=== PATIENT | male | born 1930 | race Hispanic/Latino ===

== ENCOUNTER 2018-11-15 16:35 | Emergency (ER) | payer OTHER ==
[2018-11-15 17:32] LABS: Absolute Lymphocytes (CBC) 0.4 K/uL (0.7-4.9); Absolute Monocytes 0.2 K/uL (0.1-1.3); Absolute Neutrophil 8.6 K/uL (1.8-8.0); Basophils % 0.4 % (0-1.3); Lymphocytes % 3.9 % (15.3-44.8); MPV 8.5 fL (7.6-11.3); Monocytes % 1.7 % (3.3-12.3); RBC Red Blood Cell Count 4.75 M/uL (4.33-5.43)
[2018-11-15 17:36] LABS: Protime INR 0.99
[2018-11-15 17:37] LABS: Urine Blood 2+ (NEG); Urine Glucose NEGATIVE (NEG); Urine Protein 2+ (NEG); Urine Specific Gravity 1.015 (1.005-1.030); Urine pH 6.5 (5.0-7.0)
--- NOTE | 2018-11-15 17:49 | RAD REPORT ---
EXAM DESCRIPTION: Romero Single View11/15/2018 5:43 pm CLINICAL HISTORY: sob COMPARISON: none FINDINGS: The lungs appear clear of acute infiltrate. The heart is normal size IMPRESSION: No acute abnormalities displayed
[2018-11-15 17:52] LABS: Albumin 3.9 g/dL (3.4-5.0); Bilirubin Direct 0.1 mg/dL (0-0.2); Bilirubin Total 0.6 mg/dL (0.2-1.0); Magnesium 2.4 mg/dL (1.8-2.4); Potassium 4.3 mmol/L (3.5-5.1); Protein, Total 7.5 g/dL (6.4-8.2); Troponin (Emerg Dept Use Only) 0.02 ng/mL (0.0-0.045)
[2018-11-15 18:06] LABS: Blood Morphology Comment NOT SEEN (NOT SEEN); Platelet Estimate ADEQ; Urine White Blood Cell Casts OK
[2018-11-15] MEDS ORDERED: NA CHLORIDE 0.9% 250 ML ONE (18:16)
[2018-11-15] MEDS ORDERED: NA CHLORIDE 0.9% 500 ML ONE (18:16)
[2018-11-15] MEDS ORDERED: MECLIZINE HCL 12.5 MG TAB ONE (18:16)
[2018-11-15] MEDS ORDERED: ONDANSETRON 4 MG/2 ML VIAL ONE (18:16)
--- NOTE | 2018-11-15 18:30 | RAD REPORT ---
EXAM DESCRIPTION: CT - Head Brain Wo Cont - 11/15/2018 6:06 pm CLINICAL HISTORY: Dizziness COMPARISON: None TECHNIQUE: Computed axial tomography of the head was obtained. IV contrast was not requested. All CT scans are performed using dose optimization technique as appropriate and may include automated exposure control or mA/KV adjustment according to patient size. FINDINGS: An intracranial bleed is not seen . The ventricles are normal in caliber. No extra-axial fluid collection is noted. 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 Fluid within the sinuses/ mastoids is not seen. IMPRESSION: No acute intracranial abnormality is seen. If patient's symptoms persist MRI of the bra in would be recommended.
[2018-11-15 18:53] LABS: Urine Bacteria >50 /HPF (NONE SEEN); Urine Culture Reflex Order REFLEXED
[2018-11-15] MEDS ORDERED: CEFTRIAXONE/SWI 1gm 1 GM/10 ML SYR ONE (19:23)
--- NOTE | 2018-11-15 20:07 | ER ---
Nurse's Notes [facility] Name: Oc King Age: 88 yrs Sex: Male : 1930 Arrival Date: 11/15/2018 Time: 16:40 Bed 6 Private MD: Bandar Delgado Diagnosis: Abnormalities of gait and mobility;Dizziness and giddiness;Urinary tract infection, site not specified Presentation: 11/15 16:42 Presenting complaint: Patient states: I cant go to sleep, when I lay down I get real la1 dizzy and when I move a certain kind of way I get very dizzy. Transition of care: patient was not received from another setting of care. Onset of symptoms was November 15, 2018. Risk Assessment: Do you want to hurt yourself or someone else? Patient reports no desire to harm self or others. Initial Sepsis Screen: Does the patient meet any 2 criteria? No. Patient's initial sepsis screen is negative. Does the patient have a suspected source of infection? No. Patient's initial sepsis screen is negative. Care prior to arrival: None. 16:42 Method Of Arrival: Ambulatory la1 16:42 Acuity: AUTUMN 3 la1 Triage Assessment: 16:47 General: Appears in no apparent distress. comfortable, Behavior is calm, cooperative, bp appropriate for age. Pain: Complains of pain in abdomen. Historical: - Allergies: 16:43 No Known Allergies; la1 - PMHx: 16:43 None; la1 - Immunization history:: Adult Immunizations up to date. - Social history:: Smoking status: Patient/guardian denies using tobacco. - Ebola Screening: : No symptoms or risks identified at this time. Screenin:11 Abuse screen: Denies threats or abuse. Denies injuries from another. Nutritional bp screening: No deficits noted. Tuberculosis screening: No symptoms or risk factors identified. Fall Risk None identified. Assessment: 16:45 General: Appears in no apparent distress. uncomfortable, slender, Behavior is bp cooperative, appropriate for age, anxious. Pain: Complains of pain in abdomen. Neuro: Level of Consciousness is awake, alert, obeys commands, Oriented to person, place, time, situation, Appropriate for age. Cardiovascular: No deficits noted. Respiratory: Airway is patent Respiratory effort is even, unlabored, Respiratory pattern is regular, symmetrical. GI: Reports constipation. : No signs and/or symptoms were reported regarding the genitourinary system. EENT: No deficits noted. Derm: No deficits noted. Musculoskeletal: Circulation, motion, and sensation intact. Range of motion: intact in all extremities. 17:28 Reassessment: ALL INITIAL ORDERS COMPLETED, RESULTS PENDING. bp 19:31 General: Appears in no apparent distress. uncomfortable, Behavior is cooperative, tl2 appropriate for age, anxious. Pain: Complains of pain in abdomen. Neuro: Level of Consciousness is awake, alert, obeys commands, Oriented to person, place, time, situation, Reports dizziness. Cardiovascular: Denies chest pain. Respiratory: Airway is patent Respiratory effort is even, unlabored, Respiratory pattern is regular, symmetrical. GI: Reports constipation. : No signs and/or symptoms were reported regarding the genitourinary system. Derm: Skin is pink, warm \T\ dry. 20:30 Reassessment: Patient appears in no apparent distress at this time. Patient and/or tl2 family updated on plan of care and expected duration. Pain level reassessed. Patient is alert, oriented x 3, equal unlabored respirations, skin warm/dry/pink. 21:20 Reassessment: Patient appears in no apparent distress at this time. Patient is alert, tl2 oriented x 3, equal unlabored respirations, skin warm/dry/pink. pt stable for transfer. Vital Signs: 16:43 BP 165 / 90; Pulse 101; Resp 16; Temp 98.9; Pulse Ox 98% on R/A; Weight 58.06 kg; la1 Height 5 ft. 2 in. (157.48 cm); 17:25 BP 169 / 77 Supine; Pulse 102; bp 17:25 BP 169 / 83 Sitting; Pulse 108; bp 17:25 BP 181 / 79 Standing; Pulse 108; Resp 23; Pulse Ox 97% on R/A; bp 18:39 BP 175 / 80; Pulse 80; Resp 21; Pulse Ox 96% ; bp 20:00 BP 175 / 80; Pulse 71; Resp 18; Pulse Ox 95% on R/A; tl2 16:43 Body Mass Index 23.41 (58.06 kg, 157.48 cm) la1 NIH Stroke Scale Scores: 17:30 NIHSS Score: 0 cp ED Course: 16:40 Patient arrived in ED. 16:40 Bandar Delgado DO is Private Physician. mr 16:42 Arm band placed on left wrist. la1 16:43 Triage completed. la1 16:44 [facility] cp 16:44 Alo Antony MD is Attending Physician. cp 16:45 Chris Garcia, HERIBERTO is Primary Nurse. bp 17:11 Patient has correct armband on for positive identification. Placed in gown. Bed in low bp position. Call light in reach. Side rails up X2. 17:27 Inserted saline lock: 20 gauge in left antecubital area, using aseptic technique. Blood ss collected. 17:34 EKG done, by ED staff, reviewed by Kush ELIZONDO. jb1 17:40 XRAY Chest (1 view) In Process Unspecified. EDMS 17:[address] vm2 18:06 CT completed. Patient tolerated procedure well. Patient moved back from CT. mw3 18:07 CT Head Brain wo Cont In Process Unspecified. EDMS 19:55 Primary Nurse role handed off by Chris Garcia, RN ed1 20:00 No provider procedures requiring assistance completed. tl2 21:20 Patient transferred, IV remains in place. tl2 Administered Medications: 17:50 Drug: Meclizine 25 mg Route: PO; bp 19:01 Follow up: Response: No adverse reaction bp 17:50 Drug: Zofran 4 mg Route: IVP; Site: left antecubital; bp 18:54 Follow up: Response: No adverse reaction bp 18:55 Follow up: Response: No adverse reaction bp 17:50 Drug: NS 0.9% 1000 ml Route: IV; Rate: 75 ml/hr; Site: left antecubital; bp 17:50 Drug: NS 0.9% 250 ml Route: IV; Rate: bolus; Site: left antecubital; bp 19:15 Drug: Rocephin - (cefTRIAXone) 1 grams {Note: Given IVP over 5 minutes.} Route: IVPB; tl1 Infused Over: 5 mins; Site: left antecubital; Outcome: 20:07 ER care complete, transfer ordered by . cp 21:20 Transferred by ground EMS to [facility], Transfer form completed. tl2 21:20 Condition: stable 21:20 Discharge instructions given to patient, family, Instructed on the need for transfer. 21:23 Patient left the ED. bp NIH Stroke Scale - NIH Stroke Score Date: 11/15/2018 Time: 17:30 Total Score = 0 1a. Level of Consciousness (LOC) - 0(Alert) 1b. Level of Consciousness (LOC) (Year \T\ Age) - 0(Both) 1c. LOC Commands (Open \T\ Closes Eyes/Outside Property Agent) - 0(Both) 2. Best Gaze (Lateral Gaze Paresis) - 0(Normal) 3. Visual Field Loss - 0(No visual loss) 4. Facial Palsy - 0(Normal) 5a. Left Arm: Motor (10-second hold) - 0(No drift) 5b. Right Arm: Motor (10-second hold) - 0(No drift) 6a. Left Leg: Motor (5-second hold - always test supine) - 0(No drift) 6b. Right Leg: Motor (5-second hold - always test supine) - 0(No drift) 7. Limb Ataxia (finger/nose \T\ heel/villavicencio - test with eyes open) - 0(Absent) 8. Sensory Loss (pinprick arms/legs/face) - 0(Normal) 9. Best Language: Aphasia (description/naming/reading) - 0(No aphasia) 10. Dysarthria (speech clarity - read or repeat words) - 0(Normal) 11. Extinction and Inattention (visual/tactile/auditory/spatial/personal) - 0(No abnormality) Initials: cp Signatures: Dispatcher [employer] EDMS River Argueta jb1 Susannah Gale mr Sri Akhtar RN RN ss Riggs, Erika, RN RN ed1 Red Everett RN RN la1 Lilo Luo RN RN tl1 Kush Stewart PA PA cp Sujatha Alba, RN RN tl2 Pari Nava2 Chris Garcia RN RN Carmela Washburn mw3 Corrections: (The following items were deleted from the chart) 21:40 19:31 General: Appears in no apparent distress. uncomfortable, Behavior is tl2 cooperative, appropriate for age, anxious, bp 21:40 19:31 Pain: Complains of pain in abdomen bp tl2 21:40 19:31 Neuro: Level of Consciousness is awake, alert, obeys commands, Oriented tl2 to person, place, time, situation, bp 21:40 19:31 Cardiovascular: Denies chest pain, bp tl2 21:40 19:31 Respiratory: Airway is patent Respiratory effort is even, unlabored, tl2 Respiratory pattern is regular, symmetrical, bp 21:40 19:31 GI: Reports constipation, bp tl2 21:40 19:31 : No signs and/or symptoms were reported regarding the genitourinary tl2 system. bp 21:40 19:31 Derm: Skin is pink, warm \T\ dry. bp tl2 21:42 19:30 BP 175 / 80; Pulse 97bpm; Resp 21bpm; Pulse Ox 100% RA; bp tl2 21:43 20:00 Patient transferred, IV remains in place. tl2 tl2
--- NOTE | 2018-11-15 20:08 | EDPHYS ---
Physician Documentation [facility] Name: Oc King Age: 88 yrs Sex: Male : 1930 Arrival Date: 11/15/2018 Time: 16:40 Bed 6 Private MD: Bandar Delgado ED Physician Alo Antony HPI: 11/15 17:30 This 88 yrs old Male presents to ER via Ambulatory with complaints of cp dizziness, nausea and vomiting. 17:30 The patient presents with dizziness, generalized weakness, lightheadedness. Onset: The cp symptoms/episode began/occurred 1-2 days ago. Context: just prior to the episode the patient experienced no apparent symptoms. Associated signs and symptoms: Pertinent positives: nausea, vomiting, Pertinent negatives: abdominal pain, chest pain, confusion, focal weakness, syncope. Severity of symptoms: in the emergency department the symptoms are unchanged despite home interventions. Patient's baseline: Neuro: alert and fully oriented, Motor: no deficits, Ambulation: walks without assistance, Speech: normal. Historical: - Allergies: 16:43 No Known Allergies; la1 - PMHx: 16:43 None; la1 - Immunization history:: Adult Immunizations up to date. - Social history:: Smoking status: Patient/guardian denies using tobacco. - Ebola Screening: : No symptoms or risks identified at this time. ROS: 17:35 Constitutional: Negative for body aches, chills, fever, poor PO intake. cp 17:35 Eyes: Negative for injury, pain, redness, and discharge. cp 17:35 ENT: Negative for drainage from ear(s), ear pain, difficulty swallowing, difficulty handling secretions. 17:35 Cardiovascular: Negative for chest pain, edema, palpitations. 17:35 Respiratory: Negative for cough, shortness of breath, wheezing. 17:35 Abdomen/GI: Positive for nausea, vomiting, Negative for abdominal pain, diarrhea, constipation, black/tarry stool, rectal bleeding. 17:35 Back: Negative for pain at rest, pain with movement, radiated pain. 17:35 : Negative for urinary symptoms. 17:35 Skin: Negative for cellulitis, rash. 17:35 Neuro: Positive for dizziness, gait disturbance, Negative for altered mental status, syncope, weakness. 17:35 All other systems are negative. Exam: 17:30 ECG was reviewed by the Attending Physician. cp 17:40 Constitutional: The patient appears in no acute distress, alert, awake, cp non-diaphoretic, non-toxic, well developed, well nourished. 17:40 Head/Face: Normocephalic, atraumatic. cp 17:40 Eyes: Periorbital structures: appear normal, Pupils: equal, round, and reactive to light and accomodation, Extraocular movements: intact throughout, Conjunctiva: normal, no exudate, no injection, Sclera: no appreciated abnormality, Lids and lashes: appear normal, bilaterally. 17:40 ENT: External ear(s): are unremarkable, Ear canal(s): are normal, clear, TM's: bulging, is not appreciated, bilaterally, dullness, bilaterally, erythema, is not appreciated, bilaterally, Nose: is normal, Mouth: Lips: moist, Oral mucosa: pink and intact, moist, Posterior pharynx: Airway: no evidence of obstruction, patent. 17:40 Neck: ROM/movement: is normal, is supple, without pain, no range of motions limitations, no meningismus, no nuchal rigidity. 17:40 Chest/axilla: Inspection: normal, Palpation: is normal, no crepitus, no tenderness. 17:40 Cardiovascular: Rate: tachycardic, Rhythm: regular, Edema: is not appreciated, JVD: is not appreciated. 17:40 Respiratory: the patient does not display signs of respiratory distress, Respirations: normal, no use of accessory muscles, no retractions, no splinting, no tachypnea, labored breathing, is not present, Breath sounds: are clear throughout, no decreased breath sounds, no stridor, no wheezing. 17:40 Abdomen/GI: Inspection: abdomen appears normal, Bowel sounds: active, all quadrants, Palpation: abdomen is soft and non-tender, in all quadrants, rebound tenderness, is not appreciated, voluntary guarding, is not appreciated, involuntary guarding, is not appreciated. 17:40 Back: pain, is absent, ROM is normal. 17:40 Skin: cellulitis, is not appreciated, no rash present. 17:40 Neuro: Orientation: to person, place \T\ time. Mentation: is normal, Cerebellar function: Romberg testing is negative, normal finger to nose testing, heel to villavicencio testing is normal, Motor: moves all fours, strength is normal, Sensation: is normal, Gait: is unsteady. Vital Signs: 16:43 BP 165 / 90; Pulse 101; Resp 16; Temp 98.9; Pulse Ox 98% on R/A; Weight 58.06 kg; la1 Height 5 ft. 2 in. (157.48 cm); 17:25 BP 169 / 77 Supine; Pulse 102; bp 17:25 BP 169 / 83 Sitting; Pulse 108; bp 17:25 BP 181 / 79 Standing; Pulse 108; Resp 23; Pulse Ox 97% on R/A; bp 18:39 BP 175 / 80; Pulse 80; Resp 21; Pulse Ox 96% ; bp 20:00 BP 175 / 80; Pulse 71; Resp 18; Pulse Ox 95% on R/A; tl2 16:43 Body Mass Index 23.41 (58.06 kg, 157.48 cm) la1 NIH Stroke Scale Scores: 17:30 NIHSS Score: 0 cp MDM: 16:44 Patient medically screened. cp 19:10 Data reviewed: vital signs, nurses notes, lab test result(s), EKG, radiologic studies, cp CT scan. 19:10 Test interpretation: by ED physician or midlevel provider: ECG. Response to treatment: cp the patient's symptoms have mildly improved after treatment, Patient continues to have unsteady gait when ambulating. 20:05 Physician consultation: DR Schmitt, hospitalist \T\[facility], will cp accept patient as transfer. 11/15 17:15 Order name: CBC with Diff; Complete Time: 18:32 bp 11/15 18:43 Interpretation: Normal except: TUAN% 94.0; LYM% 3.9; MN% 1.7; NEUT A 8.6; LYMA 0.4. cp 11/15 17:15 Order name: LFT's; Complete Time: 18:32 bp 11/15 17:15 Order name: Magnesium; Complete Time: 18:32 bp 11/15 17:15 Order name: NT PRO-BNP; Complete Time: 18:32 bp 11/15 17:15 Order name: PT-INR; Complete Time: 17:43 bp 11/15 17:15 Order name: Troponin (emerg Dept Use Only); Complete Time: 18:32 bp 11/15 17:15 Order name: XRAY Chest (1 view); Complete Time: 18:32 bp 11/15 18:43 Interpretation: Report review. cp 11/15 17:15 Order name: CMP; Complete Time: 18:32 bp 11/15 18:42 Interpretation: Normal except: GLUC 133; BUN 34; CRE 1.44; GFR 47; AST 13; GLOB 3.6. cp 11/15 17:15 Order name: Lipase; Complete Time: 18:32 bp 11/15 17:24 Order name: Urine Dipstick--Ancillary (enter results); Complete Time: 17:43 eb 11/15 18:58 Interpretation: Normal except: UBLD 2+; UPROT 2+; UESTR 3+. cp 11/15 17:37 Order name: CBC Smear Scan; Complete Time: 18:32 EDMS 11/15 17:43 Order name: CT Head Brain wo Cont; Complete Time: 18:32 cp 11/15 18:43 Interpretation: Report reviewed. cp 11/15 17:43 Order name: Urine Microscopic Only; Complete Time: 18:56 cp 11/15 18:56 Interpretation: Normal except: UWBC >50; URBC 5-10; UBACT >50. cp 11/15 18:55 Order name: Urine Culture EDMS 11/15 17:11 Order name: Orthostatics; Complete Time: 17:15 cp 11/15 17:15 Order name: EKG; Complete Time: 17:16 bp 11/15 17:15 Order name: Cardiac monitoring; Complete Time: 17:15 bp 11/15 17:15 Order name: EKG - Nurse/Tech; Complete Time: 17:25 bp 11/15 17:15 Order name: IV Saline Lock; Complete Time: 17:16 bp 11/15 17:15 Order name: Labs collected and sent; Complete Time: 17:19 bp 11/15 17:15 Order name: O2 Per Protocol; Complete Time: 17:16 bp 11/15 17:15 Order name: O2 Sat Monitoring; Complete Time: 17:16 bp 11/15 17:19 Order name: Urine Dipstick-Ancillary (obtain specimen); Complete Time: 17:19 bp EC:30 Rate is 78 beats/min. Rhythm is regular. OR interval is normal. QRS interval is normal. cp QT interval is normal. T waves are Inverted in lead aVR. Interpreted by me. Reviewed by me. Administered Medications: 17:50 Drug: Meclizine 25 mg Route: PO; bp 19:01 Follow up: Response: No adverse reaction bp 17:50 Drug: Zofran 4 mg Route: IVP; Site: left antecubital; bp 18:54 Follow up: Response: No adverse reaction bp 18:55 Follow up: Response: No adverse reaction bp 17:50 Drug: NS 0.9% 1000 ml Route: IV; Rate: 75 ml/hr; Site: left antecubital; bp 17:50 Drug: NS 0.9% 250 ml Route: IV; Rate: bolus; Site: left antecubital; bp 19:15 Drug: Rocephin - (cefTRIAXone) 1 grams {Note: Given IVP over 5 minutes.} Route: IVPB; tl1 Infused Over: 5 mins; Site: left antecubital; Disposition: 11/15/18 20:07 Transfer ordered to [facility]. Diagnosis are Abnormalities of gait and mobility, Dizziness and giddiness, Urinary tract infection, site not specified. - Reason for transfer: Higher level of care. - Accepting physician is DR Yajaira Schmitt. - Condition is Stable. - Problem is new. - Symptoms are unchanged. NIH Stroke Scale - NIH Stroke Score Date: 11/15/2018 Time: 17:30 Total Score = 0 1a. Level of Consciousness (LOC) - 0(Alert) 1b. Level of Consciousness (LOC) (Year \T\ Age) - 0(Both) 1c. LOC Commands (Open \T\ Closes Eyes/Binding Nicker) - 0(Both) 2. Best Gaze (Lateral Gaze Paresis) - 0(Normal) 3. Visual Field Loss - 0(No visual loss) 4. Facial Palsy - 0(Normal) 5a. Left Arm: Motor (10-second hold) - 0(No drift) 5b. Right Arm: Motor (10-second hold) - 0(No drift) 6a. Left Leg: Motor (5-second hold - always test supine) - 0(No drift) 6b. Right Leg: Motor (5-second hold - always test supine) - 0(No drift) 7. Limb Ataxia (finger/nose \T\ heel/villavicencio - test with eyes open) - 0(Absent) 8. Sensory Loss (pinprick arms/legs/face) - 0(Normal) 9. Best Language: Aphasia (description/naming/reading) - 0(No aphasia) 10. Dysarthria (speech clarity - read or repeat words) - 0(Normal) 11. Extinction and Inattention (visual/tactile/auditory/spatial/personal) - 0(No abnormality) Initials: cp Addendum: 11/17/2018 08:10 Co-signature as Attending Physician, Alo Antony MD Available for ps1 consultation at all times. . Signatures: Dispatcher [employer] EDTX Red Everett RN RN la1 Lilo Luo RN RN tl1 Kush Stewart PA PA cp Chris Garcia, RN RN bp Alo Antony MD MD ps1 Corrections: (The following items were deleted from the chart) 11/15 17:57 17:45 This 88 yrs old Male presents to ER via Ambulatory with cp complaints of Constipation, Abdominal Pain, Nausea. cp 18:42 18:37 Normal except: GLUC 133; BUN 34; CRE 1.44; GFR 47; AST 13. cp cp 18:43 18:42 Normal except: TUAN% 94.0; LYM% 3.9; MN% 1.7; NEUT A 8.6. cp cp 19:25 19:00 Head Angio+CT.RAD.BRZ ordered. EDTX EDMS 19:25 19:00 Neck Angio+CT.RAD.BRZ ordered. EDTX EDMS 20:01 17:30 This 88 yrs old Male presents to ER via Ambulatory with cp complaints of Constipation, Abdominal Pain, Nausea. cp 21:23 20:07 11/15/2018 20:07 Transfer ordered to [facility]. bp Diagnosis is Abnormalities of gait and mobility; Dizziness and giddiness; Urinary tract infection, site not specified. Reason for transfer: Higher level of care. Accepting physician is DR Yajaira Schmitt. Condition is Stable. Problem is new. Symptoms are unchanged. cp
--- NOTE | 2018-11-17 05:55 | EKG ---
Test Date: 2018-11-15 Test Time: 17:25:12 Process Steward: SATURNINO MEASUREMENT RESULTS: Intervals: Rate: 78 VA: 154 QRSD: 96 QT: 390 QTc: 444 [place]: P: 68 VA: 154 QRS: -22 T: 65 INTERPRETIVE STATEMENTS: Normal sinus rhythm ST abnormality, possible digitalis effect Abnormal ECG No previous ECG available for comparison Electronically Signed On 11-17-18 05:54:39 CDT by Mumtaz Delgado
== END 2018-11-15 21:23 | disposition short-term general hospital (02) ==
LOC: ER 16:35
DX: N39.0 Urinary tract infection, site not specified (principal); R26.89 Other abnormalities of gait and mobility; R42 Dizziness and giddiness; R94.31 Abnormal electrocardiogram [ECG] [EKG]
CPT/HCPCS: 93005; 87088; 85025; 87086; 36415; 83735; 85610; 80076; 84484; 83690; 80053; 83880; 70450; 71045; 96375; 96374; 99285; J0696; J2405; 81003; 81015

== ENCOUNTER 2018-12-13 07:56 | Emergency (ER) | payer OTHER ==
--- OUTSIDE RECORDS SUMMARY | 2018-12-13 07:59 | XMS REPORT | Clinical Summary ---
:1930 Author Organization [facility] Address [address] [place] [address] Care Team Providers Name Role Phone Bandar Delgado Primary Care Provider Allergies No Known Allergies Medications Medication Sig Dispensed Refills Start End Status Date Date atorvastatin (LIPITOR) 80 Take 1 tablet 30 tablet 2 11/22/192 Active MG tablet (80 mg total) 19 020 by mouth nightly. senna-docusate (SENOKOT Take 1 tablet 60 tablet 0 11/22/19 Active S) 8.6-50 mg per tablet by mouth 2 020 (two) times daily. bisacodyl (DULCOLAX) 5 mg Take 2 tablets 30 tablet 0 11/22/192 Active EC tablet (10 mg total) 19 019 by mouth daily as needed for Constipation for up to 30 days. aspirin 81 MG EC tablet Take 1 tablet 30 tablet 2 11/23/192 Active (81 mg total) 19 020 by mouth daily. losartan (COZAAR) 50 MG Take 1 tablet 30 tablet 2 11/23/192 Active tablet (50 mg total) 19 020 by mouth daily. amLODIPine (NORVASC) 5 MG Take 1 tablet 30 tablet 2 11/23/192 Active tablet (5 mg total) by 19 020 mouth daily. carboxymethylcellulose Place 1 drop 1 Bottle 0 11/22/19 Active (REFRESH PLUS) 0.5 % Dpet into both eyes 19 ophthalmic solution 3 (three) times daily as needed. bisacodyl (DULCOLAX) 10 Place 1 12 suppository 0 11/22/19//2 mg suppository suppository (10 019 mg total) rectally daily as needed for up to 10 days. polyethylene glycol Take 17 g by 14 each 0 11/23/19 (GLYCOLAX) 17 gram packet mouth daily for 019 3 days. levoFLOXacin (LEVAQUIN) Take 1 tablet 5 tablet 0 11/22/19 250 MG tablet (250 mg total) 019 by mouth daily for 5 days. 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 Never 11/16/2018 How many drinks containing alcohol do you have on a typical Not asked day when you are drinking? How often do you have six or more drinks on one occasion? Not asked Sex Assigned at Date Recorded Not on file Job Start Date Occupation Industry Not on file Not on file Not on file Travel History Travel Start Travel End No recent travel history available. Last Filed Vital Signs Vital Sign Reading Time Taken Blood Pressure 159/69 11/21/2018 1:40 PM CDT Pulse 61 11/21/2018 1:40 PM CDT Temperature 36.8 C (98.2 F) 11/21/2018 1:40 PM CDT Respiratory Rate 18 11/21/2018 1:40 PM CDT Oxygen Saturation 96% 11/21/2018 1:40 PM CDT Inhaled Oxygen Concentration - - Weight 53.5 kg (118 lb) 11/15/2018 11:00 PM CDT Height 157.5 cm (5' 2") 11/15/2018 11:00 PM CDT Body Mass Index 21.58 11/15/2018 11:00 PM CDT Plan of Treatment Not on file Procedures Procedure Name Priority Date/Time Associated Diagnosis Comments RHYTHM STRIP - SCAN 11/25/2018 9:11 AM CDT TRANSFUSION SERVICE 11/21/2018 6:01 PM REPORT - SCAN CDT ECG 12-LEAD Routine 11/21/2018 9:45 AM CDT Procedure Note - Interface, External Ris In - 11/21/2018 9:56 AM CDT Ventricular Rate 65 BPM Atrial Rate 65 BPM P-R Interval 152 ms QRS Duration 86 ms Q-T Interval 398 ms QTC Calculation(Bazett) 413 ms P [place] 65 degrees R [place] -22 degrees T [place] 84 degrees Normal sinus rhythm Nonspecific T wave abnormality Abnormal ECG No previous ECGs available ECG 12-LEAD Timed 11/21/2018 9:45 AM CDT TYPE AND SCREEN, AUTOMATED Routine 11/20/2018 3:49 AM CDT BASIC METABOLIC PANEL (7) Routine 11/18/2018 9:[address] ABDOMEN/PELVIS WITHOUT IV Routine 11/18/2018 3:53 AM CDT Results for this CONTRAST procedure are in the results section. ECHOCARDIOGRAM REPORT - SCAN 11/17/2018 9:22 PM CDT 2D ECHO W/ DOPPLER Routine 11/17/2018 11:36 AM CDT Results for this (CW/PW/COLOR) procedure are in the results section. URINALYSIS W/ REFLEX URINE Routine 11/17/2018 4:28 AM CDT Results for this CULTURE procedure are in the results section. SODIUM, RANDOM URINE Routine 11/17/2018 4:28 AM CDT CREATININE, RANDOM URINE Routine 11/17/2018 4:28 AM CDT URINE CULTURE Routine 11/17/2018 4:28 AM CDT CBC W/PLT COUNT & AUTO Routine 11/17/2018 4:23 AM CDT Results for this DIFFERENTIAL procedure are in the results section. COMPREHENSIVE METABOLIC Routine 11/17/2018 4:23 AM CDT Results for this PANEL procedure are in the results section. CBC W/PLT COUNT & AUTO Routine 11/17/2018 4:23 AM CDT Results for this DIFFERENTIAL procedure are in the results section. LIPID PANEL Routine 11/17/2018 4:23 AM CDT CAROTID DOPPLER BILATERAL Routine 11/16/2018 10:58 PM CDT US RENAL COMPLETE Routine 11/16/2018 9:09 PM CDT TSH/FREE T4 IF INDICATED STAT 11/16/2018 10:37 AM CDT TROPONIN I Routine 11/16/2018 10:37 AM CDT URINALYSIS MICROSCOPIC Routine 11/16/2018 5:16 AM CDT RAPID DRUG SCREEN, URINE STAT 11/16/2018 5:16 AM CDT URINALYSIS WITH MICROSCOPIC STAT 11/16/2018 5:16 AM CDT Results for this IF INDICATED procedure are in the results section. CBC W/PLT COUNT & AUTO Routine 11/16/2018 1:53 AM CDT Results for this DIFFERENTIAL procedure are in the results section. TROPONIN I Routine 11/16/2018 1:53 AM CDT CBC W/PLT COUNT & AUTO Routine 11/16/2018 1:53 AM CDT Results for this DIFFERENTIAL procedure are in the results section. BASIC METABOLIC PANEL (7) Routine 11/16/2018 1:53 AM CDT MR BRAIN WITHOUT IV CONTRAST STAT 11/16/2018 1:09 AM CDT MR MRA NECK WITHOUT IV STAT 11/16/2018 1:09 AM CDT Results for this CONTRAST procedure are in the results section. MR MRA HEAD WITHOUT CONTRAST STAT 11/16/2018 1:09 AM CDT after 12/12/2017 Results RHYTHM STRIP - SCAN (11/25/2018 9:11 AM CDT) Narrative Performed At TRANSFUSION SERVICE REPORT - SCAN (11/21/2018 6:01 PM CDT) Narrative Performed At ECG 12 lead (11/21/2018 9:45 AM CDT) Specimen Narrative Performed At Ventricular Rate 65 BPM GE MUSE Atrial Rate 65 BPM P-R Interval 152 ms QRS Duration 86 ms Q-T Interval 398 ms QTC Calculation(Bazett) 413 ms P [place] 65 degrees R [place] -22 degrees T [place] 84 degrees Normal sinus rhythm Nonspecific T wave abnormality Abnormal ECG No previous ECGs available Confirmed by MD Garcia Roberto ([id number]) on 11/22/2018 9:28:42 AM Procedure Note Interface, External Ris In - 11/22/2018 9:28 AM CDT Ventricular Rate 65 BPM Atrial Rate 65 BPM P-R Interval 152 ms QRS Duration 86 ms Q-T Interval 398 ms QTC Calculation(Bazett) 413 ms P [place] 65 degrees R [place] -22 degrees T [place] 84 degrees Normal sinus rhythm Nonspecific T wave abnormality Abnormal ECG No previous ECGs available Confirmed by MD Garcia Roberto ([id number]) on 11/22/2018 9:28:42 AM Performing Organization Address City/State/Zipcode Phone Number GE MUSE Type and screen, automated ([facility]) (11/20/2018 3:49 AM CDT) ABO/RH AUTOMATED (BEAKER) O POSITIVE [facility] Ab Scrn NEGATIVE [facility] Specimen Blood Performing Organization Address City/[facility]/Zipcode Phone Number [facility] [address] [place] [address] Basic Metabolic Panel (11/18/2018 9:54 AM CDT)Only the most recent of2 resultswithin the time period is included. Sodium 139 136 - 145 meq/L [facility] Potassium 3.9Comment: Specimen slightly 3.5 - 5.1 meq/L [facility] Chloride 108 (H) 98 - 107 meq/L [facility] CO2 22 22 - 29 meq/L [facility] BUN 35 (H) 7 - 21 mg/dL [facility] Creatinine 1.40 (H)Comment: Specimen 0.57 - 1.25 mg/dL [facility] slightly hemolyzed [facility] Glucose 130 (H) 70 - 105 mg/dL [facility] Calcium 9.1 8.4 - 10.2 mg/dL [facility] EGFR 48Comment: ESTIMATED GFR IS mL/min/1.73 sq m [facility] NOT ACCURATE CREATININE [facility] CENTER CLEARANCE IN PREDICTING GLOMERULAR FILTRATION RATE. ESTIMATED GFR IS NOT APPLICABLE FOR DIALYSIS PATIENTS. Specimen Blood Performing Organization Address City/State/Zipcode Phone Number [facility] [address] [place] [address] abdomen/pelvis without iv contrast (11/18/2018 3:53 AM CDT) Specimen Narrative Performed At FINAL REPORT [employer] CLINICAL HISTORY: Abnormal findings on recent renal ultrasound performed for renal dysfunction, including hydronephrosis. FINDINGS: Multiple axial images of the abdomen and pelvis were performed without intravenous contrast. Oral contrast was not given. This exam was performed according to our departmental dose-optimization program, which includes automated exposure control, adjustment of the mA and/or kV according to patient size and/or use of the iterative reconstruction technique. Comparison:None. Lower chest: Dependent atelectasis in the right lung. No pleural effusion or pneumothorax. Atherosclerotic calcification of the coronary arteries. Liver: No significant findings. Gallbladder and biliary tree: No significant findings. Spleen: No significant findings. Adrenal Glands: No significant findings. Kidneys and ureters: Atrophic kidneys. A right ureteral stent has its proximal coil in the prominent right renal pelvis. The distal coil is within the distal right ureter rather than within the urinary bladder. There is mild prominence of the right ureter with adjacent fat stranding. 3.6 cm right renal cyst. Stomach and Duodenum: No significant findings. Pancreas: No significant findings. Bowel: Moderate fecal burden may reflect mild constipation. Left colonic diverticulosis. Appendix: Normal. Bladder: No significant findings. Major vascular structures: Atherosclerotic calcifications Reproductive organs: Previous prostatectomy Other: No free air, fluid or adenopathy Skeleton: No acute bony abnormality. IMPRESSION: The proximal coil of a right ureteral stent is in a dilated right renal pelvis but the distal coil is in the distal ureter rather than within the bladder lumen, as expected. Urologic evaluation is recommended. Subtle periureteral fat stranding may relate to a chronic appearance or obstructive uropathy but a urinary tract infection should be excluded with urinalysis. Mild constipation. Signed: Tad Chang MD Report Verified Date/Time:11/18/2018 04:16:41 Reading Location: [address] Reading Room Procedure Note Interface, External Ris In - 11/18/2018 4:18 AM CDT FINAL REPORT CLINICAL HISTORY: Abnormal findings on recent renal ultrasound performed for renal dysfunction, including hydronephrosis. FINDINGS: Multiple axial images of the abdomen and pelvis were performed without intravenous contrast. Oral contrast was not given. This exam was performed according to our departmental dose-optimization program, which includes automated exposure control, adjustment of the mA and/or kV according to patient size and/or use of the iterative reconstruction technique. Comparison:None. Lower chest: Dependent atelectasis in the right lung. No pleural effusion or pneumothorax. Atherosclerotic calcification of the coronary arteries. Liver: No significant findings. Gallbladder and biliary tree: No significant findings. Spleen: No significant findings. Adrenal Glands: No significant findings. Kidneys and ureters: Atrophic kidneys. A right ureteral stent has its proximal coil in the prominent right renal pelvis. The distal coil is within the distal right ureter rather than within the urinary bladder. There is mild prominence of the right ureter with adjacent fat stranding. 3.6 cm right renal cyst. Stomach and Duodenum: No significant findings. Pancreas: No significant findings. Bowel: Moderate fecal burden may reflect mild constipation. Left colonic diverticulosis. Appendix: Normal. Bladder: No significant findings. Major vascular structures: Atherosclerotic calcifications Reproductive organs: Previous prostatectomy Other: No free air, fluid or adenopathy Skeleton: No acute bony abnormality. IMPRESSION: The proximal coil of a right ureteral stent is in a dilated right renal pelvis but the distal coil is in the distal ureter rather than within the bladder lumen, as expected. Urologic evaluation is recommended. Subtle periureteral fat stranding may relate to a chronic appearance or obstructive uropathy but a urinary tract infection should be excluded with urinalysis. Mild constipation. Signed: Tad Chang MD Report Verified Date/Time: 11/18/2018 04:16:41 Reading Location: [address] Reading Room Performing Organization Address City/State/Zipcode Phone Number [employer] RIS ECHOCARDIOGRAM REPORT - SCAN (11/17/2018 9:22 PM CDT) Narrative Performed At Transthoracic 2D echo w/ doppler (cw/pw/color) (11/17/2018 11:36 AM CDT) Ejection Fraction [facility] Specimen Narrative Performed At Transthoracic Echocardiography Report (TTE) [facility] Demographics Patient NameOC KING Date of Study11/17/2018 SINTIA Gender Male Visit [id number] Race Unknown [id number] Number Date of 1930 Referring Physician Age 88 year(s) SonographerChris Briceño RDCS Interpreting [facility] Needs to be Pre PhysicianDee Amado MD Procedure Type of Study TTE procedure:2DECHO W DOPPLER(CW/PW/COLOR) (Pending Discharge) Indications:Unexplained Pre-syncope/Syncope. Clinical History Cancer Hypertension HGB 13.1 HCT 39.2 % Contrast Medium: Definity. Amount - 2 ml Height: 62 inches Weight: 53.52 kg (118 lbs) BSA: 1.53 m^2 BMI: 21.58 kg/m^2 HR: 68 bpm BP: 141/65 mmHg Summary The left ventricle is chamber size (by PSLAX dimension) is normal (male - LVIDd 4.2-5.8cm) . Mild concentric LV hypertrophy. All of the LV segments contract normally . Estimated LVEF by qualitative assessment is normal (>60%) . Grade 1 diastolic dysfunction (impaired relaxation and low-normal LA pressure). Moderate aortic stenosis. AoV area at rest by continuity equation is in the range of 1.2 cm2. AoV resting dimensionless obstructive index (DOI) 0 .27. AoV resting Mean Gradient=26mmHg. Estimated peak systolic PA pressure is 20-25 mmHg . Signature Findings Left Ventricle The left ventricle is chamber size (by PSLAX di mension) is normal (male - LVIDd 4.2-5.8cm) . Mi ld concentric LV hypertrophy. All of the LV se gments contract normally . Estimated LVEF by qu alitative assessment is normal (>60%) . Gr jorge 1 diastolic dysfunction (impaired relaxation an d low-normal LA pressure). Left AtriumLA size is moderately enlarged (42-48 ml/m2) . Right VentricleThe right ventricular chamber size and systolic fu nction are within normal limits. Right Atrium RA size is normal. Aortic Valve Mild AoV cusp thickening. Mi ld AoV cusp calcification. Mo derate aortic stenosis. Ao V area at rest by continuity equation is in the ra nge of 1.2 cm2. Ao V resting dimensionless obstructive index (DOI) 0 .2 7. Ao V resting Mean Gradient=26mmHg. Mitral Valve Mild MV leaflet thickening. Mi ld mitral annular calcification. Tricuspid ValveTV structure is normal. Es timated peak systolic PA pressure is 20-25 mmHg . Pulmonic Valve PV is not well visualized; function appears normal by Doppler visualized. AortaAortic root size (SInus of Valsalva diameter) is no rmal . PericardiumNo pericardial effusion is visualized. IVC/SVC/PA/PV/PleuralThe estimated RA pressure by IVC dynamics 0-5mmHg . Chambers/Structures Left Atrium LA Dimension: 4.14 cmLA Area: 21.64 cm^2 LA Volume: 67.28 ml LA Vol. Index: 44 ml/m^2 Left Ventricle LVIDd: 4.4 cm LVIDs: 2.94 cm LV Septum Diastolic: 1.2 cm LV PW Diastolic: 1.25 cm LV FS: 33.2 % LVOT Diameter: 2.26 cm Aorta Ao Root S of Blanca.: 2.99 cm Doppler/Quantitative Measurements Aortic Valve Peak Velocity: 3.37 m/sMean Velocity: 2.42 m/s Peak Gradient: 45.4 mmHg Mean Gradient: 26.21 mmHg AV Area (continuity): 1.16 cm^2 AV VTI: 69.34 cm AV DVI: 0.29 LVOT Peak Velocity: 0.76 m/s Peak Gradient: 2.31 mmHg Mean Velocity: 0.54 m/s Mean Gradient: 1.35 mmHg LVOT Diameter: 2.26 cmLVOT VTI: 20.08 cm LVOT Area: 4.01 cm^2LVOT SV:80.51 ml LVOT CO: 5.47 l/min LVOT CI: 3.58 l/min/m^2 Procedure Note Interface, External Ris In - 11/17/2018 2:05 PM CDT Transthoracic Echocardiography Report (TTE) Demographics Patient Name OC KING Date of Study 11/17/2018 SINTIA Gender Male Visit Number [id number] Race Unknown Room Number 2455 Number Date of 1930 Referring Physician Age 88 year(s) Soccer Commentator Chris Briceño RDCS Interpreting [facility] Needs to be Pre Physician Read Tashi Amado MD Procedure Type of Study TTE procedure:2DECHO W DOPPLER(CW/PW/COLOR) (Pending Discharge) Indications:Unexplained Pre-syncope/Syncope. Clinical History Cancer Hypertension HGB 13.1 HCT 39.2 % Contrast Medium: Definity. Amount - 2 ml Height: 62 inches Weight: 53.52 kg (118 lbs) BSA: 1.53 m^2 BMI: 21.58 kg/m^2 HR: 68 bpm BP: 141/65 mmHg Summary The left ventricle is chamber size (by PSLAX dimension) is normal (male - LVIDd 4.2-5.8cm) . Mild concentric LV hypertrophy. All of the LV segments contract normally . Estimated LVEF by qualitative assessment is normal (>60%) . Grade 1 diastolic dysfunction (impaired relaxation and low-normal LA pressure). Moderate aortic stenosis. AoV area at rest by continuity equation is in the range of 1.2 cm2. AoV resting dimensionless obstructive index (DOI) 0 .27. AoV resting Mean Gradient=26mmHg. Estimated peak systolic PA pressure is 20-25 mmHg . Signature Findings Left Ventricle The left ventricle is chamber size (by PSLAX dimension) is normal (male - LVIDd 4.2-5.8cm) . Mild concentric LV hypertrophy. All of the LV segments contract normally . Estimated LVEF by qualitative assessment is normal (>60%) . Grade 1 diastolic dysfunction (impaired relaxation and low-normal LA pressure). Left Atrium LA size is moderately enlarged (42-48 ml/m2) . Right Ventricle The right ventricular chamber size and systolic function are within normal limits. Right Atrium RA size is normal. Aortic Valve Mild AoV cusp thickening. Mild AoV cusp calcification. Moderate aortic stenosis. AoV area at rest by continuity equation is in the range of 1.2 cm2. AoV resting dimensionless obstructive index (DOI) 0 .27. AoV resting Mean Gradient=26mmHg. Mitral Valve Mild MV leaflet thickening. Mild mitral annular calcification. Tricuspid Valve TV structure is normal. Estimated peak systolic PA pressure is 20-25 mmHg . Pulmonic Valve PV is not well visualized; function appears normal by Doppler visualized. Aorta Aortic root size (SInus of Valsalva diameter) is normal . Pericardium No pericardial effusion is visualized. IVC/SVC/PA/PV/Pleural The estimated RA pressure by IVC dynamics 0-5mmHg . Chambers/Structures Left Atrium LA Dimension: 4.14 cm LA Area: 21.64 cm^2 LA Volume: 67.28 ml LA Vol. Index: 44 ml/m^2 Left Ventricle LVIDd: 4.4 cm LVIDs: 2.94 cm LV Septum Diastolic: 1.2 cm LV PW Diastolic: 1.25 cm LV FS: 33.2 % LVOT Diameter: 2.26 cm Aorta Ao Root S of Blanca.: 2.99 cm Doppler/Quantitative Measurements Aortic Valve Peak Velocity: 3.37 m/s Mean Velocity: 2.42 m/s Peak Gradient: 45.4 mmHg Mean Gradient: 26.21 mmHg AV Area (continuity): 1.16 cm^2 AV VTI: 69.34 cm AV DVI: 0.29 LVOT Peak Velocity: 0.76 m/s Peak Gradient: 2.31 mmHg Mean Velocity: 0.54 m/s Mean Gradient: 1.35 mmHg LVOT Diameter: 2.26 cm LVOT VTI: 20.08 cm LVOT Area: 4.01 cm^2 LVOT SV:80.51 ml LVOT CO: 5.47 l/min LVOT CI: 3.58 l/min/m^2 Performing Organization Address City/State/Zipcode Phone Number [facility] Urinalysis w/Microscopic + Reflex to Culture (11/17/2018 4:28 AM CDT) Color, UA Light Yellow [facility] Clarity, UA Clear [facility] Specific [place]once, UA 1.009 1.001 - 1.035 [facility] pH, UA 6.0 5.0 - 8.0 [facility] Protein, UA 20 mg/dL (A) Negative [facility] Glucose, UA Negative Negative [facility] Ketones, UA Negative Negative [facility] Bilirubin, UA Negative Negative [facility] Blood, UA Trace (A) Negative [facility] Nitrite, UA Negative Negative [facility] Leukocytes, UA Large (A) Negative [facility] Urobilinogen, UA 0.2 0.2 - 1.0 mg/dL [facility] RBC, UA 3 /HPF [facility] WBC, UA 67 /HPF [facility] Bacteria, UA Rare [facility] Specimen Source [facility] Specimen Urine Performing Organization Address City/State/Zipcode Phone Number [address] [address] [phone] [place] Sodium, random urine (11/17/2018 4:28 AM CDT) Sodium Urine 56 meq/L [facility] Specimen Urine Narrative Performed At Reference Range: No Normals [facility] Performing Organization Address City/[facility]/Zipcode Phone Number [address] [address] [phone] [place] Creatinine, random urine (11/17/2018 4:28 AM CDT) Creatinine, Ur 53.5 mg/dL [facility] Specimen Urine Narrative Performed At Reference Range: No Normals [facility] Performing Organization Address City/[facility] Phone Number [address] [address] [place] Urine culture (11/17/2018 4:28 AM CDT) Result PSEUDOMONAS AERUGINOSA (A) [facility] Result PSEUDOMONAS AERUGINOSA (A)Comment: [facility] of a second type MEDICAL CENTER Specimen Urine Narrative Performed At <10,000 col/mL Gram negative vladimir [facility] Organism Antibiotic Method Susceptibility Pseudomonas aeruginosa Amikacin <8: Susceptible Pseudomonas aeruginosa Aztreonam 8: Susceptible Pseudomonas aeruginosa Cefepime <=4: Susceptible Pseudomonas aeruginosa Ceftazidime 2: Susceptible Pseudomonas aeruginosa Ciprofloxacin <=0.5: Susceptible Pseudomonas aeruginosa Gentamicin <=2: Susceptible Pseudomonas aeruginosa Levofloxacin <=1: Susceptible Pseudomonas aeruginosa Meropenem 4: Resistant Pseudomonas aeruginosa Piperacillin <=16: Susceptible Pseudomonas aeruginosa Piperacillin + Tazobactam <=8: Susceptible Pseudomonas aeruginosa Tobramycin <=2: Susceptible Pseudomonas aeruginosa Amikacin <=8: Susceptible Pseudomonas aeruginosa Aztreonam 4: Susceptible Pseudomonas aeruginosa Cefepime <=4: Susceptible Pseudomonas aeruginosa Ceftazidime <=1: Susceptible Pseudomonas aeruginosa Ciprofloxacin <=0.5: Susceptible Pseudomonas aeruginosa Gentamicin <=2: Susceptible Pseudomonas aeruginosa Levofloxacin <=1: Susceptible Pseudomonas aeruginosa Meropenem 2: Susceptible Pseudomonas aeruginosa Piperacillin 32: Resistant Pseudomonas aeruginosa Piperacillin + Tazobactam <=8: Susceptible Pseudomonas aeruginosa Tobramycin 4: Susceptible Performing Organization Address City/State/Zipcode Phone Number [facility] [address] [place] [address] CENTER CBC with platelet count + automated diff (11/17/2018 4:23 AM CDT)Only the most recent of2 resultswithin the time period is included. WBC 8.6 3.5 - 10.5 K/L [facility] RBC 4.12 (L) 4.63 - 6.08 M/L [facility] Hemoglobin 13.1 (L) 13.7 - 17.5 GM/DL [facility] Hematocrit 39.2 (L) 40.1 - 51.0 % [facility] MCV 95.1 (H) 79.0 - 92.2 fL [facility] MCH 31.8 25.7 - 32.2 pg [facility] MCHC 33.4 32.3 - 36.5 GM/DL [facility] RDW 14.1 11.6 - 14.4 % [facility] Platelets 178 150 - 450 K/CU MM [facility] MPV 10.3 9.4 - 12.4 fL [facility] nRBC 0 0 - 0 /100 WBC [facility] % Neutros 64 % [facility] % Lymphs 22 % [facility] % Monos 6 % [facility] % Eos 6 % [facility] % Baso 1 % [facility] CENTER # Neutros 5.50 (H) 1.78 - 5.38 K/L [facility] # Lymphs 1.93 1.32 - 3.57 K/L [facility] # Monos 0.55 0.30 - 0.82 K/L [facility] # Eos 0.54 0.04 - 0.54 K/L [facility] # Baso 0.06 0.01 - 0.08 K/L [facility] Immature Granulocytes-Relative 0 0 - 1 % [facility] Specimen Blood Performing Organization Address City/[facility] Phone Number [address] [address] [phone] [place] Fasting lipid panel (11/17/2018 4:23 AM CDT) Triglycerides 55 mg/dL [facility] Cholesterol 177 mg/dL [facility] HDL 50 mg/dL [facility] LDL Calculated 116 mg/dL [facility] Specimen Blood Narrative Performed At Triglyceride Reference Range: [facility] Low Risk <150 [id number] High Risk 200-499 Very High Risk>=500 Cholesterol Reference Range: Low Risk <200 [id number] High Risk>240 HDL Cholesterol Reference Range: Low Risk >=60 High Risk <40 LDL Cholesterol Reference Range: Optimal<100 Near Pcwfacw431-255 Qogssgmetx595-865 Pmfv507-552 Very High >=190 Fasting Specimen slightly icteric Performing Organization Address City/[facility] Phone Number [phone] [place] [address] [place] Comprehensive metabolic panel (11/17/2018 4:23 AM CDT) Protein, Total 5.9 (L) 6.0 - 8.3 gm/dL [facility] Albumin 3.4 (L) 3.5 - 5.0 g/dL [facility] Alkaline Phosphatase 84 40 - 150 U/L [facility] Total Bilirubin 0.6 0.2 - 1.2 mg/dL [facility] Sodium 138 136 - 145 meq/L [facility] Potassium 4.2 3.5 - 5.1 meq/L [facility] Chloride 107 98 - 107 meq/L [facility] CO2 23 22 - 29 meq/L [facility] BUN 41 (H) 7 - 21 mg/dL [facility] Creatinine 1.40 (H) 0.57 - 1.25 mg/dL [facility] Glucose 80 70 - 105 mg/dL [facility] Calcium 8.8 8.4 - 10.2 mg/dL [facility] AST 15 5 - 34 U/L [facility] ALT 11 6 - 55 U/L [facility] EGFR 48Comment: ESTIMATED GFR mL/min/1.[address] [facility] IS NOT ACCURATE [facility] CREATININE CLEARANCE IN PREDICTING GLOMERULAR FILTRATION RATE. ESTIMATED GFR IS NOT APPLICABLE FOR DIALYSIS PATIENTS. Specimen Blood Narrative Performed At Fasting [facility] Specimen slightly icteric Performing Organization Address City/State/Zipcode Phone Number [facility] [address] [place] [address] CENTER Carotid doppler bilateral (11/16/2018 10:58 PM CDT) Ejection Fraction [facility] ECHO HEARTLAB [facility] Specimen Impressions Performed At Right Impression [facility]ART[facility] 1. There is <50% diameter reduction (approximately 38% by 2-D measurement) in the internal carotid artery with a peak velocity of 73.3/15.2 cm/sec and heterogeneous plaque. 2. There is non-occluding plaque in the external carotid artery. 3. There is non-occluding plaque in the common carotid artery. 4. The vertebral artery flow is antegrade and normal. 5. The subclavian artery is within normal limits where visualized. Left Impression 1. There is <50% diameter reduction (approximately 23% by 2-D measurement) in the internal carotid artery with a peak velocity of 108/25.1 cm/sec and heterogeneous plaque. 2. There is non-occluding plaque in the external carotid artery. 3. There is non-occluding plaque in the common carotid artery. 4. The vertebral artery flow is antegrade and normal. 5. The subclavian artery is within normal limits where visualized. Conclusions Summary Carotid duplex scanning and color flow imaging were performed bilaterally. The arteries were adequately visualized. The bilateral internal carotid arteries had <50% hemodynamically insignificant stenosis (approximately 38% by 2-D measurement on the right, approximately 23% by 2-D measurement on the left) with heterogeneous plaque. The vertebral artery flow was antegrade and normal bilaterally. The subclavian arteries were patent with normal flow bilaterally where visualized. Signature Velocities are measured in cm/s ; Diameters are measured in cm Carotid Right Measurements + +----+----+-----+ +---- + + !Location !PSV !EDV !Angle!%Stenosis 2D!%Stenosis Doppler!Tortuosity ! + +----+----+-----+ +---- + + !Prox CCA !60.1!7.46!60 !! ! ! + +----+----+-----+ +---- + + !Dist CCA !75.8!6.29!60 !! ! ! + +----+----+-----+ +---- + + !Prox ICA !73.3!15.2!60 !38% !<50% ! ! + +----+----+-----+ +---- + + !Dist ICA !60.9!15.3!60 !! ! ! + +----+----+-----+ +---- + + !Prox ECA !96.2!7.62!60 !! ! ! + +----+----+-----+ +---- + + !Vertebral!37.3!10.2!60 !! ! ! + +----+----+-----+ +---- + + !Prox Subclavian!116 !!60 !! ! ! + +----+----+-----+ +---- + + - There is antegrade vertebral flow noted on the right side. - Additional Measurements:ICAPSV/CCAPSV 0.97.ICAEDV/CCAEDV 2.05. Carotid Left Measurements + +----+----+-----+ +---- + + !Location !PSV !EDV !Angle!%Stenosis 2D!%Stenosis Doppler!Tortuosity ! + +----+----+-----+ +---- + + !Prox CCA !65.6!9.43!60 !! ! ! + +----+----+-----+ +---- + + !Dist CCA !85.6!14.1!60 !! ! ! + +----+----+-----+ +---- + + !Prox ICA !108 !25.1!60 !23% !<50% ! ! + +----+----+-----+ +---- + + !Dist ICA !48.1!9.67!0!! ! ! + +----+----+-----+ +---- + + !Prox ECA !145 !3.93!60 !! ! ! + +----+----+-----+ +---- + + !Vertebral!36.2!9.28!60 !! ! ! + +----+----+-----+ +---- + + !Prox Subclavian!129 !!60 !! ! ! + +----+----+-----+ +---- + + - There is antegrade vertebral flow noted on the left side. - Additional Measurements:ICAPSV/CCAPSV 1.26.ICAEDV/CCAEDV 2.66. Narrative Performed At LAB - Carotid Duplex Study [facility]CHO [facility]ART[facility] Demographics Patient NameOC KING Date of Study11/16/2018 SINTIA Age88 Visit [id number] Gender Male Date of Birth1930 Referring Timothy Delatorre [id number] Physician Soccer Commentator Donald Aguirre Interpreting Yin Fitzpatrick, Physician Procedure Type of Study: Cerebral: Carotid, CAROTID DOPPLER, BILATERAL. Indications for Study:Ataxia. Patient Status:Routine. Study Location:Portable. Technical Quality:Adequate visualization. Risk Factors History of Disease + +----+ + !Diagnosis !Date!Comments ! + +----+ + !History/Risk Factors: !!HTN, COPD, DM, CHF, CKD, Stroke, Cancer ! + +----+ + Procedure Note Interface, External Ris In - 11/17/2018 10:32 PM CDT PV LAB - Carotid Duplex Study Demographics Patient Name OC KING Date of Study 11/16/2018 SINTIA Age 88 Visit Number [id number] Gender Male Accession Number [id number] Date of 1930 Referring Timothy Galan Room Number [id number] Physician Soccer Commentator Donald Aguirre Interpreting Yin Fitzpatrick, Physician Procedure Type of Study: Cerebral: Carotid, CAROTID DOPPLER, BILATERAL. Indications for Study:Ataxia. Patient Status:Routine. Study Location:Portable. Technical Quality:Adequate visualization. Risk Factors History of Disease + +----+ + !Diagnosis !Date!Comments ! + +----+ + !History/Risk Factors: ! !HTN, COPD, DM, CHF, CKD, Stroke, Cancer ! + +----+ + Impressions Right Impression 1. There is <50% diameter reduction (approximately 38% by 2-D measurement) in the internal carotid artery with a peak velocity of 73.3/15.2 cm/sec and heterogeneous plaque. 2. There is non-occluding plaque in the external carotid artery. 3. There is non-occluding plaque in the common carotid artery. 4. The vertebral artery flow is antegrade and normal. 5. The subclavian artery is within normal limits where visualized. Left Impression 1. There is <50% diameter reduction (approximately 23% by 2-D measurement) in the internal carotid artery with a peak velocity of 108/25.1 cm/sec and heterogeneous plaque. 2. There is non-occluding plaque in the external carotid artery. 3. There is non-occluding plaque in the common carotid artery. 4. The vertebral artery flow is antegrade and normal. 5. The subclavian artery is within normal limits where visualized. Conclusions Summary Carotid duplex scanning and color flow imaging were performed bilaterally. The arteries were adequately visualized. The bilateral internal carotid arteries had <50% hemodynamically insignificant stenosis (approximately 38% by 2-D measurement on the right, approximately 23% by 2-D measurement on the left) with heterogeneous plaque. The vertebral artery flow was antegrade and normal bilaterally. The subclavian arteries were patent with normal flow bilaterally where visualized. Signature Velocities are measured in cm/s ; Diameters are measured in cm Carotid Right Measurements + +----+----+-----+ + + + !Location !PSV !EDV !Angle!%Stenosis 2D!%Stenosis Doppler!Tortuosity ! + +----+----+-----+ + + + !Prox CCA !60.1!7.46!60 ! ! ! ! + +----+----+-----+ + + + !Dist CCA !75.8!6.29!60 ! ! ! ! + +----+----+-----+ + + + !Prox ICA !73.3!15.2!60 !38% !<50% ! ! + +----+----+-----+ + + + !Dist ICA !60.9!15.3!60 ! ! ! ! + +----+----+-----+ + + + !Prox ECA !96.2!7.62!60 ! ! ! ! + +----+----+-----+ + + + !Vertebral !37.3!10.2!60 ! ! ! ! + +----+----+-----+ + + + !Prox Subclavian!116 ! !60 ! ! ! ! + +----+----+-----+ + + + - There is antegrade vertebral flow noted on the right side. - Additional Measurements:ICAPSV/CCAPSV 0.97.ICAEDV/CCAEDV 2.05. Carotid Left Measurements + +----+----+-----+ + + + !Location !PSV !EDV !Angle!%Stenosis 2D!%Stenosis Doppler!Tortuosity ! + +----+----+-----+ + + + !Prox CCA !65.6!9.43!60 ! ! ! ! + +----+----+-----+ + + + !Dist CCA !85.6!14.1!60 ! ! ! ! + +----+----+-----+ + + + !Prox ICA !108 !25.1!60 !23% !<50% ! ! + +----+----+-----+ + + + !Dist ICA !48.1!9.67!0 ! ! ! ! + +----+----+-----+ + + + !Prox ECA !145 !3.93!60 ! ! ! ! + +----+----+-----+ + + + !Vertebral !36.2!9.28!60 ! ! ! ! + +----+----+-----+ + + + !Prox Subclavian!129 ! !60 ! ! ! ! + +----+----+-----+ + + + - There is antegrade vertebral flow noted on the left side. - Additional Measurements:ICAPSV/CCAPSV 1.26.ICAEDV/CCAEDV 2.66. Performing Organization Address City/State/Zipcode Phone Number [facility] US renal complete (11/16/2018 9:09 PM CDT) Specimen Narrative Performed At Addendum Begins ReCellular REPORT STATUS:A Polynephritis cannot be excluded based on provided images. Recommend CT abdomen and pelvis with contrast when clinically feasible. Signed: Master Braden MD Report Verified Date/Time:11/17/2018 00:34:57 Reading Location: [address] Neuro Reading Room Addendum Ends FINAL REPORT U/S, RENAL, COMPLETE CLINICAL INDICATION:PIERCE COMPARISON: None TECHNIQUE:The kidneys and urinary bladder were evaluated using real time meza scale and color Doppler sonography. FINDINGS: Right kidney: Size: 9.6 x 5.2 x 3.0 cm. Renal cortical thickness is 0.8 Parenchyma: Normal echogenicity. 2.4 x 2.3 x 3.3 cm predominantly hypoechoic structure with linear echogenic the periphery (possibly calcification within a cyst wall), favored to represent a renal cyst. 0.8 x 0.5 x 0.8 cm predominantly hypoechoic lesion within the right kidney is present, possibly a complex and/or proteinaceous cyst. Abscess cannot be definitively excluded. Hydronephrosis: Present. Linear focus adjacent to the right kidney is favored to represent a renal stent. Left kidney: Size: 9.9 x 4.7 x 4.0 cm. Renal cortical thickness is 1.0 Parenchyma: Normal echogenicity. No focal lesion or cyst. Hydronephrosis: None. Renal Vasculature: Doppler interrogation reveals preserved vascular flow in the main renal arteries and veins bilaterally. Urinary bladder: Unremarkable. Additional findings: None. IMPRESSION: Right hydronephrosis. Linear echogenic focus adjacent to the right kidney may represent a stent, unclear without prior comparison imaging and/or reliable patient history (due to patient's altered mental status). Additionally, echogenic material is noted within the renal pelvis. It is unclear if this represents infectious material. Recommend correlation with urinalysis. Additionally, CT abdomen and pelvis may be obtained if desired. Signed: Master Braden MD Report Verified Date/Time:11/16/2018 23:39:50 Reading Location: [address] Neuro Reading Room Procedure Note Interface, External Ris In - 11/17/2018 12:37 AM CDT Addendum Begins REPORT STATUS:A Polynephritis cannot be excluded based on provided images. Recommend CT abdomen and pelvis with contrast when clinically feasible. Signed: Master Braden MD Report Verified Date/Time: 11/17/2018 00:34:57 Reading Location: [address] Neuro Reading Room Addendum Ends FINAL REPORT U/S, RENAL, COMPLETE CLINICAL INDICATION: PIERCE COMPARISON: None TECHNIQUE: The kidneys and urinary bladder were evaluated using real time meza scale and color Doppler sonography. FINDINGS: Right kidney: Size: 9.6 x 5.2 x 3.0 cm. Renal cortical thickness is 0.8 Parenchyma: Normal echogenicity. 2.4 x 2.3 x 3.3 cm predominantly hypoechoic structure with linear echogenic the periphery (possibly calcification within a cyst wall), favored to represent a renal cyst. 0.8 x 0.5 x 0.8 cm predominantly hypoechoic lesion within the right kidney is present, possibly a complex and/or proteinaceous cyst. Abscess cannot be definitively excluded. Hydronephrosis: Present. Linear focus adjacent to the right kidney is favored to represent a renal stent. Left kidney: Size: 9.9 x 4.7 x 4.0 cm. Renal cortical thickness is 1.0 Parenchyma: Normal echogenicity. No focal lesion or cyst. Hydronephrosis: None. Renal Vasculature: Doppler interrogation reveals preserved vascular flow in the main renal arteries and veins bilaterally. Urinary bladder: Unremarkable. Additional findings: None. IMPRESSION: Right hydronephrosis. Linear echogenic focus adjacent to the right kidney may represent a stent, unclear without prior comparison imaging and/or reliable patient history (due to patient's altered mental status). Additionally, echogenic material is noted within the renal pelvis. It is unclear if this represents infectious material. Recommend correlation with urinalysis. Additionally, CT abdomen and pelvis may be obtained if desired. Signed: Master Braden MD Report Verified Date/Time: 11/16/2018 23:39:50 Reading Location: [address] Neuro Reading Room Performing Organization Address City/[facility] Phone Number GE RIS TSH/Free T4 If Indicated (11/16/2018 10:37 AM CDT) TSH 1.04 0.35 - 4.94 uIU/mL [facility] Specimen Blood Performing Organization Address [facility] Cent[facility] Phone Number [address] [address] CENTER Troponin I (11/16/2018 10:37 AM CDT)Only the most recent of2 resultswithin the time period is included. Troponin I 0.02 0.00 - 0.03 ng/mL [facility] Specimen Blood Narrative Performed At Troponin I (TnI) levels must be interpreted [facility] in the context of the presenting symptoms and the clinical findings. Elevated TnI levels indicate myocardial damage, but are not specific for ischemic heart disease. Elevated TnI levels are seen in patients with other cardiac conditions (including myocarditis and congestive heart failure), and slight TnI elevations occur in patients with other conditions, including sepsis, renal failure, acidosis, acute neurological disease, and persistent tachyarrhythmia. Performing Organization Address [facility]ode Phone Number [address] [address] CENTER Urinalysis Microscopic Only (11/16/2018 5:16 AM CDT) RBC, UA 1 /HPF [facility] WBC, UA 76 /HPF [facility] Bacteria, UA Rare [facility] Specimen Urine Performing Organization Address City/State/Zipcode Phone Number [facility] [address] [place] [address] [phone] [place] Urinalysis with Microscopic If Indicated (11/16/2018 5:16 AM CDT) Color, UA Light Yellow [facility] Clarity, UA Clear [facility] Specific [place], UA 1.006 1.001 - 1.035 [facility] pH, UA 6.5 5.0 - 8.0 [facility] Protein, UA 30 mg/dL (A) Negative [facility] Glucose, UA Negative Negative [facility] Ketones, UA Negative Negative [facility] Bilirubin, UA Negative Negative [facility] Blood, UA Trace (A) Negative [facility] Nitrite, UA Positive (A) Negative [facility] Leukocytes, UA Large (A) Negative [facility] Urobilinogen, UA 0.2 0.2 - 1.0 mg/dL [facility] Specimen Source [facility] Specimen Urine Performing Organization Address City/[facility]/Zipcode Phone Number [facility] [address] [place] [address] [place] Rapid drug screen, urine (11/16/2018 5:16 AM CDT) Barbiturate Screen Negative Negative [facility] Benzodiazepine Screen Negative Negative [facility] Cocaine (Metab.) Screen Negative Negative [facility] Methadone Screen Negative Negative [facility] Opiate Screen Negative Negative [facility] Cannabinoid Screen Negative Negative [facility] Amph/Methamph Screen Negative Negative [facility] Phencyclidine Screen Negative Negative [facility] Oxycodone Screen Negative Negative [facility] Specimen Urine Narrative Performed At DRUGCUTOFF [facility] CONC. Cocaine 300 ng/mL Bbzfooinzco54 ng/mL Dvcswwfdzlbcnv850 ng/mL Barbiturate 200 ng/mL Hcyabttslcxlo85 ng/mL Oqokvy328 ng/mL Methadone 300 ng/mL Amphetamine/ 1000 ng/mL Methamphetamine Oxycodone 300 ng/mL This assay provides an unconfirmed qualitative test result for the clinical management of patients in emergency situations. Chain of custody not maintained. Some tzsi-yyi-yiespku medications, as well as adulterants, may cause inaccurate results. Clinical correlation should be applied. A more comprehensive drug screen or confirmation of a detected drug may be performed upon request. Performing Organization Address City/State/Zipcode Phone Number [facility] [address] [place] [address] CENTER MR brain without IV contrast (11/16/2018 1:09 AM CDT) Specimen Narrative Performed At FINAL REPORT [employer] [facility] [place] MR, BRAIN, WITHOUT CONTRAST, MR, MRA, NECK, WITHOUT IV CONTRAST, MR, MRA, BRAIN, WITHOUT CONTRAST INDICATION: Stroke Ischemic Stroke Evaluation TECHNIQUE: Multiplanar, multisequence MR images of the brain.3-D time of flight MRA of the cranial and cervical circulation. 2-D time of flight MRA of the neck. 3D MIP angiographic post-processing was performed. Stenosis evaluation utilized NASCET criteria. COMPARISON: None available FINDINGS: MRI BRAIN: Brain parenchyma is normal in morphology. Midline structures are normally developed. No restricted diffusion to suggest recent ischemic insult. No abnormal susceptibility. Scattered T2/FLAIR hyperintense foci within the periventricular and subcortical white matter are nonspecific, however, statistically represent chronic microvascular ischemic changes. No hydrocephalus. Orbits are within normal limits. No obstructive paranasal sinus disease. Calvarium and skull base demonstrate marrow signal within normal limits for age without focal lesion. Additional findings: 7 mm T2 hyperintense focus of the left parotid, only partially evaluated and not entirely included within the provided images with differential considerations including a lymph node, benign and malignant parotid lesions. MRA BRAIN: Internal carotid arteries: Normal flow related enhancementwithout flow-limiting stenosis Middle cerebral arteries: Normal flow related enhancement within the bilateral MCA M1-M2 segments without flow limiting stenosis Anterior cerebral arteries: Normal flow-related enhancement within the bilateral PATRICIA A1-A2 segments without flow limiting stenosis. Right A1 is hypoplastic. Basilar system: Normal flow-related enhancement within the bilateral V4 segments and the basilar arterywithout flow-limiting stenosis . Suspected incidental fenestration of the proximal basilar artery Posterior cerebral arteries: Normal flow-related enhancement within the bilateral FREIGHT ROUTER P1-P2 segmentswithout flow-limiting stenosis Additional findings: None. MRA NECK: Common carotid arteries: Unremarkable. Bifurcations: No flow-limiting stenosis. Cervical internal carotid arteries: No flow limiting stenosis. Vertebral arteries: Normal flow-related enhancement bilaterally. Mild focal stenosis of the mid right cervical vertebral artery. IMPRESSION: No acute stroke No flow limiting stenosis within the head or neck Signed: Master Braden MD Report Verified Date/Time:11/16/2018 02:09:12 Reading Location: [address] Neuro Reading Room Procedure Note Interface, External Ris In - 11/16/2018 2:11 AM CDT FINAL REPORT MR, BRAIN, WITHOUT CONTRAST, MR, MRA, NECK, WITHOUT IV CONTRAST, MR, MRA, BRAIN, WITHOUT CONTRAST INDICATION: Stroke Ischemic Stroke Evaluation TECHNIQUE: Multiplanar, multisequence MR images of the brain. 3-D time of flight MRA of the cranial and cervical circulation. 2-D time of flight MRA of the neck. 3D MIP angiographic post-processing was performed. Stenosis evaluation utilized NASCET criteria. COMPARISON: None available FINDINGS: MRI BRAIN: Brain parenchyma is normal in morphology. Midline structures are normally developed. No restricted diffusion to suggest recent ischemic insult. No abnormal susceptibility. Scattered T2/FLAIR hyperintense foci within the periventricular and subcortical white matter are nonspecific, however, statistically represent chronic microvascular ischemic changes. No hydrocephalus. Orbits are within normal limits. No obstructive paranasal sinus disease. Calvarium and skull base demonstrate marrow signal within normal limits for age without focal lesion. Additional findings: 7 mm T2 hyperintense focus of the left parotid, only partially evaluated and not entirely included within the provided images with differential considerations including a lymph node, benign and malignant parotid lesions. MRA BRAIN: Internal carotid arteries: Normal flow related enhancement without flow-limiting stenosis Middle cerebral arteries: Normal flow related enhancement within the bilateral MCA M1-M2 segments without flow limiting stenosis Anterior cerebral arteries: Normal flow-related enhancement within the bilateral PATRICIA A1-A2 segments without flow limiting stenosis. Right A1 is hypoplastic. Basilar system: Normal flow-related enhancement within the bilateral V4 segments and the basilar artery without flow-limiting stenosis . Suspected incidental fenestration of the proximal basilar artery Posterior cerebral arteries: Normal flow-related enhancement within the bilateral FREIGHT ROUTER P1-P2 segments without flow-limiting stenosis Additional findings: None. MRA NECK: Common carotid arteries: Unremarkable. Bifurcations: No flow-limiting stenosis. Cervical internal carotid arteries: No flow limiting stenosis. Vertebral arteries: Normal flow-related enhancement bilaterally. Mild focal stenosis of the mid right cervical vertebral artery. IMPRESSION: No acute stroke No flow limiting stenosis within the head or neck Signed: Master Braden MD Report Verified Date/Time: 11/16/2018 02:09:12 Reading Location: [address] Neuro Reading Room Performing Organization Address City/State/Zipcode Phone Number ReC[facility] MRA neck without IV contrast (11/16/2018 1:09 AM CDT) Specimen Narrative Performed At FINAL REPORT [facility] MR, BRAIN, WITHOUT CONTRAST, MR, MRA, NECK, WITHOUT IV CONTRAST, MR, MRA, BRAIN, WITHOUT CONTRAST INDICATION: Stroke Ischemic Stroke Evaluation TECHNIQUE: Multiplanar, multisequence MR images of the brain.3-D time of flight MRA of the cranial and cervical circulation. 2-D time of flight MRA of the neck. 3D MIP angiographic post-processing was performed. Stenosis evaluation utilized NASCET criteria. COMPARISON: None available FINDINGS: MRI BRAIN: Brain parenchyma is normal in morphology. Midline structures are normally developed. No restricted diffusion to suggest recent ischemic insult. No abnormal susceptibility. Scattered T2/FLAIR hyperintense foci within the periventricular and subcortical white matter are nonspecific, however, statistically represent chronic microvascular ischemic changes. No hydrocephalus. Orbits are within normal limits. No obstructive paranasal sinus disease. Calvarium and skull base demonstrate marrow signal within normal limits for age without focal lesion. Additional findings: 7 mm T2 hyperintense focus of the left parotid, only partially evaluated and not entirely included within the provided images with differential considerations including a lymph node, benign and malignant parotid lesions. MRA BRAIN: Internal carotid arteries: Normal flow related enhancementwithout flow-limiting stenosis Middle cerebral arteries: Normal flow related enhancement within the bilateral MCA M1-M2 segments without flow limiting stenosis Anterior cerebral arteries: Normal flow-related enhancement within the bilateral PATRICIA A1-A2 segments without flow limiting stenosis. Right A1 is hypoplastic. Basilar system: Normal flow-related enhancement within the bilateral V4 segments and the basilar arterywithout flow-limiting stenosis . Suspected incidental fenestration of the proximal basilar artery Posterior cerebral arteries: Normal flow-related enhancement within the bilateral FREIGHT ROUTER P1-P2 segmentswithout flow-limiting stenosis Additional findings: None. MRA NECK: Common carotid arteries: Unremarkable. Bifurcations: No flow-limiting stenosis. Cervical internal carotid arteries: No flow limiting stenosis. Vertebral arteries: Normal flow-related enhancement bilaterally. Mild focal stenosis of the mid right cervical vertebral artery. IMPRESSION: No acute stroke No flow limiting stenosis within the head or neck Signed: Master Braden MD Report Verified Date/Time:11/16/2018 02:09:12 Reading Location: [address] Neuro Reading Room Procedure Note Interface, External Ris In - 11/16/2018 2:11 AM CDT FINAL REPORT MR, BRAIN, WITHOUT CONTRAST, MR, MRA, NECK, WITHOUT IV CONTRAST, MR, MRA, BRAIN, WITHOUT CONTRAST INDICATION: Stroke Ischemic Stroke Evaluation TECHNIQUE: Multiplanar, multisequence MR images of the brain. 3-D time of flight MRA of the cranial and cervical circulation. 2-D time of flight MRA of the neck. 3D MIP angiographic post-processing was performed. Stenosis evaluation utilized NASCET criteria. COMPARISON: None available FINDINGS: MRI BRAIN: Brain parenchyma is normal in morphology. Midline structures are normally developed. No restricted diffusion to suggest recent ischemic insult. No abnormal susceptibility. Scattered T2/FLAIR hyperintense foci within the periventricular and subcortical white matter are nonspecific, however, statistically represent chronic microvascular ischemic changes. No hydrocephalus. Orbits are within normal limits. No obstructive paranasal sinus disease. Calvarium and skull base demonstrate marrow signal within normal limits for age without focal lesion. Additional findings: 7 mm T2 hyperintense focus of the left parotid, only partially evaluated and not entirely included within the provided images with differential considerations including a lymph node, benign and malignant parotid lesions. MRA BRAIN: Internal carotid arteries: Normal flow related enhancement without flow-limiting stenosis Middle cerebral arteries: Normal flow related enhancement within the bilateral MCA M1-M2 segments without flow limiting stenosis Anterior cerebral arteries: Normal flow-related enhancement within the bilateral PATRICIA A1-A2 segments without flow limiting stenosis. Right A1 is hypoplastic. Basilar system: Normal flow-related enhancement within the bilateral V4 segments and the basilar artery without flow-limiting stenosis . Suspected incidental fenestration of the proximal basilar artery Posterior cerebral arteries: Normal flow-related enhancement within the bilateral FREIGHT ROUTER P1-P2 segments without flow-limiting stenosis Additional findings: None. MRA NECK: Common carotid arteries: Unremarkable. Bifurcations: No flow-limiting stenosis. Cervical internal carotid arteries: No flow limiting stenosis. Vertebral arteries: Normal flow-related enhancement bilaterally. Mild focal stenosis of the mid right cervical vertebral artery. IMPRESSION: No acute stroke No flow limiting stenosis within the head or neck Signed: Master Braden MD Report Verified Date/Time: 11/16/2018 02:09:12 Reading Location: [address] Neuro Reading Room Performing Organization Address City/State/Zipcode Phone Number ReCellular MRA head without IV contrast (11/16/2018 1:09 AM CDT) Specimen Narrative Performed At FINAL REPORT Re[employer] MR, BRAIN, WITHOUT CONTRAST, MR, MRA, NECK, WITHOUT IV CONTRAST, MR, MRA, BRAIN, WITHOUT CONTRAST INDICATION: Stroke Ischemic Stroke Evaluation TECHNIQUE: Multiplanar, multisequence MR images of the brain.3-D time of flight MRA of the cranial and cervical circulation. 2-D time of flight MRA of the neck. 3D MIP angiographic post-processing was performed. Stenosis evaluation utilized NASCET criteria. COMPARISON: None available FINDINGS: MRI BRAIN: Brain parenchyma is normal in morphology. Midline structures are normally developed. No restricted diffusion to suggest recent ischemic insult. No abnormal susceptibility. Scattered T2/FLAIR hyperintense foci within the periventricular and subcortical white matter are nonspecific, however, statistically represent chronic microvascular ischemic changes. No hydrocephalus. Orbits are within normal limits. No obstructive paranasal sinus disease. Calvarium and skull base demonstrate marrow signal within normal limits for age without focal lesion. Additional findings: 7 mm T2 hyperintense focus of the left parotid, only partially evaluated and not entirely included within the provided images with differential considerations including a lymph node, benign and malignant parotid lesions. MRA BRAIN: Internal carotid arteries: Normal flow related enhancementwithout flow-limiting stenosis Middle cerebral arteries: Normal flow related enhancement within the bilateral MCA M1-M2 segments without flow limiting stenosis Anterior cerebral arteries: Normal flow-related enhancement within the bilateral PATRICIA A1-A2 segments without flow limiting stenosis. Right A1 is hypoplastic. Basilar system: Normal flow-related enhancement within the bilateral V4 segments and the basilar arterywithout flow-limiting stenosis . Suspected incidental fenestration of the proximal basilar artery Posterior cerebral arteries: Normal flow-related enhancement within the bilateral FREIGHT ROUTER P1-P2 segmentswithout flow-limiting stenosis Additional findings: None. MRA NECK: Common carotid arteries: Unremarkable. Bifurcations: No flow-limiting stenosis. Cervical internal carotid arteries: No flow limiting stenosis. Vertebral arteries: Normal flow-related enhancement bilaterally. Mild focal stenosis of the mid right cervical vertebral artery. IMPRESSION: No acute stroke No flow limiting stenosis within the head or neck Signed: Master Braden MD Report Verified Date/Time:11/16/2018 02:09:12 Reading Location: [address] Neuro Reading Room Procedure Note Interface, External Ris In - 11/16/2018 2:11 AM CDT FINAL REPORT MR, BRAIN, WITHOUT CONTRAST, MR, MRA, NECK, WITHOUT IV CONTRAST, MR, MRA, BRAIN, WITHOUT CONTRAST INDICATION: Stroke Ischemic Stroke Evaluation TECHNIQUE: Multiplanar, multisequence MR images of the brain. 3-D time of flight MRA of the cranial and cervical circulation. 2-D time of flight MRA of the neck. 3D MIP angiographic post-processing was performed. Stenosis evaluation utilized NASCET criteria. COMPARISON: None available FINDINGS: MRI BRAIN: Brain parenchyma is normal in morphology. Midline structures are normally developed. No restricted diffusion to suggest recent ischemic insult. No abnormal susceptibility. Scattered T2/FLAIR hyperintense foci within the periventricular and subcortical white matter are nonspecific, however, statistically represent chronic microvascular ischemic changes. No hydrocephalus. Orbits are within normal limits. No obstructive paranasal sinus disease. Calvarium and skull base demonstrate marrow signal within normal limits for age without focal lesion. Additional findings: 7 mm T2 hyperintense focus of the left parotid, only partially evaluated and not entirely included within the provided images with differential considerations including a lymph node, benign and malignant parotid lesions. MRA BRAIN: Internal carotid arteries: Normal flow related enhancement without flow-limiting stenosis Middle cerebral arteries: Normal flow related enhancement within the bilateral MCA M1-M2 segments without flow limiting stenosis Anterior cerebral arteries: Normal flow-related enhancement within the bilateral PATRICIA A1-A2 segments without flow limiting stenosis. Right A1 is hypoplastic. Basilar system: Normal flow-related enhancement within the bilateral V4 segments and the basilar artery without flow-limiting stenosis . Suspected incidental fenestration of the proximal basilar artery Posterior cerebral arteries: Normal flow-related enhancement within the bilateral FREIGHT ROUTER P1-P2 segments without flow-limiting stenosis Additional findings: None. MRA NECK: Common carotid arteries: Unremarkable. Bifurcations: No flow-limiting stenosis. Cervical internal carotid arteries: No flow limiting stenosis. Vertebral arteries: Normal flow-related enhancement bilaterally. Mild focal stenosis of the mid right cervical vertebral artery. IMPRESSION: No acute stroke No flow limiting stenosis within the head or neck Signed: Master Braden MD Report Verified Date/Time: 11/16/2018 02:09:12 Reading Location: [address] Neuro Reading Room Performing Organization Address City/State/Zipcode Phone Number GE RIS after 12/12/2017 Insurance Payer Benefit Plan / Group Subscriber ID Type Phone Address MEDICARE MEDICARE A B xxxxxxxxxxx Medicare Advance Directives For more information, please contact:[address] [phone] Code Status Date Activated Date Inactivated Comments Full Code 11/15/2018 11:58 PM 11/21/2018 6:58 PM This code status was determined by: Patient
--- OUTSIDE RECORDS SUMMARY | 2018-12-13 08:00 | XMS REPORT ---
:1930 [facility] Address [address] [place] [address] Care Team Providers Name Role Phone AMANDA TAMOMA Unavailable Unavailable Problems This patient has no known problems. Allergies, Adverse Reactions, Alerts This patient has no known allergies or adverse reactions. Medications This patient has no known medications. Results Test Description Test Time Test Comments Text Results Atomic Results Result Comments BASIC METABOLIC PANEL 2018-11-18 10:44:00 Test Item Value Reference Range Comments SODIUM (BEAKER) (test 139 meq/L 136-145 qkgy=893) POTASSIUM (BEAKER) (test 3.9 meq/L 3.5-5.1 Specimen slightly hemolyzed pgqp=048) CHLORIDE (BEAKER) (test 108 meq/L 98-107 xaao=777) CO2 (BEAKER) (test zmxj=743) 22 meq/L 22-29 BLOOD UREA NITROGEN (BEAKER) 35 mg/dL 7-21 (test npdk=132) CREATININE (BEAKER) (test 1.40 mg/dL 0.57-1.25 Specimen slightly hemolyzed vokq=186) GLUCOSE RANDOM (BEAKER) 130 mg/dL 70-105 (test gszy=356) CALCIUM (BEAKER) (test 9.1 mg/dL 8.4-10.2 orho=773) EGFR (BEAKER) (test 48 mL/min/1.73 sq m ESTIMATED GFR IS NOT qybb=6348) ACCURATE CREATININE CLEARANCE IN PREDICTING GLOMERULAR FILTRATION RATE. ESTIMATED GFR IS NOT APPLICABLE FOR DIALYSIS PATIENTS. CT, [id number] 04:16:00FINAL REPORT CLINICAL HISTORY: Abnormal findings on recent renal ultrasound performed for renal dysfunction, including hydronephrosis. FINDINGS: Multiple axial images of the abdomen and pelvis were performed without intravenous contrast. Oral contrast was not given. This exam was performed according to our departmental dose- optimization program, which includes automated exposure control, adjustment [...] structures: Atherosclerotic calcifications Reproductive organs: Previous prostatectomy Other : No free air, fluidor adenopathy Skeleton: No acute bony abnormality. IMPRESSION: The proximal coil of a right ureteralstent is in a dilated right renal pelvis but the distal coil is in the distal ureter rather than within the bladder lumen, as expected. Urologic evaluation is recommended. Subtle periureteral fat stranding may relate to a chronic appearance or obstructive uropathy but a urinary tract infection should be excluded with urinalysis. Mild constipation. Signed: Vandana Lopez MDReport Verified Date/Time: 11/18/2018 04: 16:41 Reading Location: [address] Reading Room SODIUM, RANDOM [id number] 14:14:00 Test Item Value Reference Range Comments SODIUM URINE (BEAKER) (test fnxy=782) 56 meq/L Reference Range: No NormalsCREATININE, RANDOM [id number] 14:14:00 Test Item Value Reference Range Comments CREATININE URINE (BEAKER) (test xafv=484) 53.5 mg/dL Reference Range: No NormalsCOMPREHENSIVE METABOLIC [id number] 07:16:00 Test Item Value Reference Range Comments TOTAL PROTEIN (BEAKER) 5.9 gm/dL 6.0-8.3 (test uuyx=661) ALBUMIN (BEAKER) (test 3.4 g/dL 3.5-5.0 qhmm=1494) ALKALINE PHOSPHATASE 84 U/L 40-150 (BEAKER) (test wsim=185) BILIRUBIN TOTAL (BEAKER) 0.6 mg/dL 0.2-1.2 (test hlzo=677) SODIUM (BEAKER) (test 138 meq/L 136-145 jiws=165) POTASSIUM (BEAKER) (test 4.2 meq/L 3.5-5.1 pqah=307) CHLORIDE (BEAKER) (test 107 meq/L 98-107 tlnd=164) CO2 (BEAKER) (test 23 meq/L 22-29 ajtp=764) BLOOD UREA NITROGEN 41 mg/dL 7-21 (BEAKER) (test thbm=294) CREATININE (BEAKER) (test 1.40 mg/dL 0.57-1.25 shzt=892) GLUCOSE RANDOM (BEAKER) 80 mg/dL 70-105 (test fyyb=969) CALCIUM (BEAKER) (test 8.8 mg/dL 8.4-10.2 xbdh=419) AST (SGOT) (BEAKER) (test 15 U/L 5-34 kbgf=104) ALT (SGPT) (BEAKER) (test 11 U/L 6-55 jqxy=269) EGFR (BEAKER) (test 48 mL/min/1.73 sq m ESTIMATED GFR IS NOT zjnd=6111) ACCURATE CREATININE CLEARANCE IN PREDICTING GLOMERULAR FILTRATION RATE. ESTIMATED GFR IS NOT APPLICABLE FOR DIALYSIS PATIENTS. FastingSpecimen slightly ictericLIPID [id number] 06:27:00 Test Item Value Reference Range Comments TRIGLYCERIDES (BEAKER) (test tqvn=207) 55 mg/dL CHOLESTEROL (BEAKER) (test augq=192) 177 mg/dL HDL CHOLESTEROL (BEAKER) (test gwor=493) 50 mg/dL LDL CHOLESTEROL CALCULATED (BEAKER) (test 116 mg/dL tttz=497) Triglyceride Reference Range: Low Risk <150 Borderline 150- 199 High Risk 200-499 Very High Risk >=500Cholesterol Reference Range: Low Risk <200 Borderline 200-239 High Risk > 240HDL Cholesterol Reference Range: Low Risk >=60 High Risk <40LDL Cholesterol Reference Range: Optimal <100 Near Optimal 100-129 Borderline 130-159 High 160-189 Very High >=190 FastingSpecimen slightly ictericURINALYSIS W/ REFLEX URINE [id number] 05:08:00 Test Item Value Reference Range Comments COLOR (BEAKER) (test inbf=626) Light Yellow CLARITY (BEAKER) (test cbam=004) Clear SPECIFIC GRAVITY UA (BEAKER) (test fpsp=105) 1.009 1.001-1.035 PH UA (BEAKER) (test hmdn=338) 6.0 5.0-8.0 PROTEIN UA (BEAKER) (test hrwq=978) 20 mg/dL Negative GLUCOSE UA (BEAKER) (test fpba=329) Negative Negative KETONES UA (BEAKER) (test nyji=309) Negative Negative BILIRUBIN UA (BEAKER) (test pqyz=420) Negative Negative BLOOD UA (BEAKER) (test kjlv=729) Trace Negative NITRITE UA (BEAKER) (test wtji=863) Negative Negative LEUKOCYTE ESTERASE UA (BEAKER) (test fcwb=853) Large Negative UROBILINOGEN UA (BEAKER) (test spnr=431) 0.2 mg/dL 0.2-1.0 RBC UA (BEAKER) (test ndqz=659) 3 /HPF WBC UA (BEAKER) (test vnjr=859) 67 /HPF BACTERIA (BEAKER) (test waex=332) Rare SOURCE(BEAKER) (test kcaj=2796) CBC W/PLT COUNT & AUTO [id number] 04:59:00 Test Item Value Reference Range Comments WHITE BLOOD CELL COUNT (BEAKER) (test zufj=309) 8.6 K/ L 3.5-10.5 RED BLOOD CELL COUNT (BEAKER) (test hcux=495) 4.12 M/ L 4.63-6.08 HEMOGLOBIN (BEAKER) (test fnqt=881) 13.1 GM/DL 13.7-17.5 HEMATOCRIT (BEAKER) (test lwhr=923) 39.2 % 40.1-51.0 MEAN CORPUSCULAR VOLUME (BEAKER) (test mrsj=574) 95.1 fL 79.0-92.2 MEAN CORPUSCULAR HEMOGLOBIN (BEAKER) (test 31.8 pg 25.7-32.2 nhkp=712) MEAN CORPUSCULAR HEMOGLOBIN CONC (BEAKER) (test 33.4 GM/DL 32.3-36.5 ydnj=662) RED CELL DISTRIBUTION WIDTH (BEAKER) (test 14.1 % 11.6-14.4 bvvv=858) PLATELET COUNT (BEAKER) (test rukp=254) 178 K/CU MM 150-450 MEAN PLATELET VOLUME (BEAKER) (test ycee=372) 10.3 fL 9.4-12.4 NUCLEATED RED BLOOD CELLS (BEAKER) (test 0 /100 WBC 0-0 btzj=033) NEUTROPHILS RELATIVE PERCENT (BEAKER) (test 64 % ouzl=130) LYMPHOCYTES RELATIVE PERCENT (BEAKER) (test 22 % iqzi=705) MONOCYTES RELATIVE PERCENT (BEAKER) (test 6 % nhmc=752) EOSINOPHILS RELATIVE PERCENT (BEAKER) (test 6 % lnfm=315) BASOPHILS RELATIVE PERCENT (BEAKER) (test 1 % vzns=354) NEUTROPHILS ABSOLUTE COUNT (BEAKER) (test 5.50 K/ L 1.78-5.38 dcad=676) LYMPHOCYTES ABSOLUTE COUNT (BEAKER) (test 1.93 K/ L 1.32-3.57 oqku=150) MONOCYTES ABSOLUTE COUNT (BEAKER) (test 0.55 K/ L 0.30-0.82 uzvc=083) EOSINOPHILS ABSOLUTE COUNT (BEAKER) (test 0.54 K/ L 0.04-0.54 bjho=200) BASOPHILS ABSOLUTE COUNT (BEAKER) (test 0.06 K/ L 0.01-0.08 xcfh=386) IMMATURE GRANULOCYTES-RELATIVE PERCENT (BEAKER) 0 % 0-1 (test tpwd=8730) U/S, RENAL, [id number] 00:34:00Reason for exam:->AKIAddendum BeginsREPORT STATUS:A Polynephritis cannot be excluded based on provided images. Recommend CT abdomen and pelvis with contrast when clinically feasible. Signed: Kitty Mikeort Verified Date/Time: 11/17 00:34:57 Reading Location: [facility] C013V Neuro Reading RoomAddendum EndsFINAL REPORT U/S, RENAL, COMPLETE CLINICAL INDICATION : AKICOMPARISON: None TECHNIQUE: The kidneys and urinary bladder [...] predominantly hypoechoic lesion within the right kidney ispresent, possibly a complex and/or proteinaceous cyst. Abscess cannot be definitively excluded. Hydronephrosis: Present. Linear focus adjacent to the right kidney is favored to represent a renal stent.Left kidney: Size: 9.9 x 4.7 x 4.0 [...] pelvis may be obtained if desired. Signed: Kitty Mike MDReport Verified Date/Time: 11/16/2018 23:39:50 Reading Location: [address] Neuro Reading Room TSH/FREE T4 IF [id number] 12:37:00 Test Item Value Reference Range Comments THYROID STIMULATING HORMONE (BEAKER) (test 1.04 uIU/mL 0.35-4.94 pamm=824) TROPONIN [id number] 11:53:00 Test Item Value Reference Range Comments TROPONIN I (BEAKER) (test amwi=574) 0.02 ng/mL 0.00-0.03 Troponin I (TnI) levels must be interpreted in the context of the presenting symptoms and the clinical findings. Elevated TnI levels indicate myocardial damage, but are not specific for ischemic heart disease. Elevated TnI levels are seen in patients with other cardiac conditions (including myocarditis and congestive heart failure), and slight TnI elevations occur in patients with other conditions, including sepsis, renal failure, acidosis, acute neurological disease, and persistent tachyarrhythmia.URINALYSIS [id number] 06:04: 00 Test Item Value Reference Range Comments RBC UA (BEAKER) (test gywm=406) 1 /HPF WBC UA (BEAKER) (test wubv=649) 76 /HPF BACTERIA (BEAKER) (test ivve=570) Rare URINALYSIS WITH MICROSCOPIC IF [id number] 06:03:00 Test Item Value Reference Range Comments COLOR (BEAKER) (test iode=505) Light Yellow CLARITY (BEAKER) (test wuhe=137) Clear SPECIFIC GRAVITY UA (BEAKER) (test brok=131) 1.006 1.001-1.035 PH UA (BEAKER) (test poze=872) 6.5 5.0-8.0 PROTEIN UA (BEAKER) (test remb=102) 30 mg/dL Negative GLUCOSE UA (BEAKER) (test dole=323) Negative Negative KETONES UA (BEAKER) (test kehx=635) Negative Negative BILIRUBIN UA (BEAKER) (test jspl=802) Negative Negative BLOOD UA (BEAKER) (test vftj=049) Trace Negative NITRITE UA (BEAKER) (test rrwc=564) Positive Negative LEUKOCYTE ESTERASE UA (BEAKER) (test ekvt=552) Large Negative UROBILINOGEN UA (BEAKER) (test eoqu=224) 0.2 mg/dL 0.2-1.0 SOURCE(BEAKER) (test rqmf=7332) RAPID DRUG SCREEN, [id number] 06:00:00 Test Item Value Reference Range Comments BARBITURATE URINE (BEAKER) (test krdn=746) Negative Negative BENZODIAZEPINE SCREEN URINE (BEAKER) (test Negative Negative zqax=211) COCAINE (METAB.) SCREEN (BEAKER) (test enfu=4973) Negative Negative METHADONE SCREEN (BEAKER) (test ozik=3982) Negative Negative OPIATE SCREEN URINE (BEAKER) (test kjfp=539) Negative Negative CANNABINOID SCREEN URINE (BEAKER) (test ygwk=526) Negative Negative AMPH/METHAMPH SCREEN (BEAKER) (test nvtj=7541) Negative Negative PHENCYCLIDINE SCREEN URINE (BEAKER) (test lcbw=943) Negative Negative OXYCODONE SCREEN URINE (BEAKER) (test sbrz=0697) Negative Negative DRUG CUTOFF CONC.Cocaine 300 ng/mL Cannabinoid 50 ng/mL Benzodiazepine 200 ng/mLBarbiturate 200 ng/ mLPhencyclidine 25 ng/mLOpiate 300 ng/mLMethadone 300 ng/mLAmphetamine/ 1000 ng/mL MethamphetamineOxycodone 300 ng/mLThis assay provides an unconfirmed qualitative test result for the clinical management of patients in emergency situations. Chain of custody not maintained. Some ekbj-blr-hevqvsu medications, as well as adulterants, may cause inaccurate results. Clinical correlation should be applied. A more comprehensive drug screen or confirmation of a detected drug may be performed upon request.BASIC METABOLIC [id number] 03:52:00 Test Item Value Reference Range Comments SODIUM (BEAKER) (test 135 meq/L 136-145 auwf=361) POTASSIUM (BEAKER) (test 4.5 meq/L 3.5-5.1 sgyx=658) CHLORIDE (BEAKER) (test 101 meq/L 98-107 hrdm=623) CO2 (BEAKER) (test 26 meq/L 22-29 qrok=978) BLOOD UREA NITROGEN 32 mg/dL 7-21 (BEAKER) (test zcvd=535) CREATININE (BEAKER) (test 1.31 mg/dL 0.57-1.25 szbv=734) GLUCOSE RANDOM (BEAKER) 111 mg/dL 70-105 (test fwen=664) CALCIUM (BEAKER) (test 9.6 mg/dL 8.4-10.2 jcbl=001) EGFR (BEAKER) (test 52 mL/min/1.73 sq m ESTIMATED GFR IS NOT spxm=3347) ACCURATE CREATININE CLEARANCE IN PREDICTING GLOMERULAR FILTRATION RATE. ESTIMATED GFR IS NOT APPLICABLE FOR DIALYSIS PATIENTS. Specimen slightly ictericTROPONIN [id number] 03:52:00 Test Item Value Reference Range Comments TROPONIN I (BEAKER) (test nwxq=322) 0.04 ng/mL 0.00-0.03 Troponin I (TnI) levels must be interpreted in the context of the presenting symptoms and the clinical findings. Elevated TnI levels indicate myocardial damage, but are not specific for ischemic heart disease. Elevated TnI levels are seen in patients with other cardiac conditions (including myocarditis and congestive heart failure), and slight TnI elevations occur in patients with other conditions, including sepsis, renal failure, acidosis, acute neurological disease, and persistent tachyarrhythmia.CBC W/PLT COUNT & AUTO [id number] 02:18:00 Test Item Value Reference Range Comments WHITE BLOOD CELL COUNT (BEAKER) (test hccv=434) 9.0 K/ L 3.5-10.5 RED BLOOD CELL COUNT (BEAKER) (test hwlz=280) 4.82 M/ L 4.63-6.08 HEMOGLOBIN (BEAKER) (test agze=767) 15.0 GM/DL 13.7-17.5 HEMATOCRIT (BEAKER) (test lerh=320) 45.3 % 40.1-51.0 MEAN CORPUSCULAR VOLUME (BEAKER) (test cxif=370) 94.0 fL 79.0-92.2 MEAN CORPUSCULAR HEMOGLOBIN (BEAKER) (test 31.1 pg 25.7-32.2 apkt=844) MEAN CORPUSCULAR HEMOGLOBIN CONC (BEAKER) (test 33.1 GM/DL 32.3-36.5 egaj=635) RED CELL DISTRIBUTION WIDTH (BEAKER) (test 13.9 % 11.6-14.4 fkxb=035) PLATELET COUNT (BEAKER) (test lnxx=764) 205 K/CU MM 150-450 MEAN PLATELET VOLUME (BEAKER) (test ljga=961) 10.1 fL 9.4-12.4 NUCLEATED RED BLOOD CELLS (BEAKER) (test 0 /100 WBC 0-0 ttei=644) NEUTROPHILS RELATIVE PERCENT (BEAKER) (test 83 % yqnv=406) LYMPHOCYTES RELATIVE PERCENT (BEAKER) (test 11 % apqo=898) MONOCYTES RELATIVE PERCENT (BEAKER) (test 6 % spjt=358) EOSINOPHILS RELATIVE PERCENT (BEAKER) (test 0 % ujdi=472) BASOPHILS RELATIVE PERCENT (BEAKER) (test 0 % arht=598) NEUTROPHILS ABSOLUTE COUNT (BEAKER) (test 7.49 K/ L 1.78-5.38 wjtv=477) LYMPHOCYTES ABSOLUTE COUNT (BEAKER) (test 0.96 K/ L 1.32-3.57 zkjs=923) MONOCYTES ABSOLUTE COUNT (BEAKER) (test 0.50 K/ L 0.30-0.82 hajp=446) EOSINOPHILS ABSOLUTE COUNT (BEAKER) (test 0.03 K/ L 0.04-0.54 eowe=084) BASOPHILS ABSOLUTE COUNT (BEAKER) (test 0.03 K/ L 0.01-0.08 ixuj=093) IMMATURE GRANULOCYTES-RELATIVE PERCENT (BEAKER) 0 % 0-1 (test ggct=8650) MR, MRA, BRAIN, WITHOUT [id number] 02:09:00Reason for exam:-> Ischemic Stroke EvaluationFINAL REPORT MR, BRAIN, WITHOUT CONTRAST, MR, MRA, NECK, WITHOUT IV CONTRAST,MR, MRA, BRAIN, WITHOUT CONTRAST INDICATION: StrokeIschemic Stroke Evaluation TECHNIQUE: Multiplanar, multisequence MR images [...] T2 hyperintense focus of the left parotid, onlypartially evaluated and not entirely included within the provided images with differential considerations including a lymph node, benign and malignant parotid lesions. MRA BRAIN:Internal carotid arteries: Normal flow related enhancement without flow-limiting stenosisMiddle cerebral arteries: Normal flow related enhancement within the bilateral MCA M1-M2 segments without flow limiting stenosis Anterior cerebral arteries: Normal flow-related enhancement within the bilateral PATRICIA A1-A2 segments withoutflow limiting stenosis. Right A1 is hypoplastic.Basilar system: Normal flow-related enhancement within the bilateral V4 segments and the basilar artery without flow-limiting stenosis . Suspected incidental fenestration of the proximal basilar arteryPosterior cerebral arteries: Normal flow-related enhancement within the bilateral PRIMER CHARGER P1- P2 segments without flow-limiting stenosisAdditional findings: None. MRA NECK: Common carotid arteries: Unremarkable. Bifurcations: No flow-limiting stenosis. Cervical internal carotid arteries: No flow limiting stenosis.Vertebral arteries : Normal flow-related enhancement bilaterally. Mild focal stenosis of the mid right cervical vertebral artery. IMPRESSION: No acute stroke No flow limiting stenosis within the head or neck Signed: Kitty Mike MDReport Verified Date/ Time: 11/16/2018 02:09:12 Reading Location: [address] Neuro Reading Room MR , MRA, NECK, WITHOUT IV [id number] 02:09:00Reason for exam:-> Ischemic Stroke EvaluationFINAL REPORT MR, BRAIN, WITHOUT CONTRAST, MR, MRA, NECK, WITHOUT IV CONTRAST,MR, MRA, BRAIN, WITHOUT CONTRAST INDICATION: StrokeIschemic Stroke Evaluation TECHNIQUE: Multiplanar, multisequence MR images [...] T2 hyperintense focus of the left parotid, onlypartially evaluated and not entirely included within the provided images with differential considerations including a lymph node, benign and malignant parotid lesions. MRA BRAIN:Internal carotid arteries: Normal flow related enhancement without flow-limiting stenosisMiddle cerebral arteries: Normal flow related enhancement within the bilateral MCA M1-M2 segments without flow limiting stenosis Anterior cerebral arteries: Normal flow-related enhancement within the bilateral PATRICIA A1-A2 segments withoutflow limiting stenosis. Right A1 is hypoplastic.Basilar system: Normal flow-related enhancement within the bilateral V4 segments and the basilar artery without flow-limiting stenosis . Suspected incidental fenestration of the proximal basilar arteryPosterior cerebral arteries: Normal flow-related enhancement within the bilateral PRIMER CHARGER P1- P2 segments without flow-limiting stenosisAdditional findings: None. MRA NECK: Common carotid arteries: Unremarkable. Bifurcations: No flow-limiting stenosis. Cervical internal carotid arteries: No flow limiting stenosis.Vertebral arteries : Normal flow-related enhancement bilaterally. Mild focal stenosis of the mid right cervical vertebral artery. IMPRESSION: No acute stroke No flow limiting stenosis within the head or neck Signed: Kitty Mike MDReport Verified Date/ Time: 11/16/2018 02:09:12 Reading Location: [facility] C013V Neuro Reading Room MR , BRAIN, WITHOUT [id number] 02:09:00Reason for exam:->Ischemic Stroke EvaluationFINAL REPORT MR, BRAIN, WITHOUT CONTRAST , MR, MRA, NECK, WITHOUT IV CONTRAST,MR, MRA, BRAIN, WITHOUT CONTRAST INDICATION : StrokeIschemic Stroke Evaluation TECHNIQUE: Multiplanar, multisequence MR images of the brain. 3-D time of flight MRA of the cranial and cervical circulation. 2-D time of flight MRA of the neck. 3D MIP angiographic post- processing was performed. Stenosis evaluation utilized NASCET criteria. COMPARISON: None available FINDINGS: MRI BRAIN: Brain parenchyma is normal in morphology. Midline structures are normally developed. No restricted diffusion to suggest recent ischemic insult. No abnormal susceptibility. Scattered T2/ FLAIR hyperintense foci within the periventricular and subcortical white matter are nonspecific, however, statistically represent chronic microvascular ischemic changes. No hydrocephalus. Orbits are within normal limits. No obstructive paranasal sinus disease. Calvarium and skull base demonstrate marrow signal within normal limits for age without focal lesion. Additional findings: 7 mm T2 hyperintense focus of the left parotid, onlypartially evaluated and not entirely included within the provided images with differential considerations including a lymph node, benign and malignant parotid lesions. MRA BRAIN:Internal carotid arteries: Normal flow related enhancement without flow-limiting stenosisMiddle cerebral arteries: Normal flow related enhancement within the bilateral MCA M1-M2 segments without flow limiting stenosis Anterior cerebral arteries: Normal flow-related enhancement within the bilateral PATRICIA A1-A2 segments withoutflow limiting stenosis. Right A1 is hypoplastic.Basilar system: Normal flow-related enhancement within the bilateral V4 segments and the basilar artery without flow-limiting stenosis . Suspected incidental fenestration of the proximal basilar arteryPosterior cerebral arteries: Normal flow-related enhancement within the bilateral PRIMER CHARGER P1- P2 segments without flow-limiting stenosisAdditional findings: None. MRA NECK: Common carotid arteries: Unremarkable. Bifurcations: No flow-limiting stenosis. Cervical internal carotid arteries: No flow limiting stenosis.Vertebral arteries : Normal flow-related enhancement bilaterally. Mild focal stenosis of the mid right cervical vertebral artery. IMPRESSION: No acute stroke No flow limiting stenosis within the head or neck Signed: Kitty Mike Verified Date/ Time: 11/16/2018 02:09:12 Reading Location: [facility] B1 C013V Neuro Reading Room
[2018-12-13] MEDS ORDERED: ZOLPIDEM TARTRATE 5 MG TABLET ONE (08:32)
[2018-12-13 08:36] LABS: Absolute Lymphocytes (CBC) 1.5 K/uL (0.7-4.9); Absolute Monocytes 0.5 K/uL (0.1-1.3); Absolute Neutrophil 4.7 K/uL (1.8-8.0); Eosinophils % 5.7 % (0-4.4); Hematocrit 39.5 % (39.6-49.0); Lymphocytes % 21.1 % (15.3-44.8); MPV 8.6 fL (7.6-11.3)
[2018-12-13 08:44] LABS: Potassium 4.1 mmol/L (3.5-5.1)
--- NOTE | 2018-12-13 09:26 | ER ---
Nurse's Notes [facility] Name: Oc King Age: 88 yrs Sex: Male : 1930 Arrival Date: 12/13/2018 Time: 07:58 Bed 15 Private MD: Diagnosis: Hypertension;Urinary tract infection, site not specified Presentation: 12/13 08:12 Presenting complaint: Patient states: "my blood pressure was high this morning around 7 tw2 am, then I took my medicine this morning and my blood pressure got higher". Transition of care: patient was not received from another setting of care. Onset of symptoms was December 13, 2018. Risk Assessment: Do you want to hurt yourself or someone else? Patient reports no desire to harm self or others. Initial Sepsis Screen: Does the patient meet any 2 criteria? No. Patient's initial sepsis screen is negative. Does the patient have a suspected source of infection? No. Patient's initial sepsis screen is negative. Care prior to arrival: None. 08:12 Method Of Arrival: Ambulatory tw2 08:12 Acuity: AUTUMN 3 tw2 Triage Assessment: 08:13 General: Appears in no apparent distress. well groomed, Behavior is calm, cooperative, tw2 appropriate for age. Pain: Denies pain. Historical: - Allergies: 08:16 No Known Allergies; tw2 - Home Meds: 08:16 amlodipine 5 mg tab 1 tab once daily [Active]; isosorbide mononitrate 30 mg Oral Tb24 1 tw2 tab once daily [Active]; losartan 50 mg oral tab 1 tab once daily [Active]; aspirin 81 mg Oral chew 1 tab once daily [Active]; atorvastatin 80 mg oral tab 1 tab once daily [Active]; - PMHx: 08:16 Hypertension; Hyperlipidemia; tw2 - Immunization history:: Adult Immunizations. - Social history:: Smoking status: . - Ebola Screening: : Patient denies exposure to infectious person Patient denies travel to an Ebola-affected area in the 21 days before illness onset. - Family history:: not pertinent. - Hospitalizations: : Patient was recently seen at. Screenin:30 Abuse screen: Denies threats or abuse. Nutritional screening: No deficits noted. tw2 Tuberculosis screening: No symptoms or risk factors identified. Fall Risk Secondary diagnosis (15 points) impaired mobility. Assessment: 08:10 General: Appears in no apparent distress. slender, well groomed, Behavior is calm, tw2 cooperative, appropriate for age. Pain: Denies pain. Neuro: Level of Consciousness is awake, alert, obeys commands, Oriented to person, place, time, situation. Cardiovascular: Denies chest pain, shortness of breath, Heart tones S1 S2 Patient's skin is warm and dry. Respiratory: Airway is patent Respiratory effort is even, unlabored, Respiratory pattern is regular, symmetrical, Breath sounds are clear bilaterally. GI: No signs and/or symptoms were reported involving the gastrointestinal system. Abdomen is flat, Bowel sounds present X 4 quads. : No signs and/or symptoms were reported regarding the genitourinary system. Denies burning with urination, urinary frequency. EENT: No signs and/or symptoms were reported regarding the EENT system. Derm: No signs and/or symptoms reported regarding the dermatologic system. Musculoskeletal: No signs and/or symptoms reported regarding the musculoskeletal system. Circulation, motion, and sensation intact. Range of motion: intact in all extremities. 08:58 Reassessment: Patient appears in no apparent distress at this time. No changes from tw2 previously documented assessment. Patient and/or family updated on plan of care and expected duration. Pain level reassessed. Patient is alert, oriented x 3, equal unlabored respirations, skin warm/dry/pink. 09:52 Reassessment: Patient appears in no apparent distress at this time. No changes from tw2 previously documented assessment. Patient and/or family updated on plan of care and expected duration. Pain level reassessed. Patient is alert, oriented x 3, equal unlabored respirations, skin warm/dry/pink. Vital Signs: 08:13 BP 192 / 86; Pulse 97; Resp 17; Temp 98.9(TE); Pulse Ox 98% on R/A; Weight 58.97 kg tw2 (R); Height 5 ft. 4 in. (162.56 cm) (R); Pain 0/10; 08:16 BP 179 / 69; Pulse 86; Resp 17; Pulse Ox 98% on R/A; tw2 08:56 BP 156 / 60; Pulse 61; Resp 17; Pulse Ox 99% on R/A; tw2 09:53 BP 166 / 67; Pulse 66; Resp 17; Pulse Ox 99% on R/A; tw2 08:13 Body Mass Index 22.32 (58.97 kg, 162.56 cm) tw2 ED Course: 07:58 Patient arrived in ED. rg4 08:03 Giancarlo Luciano MD is Attending Physician. rn 08:11 Zoe Farfan RN is Primary Nurse. tw2 08:12 Triage completed. tw2 08:12 Arm band placed on. tw2 08:12 Bed in low position. Call light in reach. ship/rec/doc control on. Pulse ox on. NIBP on. tw2 08:23 Inserted saline lock: 22 gauge in right antecubital area, using aseptic technique. tw2 Blood collected. 08:50 Urine Microscopic Only Sent. tw2 09:37 Awaiting: IV abx observation after administration prior to discharge. tw2 09:53 No provider procedures requiring assistance completed. IV discontinued, intact, tw2 bleeding controlled, No redness/swelling at site. Pressure dressing applied. Administered Medications: 08:25 Drug: amLODIPine 5 mg Route: PO; tw2 09:25 Follow up: Response: No adverse reaction; Blood pressure is lowered tw2 09:25 CANCELLED (ivp available from pharmacy only): Rocephin - (cefTRIAXone) 1 grams IVPB tw2 once over 30 mins; (mix in 50 mL NS) 09:37 Drug: Rocephin 1 grams Route: IV; Rate: bolus; Site: right antecubital; tw2 09:41 Follow up: IV Status: Completed infusion tw2 09:55 Follow up: Response: No adverse reaction tw2 Outcome: 09:25 Discharge ordered by . rn 09:55 Discharged to home ambulatory. tw2 09:55 Condition: stable 09:55 Discharge instructions given to patient, Instructed on discharge instructions, follow up and referral plans. medication usage, Demonstrated understanding of instructions, follow-up care, medications, Prescriptions given X 1. 09:55 Patient left the ED. tw2 Addendum: 12/16/2018 09:32 Addendum: Culture Results: Positive urine culture. Bacteria is resistant to, has s s intermediate sensitivity, or is not tested against prescribed antibiotics. Report given to DIAZ for further evaluation and then to health insurance specialist for follow up with patient. Phone call Attempt #1 no answer, Left Certified letter sent to listed address for patient. Signatures: Giancarlo Luciano MD MD rn Smirch, Shelby, RN RN Zoe Farfan RN RN tw2 Rita King rg4 Corrections: (The following items were deleted from the chart) 12/13 09:30 08:13 BP 192 / 86; Pulse 97bpm; Resp 17bpm; Pulse Ox 98% RA; 58.97 kg Reported; Height tw2 5 ft. 4 in. Reported; BMI: 22.3; Pain 0/10; tw2 12/16 09:35 09:32 Addendum: Culture Results: Positive urine culture. Bacteria is resistant to, has ss intermediate sensitivity, or is not tested against prescribed antibiotics. Report given to DIAZ for further evaluation and then to health insurance specialist for follow up with patient. Phone call Attempt #1 no answer, Left ss
--- NOTE | 2018-12-13 09:26 | EDPHYS ---
Physician Documentation [facility] Name: Oc King Age: 88 yrs Sex: Male : 1930 Arrival Date: 12/13/2018 Time: 07:58 Bed 15 Private MD: ED Physician Giancarlo Luciano HPI: 12/13 08:27 This 88 yrs old Male presents to ER via Ambulatory with complaints of High rn Blood Pressure. 08:27 The patient has elevated blood pressure and discovered this at home. Onset: The rn symptoms/episode began/occurred yesterday. Modifying factors: The symptoms are aggravated by discontinuation of meds. Severity of symptoms: At its worst the blood pressure was moderate, in the emergency department the blood pressure is improved. The patient has experienced similar episodes in the past. Reports noticed high blood pressure yesterday, got released from hospital recently, given new medication, his daughter was under the impression that he was to stop amlodipine, he has not taken it, reports headache last night that has now resolved, no focal neurological complaint, no chest pain/sob/abd pain. Reports has had high blood pressure with headaches in past and when takes amlodipine, makes it go away. Also finished levofloxacin for UTI. No new or persistent urinary symptoms.. Historical: - Allergies: 08:16 No Known Allergies; tw2 - Home Meds: 08:16 amlodipine 5 mg tab 1 tab once daily [Active]; isosorbide mononitrate 30 mg Oral Tb24 1 tw2 tab once daily [Active]; losartan 50 mg oral tab 1 tab once daily [Active]; aspirin 81 mg Oral chew 1 tab once daily [Active]; atorvastatin 80 mg oral tab 1 tab once daily [Active]; - PMHx: 08:16 Hypertension; Hyperlipidemia; tw2 - Immunization history:: Adult Immunizations. - Social history:: Smoking status: . - Ebola Screening: : Patient denies exposure to infectious person Patient denies travel to an Ebola-affected area in the 21 days before illness onset. - Family history:: not pertinent. - Hospitalizations: : Patient was recently seen at. ROS: 08:27 Constitutional: Negative for fever, chills, and weight loss, Eyes: Negative for injury, rn pain, redness, and discharge, Neck: Negative for injury, pain, and swelling, Cardiovascular: Negative for chest pain, palpitations, and edema, Respiratory: Negative for shortness of breath, cough, wheezing, and pleuritic chest pain, Abdomen/GI: Negative for abdominal pain, nausea, vomiting, diarrhea, and constipation, MS/Extremity: Negative for injury and deformity, Skin: Negative for injury, rash, and discoloration, Neuro: Negative for headache, weakness, numbness, tingling, and seizure. Exam: 08:27 Constitutional: This is a well developed, well nourished patient who is awake, alert, rn and in no acute distress. Seems anxious. Head/Face: Normocephalic, atraumatic. Eyes: Pupils equal round and reactive to light, extra-ocular motions intact. Lids and lashes normal. Conjunctiva and sclera are non-icteric and not injected. Cornea within normal limits. Periorbital areas with no swelling, redness, or edema. Neck: Trachea midline, no thyromegaly or masses palpated, and no cervical lymphadenopathy. Supple, full range of motion without nuchal rigidity, or vertebral point tenderness. No Meningismus. Cardiovascular: Regular rate and rhythm, + soft systolic murmur, no rub Respiratory: Lungs have equal breath sounds bilaterally, clear to auscultation. No increased work of breathing, no retractions or nasal flaring. Abdomen/GI: soft, non-tender MS/ Extremity: Pulses equal, no cyanosis. Neurovascular intact. Full, normal range of motion. Equal circumference. Neuro: Awake and alert 08:37 ECG was reviewed by the Attending Physician. rn Vital Signs: 08:13 BP 192 / 86; Pulse 97; Resp 17; Temp 98.9(TE); Pulse Ox 98% on R/A; Weight 58.97 kg tw2 (R); Height 5 ft. 4 in. (162.56 cm) (R); Pain 0/10; 08:16 BP 179 / 69; Pulse 86; Resp 17; Pulse Ox 98% on R/A; tw2 08:56 BP 156 / 60; Pulse 61; Resp 17; Pulse Ox 99% on R/A; tw2 09:53 BP 166 / 67; Pulse 66; Resp 17; Pulse Ox 99% on R/A; tw2 08:13 Body Mass Index 22.32 (58.97 kg, 162.56 cm) tw2 MDM: 08:03 Patient medically screened. rn 09:24 Differential diagnosis: hypertensive crisis, Malignant HTN, UTI, medication mix-up. rn Data reviewed: vital signs, nurses notes, diagnostic data from outside facility, old medical records, lab test result(s), EKG, and as a result, I will discharge patient. Counseling: I had a detailed discussion with the patient and/or guardian regarding: the historical points, exam findings, and any diagnostic results supporting the discharge/admit diagnosis, lab results, the need for outpatient follow up, to return to the emergency department if symptoms worsen or persist or if there are any questions or concerns that arise at home. Response to treatment: the patient's symptoms have mildly improved after treatment, the patient's condition has returned to base line, the patient is now symptom free, and as a result, I will discharge patient. Special discussion: I discussed with the patient/guardian in detail that at this point there is no indication for admission to the hospital. It is understood, however, that if the symptoms persist or worsen the patient needs to return immediately for re-evaluation. ED course: Discussed that on discharge paperwork, states to continue taking his amlodipine, improved BP with amlodipine, + persistent UTI, according to sensitivities, will given vantin as already been on levaquin.. 12/13 08:15 Order name: CBC with Diff 12/13 08:15 Order name: Basic Metabolic Panel; Complete Time: 08:44 12/13 08:15 Order name: Urine Microscopic Only 12/13 08:16 Order name: CBC with Automated Diff; Complete Time: 08:44 [facility] 12/13 08:51 Order name: Urine Dipstick--Ancillary (enter results) 12/13 09:32 Order name: Urine Culture [facility] 12/13 08:15 Order name: IV Start; Complete Time: 08:36 12/13 08:15 Order name: EKG; Complete Time: 08:15 12/13 08:15 Order name: EKG - Nurse/Tech; Complete Time: 08:35 12/13 08:15 Order name: Urine Dipstick-Ancillary (obtain specimen); Complete Time: 08:50 rn EC:37 Rate is 73 beats/min. Rhythm is regular. QRS [place] is Normal. IN interval is normal. QRS rn interval is normal. QT interval is normal. No Q waves. T waves are Normal. No ST changes noted. Clinical impression: Normal ECG. Interpreted by me. Reviewed by me. Administered Medications: 08:25 Drug: amLODIPine 5 mg Route: PO; tw2 09:25 Follow up: Response: No adverse reaction; Blood pressure is lowered tw2 09:25 CANCELLED (ivp available from pharmacy only): Rocephin - (cefTRIAXone) 1 grams IVPB tw2 once over 30 mins; (mix in 50 mL NS) 09:37 Drug: Rocephin 1 grams Route: IV; Rate: bolus; Site: right antecubital; tw2 09:41 Follow up: IV Status: Completed infusion tw2 09:55 Follow up: Response: No adverse reaction tw2 Disposition: 12/13/18 09:25 Discharged to Home. Impression: Hypertension, Urinary tract infection, site not specified. - Condition is Stable. - Discharge Instructions: Hypertension, Urinary Tract Infection, Adult, Managing Your Hypertension. - Prescriptions for cefpodoxime 100 mg Oral Tablet - take 1 tablet by ORAL route every 12 hours for 10 days take with food; 20 tablet. - Medication Reconciliation Form, Thank You Letter, Antibiotic Education, Prescription Opioid Use form. - Follow up: Private Physician; When: As needed; Reason: Recheck today's complaints, Re-evaluation by your physician. - Problem is new. - Symptoms have improved. Signatures: Dispatcher [employer] EDMS Giancarlo Luciano MD MD rn Wise, Tara, RN RN tw2 Corrections: (The following items were deleted from the chart) 09:25 09:23 Rocephin - (cefTRIAXone) 1 grams IVPB once over 30 mins; (mix in 50 mL NS) tw2 ordered. rn 09:55 09:25 12/13/2018 09:25 Discharged to Home. Impression: Hypertension; Urinary tract tw2 infection, site not specified. Condition is Stable. Forms are Medication Reconciliation Form, Thank You Letter, Antibiotic Education, Prescription Opioid Use. Follow up: Private Physician; When: As needed; Reason: Recheck today's complaints, Re-evaluation by your physician. Problem is new. Symptoms have improved. rn
[2018-12-13 09:30] LABS: Urine Bacteria <20 /HPF (NONE SEEN); Urine Culture Reflex Order REFLEXED; Urine RBC <5 /HPF (NONE SEEN)
[2018-12-13 09:31] LABS: Urine Blood 1+ (NEG); Urine Glucose NEGATIVE (NEG); Urine Protein 1+ (NEG); Urine Specific Gravity 1.015 (1.005-1.030)
[2018-12-13] MEDS ORDERED: CEFTRIAXONE/SWI 1gm 1 GM/10 ML SYR ONE (09:43)
--- NOTE | 2018-12-14 08:48 | EKG ---
Test Date: 2018-12-13 Test Time: 08:30:30 Settlement Clerk: BRADLEY MEASUREMENT RESULTS: Intervals: Rate: 73 UT: 158 QRSD: 96 QT: 378 QTc: 416 [place]: P: 57 UT: 158 QRS: -16 T: 60 INTERPRETIVE STATEMENTS: Normal sinus rhythm Normal ECG Compared to ECG 11/15/2018 17:25:12 ST (T wave) deviation no longer present Electronically Signed On 12-14-18 08:47:24 CDT by Maynor Holt
== END 2018-12-13 09:55 | disposition home or self-care (01) ==
LOC: ER 07:56
DX: I10 Essential (primary) hypertension (principal); N39.0 Urinary tract infection, site not specified; E78.5 Hyperlipidemia, unspecified; Z79.82 Long term (current) use of aspirin
CPT/HCPCS: 93005; 87088; 85025; 87086; 80048; 36415; 87077; 87186; 96374; 99284; J0696; 81003; 81015

== ENCOUNTER 2018-12-14 07:04 | Emergency (ER) | payer OTHER ==
--- OUTSIDE RECORDS SUMMARY | 2018-12-14 07:07 | XMS REPORT ---
:1930 Author Organization [facility] Address [address] [place] [address] Dr. Eaton [address] [place] [id number] Care Team Providers Name Role Phone AMANDA TAMEOMA Unavailable Unavailable Problems This patient has no known problems. Allergies, Adverse Reactions, Alerts This patient has no known allergies or adverse reactions. Medications This patient has no known medications. Results Test Description Test Time Test Comments Text Results Atomic Results Result Comments BASIC METABOLIC PANEL 2018-11-18 10:44:00 Test Item Value Reference Range Comments SODIUM (BEAKER) (test 139 meq/L 136-145 wsbx=423) POTASSIUM (BEAKER) (test 3.9 meq/L 3.5-5.1 Specimen slightly hemolyzed kyqf=600) CHLORIDE (BEAKER) (test 108 meq/L 98-107 eunk=794) CO2 (BEAKER) (test ngdk=828) 22 meq/L 22-29 BLOOD UREA NITROGEN (BEAKER) 35 mg/dL 7-21 (test uham=411) CREATININE (BEAKER) (test 1.40 mg/dL 0.57-1.25 Specimen slightly hemolyzed ylvj=688) GLUCOSE RANDOM (BEAKER) 130 mg/dL 70-105 (test bewp=297) CALCIUM (BEAKER) (test 9.1 mg/dL 8.4-10.2 qyuo=962) EGFR (BEAKER) (test 48 mL/min/1.73 sq m ESTIMATED GFR IS NOT umie=5211) ACCURATE CREATININE CLEARANCE IN PREDICTING GLOMERULAR FILTRATION RATE. ESTIMATED GFR IS NOT APPLICABLE FOR DIALYSIS PATIENTS. CT, [id number] 04:16:00FINAL REPORT CLINICAL HISTORY: Abnormal findings on [...] Verified Date/Time: 11/18/2018 04: 16:41 Reading Location: [address] Reading Room SODIUM, RANDOM [id number] 14:14:00 Test Item Value Reference Range Comments SODIUM URINE (BEAKER) (test nerr=878) 56 meq/L Reference Range: No NormalsCREATININE, RANDOM [id number] 14:14:00 Test Item Value Reference Range Comments CREATININE URINE (BEAKER) (test rdcf=392) 53.5 mg/dL Reference Range: No NormalsCOMPREHENSIVE METABOLIC [id number] 07:16:00 Test Item Value Reference Range Comments TOTAL PROTEIN (BEAKER) 5.9 gm/dL 6.0-8.3 (test juhe=363) ALBUMIN (BEAKER) (test 3.4 g/dL 3.5-5.0 enga=0321) ALKALINE PHOSPHATASE 84 U/L 40-150 (BEAKER) (test oubf=322) BILIRUBIN TOTAL (BEAKER) 0.6 mg/dL 0.2-1.2 (test iqtv=472) SODIUM (BEAKER) (test 138 meq/L 136-145 mxkc=696) POTASSIUM (BEAKER) (test 4.2 meq/L 3.5-5.1 mhla=608) CHLORIDE (BEAKER) (test 107 meq/L 98-107 eski=165) CO2 (BEAKER) (test 23 meq/L 22-29 qqrq=040) BLOOD UREA NITROGEN 41 mg/dL 7-21 (BEAKER) (test givv=637) CREATININE (BEAKER) (test 1.40 mg/dL 0.57-1.25 cjgj=492) GLUCOSE RANDOM (BEAKER) 80 mg/dL 70-105 (test pcbd=650) CALCIUM (BEAKER) (test 8.8 mg/dL 8.4-10.2 gfck=802) AST (SGOT) (BEAKER) (test 15 U/L 5-34 zpjh=748) ALT (SGPT) (BEAKER) (test 11 U/L 6-55 risk=646) EGFR (BEAKER) (test 48 mL/min/1.73 sq m ESTIMATED GFR IS NOT azsv=0242) ACCURATE CREATININE CLEARANCE IN PREDICTING GLOMERULAR FILTRATION RATE. ESTIMATED GFR IS NOT APPLICABLE FOR DIALYSIS PATIENTS. FastingSpecimen slightly ictericLIPID [id number] 06:27:00 Test Item Value Reference Range Comments TRIGLYCERIDES (BEAKER) (test lpbl=880) 55 mg/dL CHOLESTEROL (BEAKER) (test jmsf=001) 177 mg/dL HDL CHOLESTEROL (BEAKER) (test aumt=250) 50 mg/dL LDL CHOLESTEROL CALCULATED (BEAKER) (test 116 mg/dL moox=531) Triglyceride Reference Range: Low Risk <150 Borderline 150- 199 High Risk 200-499 Very High Risk >=500Cholesterol Reference Range: Low Risk <200 Borderline 200-239 High Risk > 240HDL Cholesterol Reference Range: Low Risk >=60 High Risk <40LDL Cholesterol Reference Range: Optimal <100 Near Optimal 100-129 Borderline 130-159 High 160-189 Very High >=190 FastingSpecimen slightly ictericURINALYSIS W/ REFLEX URINE [id number] 05:08:00 Test Item Value Reference Range Comments COLOR (BEAKER) (test kkqj=057) Light Yellow CLARITY (BEAKER) (test rqcq=596) Clear SPECIFIC GRAVITY UA (BEAKER) (test bsqo=683) 1.009 1.001-1.035 PH UA (BEAKER) (test aptw=601) 6.0 5.0-8.0 PROTEIN UA (BEAKER) (test nesw=720) 20 mg/dL Negative GLUCOSE UA (BEAKER) (test llbt=828) Negative Negative KETONES UA (BEAKER) (test afnn=034) Negative Negative BILIRUBIN UA (BEAKER) (test ggls=376) Negative Negative BLOOD UA (BEAKER) (test lqri=595) Trace Negative NITRITE UA (BEAKER) (test cffo=603) Negative Negative LEUKOCYTE ESTERASE UA (BEAKER) (test hwhm=045) Large Negative UROBILINOGEN UA (BEAKER) (test ovbg=798) 0.2 mg/dL 0.2-1.0 RBC UA (BEAKER) (test cxky=344) 3 /HPF WBC UA (BEAKER) (test lswb=526) 67 /HPF BACTERIA (BEAKER) (test sjmy=007) Rare SOURCE(BEAKER) (test vvko=1015) CBC W/PLT COUNT & AUTO [id number] 04:59:00 Test Item Value Reference Range Comments WHITE BLOOD CELL COUNT (BEAKER) (test bwmp=489) 8.6 K/ L 3.5-10.5 RED BLOOD CELL COUNT (BEAKER) (test lupz=336) 4.12 M/ L 4.63-6.08 HEMOGLOBIN (BEAKER) (test cdyi=806) 13.1 GM/DL 13.7-17.5 HEMATOCRIT (BEAKER) (test qscr=822) 39.2 % 40.1-51.0 MEAN CORPUSCULAR VOLUME (BEAKER) (test spbw=703) 95.1 fL 79.0-92.2 MEAN CORPUSCULAR HEMOGLOBIN (BEAKER) (test 31.8 pg 25.7-32.2 ihwx=630) MEAN CORPUSCULAR HEMOGLOBIN CONC (BEAKER) (test 33.4 GM/DL 32.3-36.5 aysc=129) RED CELL DISTRIBUTION WIDTH (BEAKER) (test 14.1 % 11.6-14.4 elso=954) PLATELET COUNT (BEAKER) (test rjfa=203) 178 K/CU MM 150-450 MEAN PLATELET VOLUME (BEAKER) (test rycw=112) 10.3 fL 9.4-12.4 NUCLEATED RED BLOOD CELLS (BEAKER) (test 0 /100 WBC 0-0 posq=248) NEUTROPHILS RELATIVE PERCENT (BEAKER) (test 64 % maoe=988) LYMPHOCYTES RELATIVE PERCENT (BEAKER) (test 22 % rtet=512) MONOCYTES RELATIVE PERCENT (BEAKER) (test 6 % gzul=021) EOSINOPHILS RELATIVE PERCENT (BEAKER) (test 6 % hfmi=544) BASOPHILS RELATIVE PERCENT (BEAKER) (test 1 % lubf=781) NEUTROPHILS ABSOLUTE COUNT (BEAKER) (test 5.50 K/ L 1.78-5.38 pkao=754) LYMPHOCYTES ABSOLUTE COUNT (BEAKER) (test 1.93 K/ L 1.32-3.57 zzwl=290) MONOCYTES ABSOLUTE COUNT (BEAKER) (test 0.55 K/ L 0.30-0.82 khhc=238) EOSINOPHILS ABSOLUTE COUNT (BEAKER) (test 0.54 K/ L 0.04-0.54 chiy=791) BASOPHILS ABSOLUTE COUNT (BEAKER) (test 0.06 K/ L 0.01-0.08 gyog=401) IMMATURE GRANULOCYTES-RELATIVE PERCENT (BEAKER) 0 % 0-1 (test apgg=8300) U/S, RENAL, [id number] 00:34:00Reason for exam:->AKIAddendum BeginsREPORT STATUS:A Polynephritis cannot be excluded based on provided images. Recommend CT abdomen and pelvis with contrast when clinically feasible. Signed: Kitty Mike MDReport Verified Date/Time: 11/17 00:34:57 Reading Location: [facility] C013V Neuro Reading RoomAddendum EndsFINAL REPORT [...] MDReport Verified Date/Time: 11/16/2018 23:39:50 Reading Location: [address] Neuro Reading Room TSH/FREE T4 IF [id number] 12:37:00 Test Item Value Reference Range Comments THYROID STIMULATING HORMONE (BEAKER) (test 1.04 uIU/mL 0.35-4.94 peln=414) TROPONIN [id number] 11:53:00 Test Item Value Reference Range Comments TROPONIN I (BEAKER) (test jwyb=752) 0.02 ng/mL 0.00-0.03 Troponin I (TnI) levels [...] acidosis, acute neurological disease, and persistent tachyarrhythmia.URINALYSIS [id number] 06:04: 00 Test Item Value Reference Range Comments RBC UA (BEAKER) (test bwnu=973) 1 /HPF WBC UA (BEAKER) (test utsm=852) 76 /HPF BACTERIA (BEAKER) (test hbrw=694) Rare URINALYSIS WITH MICROSCOPIC IF [id number] 06:03:00 Test Item Value Reference Range Comments COLOR (BEAKER) (test imrm=642) Light Yellow CLARITY (BEAKER) (test aagg=935) Clear SPECIFIC GRAVITY UA (BEAKER) (test sdjy=404) 1.006 1.001-1.035 PH UA (BEAKER) (test kqbs=716) 6.5 5.0-8.0 PROTEIN UA (BEAKER) (test ocxa=080) 30 mg/dL Negative GLUCOSE UA (BEAKER) (test gyaf=088) Negative Negative KETONES UA (BEAKER) (test tqbb=173) Negative Negative BILIRUBIN UA (BEAKER) (test rlfc=522) Negative Negative BLOOD UA (BEAKER) (test hsoq=506) Trace Negative NITRITE UA (BEAKER) (test xzer=286) Positive Negative LEUKOCYTE ESTERASE UA (BEAKER) (test stui=542) Large Negative UROBILINOGEN UA (BEAKER) (test ygjq=538) 0.2 mg/dL 0.2-1.0 SOURCE(BEAKER) (test haac=5651) RAPID DRUG SCREEN, [id number] 06:00:00 Test Item Value Reference Range Comments BARBITURATE URINE (BEAKER) (test ioqn=036) Negative Negative BENZODIAZEPINE SCREEN URINE (BEAKER) (test Negative Negative uamx=183) COCAINE (METAB.) SCREEN (BEAKER) (test jnms=6455) Negative Negative METHADONE SCREEN (BEAKER) (test nrwx=1440) Negative Negative OPIATE SCREEN URINE (BEAKER) (test ehwy=105) Negative Negative CANNABINOID SCREEN URINE (BEAKER) (test muqf=118) Negative Negative AMPH/METHAMPH SCREEN (BEAKER) (test mutr=9244) Negative Negative PHENCYCLIDINE SCREEN URINE (BEAKER) (test yvyr=968) Negative Negative OXYCODONE SCREEN URINE (BEAKER) (test uvfa=1207) Negative Negative DRUG CUTOFF CONC.Cocaine 300 ng/mL Cannabinoid 50 ng/mL Benzodiazepine 200 ng/mLBarbiturate 200 ng/ mLPhencyclidine 25 ng/mLOpiate 300 ng/mLMethadone 300 ng/mLAmphetamine/ 1000 ng/mL MethamphetamineOxycodone 300 ng/mLThis assay provides an unconfirmed qualitative test result for the clinical management of patients in emergency situations. Chain of custody not maintained. Some nvjw-dfw-ahfjvyo medications, as well as adulterants, may cause inaccurate results. Clinical correlation should be applied. A more comprehensive drug screen or confirmation of a detected drug may be performed upon request.BASIC METABOLIC [id number] 03:52:00 Test Item Value Reference Range Comments SODIUM (BEAKER) (test 135 meq/L 136-145 ykux=271) POTASSIUM (BEAKER) (test 4.5 meq/L 3.5-5.1 cbar=698) CHLORIDE (BEAKER) (test 101 meq/L 98-107 ysek=925) CO2 (BEAKER) (test 26 meq/L 22-29 lqqo=151) BLOOD UREA NITROGEN 32 mg/dL 7-21 (BEAKER) (test ygkb=450) CREATININE (BEAKER) (test 1.31 mg/dL 0.57-1.25 uvlu=711) GLUCOSE RANDOM (BEAKER) 111 mg/dL 70-105 (test bent=086) CALCIUM (BEAKER) (test 9.6 mg/dL 8.4-10.2 puyu=376) EGFR (BEAKER) (test 52 mL/min/1.73 sq m ESTIMATED GFR IS NOT rore=9285) ACCURATE CREATININE CLEARANCE IN PREDICTING GLOMERULAR FILTRATION RATE. ESTIMATED GFR IS NOT APPLICABLE FOR DIALYSIS PATIENTS. Specimen slightly ictericTROPONIN [id number] 03:52:00 Test Item Value Reference Range Comments TROPONIN I (BEAKER) (test krvx=656) 0.04 ng/mL 0.00-0.03 Troponin I (TnI) levels [...] and persistent tachyarrhythmia.CBC W/PLT COUNT & AUTO [id number] 02:18:00 Test Item Value Reference Range Comments WHITE BLOOD CELL COUNT (BEAKER) (test txqd=242) 9.0 K/ L 3.5-10.5 RED BLOOD CELL COUNT (BEAKER) (test mgyh=279) 4.82 M/ L 4.63-6.08 HEMOGLOBIN (BEAKER) (test aevb=847) 15.0 GM/DL 13.7-17.5 HEMATOCRIT (BEAKER) (test xmoe=629) 45.3 % 40.1-51.0 MEAN CORPUSCULAR VOLUME (BEAKER) (test dlfv=642) 94.0 fL 79.0-92.2 MEAN CORPUSCULAR HEMOGLOBIN (BEAKER) (test 31.1 pg 25.7-32.2 eppc=416) MEAN CORPUSCULAR HEMOGLOBIN CONC (BEAKER) (test 33.1 GM/DL 32.3-36.5 feyx=323) RED CELL DISTRIBUTION WIDTH (BEAKER) (test 13.9 % 11.6-14.4 wotu=138) PLATELET COUNT (BEAKER) (test dqnp=195) 205 K/CU MM 150-450 MEAN PLATELET VOLUME (BEAKER) (test nrzx=920) 10.1 fL 9.4-12.4 NUCLEATED RED BLOOD CELLS (BEAKER) (test 0 /100 WBC 0-0 kmhm=821) NEUTROPHILS RELATIVE PERCENT (BEAKER) (test 83 % ctha=339) LYMPHOCYTES RELATIVE PERCENT (BEAKER) (test 11 % lwua=112) MONOCYTES RELATIVE PERCENT (BEAKER) (test 6 % yrly=129) EOSINOPHILS RELATIVE PERCENT (BEAKER) (test 0 % bytv=340) BASOPHILS RELATIVE PERCENT (BEAKER) (test 0 % utej=001) NEUTROPHILS ABSOLUTE COUNT (BEAKER) (test 7.49 K/ L 1.78-5.38 undg=404) LYMPHOCYTES ABSOLUTE COUNT (BEAKER) (test 0.96 K/ L 1.32-3.57 akyz=863) MONOCYTES ABSOLUTE COUNT (BEAKER) (test 0.50 K/ L 0.30-0.82 kevp=656) EOSINOPHILS ABSOLUTE COUNT (BEAKER) (test 0.03 K/ L 0.04-0.54 hpnc=369) BASOPHILS ABSOLUTE COUNT (BEAKER) (test 0.03 K/ L 0.01-0.08 eqhm=944) IMMATURE GRANULOCYTES-RELATIVE PERCENT (BEAKER) 0 % 0-1 (test pknj=5724) MR, MRA, BRAIN, WITHOUT [id number] 02:09:00Reason for exam:-> Ischemic Stroke EvaluationFINAL REPORT [...] arteries: Normal flow-related enhancement within the bilateral CONSULTING APPLICATION ENGINEER P1- P2 segments without flow-limiting stenosisAdditional findings: [...] Verified Date/ Time: 11/16/2018 02:09:12 Reading Location: [address] Neuro Reading Room MR , MRA, NECK, WITHOUT IV [id number] 02:09:00Reason for exam:-> Ischemic Stroke EvaluationFINAL REPORT [...] arteries: Normal flow-related enhancement within the bilateral CONSULTING APPLICATION ENGINEER P1- P2 segments without flow-limiting stenosisAdditional findings: [...] Verified Date/ Time: 11/16/2018 02:09:12 Reading Location: [facility] C013V Neuro Reading Room MR , BRAIN, WITHOUT [id number] 02:09:00Reason for exam:->Ischemic Stroke EvaluationFINAL REPORT MR, [...] arteries: Normal flow-related enhancement within the bilateral CONSULTING APPLICATION ENGINEER P1- P2 segments without flow-limiting stenosisAdditional findings: [...] Verified Date/ Time: 11/16/2018 02:09:12 Reading Location: [facility] C013V Neuro Reading Room
--- OUTSIDE RECORDS SUMMARY | 2018-12-14 07:07 | XMS REPORT | Clinical Summary ---
:1930 Author Organization [facility] Address [address] [place] [address] Care Team Providers Name Role Phone Bandar [...] (HCC); Wilfrid, Vertigo Cyndi Espinoza MD after 12/13/2017 Social History Tobacco Use Types Packs/Day Years [...] 398 ms QTC Calculation(Bazett) 413 ms P [place] 65 degrees R [place] -22 degrees T [place] 84 degrees Normal sinus rhythm Nonspecific T [...] CONTRAST STAT 11/16/2018 1:09 AM CDT after 12/13/2017 Results RHYTHM STRIP - SCAN (11/25/2018 9:11 AM CDT) Narrative Performed At TRANSFUSION SERVICE REPORT - SCAN (11/21/2018 6:01 PM CDT) Narrative Performed At ECG 12 lead (11/21/2018 9:45 AM CDT) Specimen Narrative Performed At Ventricular Rate 65 BPM GE MUSE Atrial Rate 65 BPM P-R Interval 152 ms QRS Duration 86 ms Q-T Interval 398 ms QTC Calculation(Bazett) 413 ms P [place] 65 degrees R [place] -22 degrees T [place] 84 degrees Normal sinus rhythm Nonspecific T wave abnormality Abnormal ECG No previous ECGs available Confirmed by MD Garcia Roberto ([id number]) on 11/22/2018 9:28:42 AM Procedure Note Interface, External Ris In - 11/22/2018 9:28 AM CDT Ventricular Rate 65 BPM Atrial Rate 65 BPM P-R Interval 152 ms QRS Duration 86 ms Q-T Interval 398 ms QTC Calculation(Bazett) 413 ms P [place] 65 degrees R [place] -22 degrees T [place] 84 degrees Normal sinus rhythm Nonspecific T wave abnormality Abnormal ECG No previous ECGs available Confirmed by MD Garcia Roberto ([id number]) on 11/22/2018 9:28:42 AM Performing Organization Address City/State/Zipcode Phone Number GE MUSE Type and screen, automated ([facility] Lab) (11/20/2018 3:49 AM CDT) ABO/RH AUTOMATED (BEAKER) O POSITIVE [facility] Ab Scrn NEGATIVE [facility] Specimen Blood Performing Organization Address City/[facility]/Zipcode Phone Number [facility] [address] [place] [address] Basic Metabolic Panel (11/18/2018 9:54 AM CDT)Only the most recent of2 resultswithin the time period is included. Sodium 139 136 - 145 meq/L [facility] Potassium 3.9Comment: Specimen slightly 3.5 - 5.1 meq/L [facility] Chloride 108 (H) 98 - 107 meq/L [facility] CO2 22 22 - 29 meq/L [facility] BUN 35 (H) 7 - 21 mg/dL [facility] Creatinine 1.40 (H)Comment: Specimen 0.57 - 1.25 mg/dL [facility] slightly hemolyzed [facility] Glucose 130 (H) 70 - 105 mg/dL [facility] Calcium 9.1 8.4 - 10.2 mg/dL [facility] EGFR 48Comment: ESTIMATED GFR IS mL/min/1.73 sq m [facility] NOT ACCURATE CREATININE [facility] CLEARANCE IN PREDICTING GLOMERULAR FILTRATION RATE. ESTIMATED GFR IS NOT APPLICABLE FOR DIALYSIS PATIENTS. Specimen Blood Performing Organization Address City/State/Zipcode Phone Number [facility] [address] [place] [address] abdomen/pelvis without iv contrast (11/18/2018 3:53 AM CDT) Specimen Narrative Performed At FINAL REPORT [facility] CLINICAL HISTORY: Abnormal findings on recent renal [...] MD Report Verified Date/Time:11/18/2018 04:16:41 Reading Location: [address] Reading Room Procedure Note Interface, External [...] Report Verified Date/Time: 11/18/2018 04:16:41 Reading Location: [address] Reading Room Performing Organization Address City/State/Zipcode Phone Number [facility] RIS ECHOCARDIOGRAM REPORT - SCAN (11/17/2018 9:22 PM CDT) Narrative Performed At Transthoracic 2D echo w/ doppler (cw/pw/color) (11/17/2018 11:36 AM CDT) Ejection Fraction [facility] Specimen Narrative Performed At Transthoracic Echocardiography Report (TTE) [facility] Demographics Patient NameOC KING Date of Study11/17/2018 SINTIA Gender Male Visit [id number] Race Unknown [id number] Number Date of 1930 Referring Physician Age 88 year(s) SonographerChris Briceño RDCS Interpreting [facility] Needs to be Pre PhysicianDee [...] Study 11/17/2018 SINTIA Gender Male Visit Number [id number] Race Unknown Room Number [id number] Number Date of 1930 Referring Physician Age 88 year(s) Seasonal Driver Chris Briceño RDCS Interpreting [facility] Needs to [...] 4:28 AM CDT) Color, UA Light Yellow [facility] Clarity, UA Clear [facility] Specific [place], UA 1.009 1.001 - 1.035 [facility] pH, UA 6.0 5.0 - 8.0 [facility] Protein, UA 20 mg/dL (A) Negative [facility] Glucose, UA Negative Negative [facility] Ketones, UA Negative Negative [facility] Bilirubin, UA Negative Negative [facility] Blood, UA Trace (A) Negative [facility] Nitrite, UA Negative Negative [facility] Leukocytes, UA Large (A) Negative [facility] Urobilinogen, UA 0.2 0.2 - 1.0 mg/dL [facility] RBC, UA 3 /HPF [facility] WBC, UA 67 /HPF [facility] Bacteria, UA Rare [facility] Specimen Source [facility] Specimen Urine Performing Organization Address City/State/Zipcode Phone Number [address] [address] [phone] [place] Sodium, random urine (11/17/2018 4:28 AM CDT) Sodium Urine 56 meq/L [facility] Specimen Urine Narrative Performed At Reference Range: No Normals [facility] Performing Organization Address City/[facility]/Zipcode Phone Number [address] [address] [place] Creatinine, random urine (11/17/2018 4:28 AM CDT) Creatinine, Ur 53.5 mg/dL [facility] Specimen Urine Narrative Performed At Reference Range: No Normals [facility] Performing Organization Address City/[facility] Phone Number [address] [address] [place] Urine culture (11/17/2018 4:28 AM CDT) Result PSEUDOMONAS AERUGINOSA (A) [facility] Result PSEUDOMONAS AERUGINOSA (A)Comment: [facility] of a second type MED[facility]ENTER Specimen Urine Narrative Performed At <10,000 col/mL Gram negative vladimir [facility] Organism Antibiotic Method Susceptibility Pseudomonas [...] Susceptible Performing Organization Address City/State/Zipcode Phone Number [facility] [address] [place] [address] [phone] CENTER CBC with platelet count + automated diff (11/17/2018 4:23 AM CDT)Only the most recent of2 resultswithin the time period is included. WBC 8.6 3.5 - 10.5 K/L [facility] RBC 4.12 (L) 4.63 - 6.08 M/L [facility] Hemoglobin 13.1 (L) 13.7 - 17.5 GM/DL [facility] Hematocrit 39.2 (L) 40.1 - 51.0 % [facility] MCV 95.1 (H) 79.0 - 92.2 fL [facility] MCH 31.8 25.7 - 32.2 pg [facility] MCHC 33.4 32.3 - 36.5 GM/DL [facility] RDW 14.1 11.6 - 14.4 % [facility] Platelets 178 150 - 450 K/CU MM [facility] MPV 10.3 9.4 - 12.4 fL [facility] nRBC 0 0 - 0 /100 WBC [facility] % Neutros 64 % [facility] % Lymphs 22 % [facility] % Monos 6 % [facility] % Eos 6 % [facility] % Baso 1 % [facility] # Neutros 5.50 (H) 1.78 - 5.38 K/L [facility] # Lymphs 1.93 1.32 - 3.57 K/L [facility] # Monos 0.55 0.30 - 0.82 K/L [facility] # Eos 0.54 0.04 - 0.54 K/L [facility] # Baso 0.06 0.01 - 0.08 K/L [facility] Immature Granulocytes-Relative 0 0 - 1 % [facility] Specimen Blood Performing Organization Address City/[facility] Phone Number [address] [address] [phone] [place] Fasting lipid panel (11/17/2018 4:23 AM CDT) Triglycerides 55 mg/dL [facility] Cholesterol 177 mg/dL [facility] HDL 50 mg/dL [facility] LDL Calculated 116 mg/dL [facility] Specimen Blood Narrative Performed At Triglyceride Reference Range: [facility] Low Risk <150 [id number] High Risk 200-499 Very High Risk>=500 Cholesterol Reference Range: Low Risk <200 [id number] High Risk>240 HDL Cholesterol Reference Range: Low Risk >=60 High Risk <40 LDL Cholesterol Reference Range: Optimal<100 Near Gyxgwvk092-523 Iezpftlwwd207-632 Mrfo545-526 Very High >=190 Fasting Specimen slightly icteric Performing Organization Address City/[facility] Phone Number [place] [id number] [place] [address] [phone] [place] Comprehensive metabolic panel (11/17/2018 4:23 AM CDT) Protein, Total 5.9 (L) 6.0 - 8.3 gm/dL [facility] Albumin 3.4 (L) 3.5 - 5.0 g/dL [facility] Alkaline Phosphatase 84 40 - 150 U/L [facility] Total Bilirubin 0.6 0.2 - 1.2 mg/dL [facility] Sodium 138 136 - 145 meq/L [facility] Potassium 4.2 3.5 - 5.1 meq/L [facility] Chloride 107 98 - 107 meq/L [facility] CO2 23 22 - 29 meq/L [facility] BUN 41 (H) 7 - 21 mg/dL [facility] Creatinine 1.40 (H) 0.57 - 1.25 mg/dL [facility] Glucose 80 70 - 105 mg/dL [facility] Calcium 8.8 8.4 - 10.2 mg/dL [facility] AST 15 5 - 34 U/L [facility] ALT 11 6 - 55 U/L [facility] EGFR 48Comment: ESTIMATED GFR mL/min/1.73 sq m [facility] IS NOT ACCURATE [facility] CREATININE CLEARANCE IN PREDICTING GLOMERULAR FILTRATION RATE. ESTIMATED GFR IS NOT APPLICABLE FOR DIALYSIS PATIENTS. Specimen Blood Narrative Performed At Fasting [facility] Specimen slightly icteric Performing Organization Address City/State/Zipcode Phone Number [facility] [address] [place] [address] [phone] CENTER Carotid doppler bilateral (11/16/2018 10:58 PM CDT) Ejection Fraction [facility] Specimen Impressions Performed At Right Impression [facility] 1. There is <50% diameter reduction [...] Performed At LAB - Carotid Duplex Study [facility] Demographics Patient NameOC KING Date of Study11/16/2018 SINTIA Age88 Visit [id number] Gender Male Date of Birth1930 Referring Timothy Delatorre [id number] Physician Seasonal Driver Donald Aguirre Interpreting Yin Fitzpatrick, Physician Procedure [...] Study 11/16/2018 SINTIA Age 88 Visit Number [id number] Gender Male Accession Number [id number] Date of 1930 Referring Timothy Galan Room Number [id number] Physician Seasonal Driver Donald Aguirre Interpreting Yin Fitzpatrick, Physician Procedure [...] City/State/Zipcode Phone Number [facility] US renal complete (11/16/2018 9:09 PM CDT) Specimen Narrative Performed At Addendum Begins [facility] REPORT STATUS:A Polynephritis cannot be excluded based on provided images. Recommend CT abdomen and pelvis with contrast when clinically feasible. Signed: Master Braden MD Report Verified Date/Time:11/17/2018 00:34:57 Reading Location: [address] Neuro Reading Room Addendum Ends FINAL [...] MD Report Verified Date/Time:11/16/2018 23:39:50 Reading Location: [address] Neuro Reading Room Procedure Note Interface, External Ris In - 11/17/2018 12:37 AM CDT Addendum Begins REPORT STATUS:A Polynephritis cannot be excluded based on provided images. Recommend CT abdomen and pelvis with contrast when clinically feasible. Signed: Master Braden MD Report Verified Date/Time: 11/17/2018 00:34:57 Reading Location: [address] Neuro Reading Room Addendum Ends FINAL [...] Report Verified Date/Time: 11/16/2018 23:39:50 Reading Location: [address] Neuro Reading Room Performing Organization Address City/[facility] Phone Number [facility] TSH/Free T4 If Indicated (11/16/2018 10:37 AM CDT) TSH 1.04 0.35 - 4.94 uIU/mL [facility] Specimen Blood Performing Organization Address [facility] Phone Number [address] [address] [phone] CENTER Troponin I (11/16/2018 10:37 AM CDT)Only the most recent of2 resultswithin the time period is included. Troponin I 0.02 0.00 - 0.03 ng/mL [facility] Specimen Blood Narrative Performed At Troponin I (TnI) levels must be interpreted [facility] in the context of the [...] disease, and persistent tachyarrhythmia. Performing Organization Address [facility] Phone Number [address] [address] CENTER Urinalysis Microscopic Only (11/16/2018 5:16 AM CDT) RBC, UA 1 /HPF [facility] WBC, UA 76 /HPF [facility] Bacteria, UA Rare [facility] Specimen Urine Performing Organization Address City/State/Zipcode Phone Number [facility] [address] [place] [address] [place] Urinalysis with Microscopic If Indicated (11/16/2018 5:16 AM CDT) Color, UA Light Yellow [facility] Clarity, UA Clear [facility] Specific [place], UA 1.006 1.001 - 1.035 [facility] pH, UA 6.5 5.0 - 8.0 [facility] Protein, UA 30 mg/dL (A) Negative [facility] Glucose, UA Negative Negative [facility] Ketones, UA Negative Negative [facility] Bilirubin, UA Negative Negative [facility] Blood, UA Trace (A) Negative [facility] Nitrite, UA Positive (A) Negative [facility] Leukocytes, UA Large (A) Negative [facility] Urobilinogen, UA 0.2 0.2 - 1.0 mg/dL [facility] Specimen Source [facility] Specimen Urine Performing Organization Address City/[facility]/Zipcode Phone Number [facility] [address] [place] [address] [place] Rapid drug screen, urine (11/16/2018 5:16 AM CDT) Barbiturate Screen Negative Negative [facility] Benzodiazepine Screen Negative Negative [facility] Cocaine (Metab.) Screen Negative Negative [facility] Methadone Screen Negative Negative [facility] Opiate Screen Negative Negative [facility] Cannabinoid Screen Negative Negative [facility] Amph/Methamph Screen Negative Negative [facility] Phencyclidine Screen Negative Negative [facility] Oxycodone Screen Negative Negative [facility] Specimen Urine Narrative Performed At DRUGCUTOFF [facility] CONC. Cocaine 300 ng/mL Aemgtmxiedw11 ng/mL Nzovnsctxsddqr010 ng/mL Barbiturate 200 ng/mL Bfvsnerillogv06 ng/mL Upbvbr412 ng/mL Methadone 300 ng/mL Amphetamine/ 1000 ng/mL Methamphetamine Oxycodone 300 ng/mL This assay provides an unconfirmed qualitative test result for the clinical management of patients in emergency situations. Chain of custody not maintained. Some zhwe-snx-eaofdaw medications, as well as adulterants, may cause inaccurate results. Clinical correlation should be applied. A more comprehensive drug screen or confirmation of a detected drug may be performed upon request. Performing Organization Address City/State/Zipcode Phone Number [facility] [address] [place] [address] [phone] CENTER MR brain without IV contrast (11/16/2018 1:09 AM CDT) Specimen Narrative Performed At FINAL REPORT [facility] MR, BRAIN, WITHOUT CONTRAST, MR, MRA, NECK, [...] arteries: Normal flow-related enhancement within the bilateral PROOF CLERK P1-P2 segmentswithout flow-limiting stenosis Additional findings: None. [...] MD Report Verified Date/Time:11/16/2018 02:09:12 Reading Location: [address] Neuro Reading Room Procedure Note Interface, [...] arteries: Normal flow-related enhancement within the bilateral PROOF CLERK P1-P2 segments without flow-limiting stenosis Additional findings: [...] Report Verified Date/Time: 11/16/2018 02:09:12 Reading Location: [address] Neuro Reading Room Performing Organization Address City/State/Zipcode Phone Number [facility] MRA neck without IV contrast (11/16/2018 1:09 AM CDT) Specimen Narrative Performed At FINAL REPORT [facility] MR, BRAIN, WITHOUT CONTRAST, MR, MRA, NECK, [...] arteries: Normal flow-related enhancement within the bilateral PROOF CLERK P1-P2 segmentswithout flow-limiting stenosis Additional findings: None. [...] MD Report Verified Date/Time:11/16/2018 02:09:12 Reading Location: [address] Neuro Reading Room Procedure Note Interface, [...] arteries: Normal flow-related enhancement within the bilateral PROOF CLERK P1-P2 segments without flow-limiting stenosis Additional findings: [...] Report Verified Date/Time: 11/16/2018 02:09:12 Reading Location: [address] Neuro Reading Room Performing Organization Address City/State/Zipcode Phone Number [facility] MRA head without IV contrast (11/16/2018 1:09 AM CDT) Specimen Narrative Performed At FINAL REPORT [facility] MR, BRAIN, WITHOUT CONTRAST, MR, MRA, NECK, [...] arteries: Normal flow-related enhancement within the bilateral PROOF CLERK P1-P2 segmentswithout flow-limiting stenosis Additional findings: None. [...] MD Report Verified Date/Time:11/16/2018 02:09:12 Reading Location: [address] Neuro Reading Room Procedure Note Interface, [...] arteries: Normal flow-related enhancement within the bilateral PROOF CLERK P1-P2 segments without flow-limiting stenosis Additional findings: [...] Report Verified Date/Time: 11/16/2018 02:09:12 Reading Location: [address] Neuro Reading Room Performing Organization Address City/State/Zipcode Phone Number [facility] after 12/13/2017 Insurance Payer Benefit Plan / Group Subscriber ID Type Phone Address MEDICARE MEDICARE A B xxxxxxxxxxx Medicare Advance Directives For more information, please contact:[address] [phone] Code Status Date Activated Date Inactivated Comments Full Code 11/15/2018 11:58 PM 11/21/2018 6:58 PM This code status was determined by: Patient
[2018-12-14] MEDS ORDERED: cloNIDine HCl 0.1 MG TAB ONE (07:37)
--- NOTE | 2018-12-14 09:18 | EDPHYS ---
Physician Documentation [facility] Name: Oc King Age: 88 yrs Sex: Male : 1930 Arrival Date: 12/14/2018 Time: 07:05 Bed 15 Private MD: ED Physician Kush Huang HPI: 12/14 09:46 This 88 yrs old Male presents to ER via Ambulatory with complaints of High nh Blood Pressure. 09:46 Onset: The symptoms/episode began/occurred this morning. Modifying factors: The nh symptoms are aggravated by The symptoms are alleviated by prescription meds. Associated signs and symptoms: The patient has no apparent associated signs or symptoms. Severity of symptoms: At its worst the blood pressure was moderate. The patient has experienced a previous episode, yesterday. The patient has been recently seen at the [facility] Emergency Department, yesterday, for similar complaints labs were performed. Patient was here yesterday and worked up for hypertension. Reports that his BP was high this morning. Patient was unsure of how to take his meds. Historical: - Allergies: 07:22 No Known Allergies; tw2 - Home Meds: 07:22 amlodipine 5 mg tab 1 tab once daily [Active]; aspirin 81 mg Oral chew 1 tab once daily tw2 [Active]; atorvastatin 80 mg Oral tab 1 tab once daily [Active]; isosorbide mononitrate 30 mg Oral Tb24 1 tab once daily [Active]; losartan 50 mg Oral tab 1 tab once daily [Active]; - PMHx: 07:22 Hyperlipidemia; Hypertension; tw2 - Immunization history:: Adult Immunizations. - Social history:: Smoking status: . - Ebola Screening: : Patient denies travel to an Ebola-affected area in the 21 days before illness onset. ROS: 09:46 Constitutional: Negative for fever, chills, and weight loss, Eyes: Negative for injury, nh pain, redness, and discharge, ENT: Negative for injury, pain, and discharge, Neck: Negative for injury, pain, and swelling, Cardiovascular: Negative for chest pain, palpitations, and edema, Respiratory: Negative for shortness of breath, cough, wheezing, and pleuritic chest pain, Abdomen/GI: Negative for abdominal pain, nausea, vomiting, diarrhea, and constipation, Back: Negative for injury and pain, : Negative for injury, bleeding, discharge, and swelling, MS/Extremity: Negative for injury and deformity, Skin: Negative for injury, rash, and discoloration, Neuro: Negative for headache, weakness, numbness, tingling, and seizure, Psych: Negative for depression, anxiety, suicide ideation, homicidal ideation, and hallucinations. Exam: 09:46 Constitutional: This is a well developed, well nourished patient who is awake, alert, nh and in no acute distress. Head/Face: Normocephalic, atraumatic. Eyes: Pupils equal round and reactive to light, extra-ocular motions intact. Lids and lashes normal. Conjunctiva and sclera are non-icteric and not injected. Cornea within normal limits. Periorbital areas with no swelling, redness, or edema. ENT: Nares patent. No nasal discharge, no septal abnormalities noted. Tympanic membranes are normal and external auditory canals are clear. Oropharynx with no redness, swelling, or masses, exudates, or evidence of obstruction, uvula midline. Mucous membranes moist. Neck: Trachea midline, no thyromegaly or masses palpated, and no cervical lymphadenopathy. Supple, full range of motion without nuchal rigidity, or vertebral point tenderness. No Meningismus. Chest/axilla: Normal chest wall appearance and motion. Nontender with no deformity. No lesions are appreciated. Cardiovascular: Regular rate and rhythm with a normal S1 and S2. No gallops, murmurs, or rubs. Normal PMI, no JVD. No pulse deficits. Respiratory: Lungs have equal breath sounds bilaterally, clear to auscultation and percussion. No rales, rhonchi or wheezes noted. No increased work of breathing, no retractions or nasal flaring. Abdomen/GI: Soft, non-tender, with normal bowel sounds. No distension or tympany. No guarding or rebound. No evidence of tenderness throughout. Back: No spinal tenderness. No costovertebral tenderness. Full range of motion. Skin: Warm, dry with normal turgor. Normal color with no rashes, no lesions, and no evidence of cellulitis. MS/ Extremity: Pulses equal, no cyanosis. Neurovascular intact. Full, normal range of motion. Neuro: Awake and alert, GCS 15, oriented to person, place, time, and situation. Cranial nerves II-XII grossly intact. Motor strength 5/5 in all extremities. Sensory grossly intact. Cerebellar exam normal. Normal gait. Vital Signs: 07:15 BP 192 / 78; Pulse 85; Resp 18; Temp 97.8(TE); Pulse Ox 98% on NC; Weight 58.97 kg (R); tw2 Height 5 ft. 5 in. (165.10 cm); Pain 0/10; 07:57 BP 143 / 54 Supine; Pulse 58; Resp 17; Pulse Ox 96% on R/A; tw2 08:24 BP 136 / 53 Supine; Pulse 56; Resp 17; Pulse Ox 99% on R/A; tw2 09:21 BP 133 / 51; Pulse 58; Resp 17; Pulse Ox 97% on R/A; tw2 07:15 Body Mass Index 21.63 (58.97 kg, 165.10 cm) tw2 MDM: 08:00 Patient medically screened. [facility] 09:46 Data reviewed: vital signs, nurses notes, old medical records, I have discussed the mn patient's presentation/case with the attending Emergency Department Physician; and as a result, I will discharge patient. Counseling: I had a detailed discussion with the patient and/or guardian regarding: the historical points, exam findings, and any diagnostic results supporting the discharge/admit diagnosis, the need for outpatient follow up, to return to the emergency department if symptoms worsen or persist or if there are any questions or concerns that arise at home. Administered Medications: 07:27 Drug: cloNIDine 0.1 mg Route: PO; tw2 07:57 Follow up: Response: No adverse reaction; Blood pressure is lowered tw2 Disposition: 12/15 09:06 Co-signature as Attending Physician, Kush Huang MD I agree with the assessment and [facility] plan of care. Disposition: 12/14/18 09:17 Discharged to Home. Impression: Patient's unintentional underdosing of medication regimen. - Condition is Stable. - Discharge Instructions: Hypertension. - Medication Reconciliation Form, Thank You Letter, Antibiotic Education, Prescription Opioid Use form. - Follow up: Private Physician; When: 2 - 3 days; Reason: Recheck today's complaints. - Problem is new. - Symptoms are unchanged. Signatures: Kush Huang MD MD cha Cronk, Niki, SPRING [employer]TER HELPER SPRING [employer]TER HELPER mn Zoe Farfan RN RN tw2 Corrections: (The following items were deleted from the chart) 12/14 09:22 09:17 12/14/2018 09:17 Discharged to Home. Impression: Patient's unintentional tw2 underdosing of medication regimen. Condition is Stable. Forms are Medication Reconciliation Form, Thank You Letter, Antibiotic Education, Prescription Opioid Use. Follow up: Private Physician; When: 2 - 3 days; Reason: Recheck today's complaints. Problem is new. Symptoms are unchanged. nh
--- NOTE | 2018-12-14 09:18 | ER ---
Nurse's Notes [facility] Name: Oc King Age: 88 yrs Sex: Male : 1930 Arrival Date: 12/14/2018 Time: 07:05 Bed 15 Private MD: Diagnosis: Patient's unintentional underdosing of medication regimen Presentation: 12/14 07:14 Presenting complaint: Patient states: my pressure is high again this morning and then i tw2 waited a few minutes and took it again and it was high but i didn't take my pill last night. Transition of care: patient was not received from another setting of care. Onset of symptoms was December 14, 2018. Risk Assessment: Do you want to hurt yourself or someone else? Patient reports no desire to harm self or others. Initial Sepsis Screen: Does the patient meet any 2 criteria? No. Patient's initial sepsis screen is negative. Does the patient have a suspected source of infection? No. Patient's initial sepsis screen is negative. 07:14 Method Of Arrival: Ambulatory tw2 07:14 Acuity: AUTUMN 3 tw2 07:38 Care prior to arrival: None. tw2 Triage Assessment: 07:19 General: Appears in no apparent distress. well groomed, Behavior is cooperative, tw2 appropriate for age. Pain: Denies pain. EENT: No signs and/or symptoms were reported regarding the EENT system. Neuro: Level of Consciousness is awake, alert, obeys commands, Oriented to person, place, time, situation. Cardiovascular: Denies chest pain, shortness of breath, Heart tones S1 S2 Patient's skin is warm and dry. Respiratory: Airway is patent Respiratory effort is even, unlabored, Respiratory pattern is regular, symmetrical, Breath sounds are clear bilaterally. GI: No signs and/or symptoms were reported involving the gastrointestinal system. Abdomen is flat, Bowel sounds present X 4 quads. : No signs and/or symptoms were reported regarding the genitourinary system. Derm: No signs and/or symptoms reported regarding the dermatologic system. Musculoskeletal: No signs and/or symptoms reported regarding the musculoskeletal system. Range of motion: intact in all extremities. Historical: - Allergies: 07:22 No Known Allergies; tw2 - Home Meds: 07:22 amlodipine 5 mg tab 1 tab once daily [Active]; aspirin 81 mg Oral chew 1 tab once daily tw2 [Active]; atorvastatin 80 mg Oral tab 1 tab once daily [Active]; isosorbide mononitrate 30 mg Oral Tb24 1 tab once daily [Active]; losartan 50 mg Oral tab 1 tab once daily [Active]; - PMHx: 07:22 Hyperlipidemia; Hypertension; tw2 - Immunization history:: Adult Immunizations. - Social history:: Smoking status: . - Ebola Screening: : Patient denies travel to an Ebola-affected area in the 21 days before illness onset. Screenin:38 Abuse screen: Denies threats or abuse. Nutritional screening: No deficits noted. tw2 Tuberculosis screening: No symptoms or risk factors identified. Fall Risk Secondary diagnosis (15 points) impaired mobility. Assessment: 07:23 Reassessment: see triage assessment. tw2 07:56 Reassessment: Patient appears in no apparent distress at this time. No changes from tw2 previously documented assessment. Patient and/or family updated on plan of care and expected duration. Pain level reassessed. Patient is alert, oriented x 3, equal unlabored respirations, skin warm/dry/pink. 08:24 Reassessment: Patient appears in no apparent distress at this time. No changes from tw2 previously documented assessment. Patient and/or family updated on plan of care and expected duration. Pain level reassessed. Patient is alert, oriented x 3, equal unlabored respirations, skin warm/dry/pink. 08:24 Reassessment: pt and family educated as to when to take what medication. pt repeats tw2 education at this time. 09:21 Reassessment: Patient appears in no apparent distress at this time. No changes from tw2 previously documented assessment. Patient and/or family updated on plan of care and expected duration. Pain level reassessed. Patient is alert, oriented x 3, equal unlabored respirations, skin warm/dry/pink. Vital Signs: 07:15 BP 192 / 78; Pulse 85; Resp 18; Temp 97.8(TE); Pulse Ox 98% on NC; Weight 58.97 kg (R); tw2 Height 5 ft. 5 in. (165.10 cm); Pain 0/10; 07:57 BP 143 / 54 Supine; Pulse 58; Resp 17; Pulse Ox 96% on R/A; tw2 08:24 BP 136 / 53 Supine; Pulse 56; Resp 17; Pulse Ox 99% on R/A; tw2 09:21 BP 133 / 51; Pulse 58; Resp 17; Pulse Ox 97% on R/A; tw2 07:15 Body Mass Index 21.63 (58.97 kg, 165.10 cm) tw2 ED Course: 07:05 Patient arrived in ED. am2 07:10 Placed in gown. Bed in low position. Call light in reach. Adult w/ patient. Cardiac tw2 monitor on. Pulse ox on. NIBP on. 07:14 Zoe Farfan, RN is Primary Nurse. tw2 07:15 Triage completed. tw2 07:19 Arm band placed on. tw2 07:56 [facility] tw2 08:00 Kush Huang MD is Attending Physician. [facility] 09:21 No provider procedures requiring assistance completed. Patient did not have IV access tw2 during this emergency room visit. Administered Medications: 07:27 Drug: cloNIDine 0.1 mg Route: PO; tw2 07:57 Follow up: Response: No adverse reaction; Blood pressure is lowered tw2 Outcome: 09:17 Discharge ordered by . ne 09:21 Discharged to home ambulatory, with family. tw2 09:21 Condition: stable 09:21 Discharge instructions given to patient, family, Instructed on discharge instructions, follow up and referral plans. Demonstrated understanding of instructions, follow-up care, medications. 09:22 Patient left the ED. tw2 Signatures: Kush Huang MD MD cha Cronk, Niki, FNP FNP ne Zoe Farfan RN RN tw2 Kate Restrepo am2 Corrections: (The following items were deleted from the chart) 07:59 07:57 BP 143 / 54; Pulse 58bpm; Resp 17bpm; Pulse Ox 96% RA; tw2 tw2
== END 2018-12-14 09:22 | disposition home or self-care (01) ==
LOC: ER 07:04
DX: Z91.138 Patient's unintentional underdosing of medication regimen for other reason (principal); E78.5 Hyperlipidemia, unspecified; Z79.82 Long term (current) use of aspirin
CPT/HCPCS: 99284

== ENCOUNTER 2019-01-16 13:13 | Emergency (ER) | payer OTHER ==
--- OUTSIDE RECORDS SUMMARY | 2019-01-16 13:16 | XMS REPORT | Clinical Summary ---
:1930 Author Organization [facility] Address [address] [place] [address] Care Team Providers Name Role Phone Bandar Delgado Primary Care Provider Allergies No Known Allergies Medications Medication Sig Dispensed Refills Start End Status Date Date atorvastatin (LIPITOR) 80 Take 1 tablet 30 tablet 2 11/22/19 Active MG tablet (80 mg total) 19 020 by mouth nightly. senna-docusate (SENOKOT Take 1 tablet 60 tablet 0 11/22/19 Active S) 8.6-50 mg per tablet by mouth 2 020 (two) times daily. aspirin 81 MG EC tablet Take 1 tablet 30 tablet 2 11/23/19 Active (81 mg total) 19 020 by [...] (three) times daily as needed. bisacodyl (DULCOLAX) 5 mg Take 2 tablets 30 tablet 0 11/22/19 EC tablet (10 mg total) 19 019 by mouth daily as needed for Constipation for up to 30 days. bisacodyl (DULCOLAX) 10 Place 1 12 suppository 0 11/22/19 mg suppository suppository (10 019 mg total) [...] (HCC); Wilfrid, Vertigo Cyndi Espinoza MD after 01/15/2018 Social History Tobacco Use Types Packs/Day Years [...] 398 ms QTC Calculation(Bazett) 413 ms P Hagaman 65 degrees R Hagaman -22 degrees T Hagaman 84 degrees Normal sinus rhythm Nonspecific T [...] CONTRAST STAT 11/16/2018 1:09 AM CDT after 01/15/2018 Results RHYTHM STRIP - SCAN (11/25/2018 9:11 AM CDT) Narrative Performed At TRANSFUSION SERVICE REPORT - SCAN (11/21/2018 6:01 PM CDT) Narrative Performed At ECG 12 lead (11/21/2018 9:45 AM CDT) Specimen Narrative Performed At Ventricular Rate 65 BPM GE MUSE Atrial Rate 65 BPM P-R Interval 152 ms QRS Duration 86 ms Q-T Interval 398 ms QTC Calculation(Bazett) 413 ms P Hagaman 65 degrees R Hagaman -22 degrees T Hagaman 84 degrees Normal sinus rhythm Nonspecific T wave abnormality Abnormal ECG No previous ECGs available Confirmed by MD Garcia Roberto ([id number]) on 11/22/2018 9:28:42 AM Procedure Note Interface, External Ris In - 11/22/2018 9:28 AM CDT Ventricular Rate 65 BPM Atrial Rate 65 BPM P-R Interval 152 ms QRS Duration 86 ms Q-T Interval 398 ms QTC Calculation(Bazett) 413 ms P Hagaman 65 degrees R Hagaman -22 degrees T Hagaman 84 degrees Normal sinus rhythm Nonspecific T wave abnormality Abnormal ECG No previous ECGs available Confirmed by MD Garcia Roberto ([id number]) on 11/22/2018 9:28:42 AM Performing Organization Address City/State/Zipcode Phone Number GE MUSE Type and screen, automated ([facility]) (11/20/2018 3:49 AM CDT) ABO/RH AUTOMATED (BEAKER) O POSITIVE [facility] Ab Scrn NEGATIVE [facility] Specimen Blood Performing Organization Address City/[facility]/Zipcode Phone Number [facility] [address] [place] [address] Basic Metabolic Panel (11/18/2018 9:54 AM CDT)Only the most recent of2 resultswithin the time period is included. Sodium 139 136 - 145 meq/L [facility] Potassium 3.9Comment: Specimen slightly 3.5 - 5.1 meq/L [facility] Chloride 108 (H) 98 - 107 meq/L [facility] CO2 22 22 - 29 meq/L [facility] BUN 35 (H) 7 - 21 mg/dL [facility] Creatinine 1.40 (H)Comment: Specimen 0.57 - 1.25 mg/dL [facility] slightly hemolyzed [facility] Glucose 130 (H) 70 - 105 mg/dL [facility] Calcium 9.1 8.4 - 10.2 mg/dL [facility] EGFR 48Comment: ESTIMATED GFR IS mL/min/1.73 sq m [facility] NOT ACCURATE CREATININE [facility] CLEARANCE IN PREDICTING GLOMERULAR FILTRATION RATE. ESTIMATED GFR IS NOT APPLICABLE FOR DIALYSIS PATIENTS. Specimen Blood Performing Organization Address City/State/Zipcode Phone Number [facility] [address] [place] [address] [phone] abdomen/pelvis without iv contrast (11/18/2018 3:53 AM CDT) Specimen Narrative Performed At FINAL REPORT Aidin CLINICAL HISTORY: Abnormal findings on recent renal [...] MD Report Verified Date/Time:11/18/2018 04:16:41 Reading Location: [address] Reading Room Procedure Note Interface, External [...] Report Verified Date/Time: 11/18/2018 04:16:41 Reading Location: [address] Reading Room Performing Organization Address City/State/Zipcode Phone Number [employer] RIS ECHOCARDIOGRAM REPORT - SCAN (11/17/2018 9:22 PM CDT) Narrative Performed At Transthoracic 2D echo w/ doppler (cw/pw/color) (11/17/2018 11:36 AM CDT) Ejection Fraction [facility] Specimen Narrative Performed At Transthoracic Echocardiography Report (TTE) [facility] Demographics Patient NameOC KING Date of Study11/17/2018 SINTIA Gender Male Visit [id number] Race Unknown [id number] Number Date of 1930 Referring Physician Age 88 year(s) SonographerChris Briceño RDCS Interpreting [facility] Needs to be Pre PhysicianDee Amado MD [...] Study 11/17/2018 SINTIA Gender Male Visit Number [id number] Race Unknown Room Number [facility]5 Number Date of 1930 Referring Physician Age 88 year(s) Irrigator Head Chris Briceño RDMODESTO Interpreting [facility] Needs to be Pre Physician [...] 4:28 AM CDT) Color, UA Light Yellow [facility] Clarity, UA Clear [facility] Specific [place], UA 1.009 1.001 - 1.035 [facility] pH, UA 6.0 5.0 - 8.0 [facility] Protein, UA 20 mg/dL (A) Negative [facility] Glucose, UA Negative Negative [facility] Ketones, UA Negative Negative [facility] Bilirubin, UA Negative Negative [facility] Blood, UA Trace (A) Negative [facility] Nitrite, UA Negative Negative [facility] Leukocytes, UA Large (A) Negative [facility] Urobilinogen, UA 0.2 0.2 - 1.0 mg/dL [facility] RBC, UA 3 /HPF [facility] WBC, UA 67 /HPF [facility] Bacteria, UA Rare [facility] Specimen Source [facility] Specimen Urine Performing Organization Address City/State/Zipcode Phone Number [address] [address] [place] Sodium, random urine (11/17/2018 4:28 AM CDT) Sodium Urine 56 meq/L [facility] Specimen Urine Narrative Performed At Reference Range: No Normals [facility] Performing Organization Address City/[facility]/Zipcode Phone Number [address] [address] [place] Creatinine, random urine (11/17/2018 4:28 AM CDT) Creatinine, Ur 53.5 mg/dL [facility] Specimen Urine Narrative Performed At Reference Range: No Normals [facility] Performing Organization Address [facility] Phone Number [address] [address] [place] Urine culture (11/17/2018 4:28 AM CDT) Result PSEUDOMONAS AERUGINOSA (A) [facility] Result PSEUDOMONAS AERUGINOSA (A)Comment: [facility] of a second type [facility] Specimen Urine Narrative Performed At <10,000 col/mL Gram negative vladimir [facility] Organism Antibiotic Method Susceptibility Pseudomonas aeruginosa Amikacin [...] Susceptible Performing Organization Address City/State/Zipcode Phone Number [facility] [address] [place] [address] [phone] CENTER CBC with platelet count + automated diff (11/17/2018 4:23 AM CDT)Only the most recent of2 resultswithin the time period is included. WBC 8.6 3.5 - 10.5 K/L [facility] RBC 4.12 (L) 4.63 - 6.08 M/L [facility] Hemoglobin 13.1 (L) 13.7 - 17.5 GM/DL [facility] Hematocrit 39.2 (L) 40.1 - 51.0 % [facility] MCV 95.1 (H) 79.0 - 92.2 fL [facility] MCH 31.8 25.7 - 32.2 pg [facility] MCHC 33.4 32.3 - 36.5 GM/DL [facility] RDW 14.1 11.6 - 14.4 % [facility] Platelets 178 150 - 450 K/CU MM [facility] MPV 10.3 9.4 - 12.4 fL [facility] nRBC 0 0 - 0 /100 WBC [facility] % Neutros 64 % [facility] % Lymphs 22 % [facility] % Monos 6 % [facility] % Eos 6 % [facility] % Baso 1 % [facility] # Neutros 5.50 (H) 1.78 - 5.38 K/L [facility] # Lymphs 1.93 1.32 - 3.57 K/L [facility] # Monos 0.55 0.30 - 0.82 K/L [facility] # Eos 0.54 0.04 - 0.54 K/L [facility] # Baso 0.06 0.01 - 0.08 K/L [facility] Immature Granulocytes-Relative 0 0 - 1 % [facility] Specimen Blood Performing Organization Address City/[facility] Phone Number [facility] [address] [place] [address] [place] Fasting lipid panel (11/17/2018 4:23 AM CDT) Triglycerides 55 mg/dL [facility] Cholesterol 177 mg/dL [facility] HDL 50 mg/dL [facility] LDL Calculated 116 mg/dL [facility] Specimen Blood Narrative Performed At Triglyceride Reference Range: [facility] Low Risk <150 [id number] High Risk 200-499 Very High Risk>=500 Cholesterol Reference Range: Low Risk <200 [id number] High Risk>240 HDL Cholesterol Reference Range: Low Risk >=60 High Risk <40 LDL Cholesterol Reference Range: Optimal<100 Near [id number] [id number] Very High >=190 Fasting Specimen slightly icteric Performing Organization Address City/[facility] Phone Number [facility] [address] [place] [address] [place] Comprehensive metabolic panel (11/17/2018 4:23 AM CDT) Protein, Total 5.9 (L) 6.0 - 8.3 gm/dL [facility] Albumin 3.4 (L) 3.5 - 5.0 g/dL [facility] Alkaline Phosphatase 84 40 - 150 U/L [facility] Total Bilirubin 0.6 0.2 - 1.2 mg/dL [facility] Sodium 138 136 - 145 meq/L [facility] Potassium 4.2 3.5 - 5.1 meq/L [facility] Chloride 107 98 - 107 meq/L [facility] CO2 23 22 - 29 meq/L [facility] BUN 41 (H) 7 - 21 mg/dL [facility] Creatinine 1.40 (H) 0.57 - 1.25 mg/dL [facility] Glucose 80 70 - 105 mg/dL [facility] Calcium 8.8 8.4 - 10.2 mg/dL [facility] AST 15 5 - 34 U/L [facility] ALT 11 6 - 55 U/L [facility] EGFR 48Comment: ESTIMATED GFR mL/min/1.[address] [facility] IS NOT ACCURATE [facility] CREATININE CLEARANCE IN PREDICTING GLOMERULAR FILTRATION RATE. ESTIMATED GFR IS NOT APPLICABLE FOR DIALYSIS PATIENTS. Specimen Blood Narrative Performed At Fasting [facility] Specimen slightly icteric Performing Organization Address City/State/Zipcode Phone Number [facility] [address] [place] [address] CENTER Carotid doppler bilateral (11/16/2018 10:58 PM CDT) Ejection Fraction [facility] Specimen Impressions Performed At Right Impression [facility] 1. There is <50% diameter reduction [...] Performed At LAB - Carotid Duplex Study [facility] Demographics Patient NameOC KING Date of Study11/16/2018 SINTIA Age88 Visit [id number] Gender Male Date of Birth1930 Referring Timothy Delatorre [id number] Physician Irrigator Head Donald Aguirre Interpreting Yin Fitzpatrick, Physician Procedure [...] Study 11/16/2018 SINTIA Age 88 Visit Number [id number] Gender Male Accession Number [id number] Date of 1930 Referring Timothy Galan Room Number [id number] Physician Irrigator Head Donald Aguirre Interpreting Yin Fitzpatrick, Physician Procedure [...] City/State/Zipcode Phone Number [facility] US renal complete (11/16/2018 9:09 PM CDT) Specimen Narrative Performed At Addendum Begins Aidin REPORT STATUS:A Polynephritis cannot be excluded based on provided images. Recommend CT abdomen and pelvis with contrast when clinically feasible. Signed: Master Braden MD Report Verified Date/Time:11/17/2018 00:34:57 Reading Location: [address] Neuro Reading Room Addendum Ends FINAL [...] Report Verified Date/Time:11/16/2018 23:39:50 Reading Location: [address] Neuro Reading Room Procedure Note Interface, External Ris In - 11/17/2018 12:37 AM CDT Addendum Begins REPORT STATUS:A Polynephritis cannot be excluded based on provided images. Recommend CT abdomen and pelvis with contrast when clinically feasible. Signed: Master Braden MD Report Verified Date/Time: 11/17/2018 00:34:57 Reading Location: [facility] C013 Neuro Reading Room Addendum Ends FINAL REPORT [...] Verified Date/Time: 11/16/2018 23:39:50 Reading Location: [address] Neuro Reading Room Performing Organization Address City/[facility] Phone Number GE RIS TSH/Free T4 If Indicated (11/16/2018 10:37 AM CDT) TSH 1.04 0.35 - 4.94 uIU/mL [facility] Specimen Blood Performing Organization Address [facility] Phone Number [address] [address] CENTER Troponin I (11/16/2018 10:37 AM CDT)Only the most recent of2 resultswithin the time period is included. Troponin I 0.02 0.00 - 0.03 ng/mL [facility] Specimen Blood Narrative Performed At Troponin I (TnI) levels must be interpreted [facility] in the context of the presenting symptoms [...] disease, and persistent tachyarrhythmia. Performing Organization Address [facility] Phone Number [address] [address] CENTER Urinalysis Microscopic Only (11/16/2018 5:16 AM CDT) RBC, UA 1 /HPF [facility] WBC, UA 76 /HPF [facility] Bacteria, UA Rare [facility] Specimen Urine Performing Organization Address City/State/Zipcode Phone Number [facility] [address] [place] [address] [place] Urinalysis with Microscopic If Indicated (11/16/2018 5:16 AM CDT) Color, UA Light Yellow [facility] Clarity, UA Clear [facility] Specific [place], UA 1.006 1.001 - 1.035 [facility] pH, UA 6.5 5.0 - 8.0 [facility] Protein, UA 30 mg/dL (A) Negative [facility] Glucose, UA Negative Negative [facility] Ketones, UA Negative Negative [facility] Bilirubin, UA Negative Negative [facility] Blood, UA Trace (A) Negative [facility] Nitrite, UA Positive (A) Negative [facility] Leukocytes, UA Large (A) Negative [facility] Urobilinogen, UA 0.2 0.2 - 1.0 mg/dL [facility] Specimen Source [facility] Specimen Urine Performing Organization Address City/State/Zipcode Phone Number [facility] [address] [place] [address] [place] Rapid drug screen, urine (11/16/2018 5:16 AM CDT) Barbiturate Screen Negative Negative [facility] Benzodiazepine Screen Negative Negative [facility] Cocaine (Metab.) Screen Negative Negative [facility] Methadone Screen Negative Negative [facility] Opiate Screen Negative Negative [facility] Cannabinoid Screen Negative Negative [facility] Amph/Methamph Screen Negative Negative [facility] Phencyclidine Screen Negative Negative [facility] Oxycodone Screen Negative Negative [facility] Specimen Urine Narrative Performed At DRUGCUTOFF [facility] CONC. Cocaine 300 ng/mL Pfomkyykrlk76 ng/mL Bxncctopotcvkp267 ng/mL Barbiturate 200 ng/mL Tnacundjgzeow26 ng/mL Lhnkpg758 ng/mL Methadone 300 ng/mL Amphetamine/ 1000 ng/mL Methamphetamine Oxycodone 300 ng/mL This assay provides an unconfirmed qualitative test result for the clinical management of patients in emergency situations. Chain of custody not maintained. Some szsw-ayi-dejpkwu medications, as well as adulterants, may cause inaccurate results. Clinical correlation should be applied. A more comprehensive drug screen or confirmation of a detected drug may be performed upon request. Performing Organization Address City/State/Zipcode Phone Number [facility] [address] [place] [address] CENTER MR brain without IV contrast (11/16/2018 1:09 AM CDT) Specimen Narrative Performed At FINAL REPORT [facility] MR, BRAIN, WITHOUT CONTRAST, MR, MRA, NECK, [...] arteries: Normal flow-related enhancement within the bilateral [employer] INTEGRATION ENGINEER P1-P2 segmentswithout flow-limiting stenosis Additional findings: None. [...] Report Verified Date/Time:11/16/2018 02:09:12 Reading Location: [address] Neuro Reading Room Procedure Note Interface, [...] arteries: Normal flow-related enhancement within the bilateral [employer] IN[employer]ATION ENGINEER P1-P2 segments without flow-limiting stenosis Additional findings: [...] Verified Date/Time: 11/16/2018 02:09:12 Reading Location: [address] Neuro Reading Room Performing Organization Address City/State/Zipcode Phone Number Aidin MRA neck without IV contrast (11/16/2018 1:09 AM CDT) Specimen Narrative Performed At FINAL REPORT Aidin MR, BRAIN, WITHOUT CONTRAST, MR, MRA, NECK, [...] arteries: Normal flow-related enhancement within the bilateral [employer] INTEGRATION ENGINEER P1-P2 segmentswithout flow-limiting stenosis Additional findings: None. [...] Report Verified Date/Time:11/16/2018 02:09:12 Reading Location: [address] Neuro Reading Room Procedure Note Interface, [...] arteries: Normal flow-related enhancement within the bilateral [employer] INTEGRATION ENGINEER P1-P2 segments without flow-limiting stenosis Additional findings: [...] Verified Date/Time: 11/16/2018 02:09:12 Reading Location: [address] Neuro Reading Room Performing Organization Address City/State/Zipcode Phone Number Aidin MRA head without IV contrast (11/16/2018 1:09 AM CDT) Specimen Narrative Performed At FINAL REPORT Aidin MR, BRAIN, WITHOUT CONTRAST, MR, MRA, NECK, [...] arteries: Normal flow-related enhancement within the bilateral [employer] INTEGRATION ENGINEER P1-P2 segmentswithout flow-limiting stenosis Additional findings: None. [...] Report Verified Date/Time:11/16/2018 02:09:12 Reading Location: [address] Neuro Reading Room Procedure Note Interface, [...] arteries: Normal flow-related enhancement within the bilateral [employer] INTEGRATION ENGINEER P1-P2 segments without flow-limiting stenosis Additional findings: [...] Verified Date/Time: 11/16/2018 02:09:12 Reading Location: [address] Neuro Reading Room Performing Organization Address City/State/Zipcode Phone Number GE RIS after 01/15/2018 Insurance Payer Benefit Plan / Group Subscriber ID Type Phone Address MEDICARE MEDICARE A B xxxxxxxxxxx Medicare Advance Directives For more information, please contact:[address] [phone] Code Status Date Activated Date Inactivated Comments Full Code 11/15/2018 11:58 PM 11/21/2018 6:58 PM This code status was determined by: Patient
--- OUTSIDE RECORDS SUMMARY | 2019-01-16 13:17 | XMS REPORT ---
:1930 [facility] Address [address] [place] [address] Care Team Providers Name Role Phone AMANDA [...] Comments SODIUM (BEAKER) (test 139 meq/L 136-145 noqv=674) POTASSIUM (BEAKER) (test 3.9 meq/L 3.5-5.1 Specimen slightly hemolyzed ubak=395) CHLORIDE (BEAKER) (test 108 meq/L 98-107 ngod=876) CO2 (BEAKER) (test fgew=310) 22 meq/L 22-29 BLOOD UREA NITROGEN (BEAKER) 35 mg/dL 7-21 (test xhwf=270) CREATININE (BEAKER) (test 1.40 mg/dL 0.57-1.25 Specimen slightly hemolyzed fkmz=623) GLUCOSE RANDOM (BEAKER) 130 mg/dL 70-105 (test area=162) CALCIUM (BEAKER) (test 9.1 mg/dL 8.4-10.2 ejpu=659) EGFR (BEAKER) (test 48 mL/min/1.73 sq m ESTIMATED GFR IS NOT jxob=8681) ACCURATE CREATININE CLEARANCE IN PREDICTING GLOMERULAR FILTRATION RATE. ESTIMATED GFR IS NOT APPLICABLE FOR DIALYSIS PATIENTS. CT, [id number] 04:16:00FINAL REPORT CLINICAL HISTORY: Abnormal findings on [...] Verified Date/Time: 11/18/2018 04: 16:41 Reading Location: [address] Reading Room SODIUM, RANDOM [id number] 14:14:00 Test Item Value Reference Range Comments SODIUM URINE (BEAKER) (test vamp=407) 56 meq/L Reference Range: No NormalsCREATININE, RANDOM [id number] 14:14:00 Test Item Value Reference Range Comments CREATININE URINE (BEAKER) (test mruf=294) 53.5 mg/dL Reference Range: No NormalsCOMPREHENSIVE METABOLIC [id number] 07:16:00 Test Item Value Reference Range Comments TOTAL PROTEIN (BEAKER) 5.9 gm/dL 6.0-8.3 (test crdq=384) ALBUMIN (BEAKER) (test 3.4 g/dL 3.5-5.0 nlfs=3976) ALKALINE PHOSPHATASE 84 U/L 40-150 (BEAKER) (test itsa=379) BILIRUBIN TOTAL (BEAKER) 0.6 mg/dL 0.2-1.2 (test ketu=561) SODIUM (BEAKER) (test 138 meq/L 136-145 jjlc=883) POTASSIUM (BEAKER) (test 4.2 meq/L 3.5-5.1 setz=833) CHLORIDE (BEAKER) (test 107 meq/L 98-107 aaxm=034) CO2 (BEAKER) (test 23 meq/L 22-29 qjly=492) BLOOD UREA NITROGEN 41 mg/dL 7-21 (BEAKER) (test peel=414) CREATININE (BEAKER) (test 1.40 mg/dL 0.57-1.25 pibf=348) GLUCOSE RANDOM (BEAKER) 80 mg/dL 70-105 (test vatq=867) CALCIUM (BEAKER) (test 8.8 mg/dL 8.4-10.2 aqhf=178) AST (SGOT) (BEAKER) (test 15 U/L 5-34 hfbq=415) ALT (SGPT) (BEAKER) (test 11 U/L 6-55 xxxa=092) EGFR (BEAKER) (test 48 mL/min/1.73 sq m ESTIMATED GFR IS NOT rejg=6807) ACCURATE CREATININE CLEARANCE IN PREDICTING GLOMERULAR FILTRATION RATE. ESTIMATED GFR IS NOT APPLICABLE FOR DIALYSIS PATIENTS. FastingSpecimen slightly ictericLIPID [id number] 06:27:00 Test Item Value Reference Range Comments TRIGLYCERIDES (BEAKER) (test tcii=962) 55 mg/dL CHOLESTEROL (BEAKER) (test xihb=079) 177 mg/dL HDL CHOLESTEROL (BEAKER) (test uopx=210) 50 mg/dL LDL CHOLESTEROL CALCULATED (BEAKER) (test 116 mg/dL uzki=141) Triglyceride Reference Range: Low Risk <150 Borderline 150- 199 High Risk 200-499 Very High Risk >=500Cholesterol Reference Range: Low Risk <200 Borderline 200-239 High Risk > 240HDL Cholesterol Reference Range: Low Risk >=60 High Risk <40LDL Cholesterol Reference Range: Optimal <100 Near Optimal 100-129 Borderline 130-159 High 160-189 Very High >=190 FastingSpecimen slightly ictericURINALYSIS W/ REFLEX URINE [id number] 05:08:00 Test Item Value Reference Range Comments COLOR (BEAKER) (test jwfk=398) Light Yellow CLARITY (BEAKER) (test ifvq=278) Clear SPECIFIC GRAVITY UA (BEAKER) (test ccga=198) 1.009 1.001-1.035 PH UA (BEAKER) (test pywp=052) 6.0 5.0-8.0 PROTEIN UA (BEAKER) (test udwl=104) 20 mg/dL Negative GLUCOSE UA (BEAKER) (test vvtn=432) Negative Negative KETONES UA (BEAKER) (test lxdy=642) Negative Negative BILIRUBIN UA (BEAKER) (test xfgw=155) Negative Negative BLOOD UA (BEAKER) (test sndv=235) Trace Negative NITRITE UA (BEAKER) (test tfys=578) Negative Negative LEUKOCYTE ESTERASE UA (BEAKER) (test uonc=615) Large Negative UROBILINOGEN UA (BEAKER) (test qfxb=701) 0.2 mg/dL 0.2-1.0 RBC UA (BEAKER) (test tyng=618) 3 /HPF WBC UA (BEAKER) (test jzcr=665) 67 /HPF BACTERIA (BEAKER) (test lwmk=245) Rare SOURCE(BEAKER) (test cnsj=5449) CBC W/PLT COUNT & AUTO [id number] 04:59:00 Test Item Value Reference Range Comments WHITE BLOOD CELL COUNT (BEAKER) (test yaap=481) 8.6 K/ L 3.5-10.5 RED BLOOD CELL COUNT (BEAKER) (test ngiq=367) 4.12 M/ L 4.63-6.08 HEMOGLOBIN (BEAKER) (test qovh=501) 13.1 GM/DL 13.7-17.5 HEMATOCRIT (BEAKER) (test rubn=983) 39.2 % 40.1-51.0 MEAN CORPUSCULAR VOLUME (BEAKER) (test ezeg=710) 95.1 fL 79.0-92.2 MEAN CORPUSCULAR HEMOGLOBIN (BEAKER) (test 31.8 pg 25.7-32.2 fhky=050) MEAN CORPUSCULAR HEMOGLOBIN CONC (BEAKER) (test 33.4 GM/DL 32.3-36.5 awkp=539) RED CELL DISTRIBUTION WIDTH (BEAKER) (test 14.1 % 11.6-14.4 lqnz=649) PLATELET COUNT (BEAKER) (test qqdm=788) 178 K/CU MM 150-450 MEAN PLATELET VOLUME (BEAKER) (test evpr=486) 10.3 fL 9.4-12.4 NUCLEATED RED BLOOD CELLS (BEAKER) (test 0 /100 WBC 0-0 dhyy=603) NEUTROPHILS RELATIVE PERCENT (BEAKER) (test 64 % untp=339) LYMPHOCYTES RELATIVE PERCENT (BEAKER) (test 22 % oqmc=269) MONOCYTES RELATIVE PERCENT (BEAKER) (test 6 % bmwv=361) EOSINOPHILS RELATIVE PERCENT (BEAKER) (test 6 % fusf=145) BASOPHILS RELATIVE PERCENT (BEAKER) (test 1 % rsfm=875) NEUTROPHILS ABSOLUTE COUNT (BEAKER) (test 5.50 K/ L 1.78-5.38 ohni=267) LYMPHOCYTES ABSOLUTE COUNT (BEAKER) (test 1.93 K/ L 1.32-3.57 bnge=683) MONOCYTES ABSOLUTE COUNT (BEAKER) (test 0.55 K/ L 0.30-0.82 bfts=010) EOSINOPHILS ABSOLUTE COUNT (BEAKER) (test 0.54 K/ L 0.04-0.54 sawh=170) BASOPHILS ABSOLUTE COUNT (BEAKER) (test 0.06 K/ L 0.01-0.08 ruum=365) IMMATURE GRANULOCYTES-RELATIVE PERCENT (BEAKER) 0 % 0-1 (test togb=0630) U/S, RENAL, [id number] 00:34:00Reason for exam:->AKIAddendum BeginsREPORT STATUS:A Polynephritis cannot be excluded based on provided images. Recommend CT abdomen and pelvis with contrast when clinically feasible. Signed: Kitty Mikeort Verified Date/Time: 11/17 00:34:57 Reading Location: [facility] C013V Neuro Reading RoomAddendum EndsFINAL REPORT [...] MDReport Verified Date/Time: 11/16/2018 23:39:50 Reading Location: [address] Neuro Reading Room TSH/FREE T4 IF [id number] 12:37:00 Test Item Value Reference Range Comments THYROID STIMULATING HORMONE (BEAKER) (test 1.04 uIU/mL 0.35-4.94 aasc=385) TROPONIN [id number] 11:53:00 Test Item Value Reference Range Comments TROPONIN I (BEAKER) (test otbs=363) 0.02 ng/mL 0.00-0.03 Troponin I (TnI) levels [...] acidosis, acute neurological disease, and persistent tachyarrhythmia.URINALYSIS [id number] 06:04: 00 Test Item Value Reference Range Comments RBC UA (BEAKER) (test cuzi=311) 1 /HPF WBC UA (BEAKER) (test lacq=448) 76 /HPF BACTERIA (BEAKER) (test daaf=846) Rare URINALYSIS WITH MICROSCOPIC IF [id number] 06:03:00 Test Item Value Reference Range Comments COLOR (BEAKER) (test mvuf=567) Light Yellow CLARITY (BEAKER) (test pibq=957) Clear SPECIFIC GRAVITY UA (BEAKER) (test bqji=672) 1.006 1.001-1.035 PH UA (BEAKER) (test ahob=407) 6.5 5.0-8.0 PROTEIN UA (BEAKER) (test dmdb=364) 30 mg/dL Negative GLUCOSE UA (BEAKER) (test bdyt=590) Negative Negative KETONES UA (BEAKER) (test txtq=424) Negative Negative BILIRUBIN UA (BEAKER) (test wjve=013) Negative Negative BLOOD UA (BEAKER) (test lgxe=747) Trace Negative NITRITE UA (BEAKER) (test hxus=538) Positive Negative LEUKOCYTE ESTERASE UA (BEAKER) (test igke=504) Large Negative UROBILINOGEN UA (BEAKER) (test qvdx=081) 0.2 mg/dL 0.2-1.0 SOURCE(BEAKER) (test guid=9395) RAPID DRUG SCREEN, [id number] 06:00:00 Test Item Value Reference Range Comments BARBITURATE URINE (BEAKER) (test byte=443) Negative Negative BENZODIAZEPINE SCREEN URINE (BEAKER) (test Negative Negative hpgu=467) COCAINE (METAB.) SCREEN (BEAKER) (test osel=4730) Negative Negative METHADONE SCREEN (BEAKER) (test hsbb=4503) Negative Negative OPIATE SCREEN URINE (BEAKER) (test vqpp=125) Negative Negative CANNABINOID SCREEN URINE (BEAKER) (test uuyx=661) Negative Negative AMPH/METHAMPH SCREEN (BEAKER) (test kmje=5136) Negative Negative PHENCYCLIDINE SCREEN URINE (BEAKER) (test umuw=123) Negative Negative OXYCODONE SCREEN URINE (BEAKER) (test rgep=4312) Negative Negative DRUG CUTOFF CONC.Cocaine 300 ng/mL Cannabinoid 50 ng/mL Benzodiazepine 200 ng/mLBarbiturate 200 ng/ mLPhencyclidine 25 ng/mLOpiate 300 ng/mLMethadone 300 ng/mLAmphetamine/ 1000 ng/mL MethamphetamineOxycodone 300 ng/mLThis assay provides an unconfirmed qualitative test result for the clinical management of patients in emergency situations. Chain of custody not maintained. Some frxw-jbw-rakguyb medications, as well as adulterants, may cause inaccurate results. Clinical correlation should be applied. A more comprehensive drug screen or confirmation of a detected drug may be performed upon request.BASIC METABOLIC [id number] 03:52:00 Test Item Value Reference Range Comments SODIUM (BEAKER) (test 135 meq/L 136-145 adqv=361) POTASSIUM (BEAKER) (test 4.5 meq/L 3.5-5.1 dirp=178) CHLORIDE (BEAKER) (test 101 meq/L 98-107 trvv=045) CO2 (BEAKER) (test 26 meq/L 22-29 kehl=298) BLOOD UREA NITROGEN 32 mg/dL 7-21 (BEAKER) (test afty=359) CREATININE (BEAKER) (test 1.31 mg/dL 0.57-1.25 zcjk=432) GLUCOSE RANDOM (BEAKER) 111 mg/dL 70-105 (test szlr=969) CALCIUM (BEAKER) (test 9.6 mg/dL 8.4-10.2 grkk=948) EGFR (BEAKER) (test 52 mL/min/1.73 sq m ESTIMATED GFR IS NOT zzoo=5258) ACCURATE CREATININE CLEARANCE IN PREDICTING GLOMERULAR FILTRATION RATE. ESTIMATED GFR IS NOT APPLICABLE FOR DIALYSIS PATIENTS. Specimen slightly ictericTROPONIN [id number] 03:52:00 Test Item Value Reference Range Comments TROPONIN I (BEAKER) (test zzbf=423) 0.04 ng/mL 0.00-0.03 Troponin I (TnI) levels [...] and persistent tachyarrhythmia.CBC W/PLT COUNT & AUTO [id number] 02:18:00 Test Item Value Reference Range Comments WHITE BLOOD CELL COUNT (BEAKER) (test xoat=442) 9.0 K/ L 3.5-10.5 RED BLOOD CELL COUNT (BEAKER) (test tpmn=912) 4.82 M/ L 4.63-6.08 HEMOGLOBIN (BEAKER) (test uehb=937) 15.0 GM/DL 13.7-17.5 HEMATOCRIT (BEAKER) (test msyi=981) 45.3 % 40.1-51.0 MEAN CORPUSCULAR VOLUME (BEAKER) (test bwhz=895) 94.0 fL 79.0-92.2 MEAN CORPUSCULAR HEMOGLOBIN (BEAKER) (test 31.1 pg 25.7-32.2 ivln=509) MEAN CORPUSCULAR HEMOGLOBIN CONC (BEAKER) (test 33.1 GM/DL 32.3-36.5 hiqs=355) RED CELL DISTRIBUTION WIDTH (BEAKER) (test 13.9 % 11.6-14.4 kqxp=450) PLATELET COUNT (BEAKER) (test gmah=729) 205 K/CU MM 150-450 MEAN PLATELET VOLUME (BEAKER) (test ontc=543) 10.1 fL 9.4-12.4 NUCLEATED RED BLOOD CELLS (BEAKER) (test 0 /100 WBC 0-0 dvsm=934) NEUTROPHILS RELATIVE PERCENT (BEAKER) (test 83 % tjro=797) LYMPHOCYTES RELATIVE PERCENT (BEAKER) (test 11 % kkfy=974) MONOCYTES RELATIVE PERCENT (BEAKER) (test 6 % kgpo=202) EOSINOPHILS RELATIVE PERCENT (BEAKER) (test 0 % cyzs=866) BASOPHILS RELATIVE PERCENT (BEAKER) (test 0 % auux=157) NEUTROPHILS ABSOLUTE COUNT (BEAKER) (test 7.49 K/ L 1.78-5.38 ujos=488) LYMPHOCYTES ABSOLUTE COUNT (BEAKER) (test 0.96 K/ L 1.32-3.57 pwbi=114) MONOCYTES ABSOLUTE COUNT (BEAKER) (test 0.50 K/ L 0.30-0.82 xkpq=762) EOSINOPHILS ABSOLUTE COUNT (BEAKER) (test 0.03 K/ L 0.04-0.54 ynkh=296) BASOPHILS ABSOLUTE COUNT (BEAKER) (test 0.03 K/ L 0.01-0.08 bonp=123) IMMATURE GRANULOCYTES-RELATIVE PERCENT (BEAKER) 0 % 0-1 (test ysee=4458) MR, MRA, BRAIN, WITHOUT [id number] 02:09:00Reason for exam:-> Ischemic Stroke EvaluationFINAL REPORT [...] arteries: Normal flow-related enhancement within the bilateral DEEP FAT COOK FRY P1- P2 segments without flow-limiting stenosisAdditional findings: [...] Verified Date/ Time: 11/16/2018 02:09:12 Reading Location: [address] Neuro Reading Room MR , MRA, NECK, WITHOUT IV [id number] 02:09:00Reason for exam:-> Ischemic Stroke EvaluationFINAL REPORT [...] arteries: Normal flow-related enhancement within the bilateral DEEP FAT COOK FRY P1- P2 segments without flow-limiting stenosisAdditional findings: [...] Verified Date/ Time: 11/16/2018 02:09:12 Reading Location: [facility] C013V Neuro Reading Room MR , BRAIN, WITHOUT [id number] 02:09:00Reason for exam:->Ischemic Stroke EvaluationFINAL REPORT MR, [...] arteries: Normal flow-related enhancement within the bilateral DEEP FAT COOK FRY P1- P2 segments without flow-limiting stenosisAdditional findings: [...] Location: [facility] B[facility] C013V Neuro Reading Room
[2019-01-16] MEDS ORDERED: predniSONE 10 MG TAB ONE (14:37)
[2019-01-16] MEDS ORDERED: FAMOTIDINE 20 MG TAB ONE (14:37)
--- NOTE | 2019-01-16 14:40 | EDPHYS ---
Physician Documentation [facility] Name: Oc King Age: 88 yrs Sex: Male : 1930 Arrival Date: 01/16/2019 Time: 13:18 Bed 5 Private MD: Bandar Delgado ED Physician Petey Mock HPI: 01/16 14:10 This 88 yrs old Male presents to ER via Ambulatory with complaints of Rash. kb 14:10 The patient's rash thought to be caused by food. The rash is located on the body kb diffusely. The rash can be described as urticarial. Onset: The symptoms/episode began/occurred yesterday. Associated signs and symptoms: Pertinent positives: itching, Pertinent negatives: burning sensation, difficulty breathing, fever, nausea, Pain swelling of lips, swelling of throat, swelling of tongue, vomiting, wheezing. Severity of symptoms: At their worst the symptoms were mild in the emergency department the symptoms are unchanged. The patient has not experienced similar symptoms in the past. The patient has not recently seen a physician. Pt reports rash and itching that started yesterday after eating 2 different samples at B. . Historical: - Allergies: 13:46 No Known Allergies; aa5 - Home Meds: 13:52 amlodipine 5 mg tab 1 tab once daily [Active]; aspirin 81 mg Oral chew 1 tab once daily ch [Active]; atorvastatin 80 mg Oral tab 1 tab once daily [Active]; isosorbide mononitrate 30 mg Oral Tb24 1 tab once daily [Active]; losartan 50 mg Oral tab 1 tab once daily [Active]; - PMHx: 13:46 Hyperlipidemia; Hypertension; Prostate Cancer; Anemia; Chronic back pain; Anxiety; aa5 13:47 Chronic Kidney Disease; aa5 13:52 benign prostate hypertrophy; osteoarthritis; nephrogenous proteinuria; ch - Immunization history:: Adult Immunizations up to date. - Social history:: Smoking status: Patient/guardian denies using tobacco, Patient/guardian denies using alcohol, street drugs. - Ebola Screening: : No symptoms or risks identified at this time. ROS: 14:10 Constitutional: Negative for fever, chills, and weight loss, Cardiovascular: Negative kb for chest pain, palpitations, and edema, Respiratory: Negative for shortness of breath, cough, wheezing, and pleuritic chest pain, Abdomen/GI: Negative for abdominal pain, nausea, vomiting, diarrhea, and constipation, Back: Negative for injury and pain, : Negative for injury, bleeding, discharge, and swelling, MS/Extremity: Negative for injury and deformity, Neuro: Negative for headache, weakness, numbness, tingling, and seizure. 14:10 Skin: Positive for rash, diffusely. Exam: 14:10 Constitutional: This is a well developed, well nourished patient who is awake, alert, kb and in no acute distress. Head/Face: Normocephalic, atraumatic. Neck: Trachea midline, no thyromegaly or masses palpated, and no cervical lymphadenopathy. Supple, full range of motion without nuchal rigidity, or vertebral point tenderness. No Meningismus. Chest/axilla: Normal chest wall appearance and motion. Nontender with no deformity. No lesions are appreciated. Cardiovascular: Regular rate and rhythm with a normal S1 and S2. No gallops, murmurs, or rubs. Normal PMI, no JVD. No pulse deficits. Respiratory: Lungs have equal breath sounds bilaterally, clear to auscultation and percussion. No rales, rhonchi or wheezes noted. No increased work of breathing, no retractions or nasal flaring. Abdomen/GI: Soft, non-tender, with normal bowel sounds. No distension or tympany. No guarding or rebound. No evidence of tenderness throughout. MS/ Extremity: Pulses equal, no cyanosis. Neurovascular intact. Full, normal range of motion. Neuro: Awake and alert, GCS 15, oriented to person, place, time, and situation. Cranial nerves II-XII grossly intact. Motor strength 5/5 in all extremities. Sensory grossly intact. Cerebellar exam normal. Normal gait. 14:10 Skin: consistent with urticaria, and is diffusely located. Vital Signs: 13:46 BP 176 / 83; Pulse 68; Resp 16 S; Temp 99.3(TE); Pulse Ox 97% on R/A; Pain 0/10; aa5 14:54 BP 155 / 86; Pulse 72; Resp 16; Temp 98.5; Pulse Ox 99% on R/A; Pain 0/10; ch MDM: 13:58 Patient medically screened. kb 14:10 Data reviewed: vital signs, nurses notes. Data interpreted: Pulse oximetry: on room air kb is 97 %. Interpretation: normal. Counseling: I had a detailed discussion with the patient and/or guardian regarding: the historical points, exam findings, and any diagnostic results supporting the discharge/admit diagnosis, the need for outpatient follow up, a family practitioner, to return to the emergency department if symptoms worsen or persist or if there are any questions or concerns that arise at home. Administered Medications: 14:27 Drug: Pepcid 20 mg Route: PO; ph 14:50 Follow up: Response: No adverse reaction ch 14:27 Drug: predniSONE 20 mg Route: PO; ph 14:35 Follow up: Response: No adverse reaction Disposition: 18:06 Co-signature as Attending Physician, Petey Mock MD I agree with the assessment and kdr plan of care. Disposition: 01/16/19 14:39 Discharged to Home. Impression: Urticaria, unspecified. - Condition is Stable. - Discharge Instructions: Hives, [id number]. - Prescriptions for Pepcid 20 mg Oral Tablet - take 1 tablet by ORAL route every 12 hours for 5 days; 10 tablet. Prednisone 20 mg Oral Tablet - take 2 tablet by ORAL route once daily for 5 days; 10 tablet. - Medication Reconciliation Form, Thank You Letter, Antibiotic Education, Prescription Opioid Use form. - Follow up: Emergency Department; When: As needed; Reason: Worsening of condition. Follow up: Private Physician; When: 2 - 3 days; Reason: Recheck today's complaints, Continuance of care, Re-evaluation by your physician. Signatures: Fiordaliza Serrato, MULTIPLE TUBE WINDING MACHINE OPERATOR-C MULTIPLE TUBE WINDING MACHINE OPERATOR-Melida Rodríguez RN RN Petey Mock MD MD [facility] Carina Jeffrey, RN RN aa5 Johanne Pavon RN RN ph Corrections: (The following items were deleted from the chart) 14:58 14:39 01/16/2019 14:39 Discharged to Home. Impression: Urticaria, unspecified. ch Condition is Stable. Discharge Instructions: Hives, Hese-wz-Eddi. Prescriptions for Pepcid 20 mg Oral Tablet - take 1 tablet by ORAL route every 12 hours for 5 days; 10 tablet, Prednisone 20 mg Oral Tablet - take 2 tablet by ORAL route once daily for 5 days; 10 tablet. and Forms are Medication Reconciliation Form, Thank You Letter, Antibiotic Education, Prescription Opioid Use. Follow up: Emergency Department; When: As needed; Reason: Worsening of condition. Follow up: Private Physician; When: 2 - 3 days; Reason: Recheck today's complaints, Continuance of care, Re-evaluation by your physician. kb
--- NOTE | 2019-01-16 14:40 | ER ---
Nurse's Notes [facility] Name: Oc King Age: 88 yrs Sex: Male : 1930 Arrival Date: 01/16/2019 Time: 13:18 Bed 5 Private MD: Bandar Delgado Diagnosis: Urticaria, unspecified Presentation: 01/16 13:43 Presenting complaint: Patient states: "I just started itching all over yesterday". aa5 Transition of care: patient was not received from another setting of care. Onset of symptoms was January 2019. Risk Assessment: Do you want to hurt yourself or someone else? Patient reports no desire to harm self or others. Initial Sepsis Screen: Does the patient meet any 2 criteria? No. Patient's initial sepsis screen is negative. Does the patient have a suspected source of infection? No. Patient's initial sepsis screen is negative. Care prior to arrival: None. 13:43 Method Of Arrival: Ambulatory aa5 13:43 Acuity: AUTUMN 3 aa5 Triage Assessment: 13:52 General: Appears in no apparent distress. comfortable, Behavior is calm, cooperative, ch appropriate for age. Historical: - Allergies: 13:46 No Known Allergies; aa5 - Home Meds: 13:52 amlodipine 5 mg tab 1 tab once daily [Active]; aspirin 81 mg Oral chew 1 tab once daily ch [Active]; atorvastatin 80 mg Oral tab 1 tab once daily [Active]; isosorbide mononitrate 30 mg Oral Tb24 1 tab once daily [Active]; losartan 50 mg Oral tab 1 tab once daily [Active]; - PMHx: 13:46 Hyperlipidemia; Hypertension; Prostate Cancer; Anemia; Chronic back pain; Anxiety; aa5 13:47 Chronic Kidney Disease; aa5 13:52 benign prostate hypertrophy; osteoarthritis; nephrogenous proteinuria; ch - Immunization history:: Adult Immunizations up to date. - Social history:: Smoking status: Patient/guardian denies using tobacco, Patient/guardian denies using alcohol, street drugs. - Ebola Screening: : No symptoms or risks identified at this time. Screenin:54 Abuse screen: Denies threats or abuse. Denies injuries from another. Nutritional ch screening: No deficits noted. Tuberculosis screening: No symptoms or risk factors identified. Fall Risk None identified. Assessment: 14:30 Reassessment: Patient appears in no apparent distress at this time. Patient and/or ch family updated on plan of care and expected duration. Pain level reassessed. Patient is alert, oriented x 3, equal unlabored respirations, skin warm/dry/pink. Pain: Denies pain. Neuro: No deficits noted. Level of Consciousness is awake, alert, obeys commands, Oriented to person, place, time, situation. Respiratory: Airway is patent Respiratory effort is even, unlabored, Breath sounds are clear bilaterally. GI: No signs and/or symptoms were reported involving the gastrointestinal system. EENT: Oral mucosa is moist. Throat is clear. Derm: Skin is normal, Rash noted that is itchy, red, raised, urticaria, on left subscapular area, right subscapular area, mid back area, right arm, left arm, lateral aspect of right thigh, lateral aspect of right knee, lateral aspect of right calf, right hamstring, posterior aspect of right knee, medial aspect of right thigh, right quadriceps, lateral aspect of left thigh, lateral aspect of left knee, lateral aspect of left calf, posterior aspect of left knee, left quadriceps, left knee and left villavicencio Reports itching, generalized. Musculoskeletal: No signs and/or symptoms reported regarding the musculoskeletal system. 14:54 Reassessment: Patient appears in no apparent distress at this time. Patient and/or ch family updated on plan of care and expected duration. Pain level reassessed. Patient states feeling better. Vital Signs: 13:46 BP 176 / 83; Pulse 68; Resp 16 S; Temp 99.3(TE); Pulse Ox 97% on R/A; Pain 0/10; aa5 14:54 BP 155 / 86; Pulse 72; Resp 16; Temp 98.5; Pulse Ox 99% on R/A; Pain 0/10; ch ED Course: 13:18 Patient arrived in ED. mr 13:18 Bandar Delgado DO is Private Physician. mr 13:43 Arm band placed on. aa5 13:44 Triage completed. aa5 13:45 Melida Miner, RN is Primary Nurse. ch 13:50 Johanne Pavon, RN is Primary Nurse. ph 13:57 Fiordaliza Serrato F[facility]-C [facility]. kb 13:57 Petey Mock MD is Attending Physician. kb 14:54 No apparent distress. Resting quietly. ch 14:54 Patient has correct armband on for positive identification. Bed in low position. Call light in reach. Side rails up X 1. Adult w/ patient. 14:54 No provider procedures requiring assistance completed. Patient did not have IV access ch during this emergency room visit. Administered Medications: 14:27 Drug: Pepcid 20 mg Route: PO; ph 14:50 Follow up: Response: No adverse reaction ch 14:27 Drug: predniSONE 20 mg Route: PO; ph 14:35 Follow up: Response: No adverse reaction Outcome: 14:39 Discharge ordered by MD. kb 14:54 Condition: improved 14:56 Discharged to home ambulatory, with family. 14:56 Discharge instructions given to patient, family, Instructed on discharge instructions, follow up and referral plans. medication usage, Demonstrated understanding of instructions, follow-up care, medications, benadryl otc as directed on box 14:58 Patient left the ED. Signatures: Fiordaliza Serrato, ESTIMATING ENGINEER-C ESTIMATING ENGINEER-Ckb Melida Miner, RN RN Susannah GalederCarina sánchez, RN RN aa5 Johanne Pavon, RN RN ph Corrections: (The following items were deleted from the chart) 15:05 15:04 Discharged to home ambulatory, with family, [facility] 15:05 15:04 Condition: improved [facility] 15:05 15:04 Discharge instructions given to patient, family, Instructed on discharge instructions, follow up and referral plans. medication usage, Demonstrated understanding of instructions, follow-up care, medications, benadryl otc as directed on box
== END 2019-01-16 14:58 | disposition home or self-care (01) ==
LOC: ER 13:13
DX: L50.9 Urticaria, unspecified (principal); I12.9 Hypertensive chronic kidney disease with stage 1 through stage 4 chronic kidney disease, or unspecified chronic kidney disease; N18.9 Chronic kidney disease, unspecified; F41.9 Anxiety disorder, unspecified; Z79.82 Long term (current) use of aspirin; Z85.46 Personal history of malignant neoplasm of prostate
CPT/HCPCS: 99283; J7512

== ENCOUNTER 2019-02-19 13:32 | Emergency (ER) | payer OTHER ==
--- OUTSIDE RECORDS SUMMARY | 2019-02-19 13:35 | XMS REPORT | Clinical Summary ---
:1930 Author Organization [facility] Address [address] [place] [address] Care Team Providers Name Role Phone Bandar [...] (HCC); Wilfrid, Vertigo Cyndi Espinoza MD after 02/18/2018 Social History Tobacco Use Types Packs/Day Years [...] 398 ms QTC Calculation(Bazett) 413 ms P Amorita 65 degrees R Amorita -22 degrees T Amorita 84 degrees Normal sinus rhythm Nonspecific T [...] CONTRAST STAT 11/16/2018 1:09 AM CDT after 02/18/2018 Results RHYTHM STRIP - SCAN (11/25/2018 9:11 AM CDT) Narrative Performed At TRANSFUSION SERVICE REPORT - SCAN (11/21/2018 6:01 PM CDT) Narrative Performed At ECG 12 lead (11/21/2018 9:45 AM CDT) Specimen Narrative Performed At Ventricular Rate 65 BPM GE MUSE Atrial Rate 65 BPM P-R Interval 152 ms QRS Duration 86 ms Q-T Interval 398 ms QTC Calculation(Bazett) 413 ms P Amorita 65 degrees R Amorita -22 degrees T Amorita 84 degrees Normal sinus rhythm Nonspecific T wave abnormality Abnormal ECG No previous ECGs available Confirmed by MD Garcia Roberto ([id number]) on 11/22/2018 9:28:42 AM Procedure Note Interface, External Ris In - 11/22/2018 9:28 AM CDT Ventricular Rate 65 BPM Atrial Rate 65 BPM P-R Interval 152 ms QRS Duration 86 ms Q-T Interval 398 ms QTC Calculation(Bazett) 413 ms P Amorita 65 degrees R Amorita -22 degrees T Amorita 84 degrees Normal sinus rhythm Nonspecific T wave abnormality Abnormal ECG No previous ECGs available Confirmed by MD Garcia Roberto ([id number]) on 11/22/2018 9:28:42 AM Performing Organization Address City/State/Zipcode Phone Number GE MUSE Type and screen, automated ([facility] Lab) (11/20/2018 3:49 AM CDT) ABO/RH AUTOMATED (BEAKER) O POSITIVE [facility] Ab Scrn NEGATIVE [facility] Specimen Blood Performing Organization Address City/[facility]/Zipcode Phone Number [facility] [address] [place] [address] [phone] Basic Metabolic Panel (11/18/2018 9:54 AM CDT)Only the most recent of2 resultswithin the time period is included. Sodium 139 136 - 145 meq/L [facility] Potassium 3.9Comment: Specimen slightly 3.5 - 5.1 meq/L [facility] Chloride 108 (H) 98 - 107 meq/L [facility] CO2 22 22 - 29 meq/L [facility] BUN 35 (H) 7 - 21 mg/dL [facility] Creatinine 1.40 (H)Comment: Specimen 0.57 - 1.25 mg/dL [facility] slightly hemolyzed [facility] Glucose 130 (H) 70 - 105 mg/dL [facility] Calcium 9.1 8.4 - 10.2 mg/dL [facility] EGFR 48Comment: ESTIMATED GFR IS mL/min/1.73 sq m [facility] NOT ACCURATE CREATININE [facility] CLEARANCE IN PREDICTING GLOMERULAR FILTRATION RATE. ESTIMATED GFR IS NOT APPLICABLE FOR DIALYSIS PATIENTS. Specimen Blood Performing Organization Address City/State/Zipcode Phone Number [facility] [address] [place] [address] abdomen/pelvis without iv contrast (11/18/2018 3:53 AM CDT) Specimen Narrative Performed At FINAL REPORT [facility] CLINICAL HISTORY: Abnormal findings on recent renal [...] MD Report Verified Date/Time:11/18/2018 04:16:41 Reading Location: [address] Reading Room Procedure Note Interface, External [...] Report Verified Date/Time: 11/18/2018 04:16:41 Reading Location: [address] Reading Room Performing Organization Address City/State/Zipcode Phone Number [facility] RIS ECHOCARDIOGRAM REPORT - SCAN (11/17/2018 9:22 PM CDT) Narrative Performed At Transthoracic 2D echo w/ doppler (cw/pw/color) (11/17/2018 11:36 AM CDT) Ejection Fraction [facility] Specimen Narrative Performed At Transthoracic Echocardiography Report (TTE) [facility] Demographics Patient NameOC KING Date of Study11/17/2018 SINTIA Gender Male Visit [id number] Race Unknown [id number] Number Date of 1930 Referring Physician Age 88 year(s) SonographerChris Briceño RDCS Interpreting [facility] Needs to be Pre PhysicianDee [...] Study 11/17/2018 SINTIA Gender Male Visit Number [id number] Race Unknown Room Number [facility]5 Number Date of 1930 Referring Physician Age 88 year(s) Local Combination Truck Driver Chris Briceño RDMODESTO Interpreting [facility] Needs to [...] 4:28 AM CDT) Color, UA Light Yellow [facility] Clarity, UA Clear [facility] Specific [place], UA 1.009 1.001 - 1.035 [facility] pH, UA 6.0 5.0 - 8.0 [facility] Protein, UA 20 mg/dL (A) Negative [facility] Glucose, UA Negative Negative [facility] Ketones, UA Negative Negative [facility] Bilirubin, UA Negative Negative [facility] Blood, UA Trace (A) Negative [facility] Nitrite, UA Negative Negative [facility] Leukocytes, UA Large (A) Negative [facility] Urobilinogen, UA 0.2 0.2 - 1.0 mg/dL [facility] RBC, UA 3 /HPF [facility] WBC, UA 67 /HPF [facility] Bacteria, UA Rare [facility] Specimen Source [facility] Specimen Urine Performing Organization Address City/State/Zipcode Phone Number [address] [address] [place] Sodium, random urine (11/17/2018 4:28 AM CDT) Sodium Urine 56 meq/L [facility] Specimen Urine Narrative Performed At Reference Range: No Normals [facility] Performing Organization Address City/[facility]/Zipcode Phone Number [address] [address] [place] Creatinine, random urine (11/17/2018 4:28 AM CDT) Creatinine, Ur 53.5 mg/dL [facility] Specimen Urine Narrative Performed At Reference Range: No Normals [facility] Performing Organization Address [facility] Phone Number [address] [address] CENTER Urine culture (11/17/2018 4:28 AM CDT) Result 50-59,000 col/mL Pseudomonas [facility] aeruginosa (A) [facility] [place] Result 50-59,000 col/mL Pseudomonas [facility] aeruginosa (A)Comment: of a second [facility] type Specimen Urine Narrative Performed At <10,000 col/mL Gram negative vladimir [facility] Organism Antibiotic Method Susceptibility Pseudomonas aeruginosa Amikacin [...] Susceptible Performing Organization Address City/State/Zipcode Phone Number [facility] [address] [place] [address] [phone] CENTER CBC with platelet count + automated diff (11/17/2018 4:23 AM CDT)Only the most recent of2 resultswithin the time period is included. WBC 8.6 3.5 - 10.5 K/L [facility] RBC 4.12 (L) 4.63 - 6.08 M/L [facility] Hemoglobin 13.1 (L) 13.7 - 17.5 GM/DL [facility] Hematocrit 39.2 (L) 40.1 - 51.0 % [facility] MCV 95.1 (H) 79.0 - 92.2 fL [facility] MCH 31.8 25.7 - 32.2 pg [facility] MCHC 33.4 32.3 - 36.5 GM/DL [facility] RDW 14.1 11.6 - 14.4 % [facility] Platelets 178 150 - 450 K/CU MM [facility] MPV 10.3 9.4 - 12.4 fL [facility] nRBC 0 0 - 0 /100 WBC [facility] % Neutros 64 % [facility] % Lymphs 22 % [facility] % Monos 6 % [facility] % Eos 6 % [facility] % Baso 1 % [facility] # Neutros 5.50 (H) 1.78 - 5.38 K/L [facility] # Lymphs 1.93 1.32 - 3.57 K/L [facility] # Monos 0.55 0.30 - 0.82 K/L [facility] # Eos 0.54 0.04 - 0.54 K/L [facility] # Baso 0.06 0.01 - 0.08 K/L [facility] Immature Granulocytes-Relative 0 0 - 1 % [facility] Specimen Blood Performing Organization Address City/[facility] Phone Number [address] [address] [phone] [place] Fasting lipid panel (11/17/2018 4:23 AM CDT) Triglycerides 55 mg/dL [facility] Cholesterol 177 mg/dL [facility] HDL 50 mg/dL [facility] LDL Calculated 116 mg/dL [facility] Specimen Blood Narrative Performed At Triglyceride Reference Range: [facility] Low Risk <150 [id number] High Risk 200-499 Very High Risk>=500 Cholesterol Reference Range: Low Risk <200 [id number] High Risk>240 HDL Cholesterol Reference Range: Low Risk >=60 High Risk <40 LDL Cholesterol Reference Range: Optimal<100 Near [id number] Very High >=190 Fasting Specimen slightly icteric Performing Organization Address City/[facility] Phone Number [address] [address] [place] Comprehensive metabolic panel (11/17/2018 4:23 AM CDT) Protein, Total 5.9 (L) 6.0 - 8.3 gm/dL [facility] Albumin 3.4 (L) 3.5 - 5.0 g/dL [facility] Alkaline Phosphatase 84 40 - 150 U/L [facility] Total Bilirubin 0.6 0.2 - 1.2 mg/dL [facility] Sodium 138 136 - 145 meq/L [facility] Potassium 4.2 3.5 - 5.1 meq/L [facility] Chloride 107 98 - 107 meq/L [facility] CO2 23 22 - 29 meq/L [facility] BUN 41 (H) 7 - 21 mg/dL [facility] Creatinine 1.40 (H) 0.57 - 1.25 mg/dL [facility] Glucose 80 70 - 105 mg/dL [facility] Calcium 8.8 8.4 - 10.2 mg/dL [facility] AST 15 5 - 34 U/L [facility] ALT 11 6 - 55 U/L [facility] EGFR 48Comment: ESTIMATED GFR mL/min/1.73 sq m [facility] IS NOT ACCURATE [facility] CREATININE CLEARANCE IN PREDICTING GLOMERULAR FILTRATION RATE. ESTIMATED GFR IS NOT APPLICABLE FOR DIALYSIS PATIENTS. Specimen Blood Narrative Performed At Fasting [facility] Specimen slightly icteric Performing Organization Address City/State/Zipcode Phone Number [facility] [address] [place] [address] CENTER Carotid doppler bilateral (11/16/2018 10:58 PM CDT) Ejection Fraction [facility] Specimen Impressions Performed At Right Impression [facility] 1. There is <50% diameter reduction [...] Performed At LAB - Carotid Duplex Study [facility] Demographics Patient NameOC KING Date of Study11/16/2018 SINTIA Age88 Visit [id number] Gender Male Date of Birth1930 Referring Timothy Ramos [facility] [id number] Physician Local [employer] Driver Donald Aguirre Interpreting Yin Fitzpatrick, Physician [...] Study 11/16/2018 SINTIA Age 88 Visit Number [id number] Gender Male Accession Number [id number] Date of 1930 Referring Timothy Galan Room Number [id number] Physician [employer] Donald Aguirre Interpreting Yin Fitzpatrick, Physician [...] City/State/Zipcode Phone Number [facility] US renal complete (11/16/2018 9:09 PM CDT) Specimen Narrative Performed At Addendum Begins [facility] REPORT STATUS:A Polynephritis cannot be excluded based on provided images. Recommend CT abdomen and pelvis with contrast when clinically feasible. Signed: Master Braden MD Report Verified Date/Time:11/17/2018 00:34:57 Reading Location: [facility] C0[facility] Neuro Reading Room Addendum Ends FINAL REPORT [...] MD Report Verified Date/Time:11/16/2018 23:39:50 Reading Location: [facility] C013V Neuro Reading Room Procedure Note Interface, External Ris In - 11/17/2018 12:37 AM CDT Addendum Begins REPORT STATUS:A Polynephritis cannot be excluded based on provided images. Recommend CT abdomen and pelvis with contrast when clinically feasible. Signed: Master Braden MD Report Verified Date/Time: 11/17/2018 00:34:57 Reading Location: [facility] C013V Neuro Reading Room Addendum Ends FINAL REPORT [...] Report Verified Date/Time: 11/16/2018 23:39:50 Reading Location: [address] Neuro Reading Room Performing Organization Address City/State/Zipcode Phone Number GE RIS TSH/Free T4 If Indicated (11/16/2018 10:37 AM CDT) TSH 1.04 0.35 - 4.94 uIU/mL [facility] Specimen Blood Performing Organization Address [facility] Phone Number [address] [address] [place] Troponin I (11/16/2018 10:37 AM CDT)Only the most recent of2 resultswithin the time period is included. Troponin I 0.02 0.00 - 0.03 ng/mL [facility] Specimen Blood Narrative Performed At Troponin I (TnI) levels must be interpreted [facility] in the context of the presenting symptoms [...] disease, and persistent tachyarrhythmia. Performing Organization Address [facility] Phone Number [address] [address] [place] Urinalysis Microscopic Only (11/16/2018 5:16 AM CDT) RBC, UA 1 /HPF [facility] WBC, UA 76 /HPF [facility] Bacteria, UA Rare [facility] Specimen Urine Performing Organization Address City/State/Zipcode Phone Number [address] [address] [place] Urinalysis with Microscopic If Indicated (11/16/2018 5:16 AM CDT) Color, UA Light Yellow [facility] Clarity, UA Clear [facility] Specific [place], UA 1.006 1.001 - 1.035 [facility] pH, UA 6.5 5.0 - 8.0 [facility] Protein, UA 30 mg/dL (A) Negative [facility] Glucose, UA Negative Negative [facility] Ketones, UA Negative Negative [facility] Bilirubin, UA Negative Negative [facility] Blood, UA Trace (A) Negative [facility] Nitrite, UA Positive (A) Negative [facility] Leukocytes, UA Large (A) Negative [facility] Urobilinogen, UA 0.2 0.2 - 1.0 mg/dL [facility] Specimen Source [facility] Specimen Urine Performing Organization Address City/State/Zipcode Phone Number [place] [phone] [place] [address] [place] Rapid drug screen, urine (11/16/2018 5:16 AM CDT) Barbiturate Screen Negative Negative [facility] Benzodiazepine Screen Negative Negative [facility] Cocaine (Metab.) Screen Negative Negative [facility] Methadone Screen Negative Negative [facility] Opiate Screen Negative Negative [facility] Cannabinoid Screen Negative Negative [facility] Amph/Methamph Screen Negative Negative [facility] Phencyclidine Screen Negative Negative [facility] Oxycodone Screen Negative Negative [facility] Specimen Urine Narrative Performed At DRUGCUTOFF [facility] CONC. Cocaine 300 ng/mL Vwnbzbnbnru39 ng/mL Fcfhwjvibquevu835 ng/mL Barbiturate 200 ng/mL Ardjptuiyyugf28 ng/mL Kjtbnr488 ng/mL Methadone 300 ng/mL Amphetamine/ 1000 ng/mL Methamphetamine Oxycodone 300 ng/mL This assay provides an unconfirmed qualitative test result for the clinical management of patients in emergency situations. Chain of custody not maintained. Some keps-ude-wgfiprr medications, as well as adulterants, may cause inaccurate results. Clinical correlation should be applied. A more comprehensive drug screen or confirmation of a detected drug may be performed upon request. Performing Organization Address City/State/Zipcode Phone Number [facility] [address] [place] [address] [phone] [place] MR brain without IV contrast (11/16/2018 1:09 AM CDT) Specimen Narrative Performed At FINAL REPORT [facility] MR, BRAIN, WITHOUT CONTRAST, MR, MRA, [...] arteries: Normal flow-related enhancement within the bilateral MANAGER CAR P1-P2 segmentswithout flow-limiting stenosis Additional findings: None. [...] MD Report Verified Date/Time:11/16/2018 02:09:12 Reading Location: [address] Neuro Reading Room Procedure Note Interface, [...] arteries: Normal flow-related enhancement within the bilateral MANAGER CAR P1-P2 segments without flow-limiting stenosis Additional findings: [...] Report Verified Date/Time: 11/16/2018 02:09:12 Reading Location: [address] Neuro Reading Room Performing Organization Address City/State/Zipcode Phone Number [facility] MRA neck without IV contrast (11/16/2018 1:09 AM CDT) Specimen Narrative Performed At FINAL REPORT [facility] MR, BRAIN, WITHOUT CONTRAST, MR, MRA, NECK, [...] arteries: Normal flow-related enhancement within the bilateral MANAGER CAR P1-P2 segmentswithout flow-limiting stenosis Additional findings: None. [...] MD Report Verified Date/Time:11/16/2018 02:09:12 Reading Location: [address] Neuro Reading Room Procedure Note Interface, [...] arteries: Normal flow-related enhancement within the bilateral MANAGER CAR P1-P2 segments without flow-limiting stenosis Additional findings: [...] Report Verified Date/Time: 11/16/2018 02:09:12 Reading Location: [address] Neuro Reading Room Performing Organization Address City/State/Zipcode Phone Number [facility] MRA head without IV contrast (11/16/2018 1:09 AM CDT) Specimen Narrative Performed At FINAL REPORT [facility] MR, BRAIN, WITHOUT CONTRAST, MR, MRA, NECK, [...] arteries: Normal flow-related enhancement within the bilateral MANAGER CAR P1-P2 segmentswithout flow-limiting stenosis Additional findings: None. [...] MD Report Verified Date/Time:11/16/2018 02:09:12 Reading Location: [address] Neuro Reading Room Procedure Note Interface, [...] arteries: Normal flow-related enhancement within the bilateral MANAGER CAR P1-P2 segments without flow-limiting stenosis Additional findings: [...] Report Verified Date/Time: 11/16/2018 02:09:12 Reading Location: [facility] C0[facility] Neuro Reading Room Performing Organization Address City/State/Zipcode Phone Number GE RIS after 02/18/2018 Insurance Payer Benefit Plan / Group Subscriber ID Type Phone Address MEDICARE MEDICARE A B xxxxxxxxxxx Medicare Advance Directives For more information, please contact:[address] [phone] Code Status Date Activated Date Inactivated Comments Full Code 11/15/2018 11:58 PM 11/21/2018 6:58 PM This code status was determined by: Patient
[2019-02-19] MEDS ORDERED: DIPHENHYDRAMINE 50 MG/ML VIAL ONE (15:23)
--- NOTE | 2019-02-19 15:33 | RAD REPORT ---
EXAM DESCRIPTION: CT - Stone Protocol - 02/19/2019 3:09 pm CLINICAL HISTORY: Abdominal pain. Lower abdominal pain. Urinary frequency COMPARISON: None. TECHNIQUE: Computed axial tomography of the abdomen pelvis was obtained without oral or IV contrast. Lack of IV and oral contrast limits evaluation of solid organs, bowel, and vessels. Coronal reformat jae images were obtained and reviewed. All CT scans are performed using dose optimization technique as appropriate and may include automated exposure control or mA/KV adjustment according to patient size. FINDINGS: A right ureteral stent is present. Moderate dilatation of a right extrarenal pelvis is see n. The distal aspect of the stent lies within the region of the right ureteral vesicle junction. A ge nitourinary calculus is not seen. 2.9 centimeter right renal cyst The liver, spleen, pancreas and adrenals appear grossly normal Diverticula stem from the colon without evidence of diverticulitis. Prostatectomy with lymph node dissection Spondylosis involves L5-S1 consisting disc space narrowing, osteophytes and vacuum phenomena . Athero sclerosis 2 IMPRESSION: A right ureteral stent is present. Moderate dilatation of a right extrarenal pelvis is s een. The distal aspect of the stent lies within the region of the right ureteral vesicle junction.
--- NOTE | 2019-02-19 15:47 | RAD REPORT ---
EXAM DESCRIPTION: Romero Single View02/19/2019 3:20 pm CLINICAL HISTORY: Abdominal pain COMPARISON: November 2018 FINDINGS: The lungs appear clear of acute infiltrate. The heart is normal size IMPRESSION: No acute abnormalities displayed
[2019-02-19 15:54] LABS: Absolute Lymphocytes (CBC) 1.1 K/uL (0.7-4.9); Eosinophils % 2.9 % (0-4.4); Hematocrit 46.3 % (39.6-49.0); Lymphocytes % 16.5 % (15.3-44.8); MPV 8.7 fL (7.6-11.3); Monocytes % 6.9 % (3.3-12.3); Protime INR 0.95; RBC Red Blood Cell Count 4.83 M/uL (4.33-5.43)
[2019-02-19 16:09] LABS: ALT/SGPT 24 U/L (12-78); AST/SGOT 19 U/L (15-37); Albumin 4.1 g/dL (3.4-5.0); Alkaline Phosphatase 101 U/L (45-117); BUN Blood Urea Nitrogen 29 mg/dL (7-18); Bicarbonate 29 mmol/L (21-32); Bilirubin Direct 0.2 mg/dL (0-0.2); Bilirubin Total 0.5 mg/dL (0.2-1.0); Glucose Level 87 mg/dL (74-106); Magnesium 2.6 mg/dL (1.8-2.4); NT PRO-BNP 4129 pg/mL (<450); Potassium 3.8 mmol/L (3.5-5.1); Protein, Total 7.5 g/dL (6.4-8.2); Sodium Level 143 mmol/L (136-145); Troponin (Emerg Dept Use Only) < 0.02 ng/mL (0.0-0.045)
--- NOTE | 2019-02-19 17:31 | ER ---
Nurse's Notes [facility] Name: Oc King Age: 88 yrs Sex: Male : 1930 Arrival Date: 02/19/2019 Time: 13:33 Bed 14 Private MD: Diagnosis: Benign paroxysmal vertigo;Essential (primary) hypertension Presentation: 02/19 13:38 Presenting complaint: Back pain, headache, and "my eyes feel heavy like I am drunk" hb since 629 today. Denies pain/ dizziness/numbness at this time. Transition of care: patient was not received from another setting of care. Onset of symptoms was February 19, 2019. Risk Assessment: Do you want to hurt yourself or someone else? Patient reports no desire to harm self or others. Care prior to arrival: None. 13:38 Method Of Arrival: Ambulatory hb 13:38 Acuity: AUTUMN 3 hb 13:41 Initial Sepsis Screen: Does the patient meet any 2 criteria? No. Patient's initial hb sepsis screen is negative. Does the patient have a suspected source of infection? No. Patient's initial sepsis screen is negative. Triage Assessment: 13:45 Headache History: The patient has had previous headaches and this one is similar to rb1 previous episodes. 13:45 Pain: Also complains of no other associated symptoms. rb1 13:45 Pain: Denies pain. Pain. rb1 Historical: - Allergies: 13:40 No Known Allergies; hb - Home Meds: 13:40 amlodipine 5 mg tab 1 tab once daily [Active]; aspirin 81 mg Oral chew 1 tab once daily hb [Active]; atorvastatin 80 mg Oral tab 1 tab once daily [Active]; isosorbide mononitrate 30 mg Oral Tb24 1 tab once daily [Active]; losartan 50 mg Oral tab 1 tab once daily [Active]; - PMHx: 13:40 Anxiety; benign prostate hypertrophy; chronic back pain; chronic kidney disease; hb Hyperlipidemia; Hypertension; nephrogenous proteinuria; osteoarthritis; Anemia; Prostate Cancer; - Immunization history:: Adult Immunizations up to date. - Social history:: Smoking status: Patient/guardian denies using tobacco. - Ebola Screening: : No symptoms or risks identified at this time. Screenin:45 Abuse screen: Denies threats or abuse. Nutritional screening: No deficits noted. rb1 Tuberculosis screening: No symptoms or risk factors identified. Fall Risk None identified. Assessment: 13:45 General: Appears in no apparent distress. comfortable, slender, Behavior is calm, rb1 cooperative, Denies fever. Pain: Denies pain. Neuro: Level of Consciousness is awake, alert, obeys commands, Oriented to person, place, time, situation, Reports dizziness. Cardiovascular: Capillary refill < 3 seconds is brisk in bilateral fingers. Respiratory: Airway is patent Respiratory effort is even, unlabored, Respiratory pattern is regular, symmetrical. GI: No signs and/or symptoms were reported involving the gastrointestinal system. : No signs and/or symptoms were reported regarding the genitourinary system. Derm: Skin is pink, warm \\T\\ dry. Musculoskeletal: Range of motion: intact in all extremities. 13:45 Musculoskeletal: Reports Left shoulder keeps popping when he moves it in a [place]. rb1 14:35 Reassessment: Patient appears in no apparent distress at this time. No changes from rb1 previously documented assessment. Daughter at bedside. 15:35 Reassessment: Patient appears in no apparent distress at this time. Patient and/or rb1 family updated on plan of care and expected duration. Pain level reassessed. Patient is alert, oriented x 3, equal unlabored respirations, skin warm/dry/pink. Daughter remains at bedside. Patient denies pain at this time. 16:30 Reassessment: Patient appears in no apparent distress at this time. No changes from rb1 previously documented assessment. 17:30 Reassessment: Patient appears in no apparent distress at this time. Patient and/or rb1 family updated on plan of care and expected duration. Pain level reassessed. Patient is alert, oriented x 3, equal unlabored respirations, skin warm/dry/pink. 17:44 Reassessment: Pt. ambulated around the nursing unit without difficulty. rb1 17:53 Reassessment: Discharge pending due to shot time. rb1 18:05 Reassessment: Patient appears in no apparent distress at this time. Patient and/or rb1 family updated on plan of care and expected duration. Pain level reassessed. Patient is alert, oriented x 3, equal unlabored respirations, skin warm/dry/pink. No adverse reactions noted at this time. Patient denies pain at this time. Vital Signs: 13:39 BP 190 / 85; Pulse 94; Resp 16; Temp 98.2; Pulse Ox 100% on R/A; Weight 63.5 kg; Height hb 5 ft. 2 in. (157.48 cm); Pain 0/10; 14:30 BP 187 / 78; Pulse 73; Resp 19; Temp 97.9; Pulse Ox 100% on R/A; Pain 0/10; rb1 15:47 BP 208 / 64; Pulse 57; Resp 16; Temp 97.9(O); Pulse Ox 98% on R/A; mh5 16:45 BP 163 / 58; Pulse 71; Resp 20; Temp 97.9(TE); Pulse Ox 97% on R/A; Pain 0/10; rb1 17:45 BP 169 / 70; Pulse 69; Resp 17; Temp 98.1(O); Pulse Ox 100% on R/A; Pain 0/10; rb1 13:39 Body Mass Index 25.61 (63.50 kg, 157.48 cm) hb ED Course: 13:33 Patient arrived in ED. as 13:39 Triage completed. hb 13:39 Arm band placed on. hb 13:45 Patient has correct armband on for positive identification. Placed in gown. Bed in low rb1 position. Call light in reach. Side rails up X2. monitoring tech on. Pulse ox on. NIBP on. 13:48 Yvonne Cannon, RN is Primary Nurse. rb1 14:10 Steve Ellington MD is Attending Physician. gs 15:09 CT Stone Protocol In Process Unspecified. EDMS 15:18 XRAY Chest (1 view) In Process Unspecified. EDMS 15:35 Inserted saline lock: 22 gauge in right antecubital area, using aseptic technique. rb1 Blood collected. 18:12 No provider procedures requiring assistance completed. IV discontinued, intact, rb1 bleeding controlled, No redness/swelling at site. Pressure dressing applied. Administered Medications: 15:35 Drug: Benadryl 12.5 mg Route: IVP; Site: right antecubital; rb1 15:50 Follow up: Response: No adverse reaction rb1 17:47 Drug: Enalaprilat 1.25 mg Route: IV; Rate: calculated rate; Site: right antecubital; rb1 18:05 Follow up: Response: No adverse reaction; Blood pressure is unchanged rb1 Outcome: 17:30 Discharge ordered by . gs 18:12 Patient left the ED. rb1 18:12 Discharged to home via wheelchair, with family. rb1 18:12 Condition: stable 18:12 Discharge instructions given to patient, Instructed on discharge instructions, follow up and referral plans. medication usage, Demonstrated understanding of instructions, follow-up care, medications, Prescriptions given X 1. Signatures: Dispatcher [employer] EDMS Laura Lane Rebecca, RN RN rb1 Juliet Plunkett RN RN Alie Lane [facility] Steve Ellington MD MD Corrections: (The following items were deleted from the chart) 13:42 13:38 Presenting complaint: Back pain, headache, and "my eyes feel heavy" since 0630 today hb 18:43 18:39 Patient left the ED. rb1 rb1
--- NOTE | 2019-02-19 17:31 | EDPHYS ---
Physician Documentation [facility] Name: Oc King Age: 88 yrs Sex: Male : 1930 Arrival Date: 02/19/2019 Time: 13:33 Bed 14 Private MD: ED Physician Steve Ellington HPI: 02/19 17:38 This 88 yrs old Male presents to ER via Ambulatory with complaints of gs Dizziness. 17:38 The patient presents with sense of spinning. Onset: The symptoms/episode began/occurred gs this morning. Modifying factors: the symptoms are aggravated by movement of head, to left. Associated signs and symptoms: Pertinent negatives: head injury, vomiting. Severity of symptoms: At their worst the symptoms were severe in the emergency department the symptoms are unchanged. The patient has experienced similar episodes in the past, a few times. Historical: - Allergies: 13:40 No Known Allergies; hb - Home Meds: 13:40 amlodipine 5 mg tab 1 tab once daily [Active]; aspirin 81 mg Oral chew 1 tab once daily hb [Active]; atorvastatin 80 mg Oral tab 1 tab once daily [Active]; isosorbide mononitrate 30 mg Oral Tb24 1 tab once daily [Active]; losartan 50 mg Oral tab 1 tab once daily [Active]; - PMHx: 13:40 Anxiety; benign prostate hypertrophy; chronic back pain; chronic kidney disease; hb Hyperlipidemia; Hypertension; nephrogenous proteinuria; osteoarthritis; Anemia; Prostate Cancer; - Immunization history:: Adult Immunizations up to date. - Social history:: Smoking status: Patient/guardian denies using tobacco. - Ebola Screening: : No symptoms or risks identified at this time. ROS: 17:38 All other systems are negative. gs Exam: 17:38 Head/Face: Normocephalic, atraumatic. Eyes: Pupils equal round and reactive to light, gs extra-ocular motions intact. Lids and lashes normal. Conjunctiva and sclera are non-icteric and not injected. Cornea within normal limits. Periorbital areas with no swelling, redness, or edema. ENT: Nares patent. No nasal discharge, no septal abnormalities noted. Tympanic membranes are normal and external auditory canals are clear. Oropharynx with no redness, swelling, or masses, exudates, or evidence of obstruction, uvula midline. Mucous membranes moist. Neck: Trachea midline, no thyromegaly or masses palpated, and no cervical lymphadenopathy. Supple, full range of motion without nuchal rigidity, or vertebral point tenderness. No Meningismus. Chest/axilla: Normal chest wall appearance and motion. Nontender with no deformity. No lesions are appreciated. Cardiovascular: Regular rate and rhythm with a normal S1 and S2. No gallops, murmurs, or rubs. Normal PMI, no JVD. No pulse deficits. Respiratory: Lungs have equal breath sounds bilaterally, clear to auscultation and percussion. No rales, rhonchi or wheezes noted. No increased work of breathing, no retractions or nasal flaring. Abdomen/GI: Soft, non-tender, with normal bowel sounds. No distension or tympany. No guarding or rebound. No evidence of tenderness throughout. Back: No spinal tenderness. No costovertebral tenderness. Full range of motion. Skin: Warm, dry with normal turgor. Normal color with no rashes, no lesions, and no evidence of cellulitis. MS/ Extremity: Pulses equal, no cyanosis. Neurovascular intact. Full, normal range of motion. Neuro: Awake and alert, GCS 15, oriented to person, place, time, and situation. Cranial nerves II-XII grossly intact. Motor strength 5/5 in all extremities. Sensory grossly intact. Cerebellar exam normal. Normal gait. 17:38 Constitutional: The patient appears alert, awake. Vital Signs: 13:39 BP 190 / 85; Pulse 94; Resp 16; Temp 98.2; Pulse Ox 100% on R/A; Weight 63.5 kg; Height hb 5 ft. 2 in. (157.48 cm); Pain 0/10; 14:30 BP 187 / 78; Pulse 73; Resp 19; Temp 97.9; Pulse Ox 100% on R/A; Pain 0/10; rb1 15:47 BP 208 / 64; Pulse 57; Resp 16; Temp 97.9(O); Pulse Ox 98% on R/A; mh5 16:45 BP 163 / 58; Pulse 71; Resp 20; Temp 97.9(TE); Pulse Ox 97% on R/A; Pain 0/10; rb1 17:45 BP 169 / 70; Pulse 69; Resp 17; Temp 98.1(O); Pulse Ox 100% on R/A; Pain 0/10; rb1 13:39 Body Mass Index 25.61 (63.50 kg, 157.48 cm) hb MDM: 14:37 Patient medically screened. gs 17:38 Differential diagnosis: generalized weakness, idiopathic dizziness, vertigo, malignant gs htn. Data reviewed: vital signs, nurses notes, old medical records, lab test result(s), EKG, radiologic studies. Counseling: I had a detailed discussion with the patient and/or guardian regarding: the historical points, exam findings, and any diagnostic results supporting the discharge/admit diagnosis, the need for outpatient follow up. Response to treatment: the patient's symptoms have resolved after treatment, the patient's condition has returned to base line, the patient is now symptom free, and as a result, I will discharge patient. 02/19 14:55 Order name: Basic Metabolic Panel; Complete Time: 16:17 02/19 14:55 Order name: CBC with Diff; Complete Time: 16: 02/19 14:55 Order name: LFT's; Complete Time: 16: 02/19 14:55 Order name: Magnesium; Complete Time: 16: 02/19 14:55 Order name: NT PRO-BNP; Complete Time: 16: 02/19 14:55 Order name: PT-INR; Complete Time: 16: 02/19 14:55 Order name: Troponin (emerg Dept Use Only); Complete Time: 16:17 02/19 14:55 Order name: XRAY Chest (1 view); Complete Time: 15:48 02/19 14:55 Order name: EKG; Complete Time: 14:56 02/19 14:55 Order name: Cardiac monitoring; Complete Time: 14:59 02/19 14:55 Order name: EKG - Nurse/Tech; Complete Time: 15:54 02/19 14:55 Order name: CT Stone Protocol; Complete Time: 15:48 02/19 14:55 Order name: IV Saline Lock; Complete Time: 15:54 02/19 14:55 Order name: Labs collected and sent; Complete Time: 15:54 02/19 14:55 Order name: O2 Per Protocol; Complete Time: 15:00 02/19 14:55 Order name: O2 Sat Monitoring; Complete Time: 15:00 02/19 14:55 Order name: Hoda. Order: walk pt please; Complete Time: 18:05 Administered Medications: 15:35 Drug: Benadryl 12.5 mg Route: IVP; Site: right antecubital; rb1 15:50 Follow up: Response: No adverse reaction rb1 17:47 Drug: Enalaprilat 1.25 mg Route: IV; Rate: calculated rate; Site: right antecubital; rb1 18:05 Follow up: Response: No adverse reaction; Blood pressure is unchanged rb1 Disposition: 02/19/19 17:30 Discharged to Home. Impression: Benign paroxysmal vertigo, Essential (primary) hypertension. - Condition is Stable. - Discharge Instructions: Benign Positional Vertigo, Hypertension. - Prescriptions for Benadryl 25 mg Oral Capsule - take 1 capsule by ORAL route every 12 hours As needed; 15 tablet. - Medication Reconciliation Form, Thank You Letter, Antibiotic Education, Prescription Opioid Use form. - Follow up: Private Physician; When: 1 - 2 days; Reason: Re-evaluation by your physician. Signatures: Dispatcher [employer] EDYvonne Montenegro RN RN rb1 Juliet Plunkett RN RN Steve Ellington MD MD Corrections: (The following items were deleted from the chart) 18:39 17:30 02/19/2019 17:30 Discharged to Home. Impression: Benign paroxysmal vertigo; rb1 Essential (primary) hypertension. Condition is Stable. Forms are Medication Reconciliation Form, Thank You Letter, Antibiotic Education, Prescription Opioid Use. Follow up: Private Physician; When: 1 - 2 days; Reason: Re-evaluation by your physician.
[2019-02-19] MEDS ORDERED: ENALAPRILAT 1.25 MG/ML VIAL IV ONE (17:40)
--- NOTE | 2019-02-19 18:29 | EKG ---
Test Date: 2019-02-19 Test Time: 15:02:57 Outpatient Physical Therapist Assistant: KYLER MEASUREMENT RESULTS: Intervals: Rate: 60 SC: 164 QRSD: 88 QT: 442 QTc: 442 [place]: P: 68 SC: 164 QRS: 6 T: 72 INTERPRETIVE STATEMENTS: Normal sinus rhythm Normal ECG Compared to ECG 12/13/2018 08:30:30 No significant changes Electronically Signed On 02-19-19 18:28:04 CDT by Maynor Holt
== END 2019-02-19 18:39 | disposition home or self-care (01) ==
LOC: ER 13:32
DX: H81.10 Benign paroxysmal vertigo, unspecified ear (principal); I12.9 Hypertensive chronic kidney disease with stage 1 through stage 4 chronic kidney disease, or unspecified chronic kidney disease; N18.9 Chronic kidney disease, unspecified; F41.9 Anxiety disorder, unspecified; E78.5 Hyperlipidemia, unspecified; C61 Malignant neoplasm of prostate; Z79.82 Long term (current) use of aspirin
CPT/HCPCS: 36415; 71045; 74176; 76377; 80048; 80076; 83735; 83880; 84484; 85025; 85610; 93005; 96374; 96375; 99284

== ENCOUNTER 2020-07-21 11:53 | Inpatient (IN) | payer OTHER ==
--- OUTSIDE RECORDS SUMMARY | 2020-07-21 11:56 | XMS REPORT | Clinical Summary ---
:1930 Author Organization [facility] Address [address] [place] [address] Care Team Providers Name Role Phone Cely Delgado Primary Care Provider Allergies No Known Allergies Medications Medication Sig Dispensed Refills Start Date End Date Status carboxymethylcellulose Place 1 drop 1 Bottle 0 11/21/2018 Active (REFRESH PLUS) 0.5 % Dpet into both ophthalmic solution eyes 3 (three) times daily as needed. atorvastatin (LIPITOR) 80 MG Take 1 30 tablet 2 11/21/2018 tablet tablet (80 0 mg total) by mouth nightly. senna-docusate (SENOKOT S) Take 1 60 tablet 0 11/21/2018 8.6-50 mg per tablet tablet by 0 mouth 2 (two) times daily. aspirin 81 MG EC tablet Take 1 30 tablet 2 11/22/201811/21 tablet (81 0 mg total) by mouth daily. losartan (COZAAR) 50 MG Take 1 30 tablet 2 11/22/201811/21 tablet tablet (50 0 mg total) by mouth daily. amLODIPine (NORVASC) 5 MG Take 1 30 tablet 2 11/22/2018 tablet tablet (5 mg 0 total) by mouth daily. Active Problems Problem Noted Date Dizziness 11/15/2018 Social History Tobacco Use Types Packs/Day Years [...] six or more drinks on one occasion? No t asked Sex Assigned at Date Recorded Not on file Last Filed Vital Signs Not on file Plan of Treatment Health Maintenance Due Date Last Done Comments PNEUMOCOCCAL 65+ YRS (1 of 1 - [id number]) 1997 MEDICARE ANNUAL WELLNESS (YEAR 2 or FIRST YEAR if no 05/06/2001 IPPE) DEPRESSION SCREENING (12+) 08/05/2019 INFLUENZA VACCINE (#1) 2020 Results Not on fileafter 07/21/2019 Advance Directives For more information, please contact: [phone] Code Status Date Activated Date Inactivated Comments Full Code 11/15/2018 11:58 PM 11/21/2018 6:58 PM This code status was determined by: Patient
--- OUTSIDE RECORDS SUMMARY | 2020-07-21 11:57 | XMS REPORT | Continuity of Care Document ---
:1930 Author Organization [facility] t Address [address] [place] [address] Care Team Providers Name Role Phone Cely Delgado Primary Care Physician Jose KELLER, A Attending Clinician Doctor Unassigned, Name Attending Clinician Unavailable 1, Lab Attending Clinician Unavailable KATHERINE TAM Attending Clinician Unavailable Jsoe KELLER, A Admitting Clinician KATHERINE TAM Admitting Clinician Unavailable Problems Condition Condition Condition Status Onset Resolution Last Treating Co mments Source Name Details Category Date Date Treatment Clinician Date Dizziness Dizziness Disease Active [facility] - 00:00: Medical 00 Center Allergies, Adverse Reactions, Alerts This patient has no known allergies or adverse reactions. Social History Social Habit Start Date Stop Date Quantity Comments Source History [facility] [place] - Alcohol Std Drinks [facility] History [facility] [place] - Alcohol Binge Medical Melissa ter Sex Assigned At [facility] Tobacco use and 2018-11-16 2018-11-16 Never used [facility] kes - exposure 00:00:00 00:00:00 Medical Center Alcohol intake 2018-11-16 2018-11-16 Current [facility] es - 00:00:00 00:00:00 non-drinker of Medical Ce nter alcohol (finding) History [facility] 2018-11-16 2018-11-[address] [facility] - Alcohol Frequency 00:00:00 00:00:00 Medical Center Smoking Status Start Date Stop Date Source Never smoker [facility] edical [place] Medications Ordered Filled Start Stop Current Ordering Indication Dosage Frequency Signature Comments Components Source Medication Medication Date Date Medication? Clinician (SIG) Name Name aspirin 81 2020- No 81mg QD Take [address] [facility] [address] [facility] EC 4-20 -19 tablet (81 [facility] - tablet 00:00: 23:59 mg total) Medic al 00 :00 by mouth Center daily. losartan 2019- No 50mg QD Take [address] (COZAAR) 50 4-20 -19 tablet (50 L ukes - MG tablet 00:00: 23:59 mg total) Me dical 00 :00 by mouth Center daily. amLODIPine 2019- No 5mg QD Take [address] (NORVASC) 5 4-20 -19 tablet (5 [place] kes - MG tablet 00:00: 23:59 mg total) Me dical 00 :00 by mouth Center daily. carboxymeth Yes 1[drp] Place [address] ylcellulose 4-19 drop into Freddy es - (REFRESH 00:00: both eyes Medi tr[facility] PLUS) 0.5 % 00 3 (three) Melissa ter Dpet times ophthalmic daily as solution needed. atorvastati 2019- No 80mg QD Take [address] n (LIPITOR) 4-19 -18 tablet (80 L ukes - 80 MG 00:00: 23:59 mg total) Medica l tablet 00 :00 by mouth Center nightly. senna-docus 2019- No 1{tbl} Q.5D Take [address] ate 4-19 -18 tablet by [facility] - (SENOKOT S) 00:00: 23:59 mouth 2 Me dical 8.6-50 mg 00 :00 (two) Center per tablet times daily. Procedures This patient has no known procedures. Plan of Care Planned Activity Planned Date Details Comments Source Future Scheduled 2020-04-05 INFLUENZA VACCINE (#1) [facility] Test 00:00:00 [code = INFLUENZA Medical Ce nter VACCINE (#1)] Future Scheduled 2019-08-[address] [facility] - Test 00:00:00 (12+) [code = Medical Center DEPRESSION SCREENING (12+)] Future Scheduled 2001-05-[address] [facility] - Test 00:00:00 WELLNESS (YEAR 2 or Medical Center FIRST YEAR if no IPPE) [code = MEDICARE ANNUAL WELLNESS (YEAR 2 or FIRST YEAR if no IPPE)] Future Scheduled 1997 PNEUMOCOCCAL 65+ YRS [facility] - Test 00:00:00 (1 of 1 - Medical Center [id number] PCV13) [code = PNEUMOCOCCAL 65+ YRS (1 of 1 - [id number] PCV13)] Encounters Start End Encounter Admission Attending Care Care Encounter Source Date/Time Date/Time Type Type Clinicians Facility Department ID 2019-04-22 2019-04-22 [facility] [id number] 10:31:00 13:35:00 Encounter Roland Cabral Tarun [id number] [place] [id number] [facility] [id number] [place] 071 2019-04-22 2019-04-22 Orders Doctor WILFREDO [id number] 00:00:00 00:00:00 Only Unassigned, YUNIEL [id number] [place] [facility] [id number] 2019-04-15 2019-04-15 Mix House Operator 1, Adc Lab [facility] [id number] 10:53:27 11:08:27 Visit Tarun [id number] [place] [id number] [place] [id number] Results Test Description Test Time Test Comments Results Result Comments Source BASIC METABOLIC PANEL 2018-11-18 10:44:00 Test Item Value Reference Range Interpretation Comme nts SODIUM (BEAKER) (test code 139 meq/L 136-145 = 381) POTASSIUM (BEAKER) (test 3.9 meq/L 3.5-5.1 Spe cimen slightly code = 379) hemolyzed CHLORIDE (BEAKER) (test 108 meq/L 98-107 H code = 382) CO2 (BEAKER) (test code = 22 meq/L 22-29 355) BLOOD UREA NITROGEN 35 mg/dL 7-21 H (BEAKER) (test code = 354) CREATININE (BEAKER) (test 1.40 mg/dL 0.57-1.25 H Sp ecimen slightly code = 358) hemolyzed GLUCOSE RANDOM (BEAKER) 130 mg/dL 70-105 H (test code = 652) CALCIUM (BEAKER) (test code 9.1 mg/dL 8.4-10.2 = 697) EGFR (BENTLEYAKER) (test code = 48 mL/min/1.73 sq m ESTIMATED GFR IS NOT 1092) ACCURATE CRE ATININE CLEARANCE IN UT EDICTING GLOMERULAR FILT RATION RATE. ESTIMATED GFR IS NOT APPLICABLE FOR DIALYSIS PATIENTS. CT, [id number] 04:16:00FINAL REPORT CLINICAL HISTORY: Abnormal findings on [...] patient size and/or use of the iterative recon struction technique. Comparison:None. Lower chest: Dependent atelectasis in [...] Normal. Bladder: No significant findings. Major vascular structures:Atherosclerotic calcifications Reproductive organs: Previous prostatectomy Other: No free air, fluidor adenopathy Skeleton: No [...] excluded with urinalysis. Mild constipation. Signed: Tad Lopez MDReport Verified Date/Time: 11/18/2018 04:16:41 Reading Location: [address] Reading Room SODIUM, RANDOM [id number] 14:14:00 Test Item Value Reference Range Interpretation Comments SODIUM URINE (BEAKER) (test code = 56 meq/L 243) Reference Range: No NormalsCREATININE, RANDOM [id number] 14:14:00 Test Item Value Reference Range Interpretation Comments CREATININE URINE (BEAKER) (test 53.5 mg/dL code = 375) Reference Range: No NormalsCOMPREHENSIVE METABOLIC [id number] 07:16:00 Test Item Value Reference Range Interpretation Comments TOTAL PROTEIN 5.9 gm/dL 6.0-8.3 L (BEAKER) (test code = 770) ALBUMIN (BEAKER) 3.4 g/dL 3.5-5.0 L (test code = 1145) ALKALINE PHOSPHATASE 84 U/L 40-150 (BEAKER) (test code = 346) BILIRUBIN TOTAL 0.6 mg/dL 0.2-1.2 (BEAKER) (test code = 377) SODIUM (BEAKER) (test 138 meq/L 136-145 code = 381) POTASSIUM (BEAKER) 4.2 meq/L 3.5-5.1 (test code = 379) CHLORIDE (BEAKER) 107 meq/L 98-107 (test code = 382) CO2 (BEAKER) (test 23 meq/L 22-29 code = 355) BLOOD UREA NITROGEN 41 mg/dL 7-21 H (BEAKER) (test code = 354) CREATININE (BEAKER) 1.40 mg/dL 0.57-1.25 H (test code = 358) GLUCOSE RANDOM 80 mg/dL 70-105 (BEAKER) (test code = 652) CALCIUM (BEAKER) 8.8 mg/dL 8.4-10.2 (test code = 697) AST (SGOT) (BEAKER) 15 U/L 5-34 (test code = 353) ALT (SGPT) (BEAKER) 11 U/L 6-55 (test code = 347) EGFR (BEAKER) (test 48 mL/min/1.73 ESTIMA KAYLEIGH GFR IS code = 1092) sq m NOT ACCURATE CREATININE CLEARANCE IN PREDICTING GLOMERULAR FILTRATION RATE . ESTIMATED GFR I S NOT APPLICABLE FOR DIALYSIS PATIEN TS. FastingSpecimen slightly ictericLIPID [id number] 06:27:00 Test Item Value Reference Range Interpretation Comments TRIGLYCERIDES (BEAKER) (test code = 55 mg/dL 540) CHOLESTEROL (BEAKER) (test code = 177 mg/dL 631) HDL CHOLESTEROL (BEAKER) (test code 50 mg/dL = 976) LDL CHOLESTEROL CALCULATED (BEAKER) 116 mg/dL (test code = 633) Triglyceride Reference Range: Low Risk <150 Borderline 150-199 High Risk 200-499 Very High Risk >=500Cholesterol Reference Range: Low Risk <200 Borderline 200-239 High Risk >240HDL Cholesterol Reference Range: Low Risk >=60 High Risk <40LDL Cholesterol Reference Range: Optimal <100 Near Optimal 100-129 Borderline 130-159 High 160-189 Very High >=190 FastingSpecimen slightly ictericURINALYSIS W/ REFLEX URINE CULTURE 2018-11-17 05:08:00 Test Item Value Reference Range Interpretation Comments COLOR (BEAKER) (test code = 470) Light Yellow CLARITY (BEAKER) (test code = Clear 469) SPECIFIC GRAVITY UA (BEAKER) 1.009 1.001-1.035 (test code = 468) PH UA (BEAKER) (test code = 467) 6.0 5.0-8.0 PROTEIN UA (BEAKER) (test code = 20 mg/dL Negative A 464) GLUCOSE UA (BEAKER) (test code = Negative Negative 365) KETONES UA (BEAKER) (test code = Negative Negative 371) BILIRUBIN UA (BEAKER) (test code Negative Negative = 462) BLOOD UA (BEAKER) (test code = Trace Negative A 461) NITRITE UA (BEAKER) (test code = Negative Negative 465) LEUKOCYTE ESTERASE UA (BEAKER) Large Negative A (test code = 466) UROBILINOGEN UA (BEAKER) (test 0.2 mg/dL 0.2-1.0 code = 463) RBC UA (BEAKER) (test code = 3 /HPF 519) WBC UA (BEAKER) (test code = 67 /HPF 520) BACTERIA (BEAKER) (test code = Rare 517) SOURCE(BEAKER) (test code = 2795) CBC W/PLT COUNT & AUTO [id number] 04:59:00 Test Item Value Reference Range Interpretation Comments WHITE BLOOD CELL COUNT (BEAKER) 8.6 K/ L 3.5-10.5 (test code = 775) RED BLOOD CELL COUNT (BEAKER) 4.12 M/ L 4.63-6.08 L (test code = 761) HEMOGLOBIN (BEAKER) (test code = 13.1 GM/DL 13.7-17.5 L 410) HEMATOCRIT (BEAKER) (test code = 39.2 % 40.1-51.0 L 411) MEAN CORPUSCULAR VOLUME (BEAKER) 95.1 fL 79.0-92.2 H (test code = 753) MEAN CORPUSCULAR HEMOGLOBIN 31.8 pg 25.7-32.2 (BEAKER) (test code = 751) MEAN CORPUSCULAR HEMOGLOBIN CONC 33.4 GM/DL 32.3-36.5 (BEAKER) (test code = 752) RED CELL DISTRIBUTION WIDTH 14.1 % 11.6-14.4 (BEAKER) (test code = 412) PLATELET COUNT (BEAKER) (test 178 K/CU MM 150-450 code = 756) MEAN PLATELET VOLUME (BEAKER) 10.3 fL 9.4-12.4 (test code = 754) NUCLEATED RED BLOOD CELLS 0 /100 WBC 0-0 (BEAKER) (test code = 413) NEUTROPHILS RELATIVE PERCENT 64 % (BEAKER) (test code = 429) LYMPHOCYTES RELATIVE PERCENT 22 % (BEAKER) (test code = 430) MONOCYTES RELATIVE PERCENT 6 % (BEAKER) (test code = 431) EOSINOPHILS RELATIVE PERCENT 6 % (BEAKER) (test code = 432) BASOPHILS RELATIVE PERCENT 1 % (BEAKER) (test code = 437) NEUTROPHILS ABSOLUTE COUNT 5.50 K/ L 1.78-5.38 H (BEAKER) (test code = 670) LYMPHOCYTES ABSOLUTE COUNT 1.93 K/ L 1.32-3.57 (BEAKER) (test code = 414) MONOCYTES ABSOLUTE COUNT (BEAKER) 0.55 K/ L 0.30-0.82 (test code = 415) EOSINOPHILS ABSOLUTE COUNT 0.54 K/ L 0.04-0.54 (BEAKER) (test code = 416) BASOPHILS ABSOLUTE COUNT (BEAKER) 0.06 K/ L 0.01-0.08 (test code = 417) IMMATURE GRANULOCYTES-RELATIVE 0 % 0-1 PERCENT (BEAKER) (test code = 2801) U/S, RENAL, [id number] 00:34:00Reason for exam:->AKIAddendum BeginsREPORT STATUS:A Polynephritis cannot be excluded based on provided images. Recommend CT abdomen and pelvis with contrast when clinically feasible. Signed: Master Mikeort Verified Date/Time: 11/17/2018 00:34:57 Reading Location: [address] Neuro Reading RoomAddendum EndsFINAL REPORT U/S, RENAL, COMPLETE CLINICAL INDICATION: AKICOMPARISON: None TECHNIQUE: The kidneys and urinary bladder were evaluated using real time meza scale and color Doppler sonography. FINDINGS:Right kidney: Size: 9.6 x 5.2 x 3.0 [...] may be obtained if desired. Signed: Master Woodyort Verified Date/Time: 11/16/2018 23:39:50 Reading Location: [facility] C0[facility] Neuro Reading Room TSH/FREE T4 IF [id number] 12:37:00 Test Item Value Reference Range Interpretation Comments THYROID STIMULATING HORMONE 1.04 uIU/mL 0.35-4.94 (BEAKER) (test code = 772) TROPONIN [id number] 11:53:00 Test Item Value Reference Range Interpretation Comments TROPONIN I (BEAKER) (test code = 0.02 ng/mL 0.00-0.03 397) Troponin I (TnI) levels must be interpreted [...] acidosis, acute neurological disease, and persistent tachyarrhythmia.URINALYSIS [id number] 06:04:00 Test Item Value Reference Range Interpretation Comments RBC UA (BEAKER) (test code = 519) 1 /HPF WBC UA (BEAKER) (test code = 520) 76 /HPF BACTERIA (BEAKER) (test code = 517) Rare URINALYSIS WITH MICROSCOPIC IF [id number] 06:03:00 Test Item Value Reference Range Interpretation Comments COLOR (BEAKER) (test code = 470) Light Yellow CLARITY (BEAKER) (test code = Clear 469) SPECIFIC GRAVITY UA (BEAKER) 1.006 1.001-1.035 (test code = 468) PH UA (BEAKER) (test code = 467) 6.5 5.0-8.0 PROTEIN UA (BEAKER) (test code = 30 mg/dL Negative A 464) GLUCOSE UA (BEAKER) (test code = Negative Negative 365) KETONES UA (BEAKER) (test code = Negative Negative 371) BILIRUBIN UA (BEAKER) (test code Negative Negative = 462) BLOOD UA (BEAKER) (test code = Trace Negative A 461) NITRITE UA (BEAKER) (test code = Positive Negative A 465) LEUKOCYTE ESTERASE UA (BEAKER) Large Negative A (test code = 466) UROBILINOGEN UA (BEAKER) (test 0.2 mg/dL 0.2-1.0 code = 463) SOURCE(BEAKER) (test code = 2795) RAPID DRUG SCREEN, [id number] 06:00:00 Test Item Value Reference Range Interpretation Comments BARBITURATE URINE (BEAKER) (test Negative Negative code = 725) BENZODIAZEPINE SCREEN URINE (BEAKER) Negative Negative (test code = 726) COCAINE (METAB.) SCREEN (BEAKER) Negative Negative (test code = 1164) METHADONE SCREEN (BEAKER) (test code Negative Negative = 1436) OPIATE SCREEN URINE (BEAKER) (test Negative Negative code = 734) CANNABINOID SCREEN URINE (BEAKER) Negative Negative (test code = 727) AMPH/METHAMPH SCREEN (BEAKER) (test Negative Negative code = 1438) PHENCYCLIDINE SCREEN URINE (BEAKER) Negative Negative (test code = 608) OXYCODONE SCREEN URINE (BEAKER) Negative Negative (test code = 2761) DRUG CUTOFF CONC.Cocaine 300 ng/mL Cannabinoid 50 ng/mL Benzodiazepine 200 ng/mLBarbiturate 200 ng/mLPhencyclidine 25 ng/mLOpiate 300 ng/mLMethadone 300 ng/mLAmphetamine/ 1000 ng/mL MethamphetamineOxycodone 300 ng/mLThis assay provides an unconfirmed qualitative test result for the clinical management of patients in emergency situations. Chain of custody not maintained. Some xclz-aop-laotupd medications, as well as adulterants, may cause inaccurate results. Clinical correlation should be applied. A more comprehensive drug screen or confirmation of a detected drug may be performed upon request. BASIC METABOLIC [id number] 03:52:00 Test Item Value Reference Range Interpretation Comments SODIUM (BEAKER) 135 meq/L 136-145 L (test code = 381) POTASSIUM (BEAKER) 4.5 meq/L 3.5-5.1 (test code = 379) CHLORIDE (BEAKER) 101 meq/L 98-107 (test code = 382) CO2 (BEAKER) (test 26 meq/L 22-29 code = 355) BLOOD UREA NITROGEN 32 mg/dL 7-21 H (BEAKER) (test code = 354) CREATININE (BEAKER) 1.31 mg/dL 0.57-1.25 H (test code = 358) GLUCOSE RANDOM 111 mg/dL 70-105 H (BEAKER) (test code = 652) CALCIUM (BEAKER) 9.6 mg/dL 8.4-10.2 (test code = 697) EGFR (BEAKER) (test 52 mL/min/1.73 ESTIMA KAYLEIGH GFR IS code = 1092) sq m NOT ACCURATE CREATININE CLEARANCE IN PREDICTING GLOMERULAR FILTRATION RATE . ESTIMATED GFR I S NOT APPLICABLE FOR DIALYSIS PATIEN TS. Specimen slightly ictericTROPONIN [id number] 03:52:00 Test Item Value Reference Range Interpretation Comments TROPONIN I (BEAKER) (test code = 0.04 ng/mL 0.00-0.03 H 397) Troponin I (TnI) levels must be interpreted [...] and persistent tachyarrhythmia.CBC W/PLT COUNT & AUTO DIFFERENTIAL 2018-11-16 02:18:00 Test Item Value Reference Range Interpretation Comments WHITE BLOOD CELL COUNT (BEAKER) 9.0 K/ L 3.5-10.5 (test code = 775) RED BLOOD CELL COUNT (BEAKER) 4.82 M/ L 4.63-6.08 (test code = 761) HEMOGLOBIN (BEAKER) (test code = 15.0 GM/DL 13.7-17.5 410) HEMATOCRIT (BEAKER) (test code = 45.3 % 40.1-51.0 411) MEAN CORPUSCULAR VOLUME (BEAKER) 94.0 fL 79.0-92.2 H (test code = 753) MEAN CORPUSCULAR HEMOGLOBIN 31.1 pg 25.7-32.2 (BEAKER) (test code = 751) MEAN CORPUSCULAR HEMOGLOBIN CONC 33.1 GM/DL 32.3-36.5 (BEAKER) (test code = 752) RED CELL DISTRIBUTION WIDTH 13.9 % 11.6-14.4 (BEAKER) (test code = 412) PLATELET COUNT (BEAKER) (test 205 K/CU MM 150-450 code = 756) MEAN PLATELET VOLUME (BEAKER) 10.1 fL 9.4-12.4 (test code = 754) NUCLEATED RED BLOOD CELLS 0 /100 WBC 0-0 (BEAKER) (test code = 413) NEUTROPHILS RELATIVE PERCENT 83 % (BEAKER) (test code = 429) LYMPHOCYTES RELATIVE PERCENT 11 % (BEAKER) (test code = 430) MONOCYTES RELATIVE PERCENT 6 % (BEAKER) (test code = 431) EOSINOPHILS RELATIVE PERCENT 0 % (BEAKER) (test code = 432) BASOPHILS RELATIVE PERCENT 0 % (BEAKER) (test code = 437) NEUTROPHILS ABSOLUTE COUNT 7.49 K/ L 1.78-5.38 H (BEAKER) (test code = 670) LYMPHOCYTES ABSOLUTE COUNT 0.96 K/ L 1.32-3.57 L (BEAKER) (test code = 414) MONOCYTES ABSOLUTE COUNT (BEAKER) 0.50 K/ L 0.30-0.82 (test code = 415) EOSINOPHILS ABSOLUTE COUNT 0.03 K/ L 0.04-0.54 L (BEAKER) (test code = 416) BASOPHILS ABSOLUTE COUNT (BEAKER) 0.03 K/ L 0.01-0.08 (test code = 417) IMMATURE GRANULOCYTES-RELATIVE 0 % 0-1 PERCENT (BEAKER) (test code = 2801) MR, MRA, BRAIN, WITHOUT [id number] 02:09:00Reason for exam:->Ischemic Stroke EvaluationFINAL REPORT MR, BRAIN, WITHOUT CONTRAST, [...] proximal basilar arteryPosterior cerebral arteries: Normal flow-related enha ncement within the bilateral [employer] P1-P2 segments without flow-limiting stenosisAdditional findings: None. MRA NECK:Common carotid arteries: Unremarkable. Bifurcations: No flow-limiting stenosis. Cervical internal carotid arteries: No flow limiting stenosis.Vertebral arteries: Normal flow-related enhancement bilaterally. Mild focal stenosis of the mid right cervical vertebral artery. IMPRESSION: No acute stroke No flow limiting stenosis within the head or neck Signed: Master Mike MDReport Verified Date/Time: 11/16/2018 02:09:12 Reading Location: [facility] C0[facility] Neuro Reading Room Electronically s igned by: MASTER MIKE MD on 11/16/2018 02:09 AMMR, MRA, NECK, WITHOUT IV [id number] 02:09:00Reason for exam:->Ischemic Stroke EvaluationFINAL REPORT MR, BRAIN, WITHOUT CONTRAST, [...] flow related enhancement within the bilateral MCA M1- M2 segments without flow limiting stenosis Anterior cerebral arteries: Normal flow-related enhancement within the bilateral PATRICIA A1-A2 segments withoutflow limiting stenosis. Right A1 is hypoplastic.Basilar system: Normal flow-related enhancement within the bilateral V4 segments and the basilar artery without flow-limiting stenosis . Suspected incidental fenestration of the proximal basilar arteryPosterior cerebral arteries: Normal flow-related enhancement within the bilateral [employer] P1-P2 segments without flow-limiting stenosisAdditional findings: None. MRA NECK:Common carotid arteries: Unremarkable. Bifurcations: No flow-limiting stenosis. Cervical internal carotid arteries: No flow limiting stenosis.Vertebral arteries: Normal flow-related enhancement bilaterally. Mild focal stenosis of the mid right cervical vertebral artery. IMPRESSION: No acute stroke No flow limiting stenosis within the head or neck Signed: Master Mike MDReport Verified Date/Time: 11/16/2018 02:09:12 Reading Location: [address] Neuro Reading Room Electronically s igned by: MASTER MIKE MD on 11/16/2018 02:09 AMMR, BRAIN, WITHOUT [id number] 02:09:00Reason for exam:->Ischemic Stroke EvaluationFINAL REPORT MR, BRAIN, WITHOUT CONTRAST, [...] arteries: Normal flow-related enhancement within the bilateral [employer] P1-P2 segments without flow-limiting stenosisAdditional findings: None. MRA NECK:Common carotid arteries: Unremarkable. Bifurcations: No flow-limiting stenosis. Cervical internal carotid arteries: No flow limiting stenosis.Vertebral arteries: Normal flow-related enhancement bilaterally. Mild focal stenosis of the mid right cervical vertebral artery. IMPRESSION: No acute stroke No flow limiting stenosis within the head or neck Signed: Master Mike MDReport Verified Date/Time: 11/16/2018 02:09:12 Reading Location: [facility] C013V Neuro Reading Room Electronically s igned by: MASTER MIKE MD on 11/16/2018 02:09 AM
--- NOTE | 2020-07-21 13:02 | RAD REPORT ---
EXAM DESCRIPTION: CT - Ct Stroke Brain Wo Cont - 07/21/2020 12:56 pm CLINICAL HISTORY: right hand weakness and numbness COMPARISON: Head Brain Wo Cont dated 11/15/2018 TECHNIQUE: Axial 5 millimeter thick images of the head were obtained without IV contrast. All CT scans are performed using dose optimization technique as appropriate and may include automated exposure control or mA/KV adjustment according to patient size. FINDINGS: No intracranial hemorrhage, mass, or cerebral edema. No acute cortical based infarction id entified. No cortical edema or sulcal effacement. No extra-axial fluid collections. Slaughter matter-whit e matter differentiation is preserved.Patient has significant underlying atrophy. Ventricles are in p roportion to volume loss. Extensive cerebral white matter chronic ischemic changes are present extend ing into each basal ganglia and thalamus region. Nonhemorrhagic CVA can easily be masked by the sever ity of chronic disease. Visualized portions of the mastoid air cells, paranasal sinuses, and orbits are unremarkable. Findings telephoned Dr. Mock 12:57 p.m. IMPRESSION: No intracranial hemorrhage present. No acute cortical based infarction identified. Patient has significant atrophy and chronic ischemic change that matches November 2018 imaging. Chronic ischemic changes can mask nonhemorrhagic acute infarction. MR brain followup can be obtained if there is ongoing concern for acute ischemia.
[2020-07-21 13:09] LABS: Absolute Lymphocytes (CBC) 0.5 K/uL (0.7-4.9); Basophils % 0.7 % (0-1.3); Hematocrit 38.5 % (39.6-49.0); Lymphocytes % 7.4 % (15.3-44.8); MPV 8.9 fL (7.6-11.3); RBC Red Blood Cell Count 4.05 M/uL (4.33-5.43)
[2020-07-21] MEDS ORDERED: ASPIRIN EC 81 MG TAB PO ONE (13:19)
[2020-07-21 13:21] LABS: Potassium 4.4 mmol/L (3.5-5.1)
--- NOTE | 2020-07-21 13:36 | RAD REPORT ---
EXAM DESCRIPTION: RAD - Chest Single View - 07/21/2020 1:23 pm CLINICAL HISTORY: md butterfield, Stroke protocol chest film COMPARISON: Portable February 2019 TECHNIQUE: AP portable chest image was obtained 07/21/2020 1:23 pm . FINDINGS: Lung volumes are relatively low. No peripheral mass or consolidation. Cardiac silhouette i s enlarged compared to the prior. Interstitial opacification is increased. Vasculature within range o f normal. No measurable pleural effusion and no pneumothorax. No acute bony abnormality seen. No acut e aortic findings suspected. IMPRESSION: No focal mass or consolidation. Mild cardiomegaly increased from 2019. Interstitial opacification is increased. Mild edema from failu re or volume overload suspected.
--- NOTE | 2020-07-21 17:32 | RAD REPORT ---
EXAM DESCRIPTION: MRI - Brain Wo Cont - 07/21/2020 5:23 pm CLINICAL HISTORY: TIA COMPARISON: MRA Head Wo Cont dated 07/21/2020; Ct Stroke Brain Wo Cont dated 07/21/2020 TECHNIQUE: Sagittal T1-weighted images were obtained along with axial PD, heavily T2-weighted and T2 -FLAIR images. Axial DWI and ADC mapping sequences were also obtained along with coronal heavily T2-w eighted images. No contrast administered due to abnormal renal function. FINDINGS: Diffusion-weighted imaging shows 2 punctate foci of cortical and subcortical signal abnorm ality in the deep portion of the left central sulcus. There is corresponding diminished signal on ADC mapping. No other areas of diffusion signal abnormality. These foci of acute nonhemorrhagic CVA woul d explain right extremity motor symptoms. Patient has moderate severity atrophy and moderate severity chronic ischemic change throughout the cerebral white matter. Brainstem is spared any significant de gree of chronic ischemic change. Minimal basal ganglia and thalamic signal abnormalities. Ventricles are in proportion to the patient's atrophy. There is no edema or shift of midline structures. No extr a-axial fluid collections. Slaughter-matter/white matter junction is preserved. Signal voids are seen as a normal finding in the major intracranial vessels. No globe or orbital content abnormality. No sella or supra sella abnormality. Mastoid air cells and paranasal sinuses are clear. 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 Acute CVA at the central sulcus would explain right extremity motor symptoms. Moderate severity atrophy and chronic ischemic change as a baseline pattern for the patient.
--- NOTE | 2020-07-21 17:38 | RAD REPORT ---
EXAM DESCRIPTION: MRI - MRA Head Wo Cont - 07/21/2020 5:23 pm CLINICAL HISTORY: TIA clinical presentation, acute stroke on MRI imaging Contrast was withheld due to abnormal renal function. COMPARISON: MRI brain same date, CT head same date TECHNIQUE: Axial and coronal 3D [id number] image acquisition was performed. 3D rotational images were generated with source and reconstruction images reviewed. Horizontal and vertical axis rotation al views generated using MIP protocol. FINDINGS: No aneurysm or vascular malformation identified. Basilar artery and distal vertebral arter ies show no significant disease. No significant disease in the posterior cerebral arteries. Anterior cerebral arteries show no significant disease. Patient has a small A1 anterior cerebral howie ry segment is a normal variant. No significant disease of the middle cerebral arteries. There is some atherosclerotic change identifi ed in the far peripheral branches of the middle cerebral arteries. A specific named branch occlusion is not identified as a correlate to the 2 small punctate left central sulcus acute infarction foci. MRI a head imaging does extend into the cervical region. There is significant atherosclerotic change and luminal narrowing at the left carotid bulb estimated at 60-70%. No significant right bulb disease identified. Remainder of the cervical internal carotid artery without significant disease. IMPRESSION: No significant intracranial findings. No specific MRA correlate for the 2 small punctate foci of acute infarction in the left central sulcus. Partially imaged cervical carotid vasculature shows significant left carotid bulb disease. This would be a possible source for the punctate thromboembolic left central sulcus infarction foci.
--- NOTE | 2020-07-21 19:13 | ER ---
Nurse's Notes [facility] Name: Oc King Age: 89 yrs Sex: Male : 1930 Arrival Date: 07/21/2020 Time: 11:54 Bed 7 Private MD: Diagnosis: Cerebral infarction-acute, left central sulcus, ischemic Presentation: 07/21 12:31 Chief complaint: Patient states: right hand feels weak, started about 1000, reports "It jl7 feels bigger than the left hand." Son reports "He's weaker in the right leg also.". Coronavirus screen: Client denies travel out of the [place] in the last 14 days. At this time, the client does not indicate any symptoms associated with coronavirus-19. Ebola Screen: No symptoms or risks identified at this time. Initial Sepsis Screen: Does the patient meet any 2 criteria? No. Patient's initial sepsis screen is negative. Does the patient have a suspected source of infection? No. Patient's initial sepsis screen is negative. Risk Assessment: Do you want to hurt yourself or someone else? Patient reports no desire to harm self or others. Onset of symptoms was July 21, 2020 at 10:00. Care prior to arrival: None. 12:31 Method Of Arrival: Wheelchair jl7 12:31 Acuity: AUTUMN 2 jl7 Triage Assessment: 12:49 The onset of the patients symptoms was July 21, 2020 at 10:00. General: Appears in bp no apparent distress. comfortable, Behavior is cooperative, appropriate for age, anxious. Pain: Denies pain. EENT: No deficits noted. Neuro: Reports weakness in right hand. Cardiovascular: No deficits noted. Respiratory: No deficits noted. GI: No signs and/or symptoms were reported involving the gastrointestinal system. : No signs and/or symptoms were reported regarding the genitourinary system. Derm: No deficits noted. Musculoskeletal: No deficits noted. Stroke Activation: Physician: Stroke Attending; Name: ; Notified At: ; Arrived At: Physician: Chief Stroke Resident; Name: ; Notified At: ; Arrived At: Physician: Stroke Resident; Name: ; Notified At: ; Arrived At: Physician: ED Attending; Name: Nish; Notified At: 12:36; Arrived At: 12:36 Physician: ED Resident; Name: ; Notified At: ; Arrived At: Historical: - Allergies: 12:38 No Known Allergies; jl7 - Home Meds: 12:57 calcimate plus 800 mg daily [Active]; Vitamin C 1,000 mg Oral tab [Active]; rb3 - PMHx: 12:38 Anemia; Anxiety; benign prostate hypertrophy; chronic back pain; chronic kidney jl7 disease; Hyperlipidemia; Hypertension; nephrogenous proteinuria; osteoarthritis; Prostate Cancer; - Immunization history:: Adult Immunizations unknown. - Social history:: Smoking status: Patient denies any tobacco usage or history of. - Family history:: not pertinent. Screenin:45 Abuse screen: Denies threats or abuse. Denies injuries from another. bp 12:45 Nutritional screening: No deficits noted. Tuberculosis screening: No symptoms or risk bp factors identified. Fall Risk None identified. Assessment: 12:50 VAN Scoring: Visual Disturbance:. The patient has not been NPO before screening. The bp patient is alert, and able to follow commands. The patient does not exhibit slurred or garbled speech. The patient is not exhibiting difficulty speaking. The patient is able to swallow own secretions with no drooling or need for suction. Patient tolerated one teaspoon of water. No drooling, immediate coughing, gurgling, or clearing of the throat was noted. The patient tolerated 90mL of water. No drooling, immediate coughing, gurgling, or clearing of the throat was noted. The patient passed the bedside swallow screening. Oral medications may be given as ordered. Contact Physician for further diet orders. Provider notified of bedside swallow screening results: Petey Mock MD. T-PA (Activase) Screening: Contraindications: Rapidly improving condition or minor deficit:. General: SEE TRIAGE NOTE. 13:23 Reassessment: Patient appears in no apparent distress at this time. Patient and/or rb3 family updated on plan of care and expected duration. Pain level reassessed. Patient is alert, oriented x 3, equal unlabored respirations, skin warm/dry/pink. 14:20 Reassessment: Patient appears in no apparent distress at this time. Patient and/or bp family updated on plan of care and expected duration. Pain level reassessed. Patient is alert, oriented x 3, equal unlabored respirations, skin warm/dry/pink. Neuro: Level of Consciousness is awake, alert, obeys commands, Oriented to person, place, time, situation, Appropriate for age Moves all extremities. Full function. 15:00 Reassessment: Assisted pt. to the restroom. rb3 16:27 Reassessment: Patient appears in no apparent distress at this time. Patient and/or bp family updated on plan of care and expected duration. Pain level reassessed. Patient is alert, oriented x 3, equal unlabored respirations, skin warm/dry/pink. PT TO MRI. Neuro: Level of Consciousness is awake, alert, obeys commands, Oriented to Appropriate for age Moves all extremities. Full function. 17:33 Reassessment: Patient appears in no apparent distress at this time. Patient and/or bp family updated on plan of care and expected duration. Pain level reassessed. Patient is alert, oriented x 3, equal unlabored respirations, skin warm/dry/pink. PT RETURNED FROM MRI. Neuro: Level of Consciousness is awake, alert, obeys commands, Oriented to Appropriate for age Moves all extremities. Full function. 21:24 Reassessment: Pt admitted to second floor, left ED via wheelchair per tech. Pt ea tolerating well. Vital Signs: 12:31 BP 151 / 72; Pulse 96; Resp 17; Temp 97.9; Pulse Ox 100% ; Pain 0/10; jl7 13:22 BP 111 / 98; Pulse 85; Resp 20; Pulse Ox 100% ; rb3 14:19 BP 134 / 50; Pulse 76; Resp 19; Pulse Ox 100% ; bp 15:15 BP 140 / 66; Pulse 83; Resp 21; Pulse Ox 99% ; rb3 16:27 BP 139 / 65; Pulse 84; Resp 23; Pulse Ox 97% ; bp 17:33 BP 150 / 87; Pulse 100; Resp 16; Pulse Ox 98% ; bp 19:30 BP 140 / 89; Pulse 87; Resp 18; Pulse Ox 99% on R/A; ea 21:23 BP 100 / 57; Pulse 65; Temp 98; Pulse Ox 97% on R/A; ea Trauma Score (Adult): 13:00 Eye Response: spontaneous(1); Verbal Response: oriented(1); Motor Response: obeys rb3 commands(2); Systolic BP: > 89 mm Hg(4); Respiratory Rate: 10 to 29 per min(4); Netta Score: 15; Trauma Score: 12 14:00 Eye Response: spontaneous(1); Verbal Response: oriented(1); Motor Response: obeys rb3 commands(2); Systolic BP: > 89 mm Hg(4); Respiratory Rate: 10 to 29 per min(4); Netta Score: 15; Trauma Score: 12 15:00 Eye Response: spontaneous(1); Verbal Response: oriented(1); Motor Response: obeys rb3 commands(2); Systolic BP: > 89 mm Hg(4); Respiratory Rate: 10 to 29 per min(4); Netta Score: 15; Trauma Score: 12 16:00 Eye Response: spontaneous(1); Verbal Response: oriented(1); Motor Response: obeys rb3 commands(2); Systolic BP: > 89 mm Hg(4); Respiratory Rate: 10 to 29 per min(4); Netta Score: 15; Trauma Score: 12 17:00 Eye Response: spontaneous(1); Verbal Response: oriented(1); Motor Response: obeys rb3 commands(2); Systolic BP: > 89 mm Hg(4); Respiratory Rate: 10 to 29 per min(4); Madison Score: 15; Trauma Score: 12 18:00 Eye Response: spontaneous(1); Verbal Response: oriented(1); Motor Response: obeys rb3 commands(2); Systolic BP: > 89 mm Hg(4); Respiratory Rate: 10 to 29 per min(4); Netta Score: 15; Trauma Score: 12 NIH Stroke Scale Scores: 12:50 NIHSS Score: 0 bp 21:04 NIHSS Score: 2 boris ED Course: 11:54 Patient arrived in ED. ag5 12:34 Triage completed. jl7 12:38 Arm band placed on right wrist. jl7 12:39 Petey Mock MD is Attending Physician. kdr 12:48 Inserted saline lock: 20 gauge in right antecubital area, using aseptic technique. rb3 Blood collected. 12:49 Chris Garcia, HERIBERTO is Primary Nurse. bp 12:53 Patient has correct armband on for positive identification. Bed in low position. Call bp light in reach. Side rails up X2. 12:55 CT Stroke Brain w/o Contrast In Process Unspecified. EDMS 13:24 Stroke CXR 1 View In Process Unspecified. EDMS 17:23 MRA Head Wo Cont In Process Unspecified. EDMS 17:23 Brain Wo Cont In Process Unspecified. EDMS 18:20 Attending Physician role handed off by Petey Mock MD boris 18:20 Kush Huang MD is Attending Physician. boris 19:11 Adelso Mcgee MD is Hospitalizing Provider. boris 19:23 Tashi Lopez is Hospitalizing Provider. jr8 20:33 No provider procedures requiring assistance completed. Patient admitted, IV remains in ea place. Administered Medications: 13:09 Drug: Aspirin 81 mg Route: PO; rb3 16:29 Follow up: Response: No adverse reaction bp 19:37 Drug: NS 0.9% 500 ml Route: IV; Rate: bolus; Site: right antecubital; ea 21:23 Follow up: Response: No adverse reaction; IV Status: Completed infusion; IV Intake: ea 500ml 19:37 Drug: Aspirin 81 mg Route: PO; ea 20:25 Follow up: Response: No adverse reaction ea 19:37 Drug: PlaVIX 75 mg Route: PO; ea 20:25 Follow up: Response: No adverse reaction ea 19:37 Drug: Pepcid 20 mg Route: IVP; Site: right antecubital; ea 20:25 Follow up: Response: No adverse reaction ea 19:37 Drug: Lipitor 20 mg Route: PO; ea 20:25 Follow up: Response: No adverse reaction ea 19:38 Drug: foLIC Acid 1 mg Route: IVPB; Site: right antecubital; ea 20:26 Follow up: Response: No adverse reaction; IV Status: Completed infusion ea Point of Care Testing: Blood Glucose: 12:57 Blood Glucose: 161 mg/dL; rb3 Ranges: Intake: 21:23 IV: 500ml; Total: 500ml. ea Outcome: 19:13 Decision to Hospitalize by Provider. boris 20:33 Instructed on the need for admit, Demonstrated understanding of instructions. ea 21:22 Admitted to Med/surg accompanied by tech, room 225, with chart, Report called to ea Receiving nurse on second floor 21:22 Condition: stable 21:42 Patient left the ED. ea NIH Stroke Scale - NIH Stroke Score Date: 07/21/2020 Time: 12:50 Total Score = 0 1a. Level of Consciousness (LOC) - 0(Alert) 1b. Level of Consciousness (LOC) (Year \\T\\ Age) - 0(Both) 1c. LOC Commands (Open \\T\\ Closes Eyes/Ornamental Metal Erector) - 0(Both) 2. Best Gaze (Lateral Gaze Paresis) - 0(Normal) 3. Visual Field Loss - 0(No visual loss) 4. Facial Palsy - 0(Normal) 5a. Left Arm: Motor (10-second hold) - 0(No drift) 5b. Right Arm: Motor (10-second hold) - 0(No drift) 6a. Left Leg: Motor (5-second hold - always test supine) - 0(No drift) 6b. Right Leg: Motor (5-second hold - always test supine) - 0(No drift) 7. Limb Ataxia (finger/nose \\T\\ heel/villavicencio - test with eyes open) - 0(Absent) 8. Sensory Loss (pinprick arms/legs/face) - 0(Normal) 9. Best Language: Aphasia (description/naming/reading) - 0(No aphasia) 10. Dysarthria (speech clarity - read or repeat words) - 0(Normal) 11. Extinction and Inattention (visual/tactile/auditory/spatial/personal) - 0(No abnormality) Initials: bp NIH Stroke Scale - NIH Stroke Score Date: 07/21/2020 Time: 21:04 Total Score = 2 1a. Level of Consciousness (LOC) - 0(Alert) 1b. Level of Consciousness (LOC) (Year \\T\\ Age) - 0(Both) 1c. LOC Commands (Open \\T\\ Closes Eyes/Ornamental Metal Erector) - 0(Both) 2. Best Gaze (Lateral Gaze Paresis) - 0(Normal) 3. Visual Field Loss - 0(No visual loss) 4. Facial Palsy - 0(Normal) 5a. Left Arm: Motor (10-second hold) - 0(No drift) 5b. Right Arm: Motor (10-second hold) - 1(Drift) 6a. Left Leg: Motor (5-second hold - always test supine) - 0(No drift) 6b. Right Leg: Motor (5-second hold - always test supine) - 1(Drift) 7. Limb Ataxia (finger/nose \\T\\ heel/villavicencio - test with eyes open) - 0(Absent) 8. Sensory Loss (pinprick arms/legs/face) - 0(Normal) 9. Best Language: Aphasia (description/naming/reading) - 0(No aphasia) 10. Dysarthria (speech clarity - read or repeat words) - 0(Normal) 11. Extinction and Inattention (visual/tactile/auditory/spatial/personal) - 0(No abnormality) Initials: boris Signatures: Dispatcher [employer] Kush Kim MD MD cha Rittger, Kevin, MD MD kdr Roszak, Josh, PA PA jr8 Sherry Diaz RN RN jl7 Shanta Ramirez RN Chris Mota ea, RN RN Taj Castro ag5 Yvonne Cannon, RN RN rb3
--- NOTE | 2020-07-21 19:13 | EDPHYS ---
Physician Documentation [facility] Name: Oc King Age: 89 yrs Sex: Male : 1930 Arrival Date: 07/21/2020 Time: 11:54 Bed 7 Private MD: ED Physician Kush Huang HPI: 07/21 17:24 This 89 yrs old Male presents to ER via Wheelchair with complaints of Hand kdr Problem. 17:24 The patient presents to the emergency department with weakness of the right upper kdr extremity, that is mild, impaired coordination. Onset: The symptoms/episode began/occurred suddenly, Somewhere between 09:00 AM and 10:00 AM. Context: occurred at home, occurred while the patient was at rest, Light activity. Associated signs and symptoms: The patient has no apparent associated signs or symptoms. Severity of symptoms: At their worst the symptoms were mild in the emergency department the symptoms have improved markedly. Patient's baseline: Neuro: alert and fully oriented, Motor: no deficits, Ambulation: walks without assistance, Speech: normal. Current symptoms: paralysis or paresis, that is mild, Weakness in right hand. The patient has not experienced similar symptoms in the past. The patient has not recently seen a physician. The patient tried write/sign a document sand did not have control of his hand. Historical: - Allergies: 12:38 No Known Allergies; jl7 - Home Meds: 12:57 calcimate plus 800 mg daily [Active]; Vitamin C 1,000 mg Oral tab [Active]; rb3 - PMHx: 12:38 Anemia; Anxiety; benign prostate hypertrophy; chronic back pain; chronic kidney jl7 disease; Hyperlipidemia; Hypertension; nephrogenous proteinuria; osteoarthritis; Prostate Cancer; - Immunization history:: Adult Immunizations unknown. - Social history:: Smoking status: Patient denies any tobacco usage or history of. - Family history:: not pertinent. ROS: 17:24 Constitutional: Negative for fever, chills, and weight loss, Eyes: Negative for injury, kdr pain, redness, and discharge, Neck: Negative for injury, pain, and swelling, Cardiovascular: Negative for chest pain, palpitations, and edema, Respiratory: Negative for shortness of breath, cough, wheezing, and pleuritic chest pain, Abdomen/GI: Negative for abdominal pain, nausea, vomiting, diarrhea, and constipation, Back: Negative for injury and pain, : Negative for injury, bleeding, discharge, and swelling, MS/Extremity: Negative for injury and deformity, Skin: Negative for injury, rash, and discoloration, Psych: Negative for depression, anxiety, suicide ideation, homicidal ideation, and hallucinations, Allergy/Immunology: Negative for hives, rash, and allergies, Endocrine: Negative for neck swelling, polydipsia, polyuria, polyphagia, and marked weight changes, Hematologic/Lymphatic: Negative for swollen nodes, abnormal bleeding, and unusual bruising. 17:24 Neuro: Positive for weakness, of the left hand. 19:07 Neuro: Positive for left arm and leg weakness since this morning at 1000 am, better boris now, not a tpa candidate. Exam: 14:01 ECG was reviewed by the Attending Physician. kdr 17:24 Constitutional: This is a well developed, well nourished patient who is awake, alert, kdr and in no acute distress. Head/Face: Normocephalic, atraumatic. Eyes: Pupils equal round and reactive to light, extra-ocular motions intact. Lids and lashes normal. Conjunctiva and sclera are non-icteric and not injected. Cornea within normal limits. Periorbital areas with no swelling, redness, or edema. Neck: Trachea midline, no thyromegaly or masses palpated, and no cervical lymphadenopathy. Supple, full range of motion without nuchal rigidity, or vertebral point tenderness. No Meningismus. Chest/axilla: Normal chest wall appearance and motion. Nontender with no deformity. No lesions are appreciated. Cardiovascular: Regular rate and rhythm with a normal S1 and S2. No gallops, murmurs, or rubs. Normal PMI, no JVD. No pulse deficits. Respiratory: Lungs have equal breath sounds bilaterally, clear to auscultation and percussion. No rales, rhonchi or wheezes noted. No increased work of breathing, no retractions or nasal flaring. Abdomen/GI: Soft, non-tender, with normal bowel sounds. No distension or tympany. No guarding or rebound. No evidence of tenderness throughout. Back: No spinal tenderness. No costovertebral tenderness. Full range of motion. Skin: Warm, dry with normal turgor. Normal color with no rashes, no lesions, and no evidence of cellulitis. MS/ Extremity: Pulses equal, no cyanosis. Neurovascular intact. Full, normal range of motion. Psych: Awake, alert, with orientation to person, place and time. Behavior, mood, and affect are within normal limits. 17:24 Neuro: Orientation: is normal, Mentation: is normal, Memory: is normal, Cranial nerves: no acute changes, Cerebellar function: unable to perform alternating rapid hand movements with right hand, Motor: is normal, Sensation: is normal, Gait: is steady, appropriate for age, Abnormal movements: there are no abnormal movements. 19:13 ECG was reviewed by the Attending Physician. [facility] Vital Signs: 12:31 BP 151 / 72; Pulse 96; Resp 17; Temp 97.9; Pulse Ox 100% ; Pain 0/10; jl7 13:22 BP 111 / 98; Pulse 85; Resp 20; Pulse Ox 100% ; rb3 14:19 BP 134 / 50; Pulse 76; Resp 19; Pulse Ox 100% ; bp 15:15 BP 140 / 66; Pulse 83; Resp 21; Pulse Ox 99% ; rb3 16:27 BP 139 / 65; Pulse 84; Resp 23; Pulse Ox 97% ; bp 17:33 BP 150 / 87; Pulse 100; Resp 16; Pulse Ox 98% ; bp 19:30 BP 140 / 89; Pulse 87; Resp 18; Pulse Ox 99% on R/A; ea 21:23 BP 100 / 57; Pulse 65; Temp 98; Pulse Ox 97% on R/A; ea NIH Stroke Scale Scores: 12:50 NIHSS Score: 0 bp 21:04 NIHSS Score: 2 boris Trauma Score (Adult): 13:00 Eye Response: spontaneous(1); Verbal Response: oriented(1); Motor Response: obeys rb3 commands(2); Systolic BP: > 89 mm Hg(4); Respiratory Rate: 10 to 29 per min(4); [place] Score: 15; Trauma Score: 12 14:00 Eye Response: spontaneous(1); Verbal Response: oriented(1); Motor Response: obeys rb3 commands(2); Systolic BP: > 89 mm Hg(4); Respiratory Rate: 10 to 29 per min(4); [place] Score: 15; Trauma Score: 12 15:00 Eye Response: spontaneous(1); Verbal Response: oriented(1); Motor Response: obeys rb3 commands(2); Systolic BP: > 89 mm Hg(4); Respiratory Rate: 10 to 29 per min(4); [place] Score: 15; Trauma Score: 12 16:00 Eye Response: spontaneous(1); Verbal Response: oriented(1); Motor Response: obeys rb3 commands(2); Systolic BP: > 89 mm Hg(4); Respiratory Rate: 10 to 29 per min(4); Netta Score: 15; Trauma Score: 12 17:00 Eye Response: spontaneous(1); Verbal Response: oriented(1); Motor Response: obeys rb3 commands(2); Systolic BP: > 89 mm Hg(4); Respiratory Rate: 10 to 29 per min(4); [place] Score: 15; Trauma Score: 12 18:00 Eye Response: spontaneous(1); Verbal Response: oriented(1); Motor Response: obeys rb3 commands(2); Systolic BP: > 89 mm Hg(4); Respiratory Rate: 10 to 29 per min(4); Netta Score: 15; Trauma Score: 12 MDM: 17:24 Data reviewed: vital signs, nurses notes, lab test result(s), radiologic studies. kdr Counseling: I had a detailed discussion with the patient and/or guardian regarding: the historical points, exam findings, and any diagnostic results supporting the discharge/admit diagnosis, lab results, radiology results, the need for outpatient follow up. Physician consultation: Stephan Vaughn MD. 18:20 Patient medically screened. [facility] 19:14 Physician consultation: Stephan Vaughn MD and will see patient in inpatient room, no [facility] tpa, asa, plavix, liptor, folic acid, will folow , hospitalist to admit. 21:06 ED course: not a tpa candidate, per connie, symptoms began 10am. boris 07/21 12:50 Order name: Basic Metabolic Panel; Complete Time: 15:18 aa5 07/21 12:50 Order name: CBC with Diff; Complete Time: 15:18 aa5 07/21 12:50 Order name: Protime (+inr); Complete Time: 15:18 aa5 07/21 12:50 Order name: Ptt, Activated; Complete Time: 15:18 aa5 07/21 12:57 Order name: Glucose, Ancillary Testing; Complete Time: 15:18 EDMS 07/21 19:59 Order name: COVID-19 rv 07/21 12:50 Order name: CT Stroke Brain w/o Contrast; Complete Time: 15:18 aa5 07/21 12:50 Order name: Stroke CXR 1 View; Complete Time: 15:18 aa5 07/21 17:14 Order name: MRA Head Wo Cont; Complete Time: 18:39 EDFL 07/21 17:23 Order name: Brain Wo Cont; Complete Time: 18:39 EDFL 07/21 21:24 Order name: SARS-COV-2 RT PCR EDFL 07/21 12:50 Order name: EKG; Complete Time: 12:51 aa5 07/21 12:50 Order name: Accucheck; Complete Time: 12:50 aa5 07/21 12:50 Order name: Cardiac monitoring; Complete Time: 12:57 aa5 07/21 12:50 Order name: EKG - Nurse/Tech; Complete Time: 12:57 aa5 07/21 12:50 Order name: IV Saline Lock; Complete Time: 12:57 aa5 07/21 12:50 Order name: Labs collected and sent; Complete Time: 12:58 aa5 07/21 12:50 Order name: NPO; Complete Time: 12:58 aa5 07/21 12:50 Order name: O2 Per Protocol; Complete Time: 13:09 aa5 07/21 20:15 Order name: CONS Physician Consult [facility] 07/21 12:50 Order name: O2 Sat Monitoring; Complete Time: 13:09 aa5 07/21 12:50 Order name: Stroke Swallow Screen; Complete Time: 12:57 aa5 EC:01 Rate is 88 beats/min. Rhythm is regular, Sinus Rhythm with No ectopy. QRS [place] is kdr Normal. NV interval is normal. QRS interval is normal. QT interval is normal. No Q waves. Clinical impression: NSR w/ Non-specific ST/T Changes. 19:13 Rate is 88 beats/min. Rhythm is regular. QRS [place] is Normal. NV interval is normal. QRS boris interval is normal. QT interval is normal. No Q waves. T waves are Normal. No ST changes noted. Clinical impression: NSR w/ Non-specific ST/T Changes and No evidence of ischemia. Interpreted by me. Reviewed by me. Administered Medications: 13:09 Drug: Aspirin 81 mg Route: PO; rb3 16:29 Follow up: Response: No adverse reaction bp 19:37 Drug: NS 0.9% 500 ml Route: IV; Rate: bolus; Site: right antecubital; ea 21:23 Follow up: Response: No adverse reaction; IV Status: Completed infusion; IV Intake: ea 500ml 19:37 Drug: Aspirin 81 mg Route: PO; ea 20:25 Follow up: Response: No adverse reaction ea 19:37 Drug: PlaVIX 75 mg Route: PO; ea 20:25 Follow up: Response: No adverse reaction ea 19:37 Drug: Pepcid 20 mg Route: IVP; Site: right antecubital; ea 20:25 Follow up: Response: No adverse reaction ea 19:37 Drug: Lipitor 20 mg Route: PO; ea 20:25 Follow up: Response: No adverse reaction ea 19:38 Drug: foLIC Acid 1 mg Route: IVPB; Site: right antecubital; ea 20:26 Follow up: Response: No adverse reaction; IV Status: Completed infusion ea Point of Care Testing: Blood Glucose: 12:57 Blood Glucose: 161 mg/dL; rb3 Ranges: Critical Glucose Levels:Adult <50 mg/dl or >400 mg/dl <40 mg/dl or >180 mg/dl Disposition: 07/21/20 19:13 Hospitalization ordered by Tashi Lopez for Inpatient Admission. Preliminary diagnosis is Cerebral infarction - acute, left central sulcus, ischemic. - Bed requested for Telemetry/MedSurg (Inpatient). - Status is Inpatient Admission. ea - Condition is Stable. - Problem is new. - Symptoms have improved. NIH Stroke Scale - NIH Stroke Score Date: 07/21/2020 Time: 12:50 Total Score = 0 1a. Level of Consciousness (LOC) - 0(Alert) 1b. Level of Consciousness (LOC) (Year \T\ Age) - 0(Both) 1c. LOC Commands (Open \T\ Closes Eyes/Qc Analyst) - 0(Both) 2. Best Gaze (Lateral Gaze Paresis) - 0(Normal) 3. Visual Field Loss - 0(No visual loss) 4. Facial Palsy - 0(Normal) 5a. Left Arm: Motor (10-second hold) - 0(No drift) 5b. Right Arm: Motor (10-second hold) - 0(No drift) 6a. Left Leg: Motor (5-second hold - always test supine) - 0(No drift) 6b. Right Leg: Motor (5-second hold - always test supine) - 0(No drift) 7. Limb Ataxia (finger/nose \T\ heel/villavicencio - test with eyes open) - 0(Absent) 8. Sensory Loss (pinprick arms/legs/face) - 0(Normal) 9. Best Language: Aphasia (description/naming/reading) - 0(No aphasia) 10. Dysarthria (speech clarity - read or repeat words) - 0(Normal) 11. Extinction and Inattention (visual/tactile/auditory/spatial/personal) - 0(No abnormality) Initials: bp NIH Stroke Scale - NIH Stroke Score Date: 07/21/2020 Time: 21:04 Total Score = 2 1a. Level of Consciousness (LOC) - 0(Alert) 1b. Level of Consciousness (LOC) (Year \T\ Age) - 0(Both) 1c. LOC Commands (Open \T\ Closes Eyes/Qc Analyst) - 0(Both) 2. Best Gaze (Lateral Gaze Paresis) - 0(Normal) 3. Visual Field Loss - 0(No visual loss) 4. Facial Palsy - 0(Normal) 5a. Left Arm: Motor (10-second hold) - 0(No drift) 5b. Right Arm: Motor (10-second hold) - 1(Drift) 6a. Left Leg: Motor (5-second hold - always test supine) - 0(No drift) 6b. Right Leg: Motor (5-second hold - always test supine) - 1(Drift) 7. Limb Ataxia (finger/nose \T\ heel/villavicencio - test with eyes open) - 0(Absent) 8. Sensory Loss (pinprick arms/legs/face) - 0(Normal) 9. Best Language: Aphasia (description/naming/reading) - 0(No aphasia) 10. Dysarthria (speech clarity - read or repeat words) - 0(Normal) 11. Extinction and Inattention (visual/tactile/auditory/spatial/personal) - 0(No abnormality) Initials: boris Signatures: Dispatcher [employer] Rhina Aragon RN RN dw Anderson, Corey, MD MD cha Rittger, Kevin, MD MD kdr Calderon, Audri, RN RN aa5 Edwin Randhawa PA PA jr8 Sherry Diaz, RN RN jl7 Shanta Ramirez, RN Chris Mota ea, RN RN Yvonne Garsia, RN RN rb3 Corrections: (The following items were deleted from the chart) 17:14 13:23 MR STROKE PROTOCOL+MRI.RAD.BRZ ordered. EDMS EDMS 17:23 17:15 Brain W/Wo Cont ordered. EDMS EDMS 17:24 17:15 MRA Neck W/Wo Cont ordered. EDMS EDMS 19:24 19:13 Hospitalization Ordered by Adelso Mcgee MD for Inpatient Admission. jr8 Preliminary diagnosis is Cerebral infarction - acute, left central sulcus, ischemic. Bed requested for Telemetry/MedSurg (Inpatient). Status is Inpatient Admission. Condition is Stable. Problem is new. Symptoms have improved. boris 20:54 19:24 07/21/2020 19:13 Hospitalization Ordered by Tashi Lopez for Inpatient dw Admission. Preliminary diagnosis is Cerebral infarction - acute, left central sulcus, ischemic. Bed requested for Telemetry/MedSurg (Inpatient). Status is Inpatient Admission. Condition is Stable. Problem is new. Symptoms have improved. jr8 21:42 20:54 07/21/2020 19:13 Hospitalization Ordered by Tashi Lopez for Inpatient ea Admission. Preliminary diagnosis is Cerebral infarction - acute, left central sulcus, ischemic. Bed requested for Telemetry/MedSurg (Inpatient). Status is Inpatient Admission. Condition is Stable. Problem is new. Symptoms have improved. dw
[2020-07-21] MEDS ORDERED: ATORVASTATIN 20 MG TAB ONE (19:35)
[2020-07-21] MEDS ORDERED: CLOPIDOGREL 75 MG TABLET ONE (19:35)
[2020-07-21] MEDS ORDERED: ASPIRIN 81 MG CHEWABLE TABLET ONE (19:35)
[2020-07-21] MEDS ORDERED: FAMOTIDINE 20 MG/2 ML VIAL IV ONE (19:36)
[2020-07-21] MEDS ORDERED: NA CHLORIDE 0.9% 500 ML ONE (19:36)
[2020-07-21] MEDS ORDERED: FOLIC ACID 5 MG/ML VIAL ONE (19:37)
[2020-07-21] MEDS ORDERED: ACETAMINOPHEN 500 MG TAB PO PRN (21:30)
[2020-07-21] MEDS ORDERED: ONDANSETRON 4 MG/2 ML VIAL IV PRN (21:30)
[2020-07-21 22:17] VITALS: BMI 23.2
[2020-07-21] MEDS: NA CHLORIDE 0.9% 1,000 ML IV SCH (22:26)
[2020-07-21 22:41] LABS: T4,Total 7.5 ug/dL (4.5-12.1); Thyroid Stimulating Hormone 3.54 uIU/mL (0.360-3.740)
--- NOTE | 2020-07-22 02:22 | P.HP ---
Certification for Inpatient Patient admitted to: Inpatient With expected LOS: >2 Midnights Patient will require the following post-hospital care: None Practitioner: I am a practitioner with admitting privileges, knowledge of patient current condition, hospital course, and medical plan of care. Services: Services provided to patient in accordance with Admission requirements found in Title 42 Section 412.3 of the Code of Federal Regulations <Israel Randhawa - Last Filed: 07/22/20 02:17> Patient History Date of Service: 07/22/20 Primary Care Provider: None Reason for admission: CVA History of Present Illness: This is an 89-year-old male that presented to the emergency room for having right-sided deficits in the arm and leg that started around 0900 this morning. Patient with history of hypertension and chronic kidney disease and hyperlipidemia that currently is only on vitamins daily. Patient stated that he felt that his arm was heavier than normal and was having trouble moving his right leg. Patient came in to the emergency room around 12 o'clock this afternoon for further evaluation. Patient was worked up for CVA versus TIA and was found to have 2 small punctate spots of infarction on MRI/MRA. CT head brain without contrast did not show any blood, mass, or edema. Patient initially had an NIH of 0 in the emergency room. As such patient was not given tissue plasminogen activator for stroke like symptoms. Medicine was consulted at that time for admission for further evaluation of cerebral vascular accident. Home medications list reviewed: Yes - Past Medical/Surgical History Has patient received pneumonia vaccine in the past: No Diabetic: No -: Anemia -: Anxiety -: BPh -: Chronic Back Pain -: Hyperlipidemia -: Htn - Family History Mother -: Hypertension - Social History Smoking Status: Never smoker Smoking therapy provided: No Alcohol use: No CD- Drugs: No Caffeine use: Yes Place of Residence: Home <CherieilamarquitaIsrael - Last Filed: 07/22/20 02:17> Date of Service: 07/22/20 <willie guerrero - Last Filed: 07/22/20 07:56> Allergies No Known Allergies Allergy (Verified 07/21/20 21:51) Home Medications: NK [No Home Meds] 07/21/20 Review of Systems General: Weakness Eyes: Unremarkable ENT: Unremarkable Respiratory: Unremarkable Cardiovascular: Unremarkable Gastrointestinal: Unremarkable Genitourinary: Unremarkable Musculoskeletal: Unremarkable Integumentary: Unremarkable Neurological: Weakness, As per HPI <Israel Randhawa - Last Filed: 07/22/20 02:17> Physical Examination - Vital Signs Temperature: 98.3 F Blood Pressure: 132/79 Pulse: 93 Respirations: 17 Pulse Ox (%): 99 - Physical Exam General: Alert, Oriented x3, Cooperative HEENT: PERRLA, Mucous membr. moist/pink, EOMI Neck: Supple, 2+ carotid pulse no bruit, JVD not distended, No Thyromegaly Respiratory: Clear to auscultation bilaterally, Normal air movement Cardiovascular: No edema, Normal pulses, Regular rate/rhythm, Normal S1 S2, No gallops, No rubs, No murmurs Capillary refill: <2 Seconds Gastrointestinal: Normal bowel sounds, Soft and benign, Non-distended, No ascites, No tenderness, No masses, No rebound, No guarding Musculoskeletal: No clubbing, No swelling, No contractures, No erythema, No tenderness, No warmth Integumentary: No rashes, No breakdown, No significant lesion, No tenderness/swelling, No erythema, No warmth, No cyanosis Neurological: Normal gait, Normal speech, Normal strength at 5/5 x4 extr, Normal tone, Sensation intact, Cranial nerves 3-12 intact, Normal affect, Other (Patient had a right arm dysmetria when I evaluated him. Would put him at in NIH of 1) Lymphatics: No axilla or inguinal lymphadenopathy - Studies Laboratory Data (last 24 hrs) 07/21/20 12:48: PT 11.8, INR 1.00, APTT 29.2 07/21/20 12:48: WBC 6.3, Hgb 12.9 L, Hct 38.5 L, Plt Count 228 07/21/20 12:48: Sodium 141, Potassium 4.4, BUN 40 H, Creatinine 1.54 H, Glucose 128 H <Israel Randhawa - Last Filed: 07/22/20 02:17> - Studies Laboratory Data (last 24 hrs) 07/21/20 12:48: PT 11.8, INR 1.00, APTT 29.2 07/21/20 12:48: WBC 6.3, Hgb 12.9 L, Hct 38.5 L, Plt Count 228 07/21/20 12:48: Sodium 141, Potassium 4.4, BUN 40 H, Creatinine 1.54 H, Glucose 128 H <willie guerrero - Last Filed: 07/22/20 07:56> Assessment and Plan - Problems (Diagnosis) (1) CVA (cerebral vascular accident) Current Visit: Yes Status: Acute Qualifiers: CVA mechanism: thrombosis Precerebral and cerebral artery: unspecified c erebral artery Qualified Code(s): I63.30 - Cerebral infarction due to thrombosis of unspecified cerebral artery (2) Hyperlipidemia Current Visit: Yes Status: Chronic Qualifiers: Hyperlipidemia type: unspecified Qualified Code(s): E78.5 - Hyperlipidemia, unspecified (3) Hypertension Current Visit: Yes Status: Chronic Qualifiers: Hypertension type: essential hypertension Qualified Code(s): I10 - Essential (primary) hypertension - Plan 1. Patient admitted to telemetry unit for further evaluation of cerebral vascular accident. Patient will have echocardiogram and carotid ultrasound completed tomorrow for further evaluation of possible causes for his stroke. 2. Neurology has been consulted and will evaluate patient. 3. Patient started on statin therapy along with Plavix and aspirin for stroke. 4. Patient will remain progressively hypertensive secondary to acute ischemic stroke 5. Neuro checks and vital signs will be completed throughout his evaluation to ensure no acute deterioration or worsening of stroke symptoms 6. Labs daily otherwise to ensure stability Discharge Plan: Home Plan to discharge in: 48 Hours - Advance Directives Does patient have a Living Will: No Does patient have a Durable POA for Healthcare: No - Code Status/Comfort Care Code Status Assessed: Yes Code Status: Full Code Critical Care: Yes (30) Time Spent Managing Pts Care (In Minutes): 80 <Israel Randhawa - Last Filed: 07/22/20 02:17> Physician Review: Patient Assessed, Agree with Above Assessment and Plan Physician Review Additional Text: Acute CVA. Plan: ASA, Statins. Check lipid panel. Obtain Echo and carotid doppler. PT to assess for gait. <willie guerrero - Last Filed: 07/22/20 07:56>
[2020-07-22 05:54] LABS: Absolute Lymphocytes (CBC) 1.1 K/uL (0.7-4.9); Basophils % 1.4 % (0-1.3); Hematocrit 30.4 % (39.6-49.0); MPV 8.8 fL (7.6-11.3); RBC Red Blood Cell Count 3.24 M/uL (4.33-5.43)
[2020-07-22 06:10] LABS: Magnesium 2.3 mg/dL (1.8-2.4); Phosphorus 3.5 mg/dL (2.5-4.9); Potassium 4.5 mmol/L (3.5-5.1)
[2020-07-22] MEDS ORDERED: ENOXAPARIN 30 MG/0.3 ML SQ SCH (09:00)
[2020-07-22] MEDS ORDERED: CLOPIDOGREL 75 MG TABLET PO SCH (09:00)
[2020-07-22] MEDS ORDERED: ASPIRIN EC 81 MG TAB PO SCH (09:00)
[2020-07-22] MEDS: NA CHLORIDE 0.9% 1,000 ML IV SCH (10:19)
--- NOTE | 2020-07-22 11:14 | P.DS ---
Admission Date: 07/21/20 Discharge Date: 07/22/20 Primary Care Provider: None Disposition: ROUTINE DISCHARGE Discharge Condition: FAIR Reason for Admission: CVA - Problems (1) CVA (cerebral vascular accident) Current Visit: Yes Status: Acute Qualifiers: CVA mechanism: thrombosis Precerebral and cerebral artery: unspecified cerebral artery Qualified Code(s): I63.30 - Cerebral infarction due to thrombosis of unspecified cerebral artery (2) Hyperlipidemia Current Visit: Yes Status: Chronic Qualifiers: Hyperlipidemia type: unspecified Qualified Code(s): E78.5 - Hyperlipidemia, unspecified Brief History of Present Illness: 89-year-old gentleman with a history of hyperlipidemia and hypertension presented to the emergency department complaining of heavy in his right upper extremity. Later reported inability to move the right leg. Stroke alert was called in the emergency department. CT head did not show any acute stroke. Patient had MRI of the brain which reported punctate lesions in the cortical and subcortical areas of the left central sulcus. MRA of the head and neck also demonstrated significant left carotid bulb disease with 60-70% narrowing. EKG: No arrhythmia. Initial troponin negative. Patient was hospitalized for further management of acute CVA. Hospital Course: Patient admitted to the medical floor and placed on aspirin and Plavix and Lipitor. Echocardiogram was performed and result is pending to be followed. Lipid profile showed LDL of 93. Case discussed with Dr. Vaughn recommended outpatient management with aspirin and Lipitor. Patient also to take Plavix for the 1st month. Given that he has significant left carotid artery disease, he has been given contact to call [facility] Neurointervention-radiology department for evaluation for carotid artery intervention. He was normotensive throughout the hospital stay and has not required any antihypertensive. Patient seen by physical therapy, he was able to ambulate with no assistance, no gait abnormality. He is deemed clinically stable for discharge. Vital Signs/Physical Exam: Temp Pulse Resp BP Pulse Ox 98.1 F 18 L 20 137/63 95 07/22/20 08:00 07/22/20 08:00 07/22/20 08:00 07/22/20 08:00 07/22/20 08:00 General: Alert, In no apparent distress HEENT: Mucous membr. moist/pink Neck: Supple, JVD not distended Respiratory: Clear to auscultation bilaterally, Normal air movement Cardiovascular: No edema, Regular rate/rhythm, Normal S1 S2 Gastrointestinal: Normal bowel sounds, Soft and benign, No tenderness Musculoskeletal: No swelling Integumentary: No rashes Neurological: Normal speech, Normal strength at 5/5 x4 extr, Cranial nerves 3-12 intact Laboratory Data at Discharge: WBC 6.0 K/uL (4.3-10.9) 07/22/20 05:24 Hgb 10.5 g/dL (13.6-17.9) L 07/22/20 05:24 Hct 30.4 % (39.6-49.0) L D 07/22/20 05:24 Plt Count 190 K/uL (152-406) 07/22/20 05:24 PT 11.8 SECONDS (9.5-12.5) 07/21/20 12:48 INR 1.00 07/21/20 12:48 APTT 29.2 SECONDS (24.3-36.9) 07/21/20 12:48 Sodium 145 mmol/L (136-145) 07/22/20 05:24 Potassium 4.5 mmol/L (3.5-5.1) 07/22/20 05:24 BUN 35 mg/dL (7-18) H 07/22/20 05:24 Creatinine 1.36 mg/dL (0.55-1.3) H 07/22/20 05:24 Glucose 83 mg/dL (74-106) 07/22/20 05:24 Phosphorus 3.5 mg/dL (2.5-4.9) 07/22/20 05:24 Magnesium 2.3 mg/dL (1.8-2.4) 07/22/20 05:24 Triglycerides 44 mg/dL (<150) 07/22/20 05:24 Cholesterol 141 mg/dL (<200) 07/22/20 05:24 HDL Cholesterol 39 mg/dL (40-60) L 07/22/20 05:24 Cholesterol/HDL Ratio 3.62 07/22/20 05:24 Home Medications: Aspirin [Aspirin EC 81 MG] 81 mg PO DAILY #30 tablet. 07/22/20 Atorvastatin Calcium [Lipitor] 40 mg PO BEDTIME #30 tab 07/22/20 Clopidogrel Bisulfate [Plavix*] 75 mg PO DAILY #30 tablet 07/22/20 New Medications: Aspirin [Aspirin EC 81 MG] 81 mg PO DAILY #30 tablet. Atorvastatin Calcium [Lipitor] 40 mg PO BEDTIME #30 tab Clopidogrel Bisulfate [Plavix*] 75 mg PO DAILY #30 tablet Diet: AHA Activity: Ad martín Followup: NONE,NONE [Primary Care Provider] - Time spent managing pt's care (in minutes): 37
[2020-07-22 12:19] VITALS: O2SAT 93
[2020-07-22 17:42] VITALS: BP 124/58; TEMP 97.8
--- NOTE | 2020-07-22 19:16 | CON ---
Reason For Consultation: Consultation called because of stroke. History Of Present Illness: Mr. King is an 89-year-old right-handed patient with stroke risk facto rs of hypertension, chronic renal disease, and dyslipidemia, who comes in after sudden onset right up per extremity incoordination and mild weakness. The episode occurred around 9 a.m. on yesterday, tonya t is 12:17 p.m. The patient's symptoms apparently rapidly improved and at the time of his arrival in the emergency room, there was very subtle findings of weakness, but mostly gone. The emergency room physician noted an NIH Stroke Scale of 0 around 12:50 p.m. The patient had a CT scan of the head, w hich showed no acute ischemic or hemorrhagic change, however, there was significant chronic atrophy t hat matched study done in November 2018. However, the patient had subsequently brain MRI around 5:30 p. m. and later on, which showed 2 adjacent punctate foci of nonhemorrhagic stroke in the deep left cent ral sulcus and it is noted that is likely explains the patient's right-sided symptoms. He did have a magnetic resonance angiogram done at the same time, which showed significant left carotid bulb disea se and it was noted that likely is a possible source of punctate thromboembolic strokes in the left c entral sulcus. The patient was placed on aspirin along with Plavix and high-dose statin, folic acid, and Lovenox for his DVT prophylaxis. He was allowed to have permissive hypertension, which was actu ally in the low 130s to 140s systolic. In terms of symptoms, he had largely resolved his symptoms to wards normal the following day, which is today and is actually ready for discharge, but will be follo wed in [place] for possible left carotid endarterectomy or angioplasty with stent procedure. Past Medical History: As noted including chronic anemia, anxiety, benign prostatic hypertrophy, synchronizer israel back pain, chronic renal disease, and osteoarthritis. Family History: Noncontributory. Social History: No recent alcohol, tobacco, or IV drug use. Allergies: NO KNOWN DRUG ALLERGIES. Medications: At home, vitamin C 1000 mg daily and Calcimate Plus 800 daily. His medications in the hospital were folic acid 2 mg daily, aspirin 81 mg daily, Plavix 75 mg daily, Lipitor 40 mg at bedtim e, and Lovenox. Physical Examination: Vital Signs: Blood pressure 135/65, pulse 78, respiratory rate 16, temperature 98.2, oxygen saturati on 97% on room air, weight 126 pounds, height 5 feet 2 inches, BMI 23. General: Mr. King is resting comfortably, in no acute distress. HEENT: He is normocephalic, atraumatic. Sclerae anicteric. Oropharynx is moist, pink. Neck: Supple. Chest: Clear. Heart: Regular. Extremities: No edema, cyanosis, or clubbing. Neurological: Mr. King is an alert, oriented to situation, place, and person. Follows commands mario ropriately. Cranial nerves show no focal deficits. In his upper extremities, motor, very subtle wea kness at perhaps 5-/5 in the right upper extremity and sensation intact in the right upper extremity. Fully strong and intact sensation in left upper extremity, right lower extremity, and left lower ex tremity intact sensation and motor examination. Reflexes are symmetric. Coordination intact in the upper and lower extremities. He has good stance and stride. Assessment: Mr. King is an 89-year-old patient with left deep central sulcus stroke and punctate, possibly from left carotid bulb thromboembolic source. He does have stroke risk factors of hypertens ion and his LDL is 93. His HDL is 39. He does have chronic kidney disease. Plan: He will be discharged home and will follow up in [place] for possible left carotid endarterect monae versus angioplasty and stent. At this point, we will continue with optimal medical management in cluding aspirin, Plavix, folic acid, and statin. He was told to monitor his blood pressure, hold ant ihypertensive medications if systolic blood pressure is less than 140, and to follow up with primary care physician and follow up with Neurology within a month. KWABENA/MADELINE Voice ID: [id number] Report ID: [id number]
[2020-07-22] MEDS ORDERED: ATORVASTATIN 20 MG TAB PO SCH (21:00)
--- NOTE | 2020-07-23 03:53 | CON ---
Date of Consultation: 07/22/2020 Reason For Consultation: CVA. History Of Present Illness: Mr. King came into the hospital with weakness of the right upper extre mity, impaired coordination, symptoms that had began rather suddenly. No cardiac symptoms reported. No chest pain. No palpitation. No syncope. Past Medical History: Positive for anemia, anxiety, benign prostatic hypertrophy, chronic back pain, chronic kidney disease, hypertension, dyslipidemia, proteinuria, and osteoarthritis. Allergies: NONE. Medications At Home: Include calcium and vitamins. Review of Systems: Negative. Social History: Negative. Family History: Noncontributory. Physical Examination: Vital Signs: Stable. He was afebrile. General: He was in sinus rhythm with PVCs. HEENT: Negative. Neck: Supple. No bruit. Chest: Clear to auscultation and percussion. Cardiac: Revealed a regular rhythm and rate with S4 gallops and aortic sclerosis, murmur. Abdomen: Benign. Extremities: Reveal no clubbing, cyanosis, or edema. Diagnostic Data: Creatinine of 1.36. Hemoglobin was 12.9. His calcium was 7.4. He was COVID negat teo. Impression And Plan: Cerebrovascular accident. An MRI with MRA of the head showed no significant in tracranial findings. No specific MRI and MRA correlation for the 2 small punctate foci of acute infa rction of the left central sulcus. Possible thromboembolic event. The patient is being seen by Neur ology. I think an echocardiogram may be reasonable. His present regimen includes aspirin and Plavix , which I agree with. From my standpoint, patient can go home whenever it is okay with Neurology, ma y be worth doing an echocardiogram on him as an outpatient. ALAN/MADELINE Voice ID: [id number] Report ID: [id number]
--- NOTE | 2020-07-23 14:04 | EKG ---
Test Date: 2020-07-21 Test Time: 12:48:13 Catalytic Converter Operator: AVIVA MEASUREMENT RESULTS: Intervals: Rate: 88 OR: 152 QRSD: 88 QT: 352 QTc: 425 [place]: P: 69 OR: 152 QRS: 65 T: 71 INTERPRETIVE STATEMENTS: Normal sinus rhythm Nonspecific ST and T wave abnormality Abnormal ECG Compared to ECG 02/19/2019 15:02:57 ST (T wave) deviation now present Electronically Signed On 07-23-20 13:59:11 OSTRICH FARMER by Maynor Holt
--- NOTE | 2020-07-25 08:47 | ECHO ---
HEIGHT: 5 ft 2 in WEIGHT: 126 lb 14.4 oz DATE OF STUDY: 07/22/[address]: Israel Randhawa 2-DIMENSIONAL: YES M.MODE: YES DOPPLER: YES COLOR FLOW: YES TDS: PORTABLE: DEFINITY: BUBBLE STUDY: DIAGNOSIS: STROKE CARDIAC HISTORY: CATHERIZATION: NO SURGERY: NO PROSTHETIC VALVE: NO PACEMAKER: NO MEASUREMENTS (cm) DIASTOLIC (NORMALS) SYSTOLIC (NORMALS) IVSd 1.2 (0.6-1.2) LA Diam 3.9 (1.9-4.0) LVEF 52% LVIDd 4.9 (3.5-5.7) LVIDs 3.6 (2.0-3.5) %FS 27% LVPWd 1.3 (0.6-1.2) Ao Diam (2.0-3.7) 2 DIMENSIONAL ASSESSMENT: RIGHT ATRIUM: NORMAL LEFT ATRIUM: NORMAL RIGHT VENTRICLE: NORMAL LEFT VENTRICLE: LEFT VENTRICULAR HYPERTROPHY TRICUSPID VALVE: NORMAL MITRAL VALVE: MITRAL ANNULAR CALCIFICATION PULMONIC VALVE: NORMAL AORTIC VALVE: STENOTIC PERICARDIAL EFFUSION: NONE AORTIC ROOT: NORMAL LEFT VENTRICULAR WALL MOTION: DIASTOLIC DYSFUNCTION DOPPLER/COLOR FLOW: SEVERE AORTIC STENOSIS COMMENTS: SEVERE AORTIC STENOSIS - 1.0 CENTIMETERS SQUARED. MITRAL ANNULAR CALCIFICATION. DECREASED LEFT VENTRICULAR COMPLIANCE. LEFT VENTRICULAR HYPERTROPHY. TECHNOLOGIST: JANESSA GREGORY
== END 2020-07-22 16:50 | disposition home or self-care (01) | DRG 65 ==
LOC: ER 11:53 → ERHOLD 20:13 → 2ND 21:30
PROVIDERS: ADMIT Internal Medicine; ATTEND Internal Medicine
DX: I63.30 Cerebral infarction due to thrombosis of unspecified cerebral artery (principal); G81.91 Hemiplegia, unspecified affecting right dominant side; I12.9 Hypertensive chronic kidney disease with stage 1 through stage 4 chronic kidney disease, or unspecified chronic kidney disease; N18.9 Chronic kidney disease, unspecified; G89.29 Other chronic pain; M54.9 Dorsalgia, unspecified; E78.5 Hyperlipidemia, unspecified; R29.700 NIHSS score 0; R53.1 Weakness; Z85.46 Personal history of malignant neoplasm of prostate; Z79.899 Other long term (current) drug therapy; Z79.82 Long term (current) use of aspirin; Z79.02 Long term (current) use of antithrombotics/antiplatelets; Z20.828 Contact with and (suspected) exposure to other viral communicable diseases
CPT/HCPCS: 36415; 70450; 70544; 70551; 71045; 80048; 80061; 82947; 83735; 84100; 84436; 84443; 85025; 85610; 85730; 93005; 93306; 94760; 96361; 96365; 96375; 97116; 97161; 99285; J1650; J7030; J7040; U0003

== ENCOUNTER 2021-02-27 14:18 | Inpatient (IN) | payer OTHER ==
--- OUTSIDE RECORDS SUMMARY | 2021-02-27 14:20 | XMS REPORT | Continuity of Care Document ---
:1930 Author Organization [facility] t Address [address] [place] [address] Care Team Providers Name Role Phone Cely Delgado Primary Care Physician Jose KELLER, A Attending Clinician Doctor Unassigned, Name Attending Clinician Unavailable 1, Lab Attending Clinician Unavailable KATHERINE TAM Attending Clinician Unavailable Jose KELLER, A Admitting Clinician KATHERINE TAM Admitting Clinician Unavailable Problems Condition Condition Condition Status Onset Resolution Last Treating Co mments Source Name Details Category Date Date Treatment Clinician Date Dizziness Dizziness Disease Active [facility] 4[facility]13 [facility]: [facility] Allergies, Adverse Reactions, Alerts This patient has no known allergies or adverse reactions. Social History Social Habit Start Date Stop Date Quantity Comments Source Sex Assigned At [facility] History [facility] Std Dr[facility] - [facility] Binge Medical [facility] Tobacco use and 2018-11-16 2018-11-16 Never used [facility] k[facility] - exposure 00:00:00 00:00:00 Medical Center Alcohol intake 2018-11-16 2018-11-16 Current [facility] es - 00:00:00 00:00:00 non-drinker of Medical Ce nter alcohol (finding) History [facility] 2018-11-16 2018-11-[address] [facility] - Alcohol Frequency 00:00:00 00:00:00 [facility] Center Smoking Status Start Date Stop Date Source [facility] [place] Medications Ordered Filled Start Stop Current Ordering Indication Dosage Frequency Signature Comments Components Source Medication Medication Date Date Medication? Clinician (SIG) Name Name carboxymeth Yes 1[drp] Place [address] ylcellulose 4-19 drop into Freddy es - (REFRESH 00:00: both eyes [facility]i [facility] PL[facility]) 0.5 % 00 3 (three) [address] ter Dpet times ophthalmic daily as solution needed. Procedures This patient has no known procedures. [...] 00:00:00 (1 of 1 - Medical Center [id number] PCV13) [code = PNEUMOCOCCAL 65+ YRS (1 of 1 - [id number] PCV13)] Encounters Start End Encounter Admission Attending Care Care Encounter Source Date/Time Date/Time Type Type Clinicians Facility Department ID 2019-04-22 2019-04-22 [facility] [id number] 10:31:00 13:35:00 Encounter Roland Mcneil [id number] [place] [id number] Surgical [id number] [place] [id number] 2019-04-22 2019-04-22 Orders Doctor WILFREDO [id number] 00:00:00 00:00:00 Only Unassigned, YUNIEL [id number] [facility] [id number] 2019-04-15 2019-04-15 Reference Services Head 1, Adc Lab [facility] [id number] 10:53:27 11:08:27 Visit Tarun [id number] [place] [id number] [place] [id number] Results Test Description Test Time Test [...] code 9.1 mg/dL 8.4-10.2 = 697) EGFR (BEAKER) (test code = 48 mL/min/1.73 sq m ESTIMATED GFR IS NOT 1092) ACCURATE CRE ATININE CLEARANCE IN [place] EDICTING GLOMERULAR FILT RATION RATE. ESTIMATED GFR IS NOT APPLICABLE FOR DIALYSIS PATIENTS. CT, [id number] 04:16:00FINAL REPORT CLINICAL HISTORY: Abnormal findings on [...] MDReport Verified Date/Time: 11/18/2018 04:16:41 Reading Location: [address] Reading Room SODIUM, RANDOM [id number] 14:14:00 Test Item Value Reference Range Interpretation Comments SODIUM URINE (BEAKER) (test code = 56 meq/L 243) Reference Range: No NormalsCREATININE, RANDOM [id number] 14:14:00 Test Item Value Reference Range Interpretation Comments CREATININE URINE (BEAKER) (test 53.5 mg/dL code = 375) Reference Range: No NormalsCOMPREHENSIVE METABOLIC [id number] 07:16:00 Test Item Value Reference Range Interpretation [...] FOR DIALYSIS PATIEN TS. FastingSpecimen slightly ictericLIPID [id number] 06:27:00 Test Item Value Reference Range Interpretation [...] = 2795) CBC W/PLT COUNT & AUTO [id number] 04:59:00 Test Item Value Reference Range Interpretation [...] (BEAKER) (test code = 2801) U/S, RENAL, [id number] 00:34:00Reason for exam:->AKIAddendum BeginsREPORT STATUS:A Polynephritis cannot be excluded based on provided images. Recommend CT abdomen and pelvis with contrast when clinically feasible. Signed: Master Mike MDReport Verified Date/Time: 11/17/2018 00:34:57 Reading Location: [address] Neuro Reading RoomAddendum EndsFINAL REPORT U/S, [...] may be obtained if desired. Signed: Master Woody Verified Date/Time: 11/16/2018 23:39:50 Reading Location: [address] Neuro Reading Room TSH/FREE T4 IF [id number] 12:37:00 Test Item Value Reference Range Interpretation Comments THYROID STIMULATING HORMONE 1.04 uIU/mL 0.35-4.94 (BEAKER) (test code = 772) TROPONIN [id number] 11:53:00 Test Item Value Reference Range Interpretation [...] acidosis, acute neurological disease, and persistent tachyarrhythmia.URINALYSIS [id number] 06:04:00 Test Item Value Reference Range Interpretation Comments RBC UA (BEAKER) (test code = 519) 1 /HPF WBC UA (BEAKER) (test code = 520) 76 /HPF BACTERIA (BEAKER) (test code = 517) Rare URINALYSIS WITH MICROSCOPIC IF [id number] 06:03:00 Test Item Value Reference Range Interpretation [...] (test code = 2795) RAPID DRUG SCREEN, [id number] 06:00:00 Test Item Value Reference Range Interpretation [...] situations. Chain of custody not maintained. Some [id number]-ztgjnfm medications, as well as adulterants, may cause inaccurate results. Clinical correlation should be applied. A more comprehensive drug screen or confirmation of a detected drug may be performed upon request. BASIC METABOLIC [id number] 03:52:00 Test Item Value Reference Range Interpretation [...] FOR DIALYSIS PATIEN TS. Specimen slightly ictericTROPONIN [id number] 03:52:00 Test Item Value Reference Range Interpretation [...] code = 2801) MR, MRA, BRAIN, WITHOUT [id number] 02:09:00Reason for exam:->Ischemic Stroke EvaluationFINAL REPORT MR, [...] Normal flow-related enha ncement within the bilateral WEIGHER AND GRADER P1-P2 segments without flow-limiting stenosisAdditional findings: None. MRA NECK:Common carotid arteries: Unremarkable. Bifurcations: No flow-limiting stenosis. Cervical internal carotid arteries: No flow limiting stenosis.Vertebral arteries: Normal flow-related enhancement bilaterally. Mild focal stenosis of the mid right cervical vertebral artery. IMPRESSION: No acute stroke No flow limiting stenosis within the head or neck Signed: Master Mike MDReport Verified Date/Time: 11/16/2018 02:09:12 Reading Location: [address] Neuro Reading Room Electronically s igned by: MASTER MIKE MD on 11/16/2018 02:09 AMMR, MRA, NECK, WITHOUT IV [id number] 02:09:00Reason for exam:->Ischemic Stroke EvaluationFINAL REPORT MR, [...] arteries: Normal flow-related enhancement within the bilateral WEIGHER AND GRADER P1-P2 segments without flow-limiting stenosisAdditional findings: None. MRA NECK:Common carotid arteries: Unremarkable. Bifurcations: No flow-limiting stenosis. Cervical internal carotid arteries: No flow limiting stenosis.Vertebral arteries: Normal flow-related enhancement bilaterally. Mild focal stenosis of the mid right cervical vertebral artery. IMPRESSION: No acute stroke No flow limiting stenosis within the head or neck Signed: Master Mike MDReport Verified Date/Time: 11/16/2018 02:09:12 Reading Location: [address] Neuro Reading Room Electronically s igned by: MASTER MIKE MD on 11/16/2018 02:09 AMMR, BRAIN, WITHOUT [id number] 02:09:00Reason for exam:->Ischemic Stroke EvaluationFINAL REPORT MR, [...] arteries: Normal flow-related enhancement within the bilateral WEIGHER AND GRADER P1-P2 segments without flow-limiting stenosisAdditional findings: None. MRA NECK:Common carotid arteries: Unremarkable. Bifurcations: No flow-limiting stenosis. Cervical internal carotid arteries: No flow limiting stenosis.Vertebral arteries: Normal flow-related enhancement bilaterally. Mild focal stenosis of the mid right cervical vertebral artery. IMPRESSION: No acute stroke No flow limiting stenosis within the head or neck Signed: Master Mike MDReport Verified Date/Time: 11/16/2018 02:09:12 Reading Location: [facility] C013V Neuro Reading Room Electronically s igned by: MASTER MIKE MD on 11/16/2018 02:09 AM
--- NOTE | 2021-02-27 15:15 | RAD REPORT ---
EXAM DESCRIPTION: CT - Head Brain Wo Cont - 02/27/2021 2:52 pm CLINICAL HISTORY: weakness, AMS COMPARISON: Ct Stroke Brain Wo Cont dated 07/21/2020 TECHNIQUE: Axial 5 mm thick images of the head were obtained without IV contrast. All CT scans are performed using dose optimization technique as appropriate and may include automated exposure control or mA/KV adjustment according to patient size. FINDINGS: No intracranial hemorrhage, mass, edema or shift of mid-line structures. No acute infarcti on changes seen. Moderate severity atrophy and chronic ischemic changes match the July 2020 study . Ventricles are in proportion to the volume loss. Dense arterial tree calcifications are present. Mastoid air cells and visualized portions of the paranasal sinuses are clear. No acute bony findings. IMPRESSION: Negative non-contrast CT head examination for acute finding. Atrophy and chronic ischemic changes are present matching comparison. Chronic ischemic changes can mask nonhemorrhagic acute infarction. MR brain followup can be obtained if there is ongoing concern for acute ischemia.
[2021-02-27 15:34] LABS: Urine Blood 2+ (Negative); Urine Glucose Negative (Negative); Urine Protein 2+ (Negative); Urine Specific Gravity 1.015 (1.005-1.030)
[2021-02-27] MEDS ORDERED: NA CHLORIDE 0.9% 1,000 ML ONE (15:49)
--- NOTE | 2021-02-27 16:09 | RAD REPORT ---
EXAM DESCRIPTION: RAD - Chest Single View - 02/27/2021 3:56 pm CLINICAL HISTORY: AMS COMPARISON: Portable July 2020 TECHNIQUE: AP portable chest image was obtained 02/27/2021 3:56 pm . FINDINGS: No acute lung parenchymal process seen. Chronic interstitial pattern is similar to the com parison imaging. Heart and vasculature are normal. No measurable pleural effusion and no pneumothorax . No acute bony abnormality seen. No acute aortic findings suspected. IMPRESSION: No acute cardiopulmonary process. No significant change from comparison study.
[2021-02-27 16:12] LABS: Urine Amorphous Sediment 3+ /HPF (NONE SEEN); Urine Bacteria >50 /HPF (NONE SEEN)
[2021-02-27] MEDS ORDERED: CEFTRIAXONE/SWI 1gm 1 GM/10 ML SYR ONE (16:26)
[2021-02-27 16:28] LABS: Magnesium 2.9 mg/dL (1.8-2.4); Potassium 3.5 mmol/L (3.5-5.1); Thyroid Stimulating Hormone 2.47 uIU/mL (0.360-3.740)
[2021-02-27 16:54] LABS: Absolute Lymphocytes (CBC) 0.4 K/uL (0.7-4.9); Basophils % 0.1 % (0-1.3); Hematocrit 39.9 % (39.6-49.0); Lymphocytes % 2.9 % (15.3-44.8); MPV 7.6 fL (7.6-11.3); RBC Red Blood Cell Count 4.35 M/uL (4.33-5.43)
[2021-02-27] MEDS ORDERED: ONDANSETRON 4 MG/2 ML VIAL IV PRN (17:15)
--- NOTE | 2021-02-27 17:25 | P.HP ---
Certification for Inpatient Patient admitted to: Inpatient With expected LOS: >2 Midnights Practitioner: I am a practitioner with admitting privileges, knowledge of patient current condition, hospital course, and medical plan of care. Services: Services provided to patient in accordance with Admission requirements found in Title 42 Section 412.3 of the Code of Federal Regulations Patient History Date of Service: 02/27/21 Reason for admission: failure to thrive, PIERCE on CKD, UTI History of Present Illness: 89yo M , PMH: anemia, HTN, HLD, Chronic back pain, anxiety, prior CVA. Brought in by EMS due to decreased responsiveness, weakness, failure to thrive. Patient is unable to communicate clearly/effectively, mumbling one word at a time, takes multiple questioning to get an answer over several minutes. Family unreachable. Reportedly patient had not eaten for several days, found at home without electricity, had appearance of a foreclosed home. Patient unable to answer review of symptoms or provide HPI. In the ED, found to have a leukocytosis, anemia, elevated BUN and creatinine, with significant cachexia, chest x-ray unremarkable. UA concerning for UTI. He received IV fluid and Rocephin. Vital signs within normal limits/stable. Allergies No Known Allergies Allergy (Verified 07/21/20 21:51) Home Medications: Aspirin [Aspirin EC 81 MG] 81 mg PO DAILY #30 tablet. 07/22/20 Atorvastatin Calcium [Lipitor] 40 mg PO BEDTIME #30 tab 07/22/20 Clopidogrel Bisulfate [Plavix*] 75 mg PO DAILY #30 tablet 07/22/20 - Past Medical/Surgical History Diabetic: No -: Anemia -: Anxiety -: BPh -: Chronic Back Pain -: Hyperlipidemia -: Htn Past Surgical History: Unable to obtain - Family History Mother -: Hypertension - Social History Smoking Status: Unknown if ever smoked Alcohol use: No CD- Drugs: No Caffeine use: Yes Review of Systems is unable to be obtained Physical Examination - Physical Exam General: Alert, Oriented x1 (self only), Cachectic (severe), Disheveled HEENT: Other (mucous membranes dry), Sclerae nonicteric Respiratory: Clear to auscultation bilaterally, Normal air movement Cardiovascular: No edema, Regular rate/rhythm, Normal S1 S2 Capillary refill: <2 Seconds Gastrointestinal: Soft and benign, Non-distended, No tenderness Musculoskeletal: No swelling, No erythema Integumentary: No rashes, No erythema Neurological: Other (mumbled speech, slow to respond, only 1-2 words at a time, difficult to make out what he is saying. not following commands) - Studies Laboratory Data (last 24 hrs) 02/27/21 16:47: WBC 13.50 H, Hgb 13.0 L, Hct 39.9, Plt Count 174 02/27/21 15:30: Sodium 141, Potassium 3.5, BUN 104 H, Creatinine 4.19 H, Glucose 76, Magnesium 2.9 H Assessment and Plan - Advance Directives Does patient have a Living Will: No Does patient have a Durable POA for Healthcare: No Physician Review Additional Text: Problem List UTI, acute cystitis PIERCE on CKD3 Failure to thrive cachexia HTN HLD prior CVA -pt very cachectic, weak, and dry appearing -received some IVF in ED, will continue with gentle IVF at this time -suspect PIERCE secondary to prerenal - dehydration. nephrology consulted -patient nods yes to some questions, answered yes to code status. family unreachable, full code for now -continue rocephin for UTI -f/u cultures -pt does not appear septic -monitor on telemetry VTE: lovenox Code: full Dispo: anticipate hospitalization > 2days would likely benefit from SNF Time Spent Managing Pts Care (In Minutes): 60
[2021-02-27] MEDS: D5 0.45 NS 1,000 ML IV SCH (23:50)
[2021-02-28 06:46] LABS: Absolute Lymphocytes (CBC) 0.2 K/uL (0.7-4.9); Basophils % 0.5 % (0-1.3); Hematocrit 42.1 % (39.6-49.0); MPV 7.7 fL (7.6-11.3); RBC Red Blood Cell Count 4.57 M/uL (4.33-5.43)
[2021-02-28 07:23] LABS: Albumin 2.6 g/dL (3.4-5.0); Bilirubin Total 0.6 mg/dL (0.2-1.0); Magnesium 2.8 mg/dL (1.8-2.4); Phosphorus 4.9 mg/dL (2.5-4.9); Potassium 3.2 mmol/L (3.5-5.1); Protein, Total 5.9 g/dL (6.4-8.2); Uric Acid 13.7 mg/dL (3.5-7.2)
--- NOTE | 2021-02-28 08:00 | EKG ---
Test Date: 2021-02-27 Test Time: 15:20:55 Floor Inspector: AMADO MEASUREMENT RESULTS: Intervals: Rate: 78 DC: 166 QRSD: 94 QT: 400 QTc: 456 [place]: P: 77 DC: 166 QRS: -6 T: 86 INTERPRETIVE STATEMENTS: Normal sinus rhythm Normal ECG Compared to ECG 07/21/2020 12:48:13 ST (T wave) deviation no longer present Electronically Signed On 02-28-21 07:57:46 CDT by Maynor Holt
--- NOTE | 2021-02-28 08:14 | P.CNS ---
Date of Consult: 02/28/21 Reason for Consult: PIERCE/ CKD Requesting Physician: Terry Luciano Chief Complaint: failure to thrive, PIERCE on CKD, UTI History of Present Illness: 89 yo HM HTN presented to the ER with several days of severe, progressive unresponsiveness in the setting of anorexia. He hasn't been seen in our office in quite some time and appears to have lost much weight. Limited IH/ ROS due to AMS. 89yo M , PMH: anemia, HTN, HLD, Chronic back pain, anxiety, prior CVA. Brought in by EMS due to decreased responsiveness, weakness, failure to thrive. Patient is unable to communicate clearly/effectively, mumbling one word at a time, takes multiple questioning to get an answer over several minutes. Family unreachable. Reportedly patient had not eaten for several days, found at home without electricity, had appearance of a foreclosed home. Patient unable to answer review of symptoms or provide HPI. Allergies No Known Allergies Allergy (Verified 07/21/20 21:51) Home medications list reviewed: Yes Home Medications: Aspirin [Aspirin EC 81 MG] 81 mg PO DAILY #30 tablet. 07/22/20 Atorvastatin Calcium [Lipitor] 40 mg PO BEDTIME #30 tab 07/22/20 Clopidogrel Bisulfate [Plavix*] 75 mg PO DAILY #30 tablet 07/22/20 - Past Medical/Surgical History Diabetic: No -: Anemia -: Anxiety -: BPh -: Chronic Back Pain -: Hyperlipidemia -: Htn - Family History Mother Medical History: Hypertension Notes: unable to obtain hx - Social History Alcohol use: No CD- Drugs: No Caffeine use: Yes Review of Systems 10-point ROS is otherwise unremarkable General: Weakness, Malaise Neurological: Weakness, Change in Speech Physical Examination Temp Pulse Resp BP Pulse Ox 97.6 F 72 17 103/56 L 100 02/28/21 04:00 02/28/21 04:00 02/28/21 04:00 02/28/21 04:00 02/28/21 04:00 General: Cooperative, Confused HEENT: Atraumatic Neck: Supple Respiratory: Clear to auscultation bilaterally Cardiovascular: No edema, Regular rate/rhythm Gastrointestinal: Soft and benign, Non-distended Musculoskeletal: No clubbing, No contractures Integumentary: No rashes, No cyanosis Neurological: Normal speech Laboratory Data (last 24 hrs) 02/27/21 16:47: WBC 13.50 H, Hgb 13.0 L, Hct 39.9, Plt Count 174 02/27/21 15:30: Sodium 141, Potassium 3.5, BUN 104 H, Creatinine 4.19 H, Glucose 76, Magnesium 2.9 H Imagings Data: EXAM DESCRIPTION: RAD - Chest Single View - 02/27/2021 3:56 pm CLINICAL HISTORY: AMS COMPARISON: Portable July 2020 TECHNIQUE: AP portable chest image was obtained 02/27/2021 3:56 pm . FINDINGS: No acute lung parenchymal process seen. Chronic interstitial pattern is similar to the comparison imaging. Heart and vasculature are normal. No measurable pleural effusion and no pneumothorax. No acute bony abnormality seen. No acute aortic findings suspected. IMPRESSION: No acute cardiopulmonary process. No significant change from comparison study. EXAM DESCRIPTION: CT - Head Brain Wo Cont - 02/27/2021 2:52 pm CLINICAL HISTORY: weakness, AMS COMPARISON: Ct Stroke Brain Wo Cont dated 07/21/2020 TECHNIQUE: Axial 5 mm thick images of the head were obtained without IV contrast. All CT scans are performed using dose optimization technique as appropriate and may include automated exposure control or mA/KV adjustment according to patient size. FINDINGS: No intracranial hemorrhage, mass, edema or shift of mid-line structures. No acute infarction changes seen. Moderate severity atrophy and chronic ischemic changes match the July 2020 study. Ventricles are in proportion to the volume loss. Dense arterial tree calcifications are present. Mastoid air cells and visualized portions of the paranasal sinuses are clear. No acute bony findings. IMPRESSION: Negative non-contrast CT head examination for acute finding. Atrophy and chronic ischemic changes are present matching comparison. Chronic ischemic changes can mask nonhemorrhagic acute infarction. MR brain followup can be obtained if there is ongoing concern for acute ischemia. Conclusions/Impression: PIERCE likely hypovolemia CKD III with proteinuria -Increase IVF 100ml/hr Hypokalemia -Replete potassium Hypocalcemia -Start Vitamin D3 Hyperuricemia -Continue IVF HTN with CKD -Monitor BP Moderate malnutrition -Encourage nutrition -Agree with protein supplementation BPH with LUTS -Continue herrera Acute cystitis -Continue Rocephin -Follow up culture Thank you kindly for the consultation.
[2021-02-28 08:17] LABS: Blood Morphology Comment NOT SEEN (NOT SEEN); Platelet Estimate ADEQ; White Blood Cell Scan OK (OK)
[2021-02-28] MEDS: CEFTRIAXONE/SWI 1gm 1 GM/10 ML SYR IV SCH (08:38)
[2021-02-28] MEDS ORDERED: CEFTRIAXONE 1 GM/NS 50 ML 1 GM/50 ML BAG IV SCH (09:00)
[2021-02-28] MEDS ORDERED: ENOXAPARIN 30 MG/0.3 ML SQ SCH (09:00)
[2021-02-28] MEDS: D5 0.45 NS 1,000 ML IV SCH ×3 (14:00→23:13)
--- NOTE | 2021-02-28 16:55 | P.PN ---
Subjective Date of Service: 02/28/21 Chief Complaint: failure to thrive, PIERCE on CKD, UTI Patient seen resting comfortably. Respond only occasionally to questions. He is awake. Blood cultures growing Gram positive cocci. Physical Examination - Vital Signs Temperature: 97.3 F Blood Pressure: 133/71 Pulse: 81 Respirations: 18 Pulse Ox (%): 99 - Physical Exam General: In no apparent distress, Cachectic, Other (Awake.) HEENT: Mucous membr. moist/pink Neck: JVD not distended Respiratory: Clear to auscultation bilaterally, Normal air movement Cardiovascular: No edema, Regular rate/rhythm, Normal S1 S2 Gastrointestinal: Soft and benign, Non-distended, No tenderness Musculoskeletal: No swelling, No erythema Integumentary: No rashes Neurological: Normal strength at 5/5 x4 extr Urinary: Whiteside catheter - Studies Laboratory Data (last 24 hrs) 02/27/21 16:47: WBC 13.50 H, Hgb 13.0 L, Hct 39.9, Plt Count 174 Microbiology Data (last 24 hrs): 02/27/21 15:15 Blood - Blood Blood Culture Gram Stain - Final Assessment And Plan Physician Review Additional Text: Problem List UTI, acute cystitis PIERCE on CKD3 Failure to thrive cachexia HTN HLD prior CVA -pt very cachectic. -continue IV fluid. -Patient seen by nephrology who is assisting with management of PIERCE. -suspect PIERCE secondary to prerenal. -continue empiric IV Rocephin for UTI -blood culture growing Gram positive cocci -1 blood culture set is growing Gram positive cocci. -will cover Gram positive cocci bacteremia with a shot of vancomycin. -pharmacy to renally dose vanco. -pt does not appear septic -monitor on telemetry -social service to assist with disposition. Code: full Dispo: anticipate hospitalization > 2days
[2021-02-28] MEDS ORDERED: POTASSIUM 25 MEQ EFFERV TAB PO ONE (17:00)
--- NOTE | 2021-02-28 17:29 | EDPHYS ---
Physician Documentation [facility] Name: Oc King Age: 89 yrs Sex: Male : 1930 Arrival Date: 02/27/2021 Time: 14:25 Bed 27 Private MD: Bandar Delgado ED Physician Giancarlo Luciano HPI: 02/27 14:46 This 89 yrs old Male presents to ER via EMS with complaints of Weakness. rn 14:46 The patient presents with decreased responsiveness. Onset: The symptoms/episode rn began/occurred at an unknown time. Possible causes: unknown. Associated signs and symptoms: Pertinent positives: weakness, Pertinent negatives: shortness of breath, vomiting. Current symptoms: In the emergency department the patient's symptoms are unchanged from the initial presentation. It is unknown whether or not the patient has had similar symptoms in the past. It is unknown whether or not the patient has recently seen a physician. Per EMS report, son called 911 for decreased responsiveness and altered mental status, son states not eating or drinking for the last 4 days, also not taking any of his medication. Patient denies any focal pain or injury.. Historical: - Allergies: 14:29 No Known Allergies; ld1 - PMHx: 14:29 Anemia; Anxiety; chronic back pain; chronic kidney disease; Hyperlipidemia; ld1 nephrogenous proteinuria; Hypertension; benign prostate hypertrophy; Prostate Cancer; osteoarthritis; - Immunization history:: Adult Immunizations up to date. - Social history:: Smoking status: Patient denies any tobacco usage or history of. - Family history:: not pertinent. - Hospitalizations: : No recent hospitalization is reported. - History obtained from: EMS. ROS: 14:46 Constitutional: Negative for fever, chills, and weight loss, Eyes: Negative for injury, rn pain, redness, and discharge, ENT: Negative for injury, pain, and discharge, Neck: Negative for injury, pain, and swelling, Cardiovascular: Negative for chest pain, palpitations, and edema, Respiratory: Negative for shortness of breath, cough, wheezing, and pleuritic chest pain, Abdomen/GI: Negative for abdominal pain, nausea, vomiting, diarrhea, and constipation, Back: Negative for injury and pain, : Negative for injury, bleeding, discharge, and swelling, MS/Extremity: Negative for injury and deformity, Neuro: Negative for headache, numbness, tingling, and seizure. Exam: 14:46 Constitutional: Very cachectic male, somnolent, awakens to tactile stimulation rn Head/Face: Normocephalic, atraumatic. Eyes: Sunken eyes, no periorbital trauma or swelling ENT: Extremely dry mucous membranes, no stridor Cardiovascular: Regular rate and rhythm Respiratory: No increased work of breathing, no retractions or nasal flaring. Abdomen/GI: Scaphoid abdomen, no focal tenderness Skin: Dry skin with poor turgor, no cyanosis MS/ Extremity: Pulses equal, no cyanosis. Neuro: Patient somnolent, awakens to voice and tactile stimulation, GCS 15. Strength 3+ out of 5 in all 4 extremities. 15:26 ECG was reviewed by the Attending Physician. rn Vital Signs: 14:27 BP 118 / 66; Pulse 80; Resp 18; Temp 97.9(O); Pulse Ox 98% on R/A; Weight 45.36 kg; ld1 Height 5 ft. 5 in. (165.10 cm); Pain 0/10; 14:29 BP 118 / 66; Pulse 76; Resp 18; Pulse Ox 98% ; ld1 15:35 BP 144 / 76; Pulse 82; Resp 18; Pulse Ox 97% on R/A; ld1 14:27 Body Mass Index 16.64 (45.36 kg, 165.10 cm) ld1 MDM: 14:33 Patient medically screened. rn 16:20 Differential Diagnosis: electrolyte abnormality, pneumonia, UTI, volume depletion. Data rn reviewed: vital signs, nurses notes, lab test result(s), radiologic studies, CT scan, plain films, and as a result, I will admit patient. Counseling: I had a detailed discussion with the patient and/or guardian regarding: the historical points, exam findings, and any diagnostic results supporting the discharge/admit diagnosis, lab results, radiology results, the need for further work-up and treatment in the hospital. Response to treatment: the patient's symptoms have mildly improved after treatment, and as a result, I will admit patient. Admission orders: after a detailed discussion of the patient's condition and case, the admit orders are written by me. 02/27 14:43 Order name: CBC with Diff rn 02/27 14:43 Order name: Basic Metabolic Panel rn 02/27 14:43 Order name: Urine Culture rn 02/27 14:43 Order name: Urine Microscopic Only; Complete Time: 16:17 rn 02/27 14:43 Order name: BNP rn 02/27 14:43 Order name: TSH rn 02/27 14:43 Order name: T4 Free rn 02/27 14:43 Order name: Blood Culture Adult (2) rn 02/27 14:43 Order name: Procalcitonin rn 02/27 14:43 Order name: Lactate; Complete Time: 16:17 rn 02/27 14:44 Order name: Magnesium 02/27 15:34 Order name: Urine Dipstick-Ancillary; Complete Time: 15:36 EDND 02/27 17:18 Order name: Comprehensive Metabolic Panel [facility] 02/27 14:43 Order name: CT Head Brain wo Cont; Complete Time: 15:36 02/27 14:43 Order name: EKG; Complete Time: 14:43 rn 02/27 14:43 Order name: XRAY Chest (1 view); Complete Time: 16:17 02/27 17:15 Order name: CONS Physician Consult [facility] 02/27 17:18 Order name: Physical Therapy Consult [facility] 02/27 17:18 Order name: Comprehensive Metabolic Panel [facility] 02/27 17:18 Order name: Magnesium [facility] 02/27 17:18 Order name: Magnesium [facility] 02/27 17:18 Order name: Phosphorus [facility] 02/27 17:18 Order name: Phosphorus [facility] 02/27 17:18 Order name: NPO [facility] 02/27 17:18 Order name: CBC with Automated Diff [facility] 02/27 17:18 Order name: CBC with Automated Diff [facility] 02/27 17:27 Order name: SARS-COV-2 RT PCR [facility] 02/27 14:43 Order name: IV Start; Complete Time: 14:43 rn 02/27 14:43 Order name: Urine Dipstick-Ancillary (obtain specimen); Complete Time: 15:35 rn 02/27 14:43 Order name: EKG - Nurse/Tech; Complete Time: 15:35 02/27 16:04 Order name: Labs - recollect needed: recollect CBC please, specimen clotted; Complete em1 Time: 17:03 02/27 17:18 Order name: Dietitian Consult EDND EC: Rate is 78 beats/min. Rhythm is regular. QRS [place] is Normal. [place] interval is normal. QRS rn interval is normal. QT interval is normal. No Q waves. T waves are Normal. No ST changes noted. Clinical impression: Normal ECG. Interpreted by me. Reviewed by me. Administered Medications: 15:35 Drug: NS 0.9% 1000 ml Route: IV; Rate: 1000 ml; Site: left forearm; ld1 16:05 Drug: Rocephin (cefTRIAXone) 1 grams Route: IV; Rate: calculated rate; Site: left ld1 femoral; Disposition Summary: 02/27/21 16:22 Hospitalization Ordered Hospitalization Status: Inpatient Admission rn Provider: Terry Luciano rn Location: Telemetry/MedSurg (Inpatient) rn Condition: Stable rn Problem: new rn Symptoms: have improved rn Bed/Room Type: Standard rn Room Assignment: 208(02/27/21 17:59) em1 Diagnosis - UTI/ Urinary tract infection, site not specified rn - Altered mental status, unspecified rn - Dehydration rn Forms: - Medication Reconciliation Form rn - SBAR form rn Signatures: Dispatcher [employer] EDND Giancarlo Luciano MD MD rn Martinez, Eric em1 Lesvia Edwards RN RN ld1 Corrections: (The following items were deleted from the chart) 14: 14:29 Home Meds: amlodipine 5 mg tab 1 tab once daily; ld1 ld 14:31 14:29 Home Meds: aspirin 81 mg Oral chew 1 tab once daily; ld1 ld 14:31 14:29 Home Meds: atorvastatin 80 mg Oral tab 1 tab once daily; ld1 ld 14:31 14:29 Home Meds: calcimate plus 800 mg daily; ld1 ld 14:31 14:29 Home Meds: isosorbide mononitrate 30 mg Oral Tb24 1 tab once daily; 1 ld1 16:23 14:44 CORONAVIRUS+MR.LAB.NIMOZ ordered. EDND EDMS 17:59 16:22 rn em1
--- NOTE | 2021-02-28 17:29 | ER ---
Nurse's Notes [facility] Name: Oc King Age: 89 yrs Sex: Male : 1930 Arrival Date: 02/27/2021 Time: 14:25 Bed 27 Private MD: Bandar Delgado Diagnosis: UTI/ Urinary tract infection, site not specified;Altered mental status, unspecified;Dehydration Presentation: 02/27 14:27 Chief complaint: EMS states: toned out for generalized weakness. Son stated he has not ld1 been eating for the past four days. Coronavirus screen: At this time, the client does not indicate any symptoms associated with coronavirus-19. Ebola Screen: No symptoms or risks identified at this time. No acute neurological deficit is noted. 14:27 Method Of Arrival: EMS: [facility] ld1 14:29 Initial Sepsis Screen: Does the patient meet any 2 criteria? No. Patient's initial ld1 sepsis screen is negative. Does the patient have a suspected source of infection? No. Patient's initial sepsis screen is negative. Risk Assessment: Do you want to hurt yourself or someone else? Patient reports no desire to harm self or others. Onset of symptoms was February 27, 2021. 14:29 Acuity: AUTUMN 3 ld1 Triage Assessment: 14:29 General: Appears in no apparent distress. comfortable, Behavior is calm, cooperative, ld1 appropriate for age. Pain: Unable to use pain scale. Patient is unresponsive. EENT: No signs and/or symptoms were reported regarding the EENT system. Neuro: Level of Consciousness is awake, alert, obeys commands, Oriented to person, place, time, situation. Cardiovascular: Capillary refill < 3 seconds Patient's skin is warm and dry. Respiratory: Airway is patent Respiratory effort is even, unlabored, Respiratory pattern is regular, symmetrical. GI: Abdomen is flat, non-distended, Parent/caregiver reports the patient having intolerance of food, intolerance of fluids. : No signs and/or symptoms were reported regarding the genitourinary system. Derm: No signs and/or symptoms reported regarding the dermatologic system. Musculoskeletal: No signs and/or symptoms reported regarding the musculoskeletal system. Historical: - Allergies: 14:29 No Known Allergies; ld1 - PMHx: 14:29 Anemia; Anxiety; chronic back pain; chronic kidney disease; Hyperlipidemia; ld1 nephrogenous proteinuria; Hypertension; benign prostate hypertrophy; Prostate Cancer; osteoarthritis; - Immunization history:: Adult Immunizations up to date. - Social history:: Smoking status: Patient denies any tobacco usage or history of. - Family history:: not pertinent. - Hospitalizations: : No recent hospitalization is reported. - History obtained from: EMS. Screenin:32 Abuse screen: Denies threats or abuse. Denies injuries from another. Nutritional ld1 screening: No deficits noted. Tuberculosis screening: No symptoms or risk factors identified. Fall Risk None identified. Assessment: 14:32 Reassessment: See triage assessment. ld1 15:35 Reassessment: Patient appears in no apparent distress at this time. Patient and/or ld1 family updated on plan of care and expected duration. Pain level reassessed. Vital Signs: 14:27 BP 118 / 66; Pulse 80; Resp 18; Temp 97.9(O); Pulse Ox 98% on R/A; Weight 45.36 kg; ld1 Height 5 ft. 5 in. (165.10 cm); Pain 0/10; 14:29 BP 118 / 66; Pulse 76; Resp 18; Pulse Ox 98% ; ld1 15:35 BP 144 / 76; Pulse 82; Resp 18; Pulse Ox 97% on R/A; ld1 14:27 Body Mass Index 16.64 (45.36 kg, 165.10 cm) ld1 ED Course: 14:25 Patient arrived in ED. mr 14:25 Bandar Delgado DO is Private Physician. mr 14:27 Lesvia Edwards, RN is Primary Nurse. ld1 14:29 Triage completed. ld1 14:29 Arm band placed on right wrist. ld1 14:32 Patient has correct armband on for positive identification. Bed in low position. Call ld1 light in reach. Side rails up X2. pvc monitor on. Pulse ox on. NIBP on. Door closed. Noise minimized. Warm blanket given. 14:32 No provider procedures requiring assistance completed. ld1 14:32 Maintain EMS IV. Dressing intact. Good blood return noted. Site clean \T\ dry. Gauge \T\ ld 1 site: 20G LFA. 14:33 Giancarlo Luciano MD is Attending Physician. rn 14:52 CT Head Brain wo Cont In Process Unspecified. EDMS 15:56 XRAY Chest (1 view) In Process Unspecified. EDMS 16:22 Terry Luciano MD is Hospitalizing Provider. rn 19:47 Patient admitted, IV remains in place. intact, bleeding controlled, No redness/swelling ld1 at site. Administered Medications: 15:35 Drug: NS 0.9% 1000 ml Route: IV; Rate: 1000 ml; Site: left forearm; ld1 16:05 Drug: Rocephin (cefTRIAXone) 1 grams Route: IV; Rate: calculated rate; Site: left ld1 femoral; Outcome: 16:22 Decision to Hospitalize by Provider. rn 19:46 Admitted to Med/surg accompanied by tech, via stretcher, room 208, with chart, Report ld1 called to HERIBERTO Mckeon 19:46 Condition: stable 19:47 Patient left the ED. ld1 Signatures: Dispatcher [employer] EDSC Baljinder Susannah mr Giancarlo Luciano MD MD rn Dibbern, Lauren, RN RN ld1 Corrections: (The following items were deleted from the chart) 14:31 14:29 Home Meds: amlodipine 5 mg tab 1 tab once daily; ld1 ld1 14:31 14:29 Home Meds: aspirin 81 mg Oral chew 1 tab once daily; ld1 ld1 14:31 14:29 Home Meds: atorvastatin 80 mg Oral tab 1 tab once daily; ld1 ld1 14:31 14:29 Home Meds: calcimate plus 800 mg daily; ld1 ld1 14:31 14:29 Home Meds: isosorbide mononitrate 30 mg Oral Tb24 1 tab once daily; ld1 ld1 16:23 15:35 CORONAVIRUS+LABRanjithCHELSEA drawn and sent. ld1 EDMS
[2021-02-28] MEDS ORDERED: VANCOMYCIN 1 GM in NA CHLORIDE 0.9% 250 ML IVPB SCH (18:00)
[2021-02-28] MEDS ORDERED: VANCOMYCIN 500 MG in NA CHLORIDE 0.9% 100 ML IVPB SCH (18:00)
[2021-02-28] MEDS: JUVEN PACKET PO SCH (20:08)
[2021-02-28] MEDS: ENSURE ENLIVE 237 ML CAN PO SCH (20:08)
[2021-02-28] MEDS ORDERED: HEPARIN 5000 UNIT/ML 1 ML VIAL SQ SCH (21:00)
[2021-03-01 04:04] LABS: Absolute Lymphocytes (CBC) 0.3 K/uL (0.7-4.9); Basophils % 0.6 % (0-1.3); Hematocrit 36.7 % (39.6-49.0); Lymphocytes % 3.3 % (15.3-44.8); MPV 8.2 fL (7.6-11.3); RBC Red Blood Cell Count 3.98 M/uL (4.33-5.43)
[2021-03-01 04:17] LABS: Potassium 3.2 mmol/L (3.5-5.1)
[2021-03-01 06:38] LABS: Urine Protein/Creatinine Ratio 0.89 ratio (<0.15)
[2021-03-01] MEDS ORDERED: POTASSIUM 25 MEQ EFFERV TAB PO ONE (09:00)
[2021-03-01] MEDS: JUVEN PACKET PO SCH ×2 (09:00→21:00)
[2021-03-01] MEDS: ENSURE ENLIVE 237 ML CAN PO SCH ×3 (09:00→21:00)
--- NOTE | 2021-03-01 09:05 | P.PN ---
Date of Service: 03/01/21 Vital Signs Temp Pulse Resp BP Pulse Ox 97.1 F 63 14 92/55 L 98 03/01/21 08:00 03/01/21 08:00 03/01/21 08:00 03/01/21 08:00 03/01/21 08:00 Medications Acetaminophen (Acetaminophen 500 Mg Tab) 500 mg PO Q4HP PRN PRN Reason: TEMP > 100' F Cholecalciferol (Vitamin D 5,000 Unit Cap) 5,000 unit PO DAILY [facility] Heparin Sodium (Porcine) (Heparin 5000 Unit/Ml 1 Ml Vial) 5,000 unit SQ Q12HR [facility] Ceftriaxone Sodium/Sodium Chloride (Rocephin 1 Gm/10 Ml Swi Ivp) 1 gm in 10 mls @ 600 mls/min IV DAILY [facility] Last Admin: 02/28/21 08:38 Dose: 10 mls Documented by: Dextrose/Sodium Chloride (Dextrose 5% O.45% Saline) 1,000 mls @ 100 mls/hr IV .Q10H [facility] Last Admin: 02/28/21 23:13 Dose: 1,000 mls Documented by: Vancomycin HCl 500 mg/ Sodium (Chloride) 100 mls @ 100 mls/hr IVPB Q48H [facility] Last Admin: 02/28/21 18:13 Dose: 100 mls Documented by: L-Arginine/L-Glutamine/HMB (Douglas Packet) 1 pkt PO BID [facility] Last Admin: 02/28/21 20:08 Dose: 1 pkt Documented by: Nutritional Formula (Ensure Enlive 237 Ml Can) 237 ml PO TID [facility] Last Admin: 02/28/21 20:08 Dose: 237 ml Documented by: Ondansetron HCl (Ondansetron 4 Mg/2 Ml Vial) 4 mg IV Q6HP PRN PRN Reason: NAUSEA / VOMITING Sodium Chloride (Flush Normal Saline 10 Ml) 10 ml IV BID [facility] Last Admin: 02/28/21 20:08 Dose: Not Given Documented by: Microbiology Results 02/27/21 15:32 Catheterized Urine [place] Count - Preliminary >100,000 CFU/ML. 02/27/21 15:32 Catheterized Urine - Preliminary 02/27/21 15:15 Blood - Blood Aerobic Blood Culture - Preliminary 02/27/21 15:15 Blood - Blood Blood Culture Gram Stain - Final 02/27/21 15:15 Blood - Blood Anaerobic Blood Culture - Preliminary No growth in 24 hours. 02/27/21 15:30 Blood - Blood Aerobic Blood Culture - Preliminary 02/27/21 15:30 Blood - Blood Blood Culture Gram Stain - Preliminary 02/27/21 15:30 Blood - Blood Anaerobic Blood Culture - Preliminary No growth in 24 hours. Assessment/ Plan: Nephrology Feeling better today with improved appetite. Son reports that they have been trying to help him but he is stubborn and likes to do things his own way. CPS stable without CP or SOB. No acute events overnight. Vitals, medications, blood work and imaging reviewed in the chart. General: Cooperative, Awake and alert HEENT: Atraumatic Neck: Supple Respiratory: Clear to auscultation bilaterally Cardiovascular: No edema, Regular rate/rhythm Gastrointestinal: Soft and benign, Non-distended Musculoskeletal: No clubbing, No contractures Integumentary: No rashes, No cyanosis Neurological: Normal speech Laboratory Data (last 24 hrs) 02/27/21 16:47: WBC 13.50 H, Hgb 13.0 L, Hct 39.9, Plt Count 174 02/27/21 15:30: Sodium 141, Potassium 3.5, BUN 104 H, Creatinine 4.19 H, Glucose 76, Magnesium 2.9 H Imagings Data: EXAM DESCRIPTION: RAD - Chest Single View - 02/27/2021 3:56 pm CLINICAL HISTORY: AMS COMPARISON: Portable July 2020 TECHNIQUE: AP portable chest image was obtained 02/27/2021 3:56 pm . FINDINGS: No acute lung parenchymal process seen. Chronic interstitial pattern is similar to the comparison imaging. Heart and vasculature are normal. No measurable pleural effusion and no pneumothorax. No acute bony abnormality seen. No acute aortic findings suspected. IMPRESSION: No acute cardiopulmonary process. No significant change from comparison study. EXAM DESCRIPTION: CT - Head Brain Wo Cont - 02/27/2021 2:52 pm CLINICAL HISTORY: weakness, AMS COMPARISON: Ct Stroke Brain Wo Cont dated 07/21/2020 TECHNIQUE: Axial 5 mm thick images of the head were obtained without IV contrast. All CT scans are performed using dose optimization technique as appropriate and may include automated exposure control or mA/KV adjustment according to patient size. FINDINGS: No intracranial hemorrhage, mass, edema or shift of mid-line s tructures. No acute infarction changes seen. Moderate severity atrophy and chronic ischemic changes match the July 2020 study. Ventricles are in proportion to the volume loss. Dense arterial tree calcifications are present. Mastoid air cells and visualized portions of the paranasal sinuses are clear. No acute bony findings. IMPRESSION: Negative non-contrast CT head examination for acute finding. Atrophy and chronic ischemic changes are present matching comparison. Chronic ischemic changes can mask nonhemorrhagic acute infarction. MR brain followup can be obtained if there is ongoing concern for acute ischemia. Conclusions/Impression: PIERCE likely hypovolemia CKD III with proteinuria -Continue IVF 100ml/hr -Encourage free water intake Hypokalemia -Replete with oral potassium Hypocalcemia -Continue Vitamin D3 Hyperuricemia -Continue IVF HTN with CKD -Monitor BP Moderate malnutrition -Encourage nutrition -Agree with protein supplementation BPH with LUTS -Continue herrera Acute GNR cystitis -Continue Rocephin -Follow up culture
[2021-03-01] MEDS: D5 0.45 NS 1,000 ML IV SCH ×3 (10:13→22:28)
[2021-03-01] MEDS: HEPARIN 5000 UNIT/ML 1 ML VIAL SQ SCH ×2 (10:14→22:27)
[2021-03-01] MEDS: VITAMIN D 5,000 UNIT CAP PO SCH (10:15)
[2021-03-01] MEDS: CEFTRIAXONE/SWI 1gm 1 GM/10 ML SYR IV SCH (10:15)
--- NOTE | 2021-03-01 14:31 | P.PN ---
Subjective Date of Service: 03/01/21 Chief Complaint: failure to thrive, PIERCE on CKD, UTI Patient doing better today. He is more alert and interactive. He is eating well. Physical Examination - Vital Signs Temperature: 97.5 F Blood Pressure: 106/58 Pulse: 66 Respirations: 16 Pulse Ox (%): 99 - Physical Exam General: In no apparent distress, Other (Awake and interactive) HEENT: Mucous membr. moist/pink Neck: JVD not distended Respiratory: Clear to auscultation bilaterally, Normal air movement Cardiovascular: No edema, Regular rate/rhythm, Normal S1 S2 Gastrointestinal: Soft and benign, Non-distended, No tenderness Musculoskeletal: No swelling Integumentary: No rashes Neurological: Normal strength at 5/5 x4 extr - Studies Microbiology Data (last 24 hrs): 02/27/21 15:30 Blood - Blood Blood Culture Gram Stain - Final 02/27/21 15:30 Blood - Blood Gram Stain - Final 02/27/21 15:15 Blood - Blood Blood Culture Gram Stain - Final Assessment And Plan Physician Review Additional Text: Problem List UTI, acute cystitis PIERCE on CKD3 Failure to thrive cachexia HTN HLD prior CVA -pt very cachectic. -clinically improving. Renal function is improving. -Patient seen by nephrology who is assisting with management of PIERCE. -blood culture is growing Gram negative rods and Gram positive cocci. -continue IV Rocephin and vancomycin -pharmacy to renally dose vanco. -follow cultures. -Repeat blood culture -monitor on telemetry -speech therapy input appreciated -on mechanical soft.
[2021-03-01 19:37] LABS: Potassium 3.5 mmol/L (3.5-5.1)
[2021-03-01] MEDS ORDERED: POTASSIUM CL SA 10 MEQ TAB PO ONE (20:54)
[2021-03-02 06:27] LABS: Bilirubin Total 0.4 mg/dL (0.2-1.0); Phosphorus 1.9 mg/dL (2.5-4.9); Potassium 3.5 mmol/L (3.5-5.1); Protein, Total 5.3 g/dL (6.4-8.2); Uric Acid 10.2 mg/dL (3.5-7.2)
[2021-03-02] MEDS ORDERED: Levofloxacin 750mg IV 750 MG/150 ML BAG IV ONE (08:00)
[2021-03-02] MEDS: D5 0.45 NS 1,000 ML IV SCH ×3 (08:42→21:56)
[2021-03-02] MEDS: VITAMIN D 5,000 UNIT CAP PO SCH (09:00)
[2021-03-02] MEDS ORDERED: POTASSIUM 25 MEQ EFFERV TAB PO ONE (09:00)
[2021-03-02] MEDS ORDERED: POTASSIUM CL SA 10 MEQ TAB PO ONE (10:00)
--- NOTE | 2021-03-02 10:00 | P.PN ---
Date of Service: 03/02/21 Vital Signs Temp Pulse Resp BP Pulse Ox 97.5 F 72 14 101/60 100 03/02/21 08:00 03/02/21 08:00 03/02/21 08:00 03/02/21 08:00 03/02/21 08:00 Medications Acetaminophen (Acetaminophen 500 Mg Tab) 500 mg PO Q4HP PRN PRN Reason: TEMP > 100' F Cholecalciferol (Vitamin D 5,000 Unit Cap) 5,000 unit PO DAILY [facility] Last Admin: 03/01/21 10:15 Dose: 5,000 unit Documented by: Heparin Sodium (Porcine) (Heparin 5000 Unit/Ml 1 Ml Vial) 5,000 unit SQ Q12HR [facility] Last Admin: 03/01/21 22:27 Dose: 5,000 unit Documented by: Dextrose/Sodium Chloride (Dextrose 5% O.45% Saline) 1,000 mls @ 100 mls/hr IV .Q10H [facility] Last Admin: 03/01/21 22:28 Dose: 1,000 mls Documented by: Vancomycin HCl 500 mg/ Sodium (Chloride) 100 mls @ 100 mls/hr IVPB Q48H [facility] Last Admin: 02/28/21 18:13 Dose: 100 mls Documented by: Levofloxacin/Dextrose (Levaquin 500 Mg/100 Ml Ivpb) 500 mg in 100 mls @ 100 mls/hr IV Q48H [facility] L-Arginine/L-Glutamine/HMB (Douglas Packet) 1 pkt PO BID [facility] Last Admin: 03/01/21 21:00 Dose: 1 pkt Documented by: Nutritional Formula (Ensure Enlive 237 Ml Can) 237 ml PO TID [facility] Last Admin: 03/01/21 21:00 Dose: 237 ml Documented by: Ondansetron HCl (Ondansetron 4 Mg/2 Ml Vial) 4 mg IV Q6HP PRN PRN Reason: NAUSEA / VOMITING Potassium Phos/Sodium Phos (Potass/Sodium Phosphate 1 Pkt Powd.Pack) 2 pkt PO TID [facility] Stop: 03/02/21 21:01 Sodium Chloride (Flush Normal Saline 10 Ml) 10 ml IV BID [facility] Last Admin: 03/01/21 21:00 Dose: Not Given Documented by: Microbiology Results 02/27/21 15:15 Blood - Blood Aerobic Blood Culture - Preliminary Pseudomonas Aeruginosa 02/27/21 15:15 Blood - Blood Blood Culture Gram Stain - Final 02/27/21 15:15 Blood - Blood Anaerobic Blood Culture - Preliminary No growth in 24 hours. 02/27/21 15:30 Blood - Blood Aerobic Blood Culture - Preliminary 02/27/21 15:30 Blood - Blood Blood Culture Gram Stain - Final 02/27/21 15:30 Blood - Blood Anaerobic Blood Culture - Preliminary 02/27/21 15:30 Blood - Blood Gram Stain - Final 02/27/21 15:32 Catheterized Urine [place] Count - Preliminary >100,000 CFU/ML. 02/27/21 15:32 Catheterized Urine - Preliminary Assessment/ Plan: Nephrology More somnolent this morning with limited IH CPS stable without CP or SOB. No acute events overnight. Vitals, medications, blood work and imaging reviewed in the chart. General: Cooperative, Awake and alert HEENT: Atraumatic Neck: Supple Respiratory: Clear to auscultation bilaterally Cardiovascular: No edema, Regular rate/rhythm Gastrointestinal: Soft and benign, Non-distended Musculoskeletal: No clubbing, No contractures Integumentary: No rashes, No cyanosis Neurological: Normal speech Laboratory Data (last 24 hrs) 02/27/21 16:47: WBC 13.50 H, Hgb 13.0 L, Hct 39.9, Plt Count 174 02/27/21 15:30: Sodium 141, Potassium 3.5, BUN 104 H, Creatinine 4.19 H, Glucose 76, Magnesium 2.9 H Imagings Data: EXAM DESCRIPTION: RAD - Chest Single View - 02/27/2021 3:56 pm CLINICAL HISTORY: AMS COMPARISON: Portable July 2020 TECHNIQUE: AP portable chest image was obtained 02/27/2021 3:56 pm . FINDINGS: No acute lung parenchymal process seen. Chronic interstitial pattern is similar to the comparison imaging. Heart and vasculature are normal. No m easurable pleural effusion and no pneumothorax. No acute bony abnormality seen. No acute aortic findings suspected. IMPRESSION: No acute cardiopulmonary process. No significant change from comparison study. EXAM DESCRIPTION: CT - Head Brain Wo Cont - 02/27/2021 2:52 pm CLINICAL HISTORY: weakness, AMS COMPARISON: Ct Stroke Brain Wo Cont dated 07/21/2020 TECHNIQUE: Axial 5 mm thick images of the head were obtained without IV contrast. All CT scans are performed using dose optimization technique as appropriate and may include automated exposure control or mA/KV adjustment according to patient size. FINDINGS: No intracranial hemorrhage, mass, edema or shift of mid-line structures. No acute infarction changes seen. Moderate severity atrophy and chronic ischemic changes match the July 2020 study. Ventricles are in proportion to the volume loss. Dense arterial tree calcifications are present. Mastoid air cells and visualized portions of the paranasal sinuses are clear. No acute bony findings. IMPRESSION: Negative non-contrast CT head examination for acute finding. Atrophy and chronic ischemic changes are present matching comparison. Chronic ischemic changes can mask nonhemorrhagic acute infarction. MR brain followup can be obtained if there is ongoing concern for acute ischemia. Conclusions/Impression: PIERCE likely hypovolemia CKD III with proteinuria -Continue IVF -Encourage free water intake Hypokalemia -Replete with oral potassium Hypocalcemia -Continue Vitamin D3 HypoPO4 -Neutraphos X3 today Hyperuricemia -Continue IVF HTN with CKD -Monitor BP Moderate malnutrition -Encourage nutrition -Continue protein supplementation -Probiotic BID BPH with LUTS -Continue herrera -Start Flomax qhs PSA Bacteremia -Continue Levaquin Acute GNR cystitis -Continue Levaquin -Follow up culture Generalized weakness with sarcopenia -Consider PT as tolerated Case discussed with Dr. Lopez
[2021-03-02] MEDS: POTASS/SODIUM PHOSPHATE 1 PKT POWD.PACK PO SCH ×3 (10:12→21:55)
[2021-03-02] MEDS: HEPARIN 5000 UNIT/ML 1 ML VIAL SQ SCH ×2 (10:13→21:55)
[2021-03-02] MEDS: ENSURE ENLIVE 237 ML CAN PO SCH ×4 (10:14→21:00)
[2021-03-02] MEDS: JUVEN PACKET PO SCH ×2 (10:15→21:00)
--- NOTE | 2021-03-02 10:42 | P.CNS ---
Date of Consult: 03/02/21 Chief Complaint: failure to thrive, PIERCE on CKD, UTI History of Present Illness: Patient is an 89-year-old male with a past medical history of chronic anemia, hypertension, hyperlipidemia, chronic back pain, anxiety, prior CVA, CKD stage 3 is brought to the emergency department due to decreased responsiveness and weakness. Difficult to obtain history from patient as he has altered mental status and does not respond to questions. Patient does shake his head yes or no to yes or no questions. [place] the emergency department blood cultures were taken which grew Pseudomonas aeruginosa. Patient empirically started on vancomycin and Levaquin. Patient denies nausea, vomiting, diarrhea, shortness breath, chest pain. Allergies No Known Allergies Allergy (Verified 07/21/20 21:51) Home Medications: Aspirin [Aspirin EC 81 MG] 81 mg PO DAILY #30 tablet. 07/22/20 Atorvastatin Calcium [Lipitor] 40 mg PO BEDTIME #30 tab 07/22/20 Clopidogrel Bisulfate [Plavix*] 75 mg PO DAILY #30 tablet 07/22/20 - Past Medical/Surgical History Diabetic: No -: Anemia -: Anxiety -: BPh -: Chronic Back Pain -: Hyperlipidemia -: Htn - Family History Mother Medical History: Hypertension Notes: unable to obtain hx - Social History Alcohol use: No CD- Drugs: No Caffeine use: Yes Review of Systems 10-point ROS is otherwise unremarkable Physical Examination Temp Pulse Resp BP Pulse Ox 97.5 F 72 14 101/60 100 03/02/21 08:00 03/02/21 08:00 03/02/21 08:00 03/02/21 08:00 03/02/21 08:00 General: Cachectic, Confused HEENT: Atraumatic, Normocephalic Neck: Supple, 2+ carotid pulse no bruit Respiratory: Clear to auscultation bilaterally, Normal air movement Cardiovascular: No edema, Normal pulses Capillary refill: <2 Seconds Gastrointestinal: Soft and benign, Non-distended Musculoskeletal: No clubbing, No swelling, No contractures Integumentary: No rashes, No breakdown Conclusions/Impression: Antibiotics: Levaquin: Start: 03/02 Stop: 03/09 DC: Vancomycin Start: 02/28 stop: 03/02 Assessment: -Urosepsis with blood in urine cultures growing Pseudomonas aeruginosa -anemia on -PIERCE on CKD stage 3 -protein caloric malnutrition -thrombocytopenia -unresponsiveness/weakness Plan: -blood in urine cultures growing Pseudomonas aeruginosa sensitive to Levaquin. Continue Levaquin for total of 7 days. Patient also started on probiotic. Vancomycin discontinued. -nephrology following patient, avoid nephrotoxic agents -recommend supplemental Ensure protein drinks -continue to monitor H&H and platelet count -medical management per primary team -continue monitor CBC and BMP -continue to monitor signs infection Plan of care discussed with Dr. Kelley Thank you for consultation.
--- NOTE | 2021-03-02 11:27 | P.PN ---
Subjective Date of Service: 03/02/21 Chief Complaint: failure to thrive, PIERCE on CKD, UTI Patient has no complain. He is eating well. Blood cultures growing Pseudomonas. Physical Examination - Vital Signs Temperature: 97.5 F Blood Pressure: 101/60 Pulse: 72 Respirations: 14 Pulse Ox (%): 100 - Physical Exam General: In no apparent distress, Other (Awake.) HEENT: Mucous membr. moist/pink Neck: JVD not distended Respiratory: Clear to auscultation bilaterally, Normal air movement Cardiovascular: No edema, Regular rate/rhythm, Normal S1 S2 Gastrointestinal: Soft and benign, Non-distended, No tenderness Musculoskeletal: No swelling Integumentary: No rashes Neurological: Normal strength at 5/5 x4 extr Urinary: [place] catheter - Studies Microbiology Data (last 24 hrs): 02/27/21 15:32 Catheterized Urine [place] Count - Final >100,000 CFU/ML. 02/27/21 15:32 Catheterized Urine - Final Pseudomonas Aeruginosa 02/27/21 15:30 Blood - Blood Blood Culture Gram Stain - Final 02/27/21 15:30 Blood - Blood Gram Stain - Final 02/27/21 15:15 Blood - Blood Blood Culture Gram Stain - Final Assessment And Plan Physician Review Additional Text: Problem List UTI, acute cystitis PIERCE on CKD3 Failure to thrive cachexia HTN HLD prior CVA -pt very cachectic. -clinically improving. Renal function is improving. -Patient seen by nephrology who is assisting with management of PIERCE. -blood culture is growing Pseudomonas sensitive to Levaquin. -urine culture is pending. -infectious disease input appreciated. -antibiotics switched to IV Levaquin. -pharmacy to renally dose antibiotics -repeat blood culture is pending -on mechanical soft. Disposition: Patient accepted to [facility] for [facility] rehab. May discharge with IV Levaquin as soon as repeat blood culture document bacteremia clearance.
[2021-03-02] MEDS: TAMSULOSIN 0.4 MG SR CAP PO SCH (21:55)
[2021-03-02] MEDS: LACTOBACILLUS/ACIDOPHILUS TAB PO SCH (21:55)
[2021-03-03] MEDS: ACETAMINOPHEN 500 MG TAB PO PRN (02:14)
[2021-03-03 06:15] LABS: Albumin 2.1 g/dL (3.4-5.0); Potassium 4.3 mmol/L (3.5-5.1)
[2021-03-03] MEDS: VITAMIN D 5,000 UNIT CAP PO SCH (10:12)
[2021-03-03] MEDS: LACTOBACILLUS/ACIDOPHILUS TAB PO SCH ×2 (10:12→22:02)
[2021-03-03] MEDS: ENSURE ENLIVE 237 ML CAN PO SCH ×3 (10:13→22:02)
[2021-03-03] MEDS: HEPARIN 5000 UNIT/ML 1 ML VIAL SQ SCH ×2 (10:13→22:01)
[2021-03-03] MEDS: JUVEN PACKET PO SCH ×2 (10:13→21:00)
--- NOTE | 2021-03-03 12:26 | P.PN ---
Subjective Date of Service: 03/03/21 Chief Complaint: failure to thrive, PIERCE on CKD, UTI Patient has no complain. He is eating well. Will repeat blood culture: No growth to date. Physical Examination - Vital Signs Temperature: 97.7 F Blood Pressure: 112/60 Pulse: 89 Respirations: 15 Pulse Ox (%): 95 - Physical Exam General: In no apparent distress, Other (Awake and interactive) HEENT: Mucous membr. moist/pink Neck: JVD not distended Respiratory: Clear to auscultation bilaterally, Normal air movement Cardiovascular: Regular rate/rhythm, Normal S1 S2 Gastrointestinal: Soft and benign, Non-distended Musculoskeletal: No swelling Integumentary: No rashes Neurological: Normal strength at 5/5 x4 extr - Studies Microbiology Data (last 24 hrs): 02/27/21 15:15 Blood - Blood Blood Culture Gram Stain - Final 02/27/21 15:30 Blood - Blood Blood Culture Gram Stain - Final 02/27/21 15:30 Blood - Blood Gram Stain - Final 02/27/21 15:32 Catheterized Urine [place] Count - Final >100,000 CFU/ML. 02/27/21 15:32 Catheterized Urine - Final Pseudomonas Aeruginosa Assessment And Plan Physician Review Additional Text: Problem List UTI, acute cystitis PIERCE on CKD3 Failure to thrive cachexia HTN HLD prior CVA -clinically improving. Renal function continue to improve -nephrology-Dr. Delgado is assisting with management of PIERCE. -both blood cultures and urine culture are growing Pseudomonas sensitive to Levaquin. -infectious disease input appreciated. -insert PICC line for outpatient IV antibiotic -continue IV Levaquin. -on mechanical soft. -continue PT Disposition: Patient accepted to shelter for skilled rehab.
[2021-03-03] MEDS: D5 0.45 NS 1,000 ML IV SCH ×2 (14:42→16:14)
[2021-03-03] MEDS: POTASS/SODIUM PHOSPHATE 1 PKT POWD.PACK PO SCH ×3 (15:38→22:03)
--- NOTE | 2021-03-03 16:11 | P.PN ---
Date of Service: 03/03/21 Vital Signs Temp Pulse Resp BP Pulse Ox 97.7 F 89 15 112/60 95 03/03/21 12:25 03/03/21 12:25 03/03/21 12:25 03/03/21 12:25 03/03/21 12:25 Medications Acetaminophen (Acetaminophen 500 Mg Tab) 500 mg PO Q4HP PRN PRN Reason: TEMP > 100' F Last Admin: 03/03/21 02:14 Dose: 500 mg Documented by: Cholecalciferol (Vitamin D 5,000 Unit Cap) 5,000 unit PO DAILY [facility] Last Admin: 03/03/21 10:12 Dose: 5,000 unit Documented by: Heparin Sodium (Porcine) (Heparin 5000 Unit/Ml 1 Ml Vial) 5,000 unit SQ Q12HR [facility] Last Admin: 03/03/21 10:13 Dose: 5,000 unit Documented by: Dextrose/Sodium Chloride (Dextrose 5% O.45% Saline) 1,000 mls @ 100 mls/hr IV .Q10H [facility] Last Admin: 03/02/21 21:56 Dose: 1,000 mls Documented by: Levofloxacin/Dextrose (Levaquin 500 Mg/100 Ml Ivpb) 500 mg in 100 mls @ 100 mls/hr IV Q48H [facility] L-Arginine/L-Glutamine/HMB ([place] Packet) 1 pkt PO BID [facility] Last Admin: 03/03/21 10:13 Dose: 1 pkt Documented by: Lactobacillus Acidoph/[place]garicus (Lactobacillus/Acidophilus Tab) 1 tab PO BID [facility] Last Admin: 03/03/21 10:12 Dose: 1 tab Documented by: Nutritional Formula (Ensure Enlive 237 Ml Can) 237 ml PO TID [facility] Last Admin: 03/03/21 15:38 Dose: 237 ml Documented by: Ondansetron HCl (Ondansetron 4 Mg/2 Ml Vial) 4 mg IV Q6HP PRN PRN Reason: NAUSEA / VOMITING Potassium Phos/Sodium Phos (Potass/Sodium Phosphate 1 Pkt Powd.Pack) 2 pkt PO Q3HR [facility] Stop: 03/03/21 21:01 Last Admin: 03/03/21 15:38 Dose: 2 pkt Documented by: Sodium Chloride (Flush Normal Saline 10 Ml) 10 ml IV BID [facility] Last Admin: 03/03/21 09:00 Dose: Not Given Documented by: Tamsulosin HCl (Tamsulosin 0.4 Mg Sr Cap) 0.4 mg PO BEDTIME [facility] Last Admin: 03/02/21 21:55 Dose: 0.4 mg Documented by: Microbiology Results 02/27/21 15:15 Blood - Blood Aerobic Blood Culture - Preliminary Pseudomonas Aeruginosa 02/27/21 15:15 Blood - Blood Blood Culture Gram Stain - Final 02/27/21 15:15 Blood - Blood Anaerobic Blood Culture - Preliminary No growth in 24 hours. 02/27/21 15:30 Blood - Blood Aerobic Blood Culture - Preliminary Pseudomonas Aeruginosa 02/27/21 15:30 Blood - Blood Blood Culture Gram Stain - Final 02/27/21 15:30 Blood - Blood Anaerobic Blood Culture - Preliminary 02/27/21 15:30 Blood - Blood Gram Stain - Final 02/27/21 15:32 Catheterized Urine [place] Count - Final >100,000 CFU/ML. 02/27/21 15:32 Catheterized Urine - Final Pseudomonas Aeruginosa Assessment/ Plan: Nephrology Resting comfortably. CPS stable without CP or SOB. No acute events overnight. Vitals, medications, blood work and imaging reviewed in the chart. General: Cooperative, Awake and alert HEENT: Atraumatic Neck: Supple Respiratory: Clear to auscultation bilaterally Cardiovascular: No edema, Regular rate/rhythm Gastrointestinal: Soft and benign, Non-distended Musculoskeletal: No clubbing, No contractures Integumentary: No rashes, No cyanosis Neurological: Normal speech Laboratory Data (last 24 hrs) 02/27/21 16:47: WBC 13.50 H, Hgb 13.0 L, Hct 39.9, Plt Count 174 02/27/21 15:30: Sodium 141, Potassium 3.5, BUN 104 H, Creatinine 4.19 H, Glucose 76, Magnesium 2.9 H Imagings Data: EXAM DESCRIPTION: RAD - Chest Single View - 02/27/2021 3:56 pm CLINICAL HISTORY: AMS COMPARISON: Portable July 2020 TECHNIQUE: AP portable chest image was obtained 02/27/2021 3:56 pm . FINDINGS: No acute lung parenchymal process seen. Chronic interstitial pattern is similar to the comparison imaging. Heart and vasculature are normal. No measurable pleural effusion and no pneumothorax. No acute bony abnormality seen. No acute aortic findings suspected. IMPRESSION: No acute cardiopulmonary process. No significant change from comparison study. EXAM DESCRIPTION: CT - Head Brain Wo Cont - 02/27/2021 2:52 pm CLINICAL HISTORY: weakness, AMS COMPARISON: Ct Stroke Brain Wo Cont dated 07/21/2020 TECHNIQUE: Axial 5 mm thick images of the head were obtained without IV contrast. All CT scans are performed using dose optimization technique as appropriate and may include automated exposure control or mA/KV adjustment according to patient size. FINDINGS: No intracranial hemorrhage, mass, edema or shift of mid-line structures. No acute infarction changes seen. Moderate severity atrophy and chronic ischemic changes match the July 2020 study. Ventricles are in proportion to the volume loss. Dense arterial tree calcifications are present. Mastoid air cells and visualized portions of the paranasal sinuses are clear. No acute bony findings. IMPRESSION: Negative non-contrast CT head examination for acute finding. Atrophy and chronic ischemic changes are present matching comparison. Chronic ischemic changes can mask nonhemorrhagic acute infarction. MR brain followup can be obtained if there is ongoing concern for acute ischemia. Conclusions/Impression: PIERCE likely hypovolemia CKD III with proteinuria -Continue IVF -Encourage free water intake Hypokalemia -Replete with oral potassium prn Hypocalcemia -Continue Vitamin D3 HypoPO4 -Neutraphos X3 today Hyperuricemia -Continue IVF HTN with CKD -Monitor BP Moderate malnutrition -Encourage nutrition -Continue protein supplementation -Probiotic BID BPH with LUTS -Discontinue herrera -Continue Flomax qhs PSA Bacteremia -Continue Levaquin Acute PSA cystitis -Continue Levaquin Generalized weakness with sarcopenia -Consider PT as tolerated
[2021-03-03] MEDS: TAMSULOSIN 0.4 MG SR CAP PO SCH (22:01)
[2021-03-04] MEDS: D5 0.45 NS 1,000 ML IV SCH ×3 (02:51→19:57)
[2021-03-04 05:29] VITALS: BMI 13.8
[2021-03-04 06:08] LABS: Potassium 4.7 mmol/L (3.5-5.1)
[2021-03-04] MEDS: HEPARIN 5000 UNIT/ML 1 ML VIAL SQ SCH ×2 (10:27→19:57)
[2021-03-04] MEDS: LACTOBACILLUS/ACIDOPHILUS TAB PO SCH ×2 (10:27→20:01)
[2021-03-04] MEDS: JUVEN PACKET PO SCH ×2 (10:27→19:58)
[2021-03-04] MEDS: ENSURE ENLIVE 237 ML CAN PO SCH ×3 (10:27→19:58)
[2021-03-04] MEDS: VITAMIN D 5,000 UNIT CAP PO SCH (10:27)
[2021-03-04] MEDS: Levofloxacin500mg IV 500 MG/100 ML BAG IV SCH (10:47)
--- NOTE | 2021-03-04 12:26 | P.PN ---
Date of Service: 03/04/21 Vital Signs Temp Pulse Resp BP Pulse Ox 97.3 F 89 20 116/59 L 97 03/04/21 08:00 03/04/21 08:00 03/04/21 08:00 03/04/21 08:00 03/04/21 08:00 Medications Acetaminophen (Acetaminophen 500 Mg Tab) 500 mg PO Q4HP PRN PRN Reason: TEMP > 100' F Last Admin: 03/03/21 02:14 Dose: 500 mg Documented by: Cholecalciferol (Vitamin D 5,000 Unit Cap) 5,000 unit PO DAILY [facility] Last Admin: 03/04/21 10:27 Dose: 5,000 unit Documented by: Heparin Sodium (Porcine) (Heparin 5000 Unit/Ml 1 Ml Vial) 5,000 unit SQ Q12HR [facility] Last Admin: 03/04/21 10:27 Dose: 5,000 unit Documented by: Dextrose/Sodium Chloride (Dextrose 5% O.45% Saline) 1,000 mls @ 100 mls/hr IV .Q10H [facility] Last Admin: 03/04/21 10:42 Dose: Not Given Documented by: Levofloxacin/Dextrose (Levaquin 500 Mg/100 Ml Ivpb) 500 mg in 100 mls @ 100 mls/hr IV Q48H [facility] Last Admin: 03/04/21 10:47 Dose: 100 mls Documented by: L-Arginine/L-Glutamine/HMB (Douglas Packet) 1 pkt PO BID [facility] Last Admin: 03/04/21 10:27 Dose: 1 pkt Documented by: Lactobacillus Acidoph/Bulgaricus (Lactobacillus/Acidophilus Tab) 1 tab PO BID [facility] Last Admin: 03/04/21 10:27 Dose: 1 tab Documented by: Nutritional Formula (Ensure Enlive 237 Ml Can) 237 ml PO TID [facility] Last Admin: 03/04/21 10:27 Dose: 237 ml Documented by: Ondansetron HCl (Ondansetron 4 Mg/2 Ml Vial) 4 mg IV Q6HP PRN PRN Reason: NAUSEA / VOMITING Sodium Chloride (Flush Normal Saline 10 Ml) 10 ml IV BID [facility] Last Admin: 03/04/21 09:00 Dose: Not Given Documented by: Tamsulosin HCl (Tamsulosin 0.4 Mg Sr Cap) 0.4 mg PO BEDTIME [facility] Last Admin: 03/03/21 22:01 Dose: 0.4 mg Documented by: Microbiology Results 02/27/21 15:15 Blood - Blood Aerobic Blood Culture - Final Pseudomonas Aeruginosa 02/27/21 15:15 Blood - Blood Blood Culture Gram Stain - Final 02/27/21 15:15 Blood - Blood Anaerobic Blood Culture - Preliminary No growth in 24 hours. 02/27/21 15:30 Blood - Blood Aerobic Blood Culture - Final Pseudomonas Aeruginosa Staphylococcus Cohnii 02/27/21 15:30 Blood - Blood Blood Culture Gram Stain - Final 02/27/21 15:30 Blood - Blood Anaerobic Blood Culture - Final Staphylococcus Cohnii 02/27/21 15:30 Blood - Blood Gram Stain - Final 02/27/21 15:32 Catheterized Urine [place] Count - Final >100,000 CFU/ML. 02/27/21 15:32 Catheterized Urine - Final Pseudomonas Aeruginosa Assessment/ Plan: Nephrology Started eating his breakfast with encouragement. CPS stable without CP or SOB. No acute events overnight. Vitals, medications, blood work and imaging reviewed in the chart. General: Cooperative, Awake and alert HEENT: Atraumatic Neck: Supple Respiratory: Clear to auscultation bilaterally Cardiovascular: No edema, Regular rate/rhythm Gastrointestinal: Soft and benign, Non-distended Musculoskeletal: No clubbing, No contractures Integumentary: No rashes, No cyanosis Neurological: Normal speech Laboratory Data (last 24 hrs) 02/27/21 16:47: WBC 13.50 H, Hgb 13.0 L, Hct 39.9, Plt Count 174 02/27/21 15:30: Sodium 141, Potassium 3.5, BUN 104 H, Creatinine 4.19 H, Glucose 76, Magnesium 2.9 H Imagings Data: EXAM DESCRIPTION: RAD - Chest Single View - 02/27/2021 3:56 pm CLINICAL HISTORY: AMS COMPARISON: Portable July 2020 TECHNIQUE: AP portable chest image was obtained 02/27/2021 3:56 pm . FINDINGS: No acute lung parenchymal process seen. Chronic interstitial pattern is similar to the comparison imaging. Heart and vasculature are normal. No measurable pleural effusion and no pneumothorax. No acute bony abnormality seen. No acute aortic findings suspected. IMPRESSION: No acute cardiopulmonary process. No significant change from comparison study. EXAM DESCRIPTION: CT - Head Brain Wo Cont - 02/27/2021 2:52 pm CLINICAL HISTORY: weakness, AMS COMPARISON: Ct Stroke Brain Wo Cont dated 07/21/2020 TECHNIQUE: Axial 5 mm thick images of the head were obtained without IV contrast. All CT scans are performed using dose optimization technique as appropriate and may include automated exposure control or mA/KV adjustment according to patient size. FINDINGS: No intracranial hemorrhage, mass, edema or shift of mid-line structures. No acute infarction changes seen. Moderate severity atrophy and chronic ischemic changes match the July 2020 study. Ventricles are in proportion to the volume loss. Dense arterial tree calcifications are present. Mastoid air cells and visualized portions of the paranasal sinuses are clear. No acute bony findings. IMPRESSION: Negative non-contrast CT head examination for acute finding. Atrophy and chronic ischemic changes are present matching comparison. Chronic ischemic changes can mask nonhemorrhagic acute infarction. MR brain followup can be obtained if there is ongoing concern for acute ischemia. Conclusions/Impression: PIERCE likely hypovolemia CKD III with proteinuria -Continue IVF -Encourage free water intake Hypokalemia -Replete with oral potassium prn Hypocalcemia -Continue Vitamin D3 -Start Calcitriol HypoPO4 -Neutraphos prn Hyperuricemia -Continue IVF HTN with CKD -Monitor BP Moderate malnutrition -Encourage nutrition -Continue protein supplementation -Probiotic BID BPH with LUTS -Continue Flomax qhs PSA Bacteremia -Continue Levaquin Acute PSA cystitis -Continue Levaquin Generalized weakness with sarcopenia -Consider PT as tolerated
--- NOTE | 2021-03-04 13:16 | P.PN ---
Subjective Date of Service: 03/04/21 Chief Complaint: failure to thrive, PIERCE on CKD, UTI Patient has no complain. He is not eating much today. . Physical Examination - Vital Signs Temperature: 97.6 F Blood Pressure: 96/55 Pulse: 100 Respirations: 16 Pulse Ox (%): 99 - Physical Exam General: In no apparent distress, Other (Awake) HEENT: Mucous membr. moist/pink Neck: JVD not distended Respiratory: Clear to auscultation bilaterally, Normal air movement Cardiovascular: No edema, Regular rate/rhythm, Normal S1 S2 Gastrointestinal: Normal bowel sounds, Soft and benign Musculoskeletal: No swelling, No contractures Integumentary: No rashes Neurological: Normal strength at 5/5 x4 extr - Studies Microbiology Data (last 24 hrs): 02/27/21 15:15 Blood - Blood Aerobic Blood Culture - Final Pseudomonas Aeruginosa 02/27/21 15:15 Blood - Blood Blood Culture Gram Stain - Final 02/27/21 15:30 Blood - Blood Aerobic Blood Culture - Final Pseudomonas Aeruginosa Staphylococcus Cohnii 02/27/21 15:30 Blood - Blood Blood Culture Gram Stain - Final 02/27/21 15:30 Blood - Blood Anaerobic Blood Culture - Final Staphylococcus Cohnii 02/27/21 15:30 Blood - Blood Gram Stain - Final Assessment And Plan Physician Review Additional Text: Problem List UTI, acute cystitis PIERCE on CKD3 Failure to thrive cachexia HTN HLD prior CVA -clinically improving. Renal function continue to improve -nephrology-Dr. Delgado is assisting with management of PIERCE. -both blood cultures and urine culture are growing Pseudomonas sensitive to Levaquin. -infectious disease input appreciated. -repeat blood culture is negative -insert PICC line for outpatient IV antibiotic -continue IV Levaquin. -on mechanical soft. -continue PT Disposition: [facility] for [facility]. Transferred to [facility] once PICC line is inserted.
[2021-03-04] MEDS: CALCITROL 0.25 MCG CAP PO SCH (16:41)
--- NOTE | 2021-03-04 18:03 | RAD REPORT ---
EXAM DESCRIPTION: RAD - Chest Single View - 03/04/2021 4:17 pm CLINICAL HISTORY: picc line placement COMPARISON: Chest Single View dated 02/27/2021; Chest Single View dated 07/21/2020; Chest Single View dated 02/19/2019; Chest Single View dated 11/15/2018 FINDINGS: No evidence of edema or pneumonia. No acute osseous abnormality. No significant pleural ef fusions or pneumothorax. Left subclavian approach PICC with tip overlying the proximal SVC. Suspect e mphysema. Mild cardiomegaly which is similar per IMPRESSION: No acute cardiopulmonary disease. Left subclavian approach PICC with tip overlying the S VC.
[2021-03-04] MEDS: TAMSULOSIN 0.4 MG SR CAP PO SCH (19:57)
[2021-03-05] MEDS: D5 0.45 NS 1,000 ML IV SCH ×2 (05:16→15:20)
[2021-03-05 06:12] LABS: Absolute Lymphocytes (CBC) 0.5 K/uL (0.7-4.9); Basophils % 0.2 % (0-1.3); Hematocrit 31.8 % (39.6-49.0); Lymphocytes % 5.6 % (15.3-44.8); MPV 8.3 fL (7.6-11.3)
[2021-03-05 06:26] LABS: Albumin 1.8 g/dL (3.4-5.0); Phosphorus 3.3 mg/dL (2.5-4.9); Potassium 4.2 mmol/L (3.5-5.1)
[2021-03-05] MEDS: VITAMIN D 5,000 UNIT CAP PO SCH (09:39)
[2021-03-05] MEDS: CALCITROL 0.25 MCG CAP PO SCH (09:39)
[2021-03-05] MEDS: LACTOBACILLUS/ACIDOPHILUS TAB PO SCH ×2 (09:39→21:22)
[2021-03-05] MEDS: JUVEN PACKET PO SCH ×2 (09:41→21:22)
[2021-03-05] MEDS: ENSURE ENLIVE 237 ML CAN PO SCH ×3 (09:42→21:22)
[2021-03-05] MEDS: HEPARIN 5000 UNIT/ML 1 ML VIAL SQ SCH ×2 (09:42→21:23)
--- NOTE | 2021-03-05 14:24 | P.PN ---
Subjective Date of Service: 03/05/21 Chief Complaint: failure to thrive, PIERCE on CKD, UTI Patient has no complain. He is more interactive today. Met his daughter by bedside. . Physical Examination - Vital Signs Temperature: 97.6 F Blood Pressure: 94/57 Pulse: 84 Respirations: 17 Pulse Ox (%): 98 - Physical Exam General: In no apparent distress, Oriented x3 HEENT: Mucous membr. moist/pink Neck: JVD not distended, No Thyromegaly Respiratory: Clear to auscultation bilaterally, Normal air movement Cardiovascular: No edema, Regular rate/rhythm Gastrointestinal: Soft and benign, Non-distended, No tenderness Musculoskeletal: No swelling Integumentary: No rashes Neurological: Normal strength at 5/5 x4 extr - Studies Microbiology Data (last 24 hrs): 02/27/21 15:15 Blood - Blood Aerobic Blood Culture - Final Pseudomonas Aeruginosa 02/27/21 15:15 Blood - Blood Blood Culture Gram Stain - Final 02/27/21 15:15 Blood - Blood Anaerobic Blood Culture - Final No growth in 5 days. Assessment And Plan Physician Review Additional Text: Problem List UTI, acute cystitis PIERCE on CKD3 Failure to thrive cachexia HTN HLD prior CVA -clinically improving. -nephrology-Dr. Delgado is assisting with management of PIERCE. -both blood cultures and urine culture are growing Pseudomonas sensitive to Levaquin. -repeat blood culture is negative -PICC line inserted for outpatient IV antibiotics -continue IV Levaquin. -on mechanical soft. -continue PT Disposition: [facility] accepted to [facility] for skilled rehab.
[2021-03-05 19:45] LABS: HBsAG Nonreactive (Nonreactive)
--- NOTE | 2021-03-05 20:09 | P.PN ---
Date of Service: 03/05/21 Vital Signs Temp Pulse Resp BP Pulse Ox 97.1 F 88 16 103/55 L 97 03/05/21 16:00 03/05/21 16:00 03/05/21 16:00 03/05/21 16:00 03/05/21 16:00 Medications Acetaminophen (Acetaminophen 500 Mg Tab) 500 mg PO Q4HP PRN PRN Reason: TEMP > 100' F Last Admin: 03/03/21 02:14 Dose: 500 mg Documented by: Calcitriol (Calcitrol 0.25 Mcg Cap) 0.5 mcg PO DAILY [facility] Last Admin: 03/05/21 09:39 Dose: 0.5 mcg Documented by: Cholecalciferol (Vitamin D 5,000 Unit Cap) 5,000 unit PO DAILY [facility] Last Admin: 03/05/21 09:39 Dose: 5,000 unit Documented by: Heparin Sodium (Porcine) (Heparin 5000 Unit/Ml 1 Ml Vial) 5,000 unit SQ Q12HR [facility] Last Admin: 03/05/21 09:42 Dose: 5,000 unit Documented by: Levofloxacin/Dextrose (Levaquin 500 Mg/100 Ml Ivpb) 500 mg in 100 mls @ 100 mls/hr IV Q48H [facility] Last Admin: 03/04/21 10:47 Dose: 100 mls Documented by: L-Arginine/L-Glutamine/HMB ([place] Packet) 1 pkt PO BID [facility] Last Admin: 03/05/21 09:41 Dose: 1 pkt Documented by: Lactobacillus Acidoph/Bulgaricus (Lactobacillus/Acidophilus Tab) 1 tab PO BID [facility] Last Admin: 03/05/21 09:39 Dose: 1 tab Documented by: Nutritional Formula (Ensure Enlive 237 Ml Can) 237 ml PO TID [facility] Last Admin: 03/05/21 15:20 Dose: 237 ml Documented by: Ondansetron HCl (Ondansetron 4 Mg/2 Ml Vial) 4 mg IV Q6HP PRN PRN Reason: NAUSEA / VOMITING Sodium Chloride (Flush Normal Saline 10 Ml) 10 ml IV BID [facility] Last Admin: 03/05/21 09:00 Dose: Not Given Documented by: Tamsulosin HCl (Tamsulosin 0.4 Mg Sr Cap) 0.4 mg PO BEDTIME [facility] Last Admin: 03/04/21 19:57 Dose: 0.4 mg Documented by: Microbiology Results 02/27/21 15:15 Blood - Blood Aerobic Blood Culture - Final Pseudomonas Aeruginosa 02/27/21 15:15 Blood - Blood Blood Culture Gram Stain - Final 02/27/21 15:15 Blood - Blood Anaerobic Blood Culture - Final No growth in 5 days. 02/27/21 15:30 Blood - Blood Aerobic Blood Culture - Final Pseudomonas Aeruginosa Staphylococcus Cohnii 02/27/21 15:30 Blood - Blood Blood Culture Gram Stain - Final 02/27/21 15:30 Blood - Blood Anaerobic Blood Culture - Final Staphylococcus Cohnii 02/27/21 15:30 Blood - Blood Gram Stain - Final 02/27/21 15:32 Catheterized Urine [place] Count - Final >100,000 CFU/ML. 02/27/21 15:32 Catheterized Urine - Final Pseudomonas Aeruginosa Assessment/ Plan: Nephrology Appetite improving. CPS stable without CP or SOB. No acute events overnight. Vitals, medications, blood work and imaging reviewed in the chart. General: Cooperative, Awake and alert HEENT: Atraumatic Neck: Supple Respiratory: Clear to auscultation bilaterally Cardiovascular: No edema, Regular rate/rhythm Gastrointestinal: Soft and benign, Non-distended Musculoskeletal: No clubbing, No contractures Integumentary: No rashes, No cyanosis. BL Ankle edema. Neurological: Normal speech Laboratory Data (last 24 hrs) 02/27/21 16:47: WBC 13.50 H, Hgb 13.0 L, Hct 39.9, Plt Count 174 02/27/21 15:30: Sodium 141, Potassium 3.5, BUN 104 H, Creatinine 4.19 H, Glucose 76, Magnesium 2.9 H Imagings Data: EXAM DESCRIPTION: RAD - Chest Single View - 02/27/2021 3:56 pm CLINICAL HISTORY: AMS COMPARISON: Portable July 2020 TECHNIQUE: AP portable chest image was obtained 02/27/2021 3:56 pm . FINDINGS: No acute lung parenchymal process seen. Chronic interstitial pattern is similar to the comparison imaging. Heart and vasculature are normal. No measurable pleural effusion and no pneumothorax. No acute bony abnormality seen. No acute aortic findings suspected. IMPRESSION: No acute cardiopulmonary process. No significant change from comparison study. EXAM DESCRIPTION: CT - Head Brain Wo Cont - 02/27/2021 2:52 pm CLINICAL HISTORY: weakness, AMS COMPARISON: Ct Stroke Brain Wo Cont dated 07/21/2020 TECHNIQUE: Axial 5 mm thick images of the head were obtained without IV contrast. All CT scans are performed using dose optimization technique as appropriate and may include automated exposure control or mA/KV adjustment according to patient size. FINDINGS: No intracranial hemorrhage, mass, edema or shift of mid-line structures. No acute infarction changes seen. Moderate severity atrophy and chronic ischemic changes match the July 2020 study. Ventricles are in proportion to the volume loss. Dense arterial tree calcifications are present. Mastoid air cells and visualized portions of the paranasal sinuses are clear. No acute bony findings. IMPRESSION: Negative non-contrast CT head examination for acute finding. Atrophy and chronic ischemic changes are present matching comparison. Chronic ischemic changes can mask nonhemorrhagic acute infarction. MR brain followup can be obtained if there is ongoing concern for acute ischemia. Conclusions/Impression: PIERCE likely hypovolemia CKD III with proteinuria -Discontinue IVF due to the start of ankle edema -Encourage free water intake Hypokalemia -Replete with oral potassium prn Hypocalcemia -Continue Vitamin D3 -Continue Calcitriol HypoPO4 -Neutraphos prn Hyperuricemia -Discontinue IVF HTN with CKD -Monitor BP LE Edema -Discontinue IVF Moderate malnutrition -Encourage nutrition -Continue protein supplementation -Probiotic BID BPH with LUTS -Continue Flomax qhs PSA Bacteremia -Continue Levaquin Acute PSA cystitis -Continue Levaquin Generalized weakness with sarcopenia -Consider PT as tolerated
[2021-03-05 20:51] VITALS: O2SAT 97
[2021-03-05] MEDS: TAMSULOSIN 0.4 MG SR CAP PO SCH (21:22)
[2021-03-05] MEDS: ACETAMINOPHEN 500 MG TAB PO PRN (21:23)
[2021-03-06] MEDS: Levofloxacin500mg IV 500 MG/100 ML BAG IV SCH (08:31)
[2021-03-06] MEDS: CALCITROL 0.25 MCG CAP PO SCH (08:32)
[2021-03-06] MEDS: VITAMIN D 5,000 UNIT CAP PO SCH (08:32)
[2021-03-06] MEDS: HEPARIN 5000 UNIT/ML 1 ML VIAL SQ SCH (08:33)
[2021-03-06] MEDS: JUVEN PACKET PO SCH (08:33)
[2021-03-06] MEDS: LACTOBACILLUS/ACIDOPHILUS TAB PO SCH (08:33)
[2021-03-06] MEDS: ENSURE ENLIVE 237 ML CAN PO SCH ×2 (08:33→13:53)
--- NOTE | 2021-03-06 13:42 | P.DS ---
Admission Date: 02/27/21 Discharge Date: 03/06/21 Reason for Admission: failure to thrive, PIERCE on CKD, UTI Brief History of Present Illness: 89yo M , PMH: anemia, HTN, HLD, Chronic back pain, anxiety, prior CVA was brought in by EMS due to decreased responsiveness, weakness, failure to thrive. Patient was confused and mumbling words. Reportedly patient had not eaten for several days, found at home without electricity. Patient could not provide any history. In the ED, found to have a leukocytosis, anemia, elevated BUN and creatinine, with significant cachexia, chest x-ray unremarkable. UA concerning for UTI. He received IV fluid and Rocephin and admitted for further management. Hospital Course: UTI, acute cystitis PIERCE on CKD3 Failure to thrive cachexia HTN HLD prior CVA Patient admitted to the medical and treated with IV Rocephin. Urine culture and blood cultures grew Pseudomonas sensitive to Levaquin. Antibiotics switched to IV Levaquin. Patient clinically improved with treatment. Repeat blood culture is negative. Patient seen by nephrology nephrology-Dr. Delgado for PIERCE. Renal function improved significantly with IV hydrate. Serum creatinine level improved to normal. PICC line inserted for outpatient IV antibiotics. Patient will complete 2 weeks of IV Levaquin He was seen by speech therapy and placed on mechanical soft. He receives PT during the hospital stay. Patient will benefit from skilled rehab. Also needing nutritional supplementation for cachexia. Vital Signs/Physical Exam: Temp Pulse Resp BP Pulse Ox 97.6 F 101 H 20 100/49 L 98 03/06/21 12:00 03/06/21 12:00 03/06/21 12:00 03/06/21 12:03/06/21 12:00 General: In no apparent distress, Cachectic, Other (Awake) HEENT: Mucous membr. moist/pink Neck: JVD not distended Respiratory: Clear to auscultation bilaterally, Normal air movement Cardiovascular: No edema, Regular rate/rhythm, Normal S1 S2 Gastrointestinal: Soft and benign, Non-distended, No tenderness Musculoskeletal: No contractures Integumentary: No rashes Neurological: Other (No focal motor deficit.) Laboratory Data at Discharge: WBC 8.10 K/uL (4.3-10.9) D 03/05/21 05:41 Hgb 10.6 g/dL (13.6-17.9) L 03/05/21 05:41 Hct 31.8 % (39.6-49.0) L 03/05/21 05:41 Plt Count 143 K/uL (152-406) L 03/05/21 05:41 Sodium 139 mmol/L (136-145) 03/05/21 05:41 Potassium 4.2 mmol/L (3.5-5.1) 03/05/21 05:41 BUN 52 mg/dL (7-18) H 03/05/21 05:41 Creatinine 1.23 mg/dL (0.55-1.3) 03/05/21 05:41 Glucose 100 mg/dL (74-106) 03/05/21 05:41 Uric Acid 10.2 mg/dL (3.5-7.2) H D 03/02/21 05:40 Phosphorus 3.3 mg/dL (2.5-4.9) 03/05/21 05:41 Magnesium 2.8 mg/dL (1.8-2.4) H 02/28/21 06:25 Total Bilirubin 0.4 mg/dL (0.2-1.0) 03/02/21 05:40 AST 12 U/L (15-37) L 03/02/21 05:40 ALT 19 U/L (12-78) 03/02/21 05:40 Alkaline Phosphatase 84 U/L (45-117) 03/02/21 05:40 Home Medications: Clopidogrel Bisulfate [Plavix*] 75 mg PO DAILY #30 tablet 07/22/20 Calcitrol [Rocaltrol*] 0.5 mcg PO DAILY cap 03/06/21 Cholecalciferol (Vitamin D3) [Vitamin D 5,000 IU Cap*] 5,000 unit PO DAILY cap 03/06/21 Ensure Enlive 237 ml PO TID can 03/06/21 Douglas [Douglas*] 1 pkt PO BID [facility] 03/06/21 Tamsulosin [Flomax*] 0.4 mg PO BEDTIME cap 03/06/21 Diet: Regular Activity: Fall precautions Followup: Unknown,U [Primary Care Provider] - Time spent managing pt's care (in minutes): 42
--- NOTE | 2021-03-06 14:03 | PN ---
Date of Progress Note: 03/06/2021 Subjective: The patient is alert, awake, does answer some questions. His son is in the room with flor bond also. The patient denies any pain. His breathing is comfortable. He is not on any oxygen, O2 sat s are 98% range. Objective: Vital signs: Stable. Blood pressure 100 to 116 systolic. Last blood pressure 100/49, p ulse is about 80 and regular, respirations around 14 to 16 and comfortable. The patient is afebrile. His O2 sats are 98% on room air. Lungs: Clear to auscultation. Abdomen: Soft. Extremities: Do not reveal any edema. Laboratory Data: Reviewed. WBC count 8.1, hemoglobin 10.6, hematocrit 31.8, platelet count of 143. Chemistry shows sodium 139; potassium 4.2; chloride 103; bicarb is 32; BUN creatinine is 52 and 1.23 compared to 60 and 1.39 yesterday, the day before it was 69 and 1.64, day before it was 73 and 1.87, on March 01 it was 78 and 2.19. Assessment And Plan: Acute kidney injury, question chronic kidney disease in the setting of volume d epletion, poor p.o. intake. The patient is beginning to eat better now, but still his p.o. intake is not completely back to his baseline. He is alert. He is able to answer some questions. He does no t have any swelling in the lower extremities. He does not have any difficulty with breathing current ly. Acute kidney injury seems to be resolving. Continue gentle IV fluids and encourage p.o. intake. Hypokalemia, resolved. Hypocalcemia, on vitamin D. Hypophosphatemia, Continue to treat as needed. Hyperuricemia, on IV fluids and volume depletion, improving. Hypertension and chronic kidney disea se. Monitor blood pressure. His blood pressures are currently on the lower side in setting of volum e depletion. With him eating better and some IV fluids should improve. Urinary tract infection with Pseudomonas, on Levaquin. The sensitivities to the Pseudomonas are good with the Levaquin. The patient is tolerating well. Clinic ally somewhat improving. /MADELINE Voice ID: [id number] Report ID: [id number]
[2021-03-06 16:21] VITALS: BP 105/59; TEMP 97.3
== END 2021-03-06 17:25 | DRG 682 ==
LOC: ER 14:18 → ERHOLD 17:13 → 2ND 19:41
PROVIDERS: ADMIT Hospitalist; ATTEND Internal Medicine
PROC: 02HV33Z Insertion of Infusion Device into Superior Vena Cava, Percutaneous Approach (ICD-10-PCS; principal; 2021-03-04)
DX: N17.9 Acute kidney failure, unspecified (principal); G93.41 Metabolic encephalopathy; R53.2 Functional quadriplegia; R65.20 Severe sepsis without septic shock; A41.52 Sepsis due to Pseudomonas; N30.00 Acute cystitis without hematuria; R64 Cachexia; Z68.1 Body mass index [BMI] 19.9 or less, adult; L89.152 Pressure ulcer of sacral region, stage 2; I12.9 Hypertensive chronic kidney disease with stage 1 through stage 4 chronic kidney disease, or unspecified chronic kidney disease; N18.30 Chronic kidney disease, stage 3 unspecified; E78.5 Hyperlipidemia, unspecified; G89.29 Other chronic pain; M54.9 Dorsalgia, unspecified; D64.9 Anemia, unspecified; E86.0 Dehydration; E87.6 Hypokalemia; E83.51 Hypocalcemia; N40.1 Benign prostatic hyperplasia with lower urinary tract symptoms; M19.90 Unspecified osteoarthritis, unspecified site; E83.39 Other disorders of phosphorus metabolism; E79.0 Hyperuricemia without signs of inflammatory arthritis and tophaceous disease; M62.84 Sarcopenia; D69.6 Thrombocytopenia, unspecified; R62.7 Adult failure to thrive; Z79.82 Long term (current) use of aspirin; Z79.02 Long term (current) use of antithrombotics/antiplatelets; Z79.899 Other long term (current) drug therapy; Z86.73 Personal history of transient ischemic attack (TIA), and cerebral infarction without residual deficits; Z85.46 Personal history of malignant neoplasm of prostate; Z20.822 Contact with and (suspected) exposure to COVID-19
CPT/HCPCS: 36415; 70450; 71045; 80048; 80053; 80069; 80202; 81003; 81015; 82570; 82947; 83605; 83735; 83880; 83930; 83935; 84100; 84145; 84156; 84300; 84439; 84443; 84550; 85025; 86317; 86704; 87040; 87077; 87086; 87088; 87186; 87205; 87340; 92526; 92610; 93005; 94760; 96374; 97110; 97112; 97116; 97161; 97530; 99285; J0696; J1644; J1650; J7030; J7799; U0003

== ENCOUNTER 2021-05-03 12:21 | Inpatient (IN) | payer OTHER ==
--- NOTE | 2021-05-03 14:11 | RAD REPORT ---
EXAM DESCRIPTION: CT - Head Brain Wo Cont - 05/03/2021 2:06 pm CLINICAL HISTORY: leg weakness HX of CVA Headache, drowsiness, CVA symptomology COMPARISON: Head Brain Wo Cont dated 02/27/2021; Ct Stroke Brain Wo Cont dated 07/21/2020 TECHNIQUE: All CT scans are performed using dose optimization technique as appropriate and may inclu de automated exposure control or mA/KV adjustment according to patient size. FINDINGS: No intracranial hemorrhage, hydrocephalus or extra-axial fluid collection.Advanced general ized brain atrophy is present with moderate periventricular and deep white matter chronic microvascul ar ischemic changes.No areas of brain edema or evidence of midline shift. The paranasal sinuses and mastoids are clear. The calvarium is intact. Vertebral atherosclerosis. IMPRESSION: No acute intracranial abnormality.
[2021-05-03] MEDS ORDERED: HYDRALAZINE HCL 20 MG/ML VIAL IV PRN (14:19)
--- NOTE | 2021-05-03 14:39 | P.HP ---
Certification for Inpatient Patient admitted to: Inpatient With expected LOS: >2 Midnights Patient will require the following post-hospital care: Home Health Services Practitioner: I am a practitioner with admitting privileges, knowledge of patient current condition, hospital course, and medical plan of care. Services: Services provided to patient in accordance with Admission requirements found in Title 42 Section 412.3 of the Code of Federal Regulations Patient History Date of Service: 05/03/21 Primary Care Provider: Azalia Reason for admission: cva History of Present Illness: Patient came to the office today by his family. He has been with a weak and not able to stand since the day before. The family is not able to give a good history. The Patient's history was taken from the hospital chart and have spoken to pharmacy director from [place]. The patient had a punctuate stroke this past Jul. The patient had a uti in February. Went to [facility] for PT and antibiotics. The patient went home a week ago. He was doing well. The Patient was walking up till . The patient has not been able to stand since yesterday afternoon. His family believes this is because he ate too much the night before. There was a report to APS. However after spending time with the family I don't believe this is due to malicious intent More like lack of education. The family cannot recall his history Have a difficult time grasping the significance of his diagnosis. However more than willing to take him to the ER when I stressed the importance of his symptoms Allergies No Known Allergies Allergy (Verified 07/21/20 21:51) Home Medications: Clopidogrel Bisulfate [Plavix*] 75 mg PO DAILY #30 tablet 07/22/20 Calcitrol [Rocaltrol*] 0.5 mcg PO DAILY cap 03/06/21 Cholecalciferol (Vitamin D3) [Vitamin D 5,000 IU Cap*] 5,000 unit PO DAILY cap 03/06/21 Ensure Enlive 237 ml PO TID can 03/06/21 Douglas [Douglas*] 1 pkt PO BID powd.pack 03/06/21 Levaquin 500 mg IVPB Q48H 14 Days 03/06/21 Tamsulosin [Flomax*] 0.4 mg PO BEDTIME cap 03/06/21 - Past Medical/Surgical History Diabetic: No -: Anemia -: Anxiety -: BPh -: Chronic Back Pain -: Hyperlipidemia -: Htn - Family History Mother -: Hypertension Notes: unable to obtain hx - Social History Alcohol use: No CD- Drugs: No Caffeine use: Yes Review of Systems 10-point ROS is otherwise unremarkable General: Weakness Musculoskeletal: Other (patient not able to stand) Physical Examination - Physical Exam General: Alert, In no apparent distress HEENT: Atraumatic, PERRLA, Mucous membr. moist/pink, EOMI, Sclerae nonicteric Neck: Supple, 2+ carotid pulse no bruit, No LAD, Without JVD or thyroid abnormality Respiratory: Clear to auscultation bilaterally, Normal air movement Cardiovascular: Regular rate/rhythm, Normal S1 S2 Gastrointestinal: Normal bowel sounds, No tenderness Musculoskeletal: No tenderness Integumentary: No rashes Neurological: Normal gait, Normal speech, Normal tone, Normal affect, Abnormal strength (4/5 strength in the legs) Lymphatics: No axilla or inguinal lymphadenopathy Assessment and Plan - Problems (Diagnosis) (1) CVA (cerebral vascular accident) Current Visit: No Status: Acute Plan: Willl admit the patient to the hospital. Will need an MRI. Start him on aspirin and atorvastain. Consult Dr. Vaugnh. He is not a candidate for intervention. However he needs placement, home health PT. The family does not want Hospice or assisted placement. The patient most likely to go home with home health Qualifiers: CVA mechanism: thrombosis Precerebral and cerebral artery: unspecified cerebral artery Qualified Code(s): I63.30 - Cerebral infarction due to thrombosis of unspecified cerebral artery (2) BPH loc w urin obs/LUTS Current Visit: Yes Status: Acute Plan: restart tamusolin Discharge Plan: Home Plan to discharge in: 48 Hours - Advance Directives Does patient have a Living Will: No Does patient have a Durable POA for Healthcare: No - Code Status/Comfort Care Code Status Assessed: No Code Status: Full Code Physician Review: Patient Assessed, Agree with Above Assessment and Plan Critical Care: No Time Spent Managing Pts Care (In Minutes): 75
[2021-05-03 15:09] LABS: Protime INR 1.02
[2021-05-03 15:11] LABS: Absolute Lymphocytes (CBC) 0.8 K/uL (0.7-4.9); Basophils % 0.8 % (0-1.3); Hematocrit 30.8 % (39.6-49.0); MPV 7.9 fL (7.6-11.3); RBC Red Blood Cell Count 3.23 M/uL (4.33-5.43)
[2021-05-03 15:28] LABS: ALT/SGPT 21 U/L (12-78); AST/SGOT 21 U/L (15-37); Albumin 2.8 g/dL (3.4-5.0); Alkaline Phosphatase 81 U/L (45-117); BUN Blood Urea Nitrogen 39 mg/dL (7-18); Bicarbonate 29 mmol/L (21-32); Bilirubin Total 0.3 mg/dL (0.2-1.0); Glucose Level 121 mg/dL (74-106); Potassium 3.8 mmol/L (3.5-5.1); Sodium Level 135 mmol/L (136-145); Troponin I < 0.02 ng/mL (0.0-0.045)
--- NOTE | 2021-05-03 15:35 | ER ---
Nurse's Notes [facility] Name: Oc King Age: 89 yrs Sex: Male : 1930 Arrival Date: 05/03/2021 Time: 12:31 Bed Direct Admit Private MD: Diagnosis: Cerebral infarction, unspecified Presentation: 05/03 12:31 Chief complaint: Patient's son or daughter states: Pt stated "We went to Dr Vieyra kg Office because he was running out of medications and he lost his strength starting last night and Dr. Vieyra sent us over and said he was going to admit him and do an MRI.". Coronavirus screen: Vaccine status: Patient reports being unvaccinated. Ebola Screen: Patient negative for fever greater than or equal to 101.5 degrees Fahrenheit, and additional compatible Ebola Virus Disease symptoms Patient denies exposure to infectious person. Patient denies travel to an Ebola-affected area in the 21 days before illness onset. Initial Sepsis Screen: Does the patient meet any 2 criteria? No. Patient's initial sepsis screen is negative. Does the patient have a suspected source of infection? No. Patient's initial sepsis screen is negative. Risk Assessment: Do you want to hurt yourself or someone else? Patient reports no desire to harm self or others. Onset of symptoms was May 02, 2021. 12:31 Method Of Arrival: Wheelchair kg 12:31 Acuity: AUTUMN 3 kg Triage Assessment: 12:34 General: Appears in no apparent distress. Behavior is calm, cooperative, appropriate kg for age, quiet. Pain: Denies pain. Historical: - Allergies: 12:34 No Known Allergies; kg - PMHx: 12:34 Prostate Cancer; osteoarthritis; nephrogenous proteinuria; Hypertension; kg Hyperlipidemia; chronic kidney disease; chronic back pain; benign prostate hypertrophy; Anxiety; Anemia; - PSHx: 12:34 Prostate SX; kg - Immunization history:: Adult Immunizations not up to date, Client reports having NOT received the Covid vaccine. - Social history:: Smoking status: Patient denies any tobacco usage or history of. Screenin:54 Abuse screen: Denies threats or abuse. Denies injuries from another. Tuberculosis aj2 screening: No symptoms or risk factors identified. Fall Risk None identified. Assessment: 12:54 General: Appears in no apparent distress. malnourished, Behavior is calm, cooperative. aj2 Pain: Denies pain. 13:38 Reassessment: Called Dr. Vieyra for additional admission orders. Dr. Vieyra states he ss will put the rest of the orders in momentarily. PT remains in ER room 16 until hospital bed on 2nd or 4th floor becomes available. 13:45 Reassessment: Patient appears in no apparent distress at this time. Patient and/or aj2 family updated on plan of care and expected duration. Pain level reassessed. Patient is alert, oriented x 3, equal unlabored respirations, skin warm/dry/pink. Patient denies pain at this time. Vital Signs: 12:31 BP 102 / 60; Pulse 90; Resp 18; Temp 97.2(TE); Pulse Ox 100% ; Weight 58.97 kg; Height kg 5 ft. 2 in. (157.48 cm); Pain 0/10; 12:54 BP 116 / 65; Pulse 75; Resp 18; Temp 97.2; Pulse Ox 100% ; aj2 13:45 BP 119 / 62; Pulse 74; Resp 18; Temp 97.2; Pulse Ox 100% ; aj2 12:31 Body Mass Index 23.78 (58.97 kg, 157.48 cm) kg Vitals: 13:45 Cardiac Rhythm Assessment Sinus rhythm. aj2 ED Course: 12:31 Patient arrived in ED. mr 12:34 Triage completed. kg 12:34 Arm band placed on left wrist. kg 12:54 No apparent distress. Resting quietly. aj2 12:54 Patient has correct armband on for positive identification. aj2 12:54 No provider procedures requiring assistance completed. aj2 12:57 Twyla Zuñiga, RN is Primary Nurse. es2 13:41 Patient admitted, IV remains in place. ss 15:30 PT-INR Sent. mt 15:30 BMP Sent. mt 15:30 CBC with Diff Sent. mt 15:30 CORONAVIRUS Sent. mt 15:30 COVID-19 : Document "Date of Symptom Onset" if Symptomatic. Sent. mt 15:34 Liam Vieyra MD is Hospitalizing Provider. ss Administered Medications: No medications were administered Outcome: 13:41 Admitted to ER Hold. Please see [facility] for further documentation. ss 13:41 Condition: good 13:41 Instructed on the need for admit. 15:35 Decision to Hospitalize by Provider. 16:50 Patient left the ED. aj2 Signatures: Susannah Gale Sri Waters, RN RN Shannan Jasso mt, Kristen, RN RN Toshia Mendenhall 2 Twyla Zuñiga RN RN es2 Corrections: (The following items were deleted from the chart) 12:36 12:34 Allergies: Aspirin; kg kg
[2021-05-03 17:18] VITALS: BMI 18.6
[2021-05-03] MEDS: ENOXAPARIN 40 MG/0.4 ML SQ SCH (18:10)
--- NOTE | 2021-05-03 20:17 | RAD REPORT ---
EXAM DESCRIPTION: MRI - Brain W/Wo Cont - 05/03/2021 7:57 pm CLINICAL HISTORY: cva Headache, drowsiness, CVA symptomology COMPARISON: MRA Head Wo Cont dated 05/03/2021; Head Brain Wo Cont dated 05/03/2021 TECHNIQUE: Multi-sequence, multiplanar MR imaging of the brain was performed with contrast. FINDINGS: No intracranial hemorrhage, hydrocephalus, or extra-axial fluid collection.Moderate brain atrophy with moderate confluent T2 and FLAIR hyperintensity in the periventricular and deep white mat ter most compatible with chronic microvascular ischemia. No edema or shift of midline structures. No intracranial mass. DWI is negative for acute CVA. The midline structures are normally formed. Mastoid air cells and paranasal sinuses are clear. Post-contrast images show no abnormal enhancement to suggest tumor or infection. IMPRESSION: Negative for acute CVA or other acute intracranial process. No pathologic post-contrast enhancement suspected.
--- NOTE | 2021-05-03 20:20 | RAD REPORT ---
EXAM DESCRIPTION: MRI - MRA Head Wo Cont - 05/03/2021 7:57 pm CLINICAL HISTORY: CVA CVA COMPARISON: Head Brain Wo Cont dated 05/03/2021 FINDINGS: 3D noncontrast [id number] MR angiography of the [place] was performed. No aneurysm, flow-limiting stenosis or vascular malformation is seen. Moderate narrowing of both inte rnal carotid arteries at the level of the carotid siphons. Forward flow seen in codominant vertebral arteries. The visualized dural venous sinuses appear patent. IMPRESSION: No significant flow abnormality of the [place] is identified.
--- NOTE | 2021-05-03 20:22 | RAD REPORT ---
EXAM DESCRIPTION: MRI - MRA Neck W/Wo Cont - 05/03/2021 7:57 pm CLINICAL HISTORY: CVA Headache, drowsiness, CVA symptomology COMPARISON: No comparisons FINDINGS: Contrast enhance 2D [id number] MR angiography of the neck vessels was performed. A left aortic arch is present. Normal branching pattern of the great vessels is noted. Both common carotid arteries and subclavian arteries are widely patent. Mild narrowing of the right carotid bulb is seen estimated less than 50% based on NASCET criteria. Moderate length segment of the atheromatous plaquing is suspected involving the left proximal ICA res ulting 50-70% stenosis based on NASCET criteria. Antegrade flow is seen in both vertebral arteries. IMPRESSION: 50-70% stenosis proximal left internal carotid artery suspected.
[2021-05-03] MEDS: ENSURE ENLIVE 237 ML CAN PO SCH (21:00)
[2021-05-03] MEDS: ATORVASTATIN 40 MG TAB PO SCH (22:14)
[2021-05-03] MEDS: TAMSULOSIN 0.4 MG SR CAP PO SCH (22:14)
[2021-05-04] MEDS ORDERED: PANTOPRAZOLE 40MG TABLET PO SCH (06:30)
[2021-05-04 07:17] LABS: Absolute Lymphocytes (CBC) 0.7 K/uL (0.7-4.9); Basophils % 0.8 % (0-1.3); Hematocrit 33.5 % (39.6-49.0); Lymphocytes % 10.2 % (15.3-44.8); RBC Red Blood Cell Count 3.49 M/uL (4.33-5.43)
--- NOTE | 2021-05-04 07:49 | P.PN ---
Subjective Date of Service: 05/04/21 Primary Care Provider: Azalia Chief Complaint: cva Subjective: No new changes Review of Systems 10-point ROS is otherwise unremarkable General: Weakness Physical Examination - Vital Signs Temperature: 96.7 F Blood Pressure: 128/78 Pulse: 80 Respirations: 18 Pulse Ox (%): 97 - Physical Exam General: Alert, In no apparent distress HEENT: Atraumatic, PERRLA, EOMI Neck: Supple, JVD not distended Respiratory: Clear to auscultation bilaterally, Normal air movement Cardiovascular: Regular rate/rhythm, Normal S1 S2 Gastrointestinal: Normal bowel sounds, No tenderness Musculoskeletal: No tenderness Integumentary: No rashes Neurological: Normal speech, Normal tone, Normal affect Lymphatics: No axilla or inguinal lymphadenopathy Assessment & Plan - Problems (Diagnosis) (1) Severe protein-calorie malnutrition Current Visit: Yes Status: Chronic Plan: Patient has no active stroke to explain the sudden weakness in his legs. Will get home health. Need a PT evaluation and nutrition evaluation. He was just released from [place]. The family and patient seem to want him at home. He has a poor intermediate card tender prognosis. (2) BPH loc w urin obs/LUTS Current Visit: Yes Status: Acute Plan: restart tamusolin (3) CVA (cerebral vascular accident) Current Visit: No Status: Resolved Plan: Willl admit the patient to the hospital. Will need an MRI. Start him on aspirin and atorvastain. Consult Dr. Vaughn. He is not a candidate for intervention. However he needs placement, home health PT. The family does not want Hospice or assisted placement. The patient most likely to go home with home health 05/04 No acute stroke Qualifiers: CVA mechanism: thrombosis Precerebral and cerebral artery: unspecified cerebral artery Qualified Code(s): I63.30 - Cerebral infarction due to thrombosis of unspecified cerebral artery (4) Carotid stenosis Current Visit: Yes Status: Acute Plan: Most likely stable. Will have cardiology look at the patient. Continue asp. Low dose statin. However he may not tolerate statin due to his weakness. Qualifiers: Laterality: left Qualified Code(s): I65.22 - Occlusion and stenosis of left carotid artery Discharge Plan: Home - Code Status/Comfort Care Code Status Assessed: No Code Status: Full Code Physician Review: Patient Assessed, Agree with Above Assessment and Plan Critical Care: No Time Spent Managing Pts Care (In Minutes): 20
[2021-05-04 07:54] LABS: Albumin 2.8 g/dL (3.4-5.0); Bilirubin Total 0.4 mg/dL (0.2-1.0); Potassium 3.8 mmol/L (3.5-5.1); Protein, Total 5.9 g/dL (6.4-8.2)
[2021-05-04 08:11] LABS: Thyroid Stimulating Hormone 5.15 uIU/mL (0.360-3.740)
[2021-05-04] MEDS: ENSURE ENLIVE 237 ML CAN PO SCH ×3 (09:00→20:08)
[2021-05-04] MEDS: CALCITROL 0.25 MCG CAP PO SCH (09:09)
[2021-05-04] MEDS: PANTOPRAZOLE 40MG TABLET PO SCH (09:09)
[2021-05-04] MEDS: ASPIRIN EC 81 MG TAB PO SCH (09:09)
[2021-05-04 11:29] VITALS: O2SAT 100
--- NOTE | 2021-05-04 15:35 | CON ---
Date of Consultation: 05/04/2021 Reason For Consultation: CVA. History Of Present Illness: This is an elderly gentleman, was seen in Dr. Vieyra's office with genera lized weakness and he was not able to take care of himself, unable to walk, is concerned about stroke , and was sent to the emergency room with diagnosis of CVA. Past Medical History: Anemia, CVA, hypertension, chronic back pain, and dyslipidemia. Medications: Refer to reconciliation sheet for detailed list. Allergies: NO KNOWN DRUG ALLERGIES. Family History: No premature coronary artery disease or cancer. Social History: Does not smoke or drink. Does not use any drugs. Review of Systems: All systems reviewed and they were negative except for what mentioned in the HPI. Physical Examination: Vital Signs: Temperature is 98.1, pulse 77, breathing at 16, blood pressure 124/56, saturating 100% on room air. General: Pleasant elderly male, no apparent distress. Head and Neck: Pupils are equal, reactive to light. Intact eye movements. No JVD. No cervical lym phadenopathy. Neck: Supple. Thyroid is not enlarged. Head and Neck: Pupils are equal, reactive to light. Intact eye movements. No JVD. No cervical lym phadenopathy. Neck: Supple. Thyroid is not enlarged. Lungs: Clear to auscultation bilaterally. No rhonchi, rales, or crackles. No accessory muscle use. Heart: Regular rate and rhythm. No extra sounds. Abdomen: Soft, nontender. Bowel sounds positive. No organomegaly. No masses or hernia. No rigidi ty or rebound. Extremities: No edema, clubbing, or cyanosis. Intact pulses. Skin: No rash noted. Neurologic: Alert, awake, oriented x3. No acute focal deficits appreciated. Investigations: MRA of the neck showed a 50% to 70% stenosis of proximal left internal carotid arter y suspected. CT brain without contrast, no acute abnormalities. MRI of the brain, no acute CVA. MR I of the brain, no signal abnormalities. Assessment And Recommendations: Carotid stenosis of the left internal carotid artery between 50% and 70% per MRA, which is usually not a very carotid arteries. There is no active stroke dur ing this hospital stay as per the MRI. The patient is severely malnourished and cachectic and very t hin body habitus. Recommend nutrition supplements and physical therapy and if condition status impro ves, a carotid angiogram can be scheduled and performed as an outpatient to verify the carotid status . At this point, recommend baby aspirin and high-dose statin. Thank you for the consult. CLIFTON Voice ID: [id number] Report ID: [id number]
[2021-05-04] MEDS: ENOXAPARIN 40 MG/0.4 ML SQ SCH (16:19)
[2021-05-04] MEDS ORDERED: INFLUENZA VACCINE (for 6+ mo) 0.5 ML DOSE IMVAC ONE (18:00)
[2021-05-04] MEDS: ATORVASTATIN 40 MG TAB PO SCH (20:07)
[2021-05-04] MEDS: TAMSULOSIN 0.4 MG SR CAP PO SCH (20:07)
[2021-05-04] MEDS: JUVEN PACKET PO SCH (20:12)
--- NOTE | 2021-05-04 22:38 | CON ---
Reason For Consultation: Consultation called because of possible stroke. History Of Present Illness: Mr. King is an 89-year-old right-handed patient, whom I had s een last July for an acute stroke affecting the left central sulcus and possibly coming from the carotid bulb by thromboembolism. He had right-sided weakness and incoordination. The patient is on therapy and reportedly recovered well. However, he has since resided at [facility] and wh ile there apparently became diffusely weak with no focal changes and it was noted from chart review t hat he was walking up until before he came in to the hospital and since then, he was not abl e to stand for about more than 24 hours prior to coming to the hospital. At [facility], his head CT scan showed no acute ischemic or hemorrhagic findings. A brain MRI ruled out the presence f or acute stroke. There was moderate brain atrophy from prior ischemic events and the areas appeared to have moderate confluent T2 and FLAIR changes in both the periventricular area and the white matter . Otherwise, his blood work showed no evidence of infection with a normal white blood cell count. H emoglobin stable around 11.3. Kidney function showed dehydration with creatinine 1.39, improved to 1 .19 after hydration. His LDL cholesterol 92, HDL 67. His free T4 1.11. TSH elevated at 5.15. Live r function studies are unremarkable. His COVID test was negative. Past Medical History: Prostate cancer, osteoarthritis, hypertension, dyslipidemia, chronic kidney di sease, prostate hypertrophy, chronic anemia, anxiety. Surgical History: Prostate surgery. Allergies: NO KNOWN DRUG ALLERGIES. Family History: Noncontributory. Social History: No alcohol, tobacco, or IV drug use. Resides at the [facility]. Review of Systems: The patient self denies any recent fevers, chills, nausea, vomiting, arthralgias, or myalgias. Physical Examination: Vital Signs: Blood pressure 114/60, pulse 81, respiratory rate 16, temperature 98.7, oxygen saturati on 100% on room air. General: Mr. King is resting in bed. He has very poor dentition. Does appear older than stated a ge and somewhat unkempt. HEENT: He is otherwise normocephalic and atraumatic. His sclerae are anicteric. Oropharynx is mois t. Neck: Supple. Chest: Clear. Abdomen: Soft. Extremities: Show no significant edema or cyanosis. Neurological: He is alert, somewhat slow in his responses, but he follows commands appropriately. C ranial nerves show no specific focal deficits. In terms of motor examination, he has diffuse weaknes s 4+ in upper and lower extremities. Sensory exam, in stocking-glove loss of light touch and tempera ture. Reflexes slightly more brisk on the right compared to the left side and his gait, he was evalu ated by Physical Therapy, ambulated 10 feet with moderate assistance using a rolling walker. Assessment: Mr. King is an 89-year-old patient with chronic left hemispheric punctate strokes from which he has recovered well, who presents with nonspecific diffuse weakness, but no evidence of an a cute stroke on MRI or on examination. He does have risk factors for stroke as noted above with hyper tension, dyslipidemia, prior stroke. Plan: He should be hydrated. Continue his current regimen of aspirin 81 mg daily, Lipitor 40 mg at bedtime, and comorbid medications as appropriate. He may be discharged with physical therapy and occ upational therapy along with speech therapy as appropriate and may follow up with Dr. Vaughn's offi ce in 1 month. KWABENA/MADELINE Voice ID: [id number] Report ID: [id number]
[2021-05-05 07:04] LABS: Absolute Lymphocytes (CBC) 0.8 K/uL (0.7-4.9); Basophils % 0.6 % (0-1.3); Hematocrit 30.7 % (39.6-49.0); Lymphocytes % 8.6 % (15.3-44.8); MPV 8.3 fL (7.6-11.3); RBC Red Blood Cell Count 3.19 M/uL (4.33-5.43)
[2021-05-05 07:22] LABS: Albumin 2.6 g/dL (3.4-5.0); Bilirubin Total 0.3 mg/dL (0.2-1.0); Potassium 4.3 mmol/L (3.5-5.1); Protein, Total 5.4 g/dL (6.4-8.2)
--- NOTE | 2021-05-05 08:22 | P.DS ---
Admission Date: 05/03/21 Discharge Date: 05/05/21 Primary Care Provider: Azalia Disposition: ROUTINE DISCHARGE Discharge Condition: GOOD Reason for Admission: cva - Problems (1) Severe protein-calorie malnutrition Current Visit: Yes Status: Chronic (2) BPH loc w urin obs/LUTS Current Visit: Yes Status: Acute (3) CVA (cerebral vascular accident) Current Visit: No Status: Resolved Qualifiers: CVA mechanism: thrombosis Precerebral and cerebral artery: unspecified cerebral artery Qualified Code(s): I63.30 - Cerebral infarction due to thrombosis of unspecified cerebral artery (4) Carotid stenosis Current Visit: Yes Status: Acute Qualifiers: Laterality: left Qualified Code(s): I65.22 - Occlusion and stenosis of left carotid artery Brief History of Present Illness: Patient came to the office today by his family. He has been with a weak and not able to stand since the day before. The family is not able to give a good history. The Patient's history was taken from the hospital chart and have spoken to physical director from [place]. The patient had a punctuate stroke this past Jul. The patient had a uti in February. Went to [facility] for PT and antibiotics. The patient went home a week ago. He was doing well. The Patient was walking up till . The patient has not been able to stand since yesterday afternoon. His family believes this is because he ate too much the night before. There was a report to APS. However after spending time with the family I don't believe this is due to malicious intent More like lack of education. The family cannot recall his history Have a difficult time grasping the significance of his diagnosis. However more than willing to take him to the ER when I stressed the importance of his symptoms Hospital Course: Patient was admitted for fear of a cva. however mri was negative. He was able to walk to the door of his room with PT. The patient has some difficulty hearing we will arrange a walker and home health for PT. Thank you for allowing me to take part in the patients care. Vital Signs/Physical Exam: Temp Pulse Resp BP Pulse Ox 98.5 F 98 H 18 110/70 100 05/05/21 04:00 05/05/21 04:00 05/05/21 04:00 05/05/21 04:00 05/05/21 04:00 General: In no apparent distress, Demented HEENT: Atraumatic, PERRLA, EOMI Neck: Supple, JVD not distended Respiratory: Clear to auscultation bilaterally, Normal air movement Cardiovascular: Regular rate/rhythm, Normal S1 S2 Gastrointestinal: Normal bowel sounds, No tenderness Musculoskeletal: No tenderness Integumentary: No rashes Neurological: Normal speech, Normal tone, Normal affect Lymphatics: No axilla or inguinal lymphadenopathy Laboratory Data at Discharge: WBC 9.20 K/uL (4.3-10.9) D 05/05/21 06:40 Hgb 10.4 g/dL (13.6-17.9) L 05/05/21 06:40 Hct 30.7 % (39.6-49.0) L 05/05/21 06:40 Plt Count 220 K/uL (152-406) 05/05/21 06:40 PT 11.7 SECONDS (9.5-12.5) 05/03/21 14:55 INR 1.02 05/03/21 14:55 Sodium 139 mmol/L (136-145) 05/05/21 06:40 Potassium 4.3 mmol/L (3.5-5.1) 05/05/21 06:40 BUN 50 mg/dL (7-18) H 05/05/21 06:40 Creatinine 1.32 mg/dL (0.55-1.3) H 05/05/21 06:40 Glucose 101 mg/dL (74-106) 05/05/21 06:40 Total Bilirubin 0.3 mg/dL (0.2-1.0) 05/05/21 06:40 AST 28 U/L (15-37) 05/05/21 06:40 ALT 30 U/L (12-78) 05/05/21 06:40 Alkaline Phosphatase 110 U/L (45-117) 05/05/21 06:40 Troponin I < 0.02 ng/mL (0.0-0.045) 05/03/21 14:55 Triglycerides 50 mg/dL (<150) 05/04/21 06:52 Cholesterol 169 mg/dL (<200) 05/04/21 06:52 HDL Cholesterol 67 mg/dL (40-60) H 05/04/21 06:52 Cholesterol/HDL Ratio 2.52 05/04/21 06:52 Home Medications: Clopidogrel Bisulfate [Plavix*] 75 mg PO DAILY #30 tablet 07/22/20 Calcitrol [Rocaltrol*] 0.5 mcg PO DAILY cap 03/06/21 Cholecalciferol (Vitamin D3) [Vitamin D 5,000 IU Cap*] 5,000 unit PO DAILY cap 03/06/21 Ensure Enlive 237 ml PO TID can 03/06/21 Douglas [Douglas*] 1 pkt PO BID powd.pack 03/06/21 Levaquin 500 mg IVPB Q48H 14 Days 03/06/21 Tamsulosin [Flomax*] 0.4 mg PO BEDTIME cap 03/06/21 Diet: Regular Activity: Fall precautions Followup: Liam Vieyra MD [Primary Care Provider] - 1 Week Physician Review: Patient Assessed, Agree with Above Assessment and Plan Time spent managing pt's care (in minutes): 30
[2021-05-05 08:31] VITALS: BP 116/55; TEMP 98.1
[2021-05-05] MEDS: ENSURE ENLIVE 237 ML CAN PO SCH (08:46)
[2021-05-05] MEDS: PANTOPRAZOLE 40MG TABLET PO SCH (08:47)
[2021-05-05] MEDS: ASPIRIN EC 81 MG TAB PO SCH (08:47)
[2021-05-05] MEDS: JUVEN PACKET PO SCH (08:47)
[2021-05-05] MEDS: CALCITROL 0.25 MCG CAP PO SCH (08:47)
== END 2021-05-05 10:55 | disposition home health service (06) | DRG 947 ==
LOC: ER 12:21 → ERHOLD 13:15 → 4TH 16:26
PROVIDERS: ADMIT Internal Medicine; ATTEND Internal Medicine
DX: R53.1 Weakness (principal); E43 Unspecified severe protein-calorie malnutrition; Z68.1 Body mass index [BMI] 19.9 or less, adult; N13.8 Other obstructive and reflux uropathy; N40.1 Benign prostatic hyperplasia with lower urinary tract symptoms; Z86.73 Personal history of transient ischemic attack (TIA), and cerebral infarction without residual deficits; I65.22 Occlusion and stenosis of left carotid artery; I10 Essential (primary) hypertension; Z20.822 Contact with and (suspected) exposure to COVID-19
CPT/HCPCS: 36415; 70450; 70544; 70549; 70553; 80053; 80061; 84439; 84443; 84484; 85025; 85610; 97116; 97161; 99281; A9577; J1650; U0003

== ENCOUNTER 2021-05-29 13:49 | Emergency (ER) | payer OTHER ==
[2021-05-29] MEDS ORDERED: D50W 50 ML IV ONE (14:28)
[2021-05-29 14:50] LABS: Albumin 2.3 g/dL (3.4-5.0); Alkaline Phosphatase 225 U/L (45-117); BUN Blood Urea Nitrogen 102 mg/dL (7-18); Bicarbonate 21 mmol/L (21-32); Bilirubin Direct 0.5 mg/dL (0-0.2); Bilirubin Total 0.8 mg/dL (0.2-1.0); Magnesium 2.9 mg/dL (1.8-2.4); Potassium 4.9 mmol/L (3.5-5.1); Protein, Total 5.2 g/dL (6.4-8.2); Sodium Level 131 mmol/L (136-145); Troponin (Emerg Dept Use Only) 0.27 ng/mL (0.0-0.045)
--- NOTE | 2021-05-29 14:52 | RAD REPORT ---
EXAM DESCRIPTION: CT - Abdomen Pelvis Wo Contrast - 05/29/2021 2:22 pm CLINICAL HISTORY: Abdominal pain/ Prostate cancer COMPARISON: 2019 TECHNIQUE: Computed axial tomography of the abdomen and pelvis was obtained. IV and oral contrast we re not requested. All CT scans are performed using dose optimization technique as appropriate and may include automated exposure control or mA/KV adjustment according to patient size. FINDINGS: The evaluation of solid organs, vessels and bowel is limited secondary to the lack of con trast administration. The patient's arms are down by his side resulting in artifact which also limits evaluation. Small to moderate left and small right pleural effusions. The liver, spleen, pancreas, and adrenals appear grossly normal. A right ureteral stent has its proximal and within the region of the right renal pelvis. The distal a nd is in the region of the right ureteral vesicle junction. Mild right hydronephrosis has diminished since the prior exam. A 3.2 centimeter right renal cyst. No gross abnormality of the left kidney. Prostatectomy with lymph node dissection. Marked edema within the subcutaneous tissues. IMPRESSION: The distal aspect of a right ureteral stent in the region of the right ureteral vesicle junction Small to moderate left and small right pleural effusions Prostatectomy Diffuse edema within the subcutaneous tissues Bladder distention
[2021-05-29 14:54] LABS: ALT/SGPT 441 U/L (12-78); AST/SGOT 511 U/L (15-37); Glucose Level 436 mg/dL (74-106)
[2021-05-29 15:06] LABS: Protime INR 2.18
[2021-05-29 15:11] LABS: NT PRO-BNP > 175000 pg/mL (<450)
--- NOTE | 2021-05-29 15:44 | EDPHYS ---
Physician Documentation [facility] Name: Oc King Age: 89 yrs Sex: Male : 1930 Arrival Date: 05/29/2021 Time: 13:57 Bed 2 Private MD: ED Physician Hanna Bobo HPI: 05/29 15:40 This 89 yrs old Male presents to ER via EMS with complaints of Altered Mental sp3 Status. 15:40 89-year-old male with prostate cancer, diabetes, and multiple other medical problems sp3 currently on hospice care who presents to the ED secondary to his son activating EMS due to his dad having some grunting and change in mental status. Initially attempted to contact the hospice service which they were successful but there was a mild delay in the nurse coming out and so the son activated 911. Upon arrival here patient was told to be a full code and work-up was started including laboratory values and CT scan. After son arrived, I was able to speak to him and the daughter who has actual power of assistant city attorney and they are comfortable with him dying peacefully at home under hospice care.. Historical: - Allergies: 13:59 No Known Allergies; ss - PMHx: 13:59 Anemia; Anxiety; benign prostate hypertrophy; chronic back pain; chronic kidney ss disease; Hyperlipidemia; Hypertension; nephrogenous proteinuria; osteoarthritis; Prostate Cancer; - PSHx: 13:59 prostate sx; ss - Immunization history:: Adult Immunizations unknown. - Social history:: Smoking status: unknown. ROS: 15:41 Unable to obtain ROS due to baseline dementia, patient's speech is incomprehensible, sp3 patient being uncooperative. Exam: 15:42 Constitutional: The patient appears Very limited exam. Patient is cachectic with an sp3 extreme low BMI. Core temperature was 94.5 degrees. Patient has heart rate of 80 with fluctuating blood pressure. He is not able to follow commands and is speech is coherent. Abdomen is soft and not distended. Limited other exam conducted secondary to hospital status. Vital Signs: 13:58 BP 100 / 72; Pulse 85; Resp 21; Temp 94.3(R); Pulse Ox 94% on 3 lpm NC; ss 15:42 BP 104 / 58; Pulse 76; Resp 15; Pulse Ox 98% 2 lpm ; jl7 17:19 BP 110 / 69; Pulse 87; Resp 19; Pulse Ox 100% 2 lpm ; jl7 18:30 Temp 97.2; jl7 MDM: 14:11 Patient medically screened. sp3 15:43 Data reviewed: vital signs, nurses notes, lab test result(s). ED course: Discussed case sp3 with Dr. Puentes who is in agreement that patient is likely close to and will resume care in the home environment. I discussed this with daughter and son and they are all in agreement. Nurse was there to witness conversation. At this time regardless of his laboratory values being grossly abnormal, will discharge patient home under hospice care at this time.. 05/29 14:03 Order name: Basic Metabolic Panel; Complete Time: 15:24 sp3 05/29 14:03 Order name: CBC with Diff sp3 05/29 14:03 Order name: LFT's; Complete Time: 15:24 3 05/29 14:03 Order name: Magnesium; Complete Time: 15:24 3 05/29 14:03 Order name: NT PRO-BNP; Complete Time: 15:24 3 05/29 14:03 Order name: PT-INR; Complete Time: 15:24 3 05/29 14:03 Order name: Troponin (emerg Dept Use Only); Complete Time: 15:24 3 05/29 14:03 Order name: XRAY Chest (1 view) [facility] 05/29 15:10 Order name: SARS-COV-2 RT PCR [facility] 05/29 15:48 Order name: Glucose, Ancillary Testing [facility] 05/29 16:02 Order name: Glucose, Ancillary Testing [facility] 05/29 19:00 Order name: CBC Smear Scan [facility] 05/29 14:03 Order name: EKG; Complete Time: 14:04 3 05/29 14:03 Order name: Cardiac monitoring; Complete Time: 14:13 3 05/29 14:03 Order name: EKG - Nurse/Tech; Complete Time: 14:58 [facility] 05/29 14:03 Order name: IV Saline Lock; Complete Time: 14:13 3 05/29 14:03 Order name: Labs collected and sent; Complete Time: 14:13 3 05/29 14:03 Order name: O2 Per Protocol; Complete Time: 14:13 3 10/25 14:03 Order name: O2 Sat Monitoring; Complete Time: 14:13 sp3 05/29 14:03 Order name: CT Abd/Pelvis - Without Contrast; Complete Time: 14:56 sp3 Administered Medications: 14:13 Drug: D50W 25 ml Route: IVP; Site: left antecubital; ss 15:25 Follow up: Response: No adverse reaction; Blood sugar is elevated jl7 Point of Care Testing: Blood Glucose: 15:25 Blood Glucose: 101 mg/dL; jl7 15:42 Blood Glucose: 97 mg/dL; jl7 Ranges: Critical Glucose Levels:Adult <50 mg/dl or >400 mg/dl <40 mg/dl or >180 mg/dl Disposition Summary: 05/29/21 15:44 Discharge Ordered Location: Home sp3 Condition: Fair sp3 Diagnosis - Dehydration sp3 Followup: sp3 - With: Private Physician - When: Upon discharge from the Emergency Department - Reason: Continuance of care Discharge Instructions: - Discharge Summary Sheet sp3 - Hospice sp3 Forms: - Medication Reconciliation Form sp3 - Thank You Letter sp3 - Antibiotic Education sp3 - Prescription Opioid Use sp3 Signatures: Dispatcher [employer] EDMS Sri Akhtar RN RN ss Hanna Bobo MD MD sp3 Sherry Diaz RN jl7 Corrections: (The following items were deleted from the chart) 15:10 14:17 CORONAVIRUS+MR.LAB.BRZ ordered. EDMS EDMS 18:23 15:30 BASIC METABOLIC PANEL+C.LAB.BRZ ordered. EDMS EDMS
--- NOTE | 2021-05-29 15:44 | ER ---
Nurse's Notes [facility] Name: Oc King Age: 89 yrs Sex: Male : 1930 Arrival Date: 05/29/2021 Time: 13:57 Bed 2 Private MD: Diagnosis: Dehydration Presentation: 05/29 13:58 Chief complaint: EMS states: Called to patients home for altered mental status. Last ss known well is unknown. EMS reports that O2 on RA was 82%. PT was supposed to be on continuous home O2, but was not plugged in. Onset of symptoms is unknown. 13:58 Method Of Arrival: EMS: [facility] ss 13:58 Acuity: AUTUMN 2 ss 15:26 Coronavirus screen: At this time, the client does not indicate any symptoms associated jl7 with coronavirus-19. Ebola Screen: No symptoms or risks identified at this time. Initial Sepsis Screen: Does the patient meet any 2 criteria? No. Patient's initial sepsis screen is negative. Does the patient have a suspected source of infection? No. Patient's initial sepsis screen is negative. Risk Assessment: Do you want to hurt yourself or someone else? Patient reports no desire to harm self or others. Historical: - Allergies: 13:59 No Known Allergies; ss - PMHx: 13:59 Anemia; Anxiety; benign prostate hypertrophy; chronic back pain; chronic kidney ss disease; Hyperlipidemia; Hypertension; nephrogenous proteinuria; osteoarthritis; Prostate Cancer; - PSHx: 13:59 prostate sx; ss - Immunization history:: Adult Immunizations unknown. - Social history:: Smoking status: unknown. Screenin:41 Abuse screen: unable to obtain. Nutritional screening: unable to obtain. Tuberculosis jl7 screening: No symptoms or risk factors identified. Fall Risk IV access (20 points). Total Vann Fall Scale indicates No Risk (0-24 pts). Assessment: 14:00 Reassessment: Awaiting for family to arrive to obtain additional/ more accurate history ss of events. 14:42 Reassessment: Deborah blanket applied to pt. jl7 14:59 Reassessment: Pt's son, Sharad King, reports his sister, Marti Jimenez has medical power jl7 of wooden box maker. Marti's number is [phone]. 15:45 Reassessment: Dr. Bobo at bedside discussing chief complaint and POC with pt son and jl7 pt's daughter, both verbally agree they are comfortable with pt being discharged and dying peacefully at home. Pt is non-ambulatory, per Son Sharad, and will need EMS transport home, residential door unit installer notified. 16:00 Reassessment: Pt awaiting [facility] for transport, [facility] reports they gayatri will be here in about an hour. Vital Signs: 13:58 BP 100 / 72; Pulse 85; Resp 21; Temp 94.3(R); Pulse Ox 94% on 3 lpm NC; ss 15:42 BP 104 / 58; Pulse 76; Resp 15; Pulse Ox 98% 2 lpm ; jl7 17:19 BP 110 / 69; Pulse 87; Resp 19; Pulse Ox 100% 2 lpm ; jl7 18:30 Temp 97.2; jl7 ED Course: 13:57 Patient arrived in ED. bp 13:59 Triage completed. ss 13:59 Arm band placed on right wrist. ss 14:00 Patient has correct armband on for positive identification. Placed in gown. Bed in low jl7 position. Call light in reach. Side rails up X2. shelter monitor on. Pulse ox on. NIBP on. Warm blanket given. 14:01 Hanna Bobo MD is Attending Physician. sp3 14:15 Sherry Diaz, RN is Primary Nurse. jl7 14:16 Initial lab(s) drawn, by mi, sent to lab. COVID swab sent to lab. Inserted saline lock: jl7 20 gauge in left antecubital area, using aseptic technique. Blood collected. 14:23 CT Abd/Pelvis - Without Contrast In Process Unspecified. EDMS 14:42 Thermoregulation: Deborah blanket applied. jl7 15:04 EKG done, by ED staff, reviewed by Hanna Bobo MD. em1 15:36 XRAY Chest (1 view) In Process Unspecified. EDMS 16:41 IV discontinued, bleeding controlled, Pressure dressing applied. mb4 17:19 No provider procedures requiring assistance completed. jl7 Administered Medications: 14:13 Drug: D50W 25 ml Route: IVP; Site: left antecubital; ss 15:25 Follow up: Response: No adverse reaction; Blood sugar is elevated jl7 Point of Care Testing: Blood Glucose: 15:25 Blood Glucose: 101 mg/dL; jl7 15:42 Blood Glucose: 97 mg/dL; jl7 Ranges: Outcome: 15:44 Discharge ordered by MD. fishman 19:03 Discharged to home via ambulance, with family. jl7 19:03 Condition: stable 19:03 Discharge instructions given to patient, family, Instructed on discharge instructions, follow up and referral plans. Demonstrated understanding of instructions, follow-up care. 19:05 Patient left the ED. jl7 Signatures: Dispatcher [employer] Gigi Horn em1 Sri Akhtar RN RN ss Sherry Diaz RN RN jl7 Chris Garcia RN RN bp Baxter, Mackenzie mb4 Hanna Bobo MD MD sp3
[2021-05-29 16:08] LABS: Absolute Lymphocytes (CBC) 0.5 K/uL (0.7-4.9); Basophils % 0.3 % (0-1.3); Hematocrit 25.1 % (39.6-49.0); Lymphocytes % 4.3 % (15.3-44.8); MPV 8.3 fL (7.6-11.3); RBC Red Blood Cell Count 2.65 M/uL (4.33-5.43)
--- NOTE | 2021-05-29 16:29 | RAD REPORT ---
EXAM DESCRIPTION: Romero Single View05/29/2021 3:36 pm CLINICAL HISTORY: Malleolus COMPARISON: February 2021 FINDINGS: Small to moderate bilateral pleural effusions. Haziness overlying the mid to lower right lung likely is fluid within the fissure. Upper lobes are clear. Heart is moderately enlarged.
[2021-05-29 19:00] LABS: Anisocytosis 2+; Blood Morphology Comment NOTED (NOT SEEN); Platelet Estimate ADEQ; Poikilocytosis 2+; White Blood Cell Scan OK (OK)
[2021-05-29 19:22] VITALS: BP 110/69; O2SAT 100
[2021-05-29 19:24] VITALS: TEMP 97.2
--- NOTE | 2021-05-30 12:15 | EKG ---
Test Date: 2021-05-29 Test Time: 14:54:07 Landscape Engineer: ELAINE MEASUREMENT RESULTS: Intervals: Rate: 78 IN: 158 QRSD: 92 QT: 412 QTc: 469 [place]: P: 59 IN: 158 QRS: 4 T: -83 INTERPRETIVE STATEMENTS: Normal sinus rhythm Possible Left atrial enlargement ST & T wave abnormality, consider inferolateral ischemia Prolonged QT Abnormal ECG Compared to ECG 02/27/2021 15:20:55 ST (T wave) deviation now present Possible ischemia now present Prolonged QT interval now present Electronically Signed On 05-30-21 12:12:59 CDT by Maynor Holt
== END 2021-05-29 19:05 | disposition home or self-care (01) ==
LOC: ER 13:49
DX: E86.0 Dehydration (principal); C61 Malignant neoplasm of prostate; I10 Essential (primary) hypertension; E11.9 Type 2 diabetes mellitus without complications; Z20.822 Contact with and (suspected) exposure to COVID-19
CPT/HCPCS: 93005; 85025; 80048; 36415; 83735; 85610; 82947 ×2; 80076; 84484; 83880; 74176; 71045; 96374; 99285; U0003